=== PATIENT | male | born 1945 | race Caucasian/White ===

== ENCOUNTER 2016-10-05 05:46 | Inpatient (IN) ==
[2016-10-05] MEDS ORDERED: Ondansetron 4 MG/2 ML VIAL IVP ONE (06:14)
[2016-10-05] MEDS ORDERED: *HR* Morphine 2 MG/ML SYRINGE IVP ONE ×2 (06:14→09:39)
[2016-10-05] MEDS ORDERED: 0.9 % Sodium Chloride 1,000 ML IVC ONE (06:14)
--- NOTE | 2016-10-05 06:18 | Emergency Department Note ---
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 Patients currently receiving chemoradiation for his colon cancer. He said 2 treatments most recent last Tuesday. His oncologist is Dr. Flores. He takes Zoloda chemotherapy over the past few days he has missed his doses. This is due to his nausea dry heaving. This morning he woke up with unbearable pain and nausea. He has taken a [place] without any relief. Describes a sharp throbbing pain mostly around his colostomy site puts also diffusely over his entire abdomen. He has had some loose stool through his colostomy bag but now it has become more formed. Denies any fever, chills, chest pain, shortness of breath. Denies any urinary symptoms. His next appointment with Dr. Flores is this upcoming Tuesday. Pain Scale: 10 - Related Data Home Medications Medication Instructions Recorded Confirmed Atorvastatin Calcium [Lipitor] 80 mg PO HS 11/07/14 09/29/16 Cyanocobalamin (Vitamin B-12) 1,000 mcg PO DAILY 11/08/14 09/29/16 [Vitamin B-12] Aspirin Enteric Coated [Aspirin EC] 81 mg PO DAILY 12/31/14 09/29/16 hydroCHLOROthiazide 25 mg PO DAILY 05/23/15 09/29/16 [Hydrochlorothiazide] Cholecalciferol (D-3) [Vitamin D] 1,000 unit PO DAILY 07/27/16 09/29/16 Mv-Mn/FA/Vit K/Lycop/Lut/Coq10 1 each PO DAILY 07/27/16 09/29/16 [Daily Multivitamin Capsule] Dexamethasone 2 mg PO QDPC 09/29/16 09/29/16 HYDROcodone/Acet 10/325 mg 1 tab PO Q6H PRN 09/29/16 09/29/16 Levetiracetam 500 mg PO BID 09/29/16 09/29/16 Previous Rx's Medication Instructions Recorded Ascorbic Acid [Vitamin C] 500 mg PO DAILY #30 tablet 12/31/14 Capecitabine [Xeloda] 3 tab PO BID #84 tablet 08/10/16 Omeprazole [PriLOSEC] 20 mg PO DAILY #30 cap 08/10/16 Ondansetron HCl [Zofran] 4 mg PO Q4HR #30 tablet 08/10/16 Prochlorperazine Maleate 10 mg PO Q6H PRN #30 tablet 08/10/16 [Compazine] Gabapentin [Neurontin] 300 mg PO TID #90 capsule 09/14/16 Allergies Allergy/AdvReac Type Severity Reaction Status Date / Time azithromycin Allergy Unknown unknown Verified 07/27/16 15:11 All systems ED: reviewed and negative except as stated. Constitutional: Denies: fever, chills Cardiovascular: Denies: chest pain Respiratory: Denies: cough, dyspnea Gastrointestinal: Reports: abdominal pain, nausea, vomiting, diarrhea Genitourinary: Denies: urgency, dysuria, frequency Musculoskeletal: Denies: back pain, neck pain Integumentary: Denies: rash, abrasion Neurological: Denies: headache Abdominal Pain PMH - Past Medical History Medical history: Reports: cancer, coronary artery disease, GERD, hyperlipidemia , hypertension Male Surgical History: Reports: cancer surgery, cholecystectomy, colectomy, colostomy, herniorrhaphy Psychiatric history: Reports: anxiety - Social History Smoking status: Never smoker Alcohol use: Reports: none Drug use: Reports: none Physical Exam - General Limitations: no limitations General appearance: alert, in no apparent distress, other (ILL APPEARING) - Head Head exam: atraumatic, normocephalic, normal inspection - Eye Eye exam: Present: normal appearance, PERRL, EOMI - ENT ENT exam: normal exam, normal oropharynx, mucous membranes dry - Neck Neck exam: Present: normal inspection, full ROM, trachea midline - Chest Chest inspection: Present: normal inspection, symmetric chest wall rise - Respiratory Respiratory exam: Present: normal lung sounds bilaterally - Cardiovascular Cardiovascular exam: Present: regular rate, normal rhythm, normal heart sounds - Abdominal Exam Abdominal exam: Present: soft, tenderness, guarding, normal bowel sounds, other (COLOSTOMY MID ABDOMEN). Absent: Non-Tender, distention, rebound, rigidity Abdominal tenderness: Present: diffuse, moderate - Extremities Exam Extremities exam: Present: normal inspection, full ROM, normal capillary refill. Absent: tenderness, pedal edema, calf tenderness - Back Exam Back exam: Present: normal inspection, full ROM. 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 Complains of intractable nausea vomiting and abdominal pain. Patient has taken multiple doses of antibiotics as well as evaluation in the office for further medication. Currently on chemoradiation. Hemodynamically stable. Abdomen is distended with guarding and diffusely tender. Morphine for pain Zofran for nausea. Basic labs, urinalysis and CT abdomen and pelvis. - Reevaluation(s) Reevaluation #1: CT abdomen and pelvis reveals peritoneum in suspected perforated viscous unknown location. There is also small bowel obstruction with multiple dilated loops. Patient is in agreement with admission. Surgery has been paged. - Consultations Consultation #1: Spoke to radiologist Dr. Kay, reports free air through the upper abdomen without known source, no recent abdominal surgery. Findings are also suggestive of SBO. Time: 06:49 Consultation #2: Spoke to Dr. Valentine, surgeon on-call, due to the limited CT scan without contrast unable to identify perforation. She will review the images and call for further orders. Patient will have NG tube placed. He has been started on Zosyn for antibiotic coverage. Time: 07:12 Consultation #3: Dr. Valentine in the ED evaluating the patient. Patient signed out to daytime physician Dr. Gilmore for further management. NG tube ordered for placement. Patient has been admitted to the surgical service. Consult to oncology Dr. Flores. Vital Signs Temperature 97.5 F L 10/05/16 05:48 Pulse Rate 90 10/05/16 05:48 Respiratory Rate 18 10/05/16 05:48 Blood Pressure 117/64 10/05/16 05:48 O2 Sat by Pulse Oximetry 92 10/05/16 05:48 Temperature 97.5 F L 10/05/16 05:48 Pulse Rate 99 10/05/16 08:28 Respiratory Rate 16 10/05/16 08:28 Blood Pressure 108/63 10/05/16 08:28 O2 Sat by Pulse Oximetry 94 10/05/16 08:28 Oxygen Delivery Oxygen Delivery Room Air Abdominal Pain - Medical Records Medical records reviewed: Yes I reviewed the patient's medical records. - Lab Data Lab results reviewed: Yes I reviewed the patient's lab results. Result diagrams: 10/05/16 07:02 10/05/16 07:02 Lab Results 10/05/16 10/05/16 10/05/16 Range/Units 07:02 07:02 07:02 WBC 2.3 L D (4.3-11.1) K/mcL RBC 3.82 L (4.19-5.50) M/mcL Hgb 12.3 L (12.9-16.9) g/dL Hct 34.8 L (37.5-50.1) % MCV 91.1 (83.0-100.0) fL MCH 32.2 (28.0-33.3) pg MCHC 35.3 (31.6-35.5) g/dL RDW 15.7 H (11.5-14.5) % Plt Count 225 (140-400) K/mcL MPV 9.1 L (9.4-12.4) fL Seg Neutrophils % 72.0 % Band Neutrophils % 8.0 H (0-4) % Lymphocytes % 10.0 % Monocytes % 8.0 % Eosinophils % 2.0 % Neutrophils # 1.8 (1.6-8.9) K/mcL Lymphocytes # 0.2 L (0.6-4.6) K/mcL Monocytes # 0.2 (0.0-1.3) K/mcL Eosinophils # 0.1 (0.0-0.6) K/mcL Platelet Estimate Normal (Normal) Sodium 126 L (136-145) mEq/L Potassium 4.4 (3.5-4.5) mEq/L Chloride 91 L (98-109) mEq/L Carbon Dioxide 27 (19-29) mEq/L BUN 26 (8-26) mg/dL Creatinine 0.74 (0.72-1.25) mg/dL Est GFR ( Amer) > 60 (> 60) Est GFR (Non-Af Amer) > 60 (> 60) BUN/Creatinine Ratio 35 H (6-26) Glucose 104 H (70-99) mg/dL Calculated Osmolality 267 L (280-300) Lactic Acid 1.7 (0.5-2.2) mmol/L Calcium 9.3 (8.6-10.8) mg/dL Total Bilirubin 3.6 H (0.2-1.2) mg/dL Direct Bilirubin 1.1 H (0.0-0.5) mg/dL Indirect Bilirubin 2.5 H (0.0-1.2) mg/dL AST 25 (5-34) Units/L ALT 26 (0-55) Units/L Alkaline Phosphatase 89 (38-126) Units/L Serum Total Protein 5.8 L (6.0-8.3) g/dL Albumin 2.4 L (3.5-5.0) g/dL Globulin 3.4 (2.4-3.5) g/dL Albumin/Globulin Ratio 0.7 L (1.1-2.2) Lipase < 10 (8-78) Units/L - Radiology Data Radiology results reviewed: Yes I reviewed the patient's radiology results. Abdomen/Pelvis CT 10/05/16 06:14 IMPRESSION: 1. Pneumoperitoneum consistent with a perforated viscus. 2. Small bowel obstruction. 3. Indeterminate right adrenal gland nodule. This was not present on the study from 02/26/2014. Critical results were called by Dr. Lucho Kay MD to Rahul Pacheco on 10/05/2016 at 06:45. D/ / Lucho Kay MD / Lucho Kay MD Interpreting Provider: Lucho Kay MD Attestation Statement - Attestation Attestation: I examined this patient and my medical decision-making was reviewed with the MANUFACTURING ENGINEER [employer]SEMBLY/PA/Advanced Practice Nurse/Resident Physician. I agree with the documented findings, disposition and treatment plan as described except to the extent set forth below.71-year-old comes in with abdominal pain has metastatic colon cancer. abdomen he is diffusely tender. CT scan shows free air with perforation. Surgery was consult at who did come down Dr. Valentine saw the patient and will admit. Was remained stable.
[2016-10-05] MEDS ORDERED: Piperacillin/Tazobactam 3.375 GM in D5% in Water (Mini-Bag+) 100 ML IVPB ONE (06:48)
[2016-10-05 07:14] LABS: Hematocrit 34.8 % (37.5-50.1); Hemoglobin 12.3 g/dL (12.9-16.9); Lymphocytes # 0.2 K/mcL (0.6-4.6); Mean Corpuscular HGB Conc 35.3 g/dL (31.6-35.5); Mean Corpuscular Hemoglobin 32.2 pg (28.0-33.3); Mean Corpuscular Volume 91.1 fL (83.0-100.0); Mean Platelet Volume 9.1 fL (9.4-12.4); Platelet Count 225 K/mcL (140-400); Red Blood Count 3.82 M/mcL (4.19-5.50); Red Cell Distribution Width 15.7 % (11.5-14.5)
[2016-10-05 07:23] LABS: Alanine Aminotransferase 26 Units/L (0-55); Albumin 2.4 g/dL (3.5-5.0); Albumin/Globulin Ratio 0.7 (1.1-2.2); Alkaline Phosphatase 89 Units/L (38-126); Aspartate Amino Transferase 25 Units/L (5-34); BUN/Creatinine Ratio 35 (6-26); Bilirubin,Direct 1.1 mg/dL (0.0-0.5); Bilirubin,Indirect 2.5 mg/dL (0.0-1.2); Bilirubin,Total 3.6 mg/dL (0.2-1.2); Blood Urea Nitrogen 26 mg/dL (8-26); Calcium 9.3 mg/dL (8.6-10.8); Carbon Dioxide 27 mEq/L (19-29); Chloride 91 mEq/L (98-109); Globulin 3.4 g/dL (2.4-3.5); Glucose 104 mg/dL (70-99); Osmolality,Calculated 267 (280-300); Potassium 4.4 mEq/L (3.5-4.5); Sodium 126 mEq/L (136-145); Total Protein 5.8 g/dL (6.0-8.3); eGFR For African Americans > 60 (> 60); eGFR For Non-African Americans > 60 (> 60)
[2016-10-05 07:31] LABS: Lipase < 10 Units/L (8-78)
[2016-10-05 07:50] LABS: Eosinophils # 0.1 K/mcL (0.0-0.6); Monocytes # 0.2 K/mcL (0.0-1.3); Neutrophils # 1.8 K/mcL (1.6-8.9); Platelet Estimate Normal (Normal)
[2016-10-05] MEDS ORDERED: 0.9 % Sodium Chloride 1,000 ML IVC SCH (09:45)
[2016-10-05] MEDS ORDERED: Ondansetron 4 MG/2 ML VIAL IVP PRN (12:13)
[2016-10-05] MEDS ORDERED: *HR* Promethazine 25 MG/ML VIAL IVP PRN (12:13)
[2016-10-05] MEDS ORDERED: Naloxone 0.4 MG/ML INJ IVP PRN (12:13)
[2016-10-05] MEDS: 0.9 % Sodium Chloride 1,000 ML IVC SCH ×2 (12:50→20:04)
[2016-10-05] MEDS: Pantoprazole 40 MG VIAL IVP SCH (12:53)
[2016-10-05] MEDS: Fluconazole 200 MG/100 ML 200 MG/100 ML BAG IVPB SCH (13:09)
--- NOTE | 2016-10-05 13:16 | General Surg History&Physical ---
<Miriam Jeter - Last Filed: 10/05/16 13:33> Date of Encounter: 10/05/16 Time of Encounter: 13:00 Assessment and Plan (1) Pneumoperitoneum Current Visit: Yes Status: Acute The assessment and plan as outlined above was discussed with the patient and/or family members who expressed understanding and agreement. All questions were answered. CT reviewed per Dr. Valentine and suspect perforated diverticulum Will treat with conservative measures including: Bowel rest NG tube to low intermittent wall suction IV fluids- 120 mL's per hour IV antibiotics- Zosyn Supportive care and pain control Serial abdominal exams PPI therapy daily Incentive spirometer every 1 hour while awake No indication for urgent or emergent surgical intervention at this time Dr. Valentine did discuss with the patient and his that he is a poor surgical candidate (2) Small bowel obstruction Current Visit: Yes Status: Acute The assessment and plan as outlined above was discussed with the patient and/or family members who expressed understanding and agreement. All questions were answered. We will continue to treat with conservative measures including: Bowel rest NG tube to low intermittent wall suction IV fluids- 120 mL's per hour Serial abdominal exams (3) History of rectal cancer Current Visit: Yes Status: Chronic The assessment and plan as outlined above was discussed with the patient and/or family members who expressed understanding and agreement. All questions were answered. Patient has a history of colorectal cancer with metastasis to the lung and brain He is status post resection of his lung as well as a recent craniotomy and resection of his brain tumor Patient has been following with Dr. Flores with oncology- he received his most recent chemotherapy treatment 6 days ago (4) Hypertension Current Visit: Yes Status: Chronic The assessment and plan as outlined above was discussed with the patient and/or family members who expressed understanding and agreement. All questions were answered. Normotensive at this time We will continue to monitor and treat as necessary Qualifiers: Hypertension type: essential hypertension Qualified Code(s): I10 - Essential (primary) hypertension (5) DVT prophylaxis Current Visit: Yes Status: Acute The assessment and plan as outlined above was discussed with the patient and/or family members who expressed understanding and agreement. All questions were answered. Heparin 5000 units subcutaneous 3 times a day for DVT prophylaxis May ambulate hallways with assistance History of Present Illness Chief complaint: Abdominal pain with associated nausea HPI: Mr. Romano is a 71 year old male with a complex medical history including colorectal cancer with metastatic disease to the lung and brain. He reports onset of abdominal pain 48 hours ago. The pain is located around the left lower quadrant. It has been persistent since onset. He does admit to nausea with dry heaves and 1 episode of vomiting. Denies any hematemesis or coffee ground emesis. Denies having pain like this in the past. He states that he has no appetite and has not had much to eat or drink in the past 2 days. Denies any fevers/chills. He states that his bowel movements have slowed down through his colostomy. He has had very minimal output in the past 24 hours. Denies flatus from colostomy. Denies any difficult with urination. Denies any chest pains or shortness of breath. He has had a CT scan which shows concerns for SBO with mesenteric stranding, perforated viscous with intra-abdominal free air. He is currently undergoing chemotherapy for his metastatic colorectal cancer. He received his last dose of chemotherapy 6 days ago. Past Med Surg Social Fam HX - Past Medical History Medical history: cancer (metastatic colorectal cancer (lung and brain metastasis s/p resection)), coronary artery disease, GERD, hyperlipidemia, hypertension, other (left renal cyst) Psychiatric history: anxiety - Past Surgical History Surgical History: cholecystectomy, colectomy (colon resection with colostomy for colorectal cancer), colostomy, herniorrhaphy (bilateral inguinal), orthopedic, other (left rotator cuff repair; right knee arthroscopy; right total shoulder replacement), other (colonoscopy; facial repair with plate and left arm reconstruction after industrial accident; pelvic floor rebuild; left lobectomy for metastatic lesion; craniotomy with resection for metastatic lesion ) - Social History Smoking Status: Never smoker Smokeless Tobacco Status: No Alcohol use: none Drug use: none Current living situation: Home - Independent Activity Level: Independent ambulation - Family History Mother Living Status: Hx Family Cancer: Yes (uterine ca) Hx Family Endocrine Disorder: Yes (DM) Father Living Status: Hx Family Cardiac Disorders: Yes (CT) Medications and Allergies Cyanocobalamin (Vitamin B-12) [Vitamin B-12] 1,000 mcg PO DAILY 11/08/14 [ History] Ascorbic Acid [Vitamin C] 500 mg PO DAILY #30 tablet 12/31/14 [Rx] Aspirin Enteric Coated [Aspirin EC] 81 mg PO DAILY 12/31/14 [History] Cholecalciferol (D-3) [Vitamin D] 1,000 unit PO DAILY 07/27/16 [History] Mv-Mn/FA/Vit K/Lycop/Lut/Coq10 [Daily Multivitamin Capsule] 1 tab PO DAILY 07/27 [History] Omeprazole [PriLOSEC] 20 mg PO DAILY #30 cap 08/10/16 [Rx] Ondansetron HCl [Zofran] 4 mg PO Q4HR #30 tablet 08/10/16 [Rx] Prochlorperazine Maleate [Compazine] 10 mg PO Q6H PRN #30 tablet 08/10/16 [Rx] Gabapentin [Neurontin] 300 mg PO TID #90 capsule 09/14/16 [Rx] Dexamethasone [Decadron] 2 mg PO BID 09/29/16 [History] LevETIRAcetam [Keppra] 500 mg PO BID 09/29/16 [History] Diclofenac Sodium [Voltaren] 1 appl TP QID 10/05/16 [History] LORazepam [Ativan] 0.5 mg PO QID PRN 10/05/16 [History] Allergies azithromycin Allergy (Unknown, Verified 07/27/16 15:11) unknown Review of Systems All systems PM: reviewed and no additional remarkable complaints except as stated (in the HPI) All systems PM: A 10-system review of systems was performed and is negative for pertinent findings except as documented above in the HPI. General Surgery Exam Initial Vital Signs Temp Pulse Resp BP Pulse Ox 97.5 F L 90 18 117/64 92 10/05/16 05:48 10/05/16 05:48 10/05/16 05:48 10/05/16 05:48 10/05/16 05:48 - General physical appearance well developed, well nourished, no distress, moderate pain - Eyes PERRL, normal ocular movement - ENT normal mucosa, atraumatic, normocephalic - Neck trachea midline - Respiratory normal respiratory effort, clear to auscultation - Cardiovascular Cardiovascular exam: Present: RRR, tachycardia - Abdomen Abdomen general surgery: Present: soft, tender (moderately tender), wound ( colostomy with minimal amount of soft stool noted; NG tube to LIWS) Abdominal Tenderness: Present: LLQ - Integumentary Integumentary general surgery: Present: warm and dry - Neurologic Present: CN 2-12 grossly intact - Psychiatric Psychiatric general surgery: Present: appropriate, oriented to person, oriented to place, oriented to time, speech is normal, memory intact Results - Labs 10/05/16 07:02 10/05/16 07:02 Abnormal lab results WBC 2.3 K/mcL (4.3-11.1) L D 10/05/16 07:02 RBC 3.82 M/mcL (4.19-5.50) L 10/05/16 07:02 Hgb 12.3 g/dL (12.9-16.9) L 10/05/16 07:02 Hct 34.8 % (37.5-50.1) L 10/05/16 07:02 RDW 15.7 % (11.5-14.5) H 10/05/16 07:02 MPV 9.1 fL (9.4-12.4) L 10/05/16 07:02 Band Neutrophils % 8.0 % (0-4) H 10/05/16 07:02 Lymphocytes # 0.2 K/mcL (0.6-4.6) L 10/05/16 07:02 Sodium 126 mEq/L (136-145) L 10/05/16 07:02 Chloride 91 mEq/L (98-109) L 10/05/16 07:02 BUN/Creatinine Ratio 35 (6-26) H 10/05/16 07:02 Glucose 104 mg/dL (70-99) H 10/05/16 07:02 Calculated Osmolality 267 (280-300) L 10/05/16 07:02 Total Bilirubin 3.6 mg/dL (0.2-1.2) H 10/05/16 07:02 Direct Bilirubin 1.1 mg/dL (0.0-0.5) H 10/05/16 07:02 Indirect Bilirubin 2.5 mg/dL (0.0-1.2) H 10/05/16 07:02 Serum Total Protein 5.8 g/dL (6.0-8.3) L 10/05/16 07:02 Albumin 2.4 g/dL (3.5-5.0) L 10/05/16 07:02 Albumin/Globulin Ratio 0.7 (1.1-2.2) L 10/05/16 07:02 All other labs normal. - Imaging CT scan - abdomen: report reviewed CT scan - pelvis: report reviewed Additional studies: Abdomen/Pelvis CT 10/05/16 06:14 IMPRESSION: 1. Pneumoperitoneum consistent with a perforated viscus. 2. Small bowel obstruction. 3. Indeterminate right adrenal gland nodule. This was not present on the study from 02/26/2014. Critical results were called by Dr. Lucho Kay MD to Rahul Pacheco on 10/05/2016 at 06:45. D/ / Lucho Kay MD / Lucho Kay MD Interpreting Provider: Lucho Kay MD - Attending Attestation I examined this patient and my medical decision-making was reviewed with the MANAGER FARM/PA/Advanced Practice Nurse/Resident Physician. I agree with the documented findings, disposition and treatment plan as described except to the extent set forth below. <SergeEarlLoly L - Last Filed: 10/07/16 07:55> Date of Encounter: 10/05/16 Time of Encounter: 07:45 Assessment and Plan (1) Abdominal pain Current Visit: Yes Status: Acute The assessment and plan as outlined above was discussed with the patient and/or family members who expressed understanding and agreement. All questions were answered. prn pain medication Qualifiers: Abdominal location: left lower quadrant Qualified Code(s): R10.32 - Left lower quadrant pain (2) DVT prophylaxis Current Visit: Yes Status: Acute The assessment and plan as outlined above was discussed with the patient and/or family members who expressed understanding and agreement. All questions were answered. (3) Pneumoperitoneum Current Visit: Yes Status: Acute The assessment and plan as outlined above was discussed with the patient and/or family members who expressed understanding and agreement. All questions were answered. (4) History of rectal cancer Current Visit: Yes Status: Chronic The assessment and plan as outlined above was discussed with the patient and/or family members who expressed understanding and agreement. All questions were answered. (5) Hypertension Current Visit: Yes Status: Chronic The assessment and plan as outlined above was discussed with the patient and/or family members who expressed understanding and agreement. All questions were answered. Qualifiers: Hypertension type: essential hypertension Qualified Code(s): I10 - Essential (primary) hypertension (6) Drug therapy continued Current Visit: No Status: Acute The assessment and plan as outlined above was discussed with the patient and/or family members who expressed understanding and agreement. All questions were answered. History of Present Illness HPI: Mr. Romano is a 71 year old male Past Med Surg Social Fam HX - Past Medical History Source: patient Medical history: cancer Review of Systems All systems PM: A 10-system review of systems was performed and is negative for pertinent findings except as documented above in the HPI. General Surgery Exam Initial Vital Signs Temp Pulse Resp BP Pulse Ox 97.5 F L 90 18 117/64 92 10/05/16 05:48 10/05/16 05:48 10/05/16 05:48 10/05/16 05:48 10/05/16 05:48 - General physical appearance well developed, well nourished, moderate distress, moderate pain - Eyes PERRL, normal ocular movement - ENT normal mucosa, normocephalic - Neck trachea midline - Respiratory normal expansion, clear to auscultation - Cardiovascular Cardiovascular exam: Present: RRR, tachycardia. Absent: murmurs - Abdomen Abdomen general surgery: Present: bowel sounds present, soft, tender. Absent: distended, guarding, rebound Abdominal Tenderness: Present: LLQ - Integumentary Integumentary general surgery: Present: warm and dry, no abnormal pigmentation. Absent: diaphoresis - Neurologic Present: CN 2-12 grossly intact - Musculoskeletal Present: normal posture - Psychiatric Psychiatric general surgery: Present: A&Ox3, speech is normal Results - Labs 10/07/16 04:43 10/07/16 01:13 Abnormal lab results RBC 2.89 M/mcL (4.19-5.50) L 10/07/16 04:43 Hgb 9.6 g/dL (12.9-16.9) L 10/07/16 04:43 Hct 26.9 % (37.5-50.1) L 10/07/16 04:43 MCHC 35.7 g/dL (31.6-35.5) H 10/07/16 04:43 RDW 15.9 % (11.5-14.5) H 10/07/16 04:43 Sodium 129 mEq/L (136-145) L 10/07/16 01:13 Creatinine 0.52 mg/dL (0.72-1.25) L 10/07/16 01:13 BUN/Creatinine Ratio 38 (6-26) H 10/07/16 01:13 POC Glucose 115 (58-89) H 10/07/16 00:06 Calculated Osmolality 270 (280-300) L 10/07/16 01:13 Calcium 8.5 mg/dL (8.6-10.8) L 10/07/16 01:13 Phosphorus 1.9 mg/dL (2.3-4.7) L 10/07/16 01:13 Total Bilirubin 3.6 mg/dL (0.2-1.2) H 10/05/16 07:02 Direct Bilirubin 1.1 mg/dL (0.0-0.5) H 10/05/16 07:02 Indirect Bilirubin 2.5 mg/dL (0.0-1.2) H 10/05/16 07:02 Serum Total Protein 5.8 g/dL (6.0-8.3) L 10/05/16 07:02 Albumin 2.4 g/dL (3.5-5.0) L 10/05/16 07:02 Albumin/Globulin Ratio 0.7 (1.1-2.2) L 10/05/16 07:02 Prealbumin 7.0 mg/dL (18.0-45.0) L 10/06/16 04:30 Diabetes panel 10/07/16 Range/Units 01:13 Sodium 129 L (136-145) mEq/L Potassium 4.0 (3.5-4.5) mEq/L Chloride 103 (98-109) mEq/L Carbon Dioxide 19 (19-29) mEq/L BUN 20 (8-26) mg/dL Creatinine 0.52 L (0.72-1.25) mg/dL Glucose 80 (70-99) mg/dL Calcium 8.5 L (8.6-10.8) mg/dL Calcium panel 10/07/16 Range/Units 01:13 Calcium 8.5 L (8.6-10.8) mg/dL Phosphorus 1.9 L (2.3-4.7) mg/dL Pituitary panel 10/07/16 Range/Units 01:13 Sodium 129 L (136-145) mEq/L Potassium 4.0 (3.5-4.5) mEq/L Chloride 103 (98-109) mEq/L Carbon Dioxide 19 (19-29) mEq/L BUN 20 (8-26) mg/dL Creatinine 0.52 L (0.72-1.25) mg/dL Glucose 80 (70-99) mg/dL Calcium 8.5 L (8.6-10.8) mg/dL Adrenal panel 10/07/16 Range/Units 01:13 Sodium 129 L (136-145) mEq/L Potassium 4.0 (3.5-4.5) mEq/L Chloride 103 (98-109) mEq/L Carbon Dioxide 19 (19-29) mEq/L BUN 20 (8-26) mg/dL Creatinine 0.52 L (0.72-1.25) mg/dL Glucose 80 (70-99) mg/dL Calcium 8.5 L (8.6-10.8) mg/dL All other labs normal. - Imaging CT scan - abdomen: report reviewed, image reviewed CT scan - pelvis: report reviewed, image reviewed - Attending Attestation I examined this patient and my medical decision-making was reviewed with the MANAGER FARM/PA/Advanced Practice Nurse/Resident Physician. I agree with the documented findings, disposition and treatment plan as described except to the extent set forth below.
[2016-10-05] MEDS: Piperacillin/Tazobactam 3.375 GM in D5% in Water (Mini-Bag+) 100 ML IVPB SCH (15:22)
[2016-10-05] MEDS: *HR* Heparin 5,000 UNIT/ML VIAL SQ SCH (15:23)
[2016-10-05] MEDS: *HR* HYDROmorphone (PF) 1 MG/ML SYRINGE IVP PRN ×2 (18:04→21:46)
[2016-10-06] MEDS: *HR* HYDROmorphone (PF) 1 MG/ML SYRINGE IVP PRN ×5 (00:45→20:14)
[2016-10-06] MEDS: *HR* Heparin 5,000 UNIT/ML VIAL SQ SCH ×3 (00:45→15:24)
[2016-10-06] MEDS: Piperacillin/Tazobactam 3.375 GM in D5% in Water (Mini-Bag+) 100 ML IVPB SCH ×3 (00:45→15:24)
[2016-10-06] MEDS: 0.9 % Sodium Chloride 1,000 ML IVC SCH ×2 (04:40→15:27)
[2016-10-06 05:00] LABS: Basophils # 0.1 K/mcL (0.0-0.2); Basophils % 0.9 %; Eosinophils % 0.5 %; Immature Granulocytes % 1.2 % (0-4); Lymphocytes # 0.2 K/mcL (0.6-4.6); Lymphocytes % 3.3 %; Mean Corpuscular HGB Conc 34.5 g/dL (31.6-35.5); Mean Corpuscular Hemoglobin 32.7 pg (28.0-33.3); Mean Corpuscular Volume 94.8 fL (83.0-100.0); Mean Platelet Volume 9.8 fL (9.4-12.4); Monocytes # 0.2 K/mcL (0.0-1.3); Monocytes % 3.4 %; Neutrophils # 5.3 K/mcL (1.6-8.9); Platelet Count 145 K/mcL (140-400); Red Blood Count 3.06 M/mcL (4.19-5.50); Segmented Neutrophils % 90.7 %
[2016-10-06 05:01] LABS: BUN/Creatinine Ratio 33 (6-26); Blood Urea Nitrogen 19 mg/dL (8-26); Calcium 8.4 mg/dL (8.6-10.8); Carbon Dioxide 25 mEq/L (19-29); Chloride 100 mEq/L (98-109); Glucose 84 mg/dL (70-99); Magnesium 1.3 mg/dL (1.6-2.6); Osmolality,Calculated 267 (280-300); Phosphorous 2.2 mg/dL (2.3-4.7); Potassium 4.5 mEq/L (3.5-4.5); Sodium 128 mEq/L (136-145); eGFR For African Americans > 60 (> 60); eGFR For Non-African Americans > 60 (> 60)
[2016-10-06 05:43] LABS: Platelet Estimate Normal (Normal)
[2016-10-06] MEDS ORDERED: Magnesium Sulfate 2 GM in D5% in Water 100 ML IVPB ONE (08:14)
[2016-10-06] MEDS: Pantoprazole 40 MG VIAL IVP SCH (08:15)
[2016-10-06] MEDS: Fluconazole 200 MG/100 ML 200 MG/100 ML BAG IVPB SCH (08:15)
[2016-10-06] MEDS: *HR* LORazepam 2 MG/ML VIAL IVP PRN (09:28)
--- NOTE | 2016-10-06 09:48 | General Surgery Progress Note ---
<Brent Pino - Last Filed: 10/06/16 09:46> Date of Encounter: 10/06/16 Time of Encounter: 09:46 - Assessment and Plan (1) Pneumoperitoneum Current Visit: Yes Status: Acute Patient is not a surgical candidate at this time d/t chemotherapy regimen for metastatic rectal cancer. Bevacizumab is the likely culprit for perforation. 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 - Likely Bevacizumab being the culprit for his pneumoperitineum Followed by Oncology (Dr. Flores) (4) DVT prophylaxis Current Visit: Yes Status: Acute Heparin 5000 unites SQ TID. Ambulate with assistance Subjective Patient reports: no new complaints, feels better, pain is less, flatus ( colostomy), no bowel movement, afebrile Objective Vital Signs - Last 8 Hours Temp Pulse Resp BP Pulse Ox 10/06/16 07:50 91 10/06/16 07:30 99.4 F 98 20 116/72 96 10/06/16 06:52 98.6 F 80 18 121/73 98 10/06/16 05:40 98.6 F 79 15 128/75 98 10/06/16 04:00 86 Intake and Output 10/05/16 10/06/16 10/06/16 23:59 07:59 15:59 Intake Total 1055 / 1055 1100 / 1100 100 / 100 Output Total 300 / 300 0 / 0 Balance 755 / 755 1100 / 1100 100 / 100 Intake: IV Fluids 1055 / 1055 1100 / 1100 100 / 100 0.9 % Sodium Chloride 1, 955 / 955 1000 / 1000 000 ML @ 120 mls/hr IVC . Q8H20M [facility] Rx#:[id number] Diflucan Premix 200 MG/ 100 / 100 100 ML 200 mg In 100 ml @ 100 mls/hr IVPB DAILY [facility] Rx#:[id number] Zosyn 3.375 GM In 100 / 100 100 / 100 Dextrose 5% (Minibag+) 100 ML 100 ML @ 25 mls/hr IVPB Q8HR [facility] Rx#: [id number] Output: Urine 300 / 300 Gastric Tube Lavage 0 / 0 0 / 0 Amount Left Nare 0 / 0 0 / 0 Other: Meal npo Weight 91.2 kg Blood Glucose* 90 79 - General physical appearance well developed, well nourished, no distress - Eyes normal ocular movement - ENT normal mucosa (NGT present) - Neck Neck exam: trachea midline - Respiratory normal respiratory effort, clear to auscultation - Cardiovascular Cardiovascular exam: Present: irregular rhythm - Abdomen Abdomen: Present: bowel sounds present (faint), soft, non tender, wound ( colostomy present with minimal stool present) - Neurologic CN 2-12 grossly intact - Psychiatric oriented to time, oriented to person, oriented to place, speech is normal, memory intact - Labs 10/06/16 04:30 10/06/16 04:30 Diabetes panel 10/06/16 Range/Units 04:30 Sodium 128 L (136-145) mEq/L Potassium 4.5 (3.5-4.5) mEq/L Chloride 100 (98-109) mEq/L Carbon Dioxide 25 (19-29) mEq/L BUN 19 (8-26) mg/dL Creatinine 0.58 L (0.72-1.25) mg/dL Glucose 84 (70-99) mg/dL Calcium 8.4 L (8.6-10.8) mg/dL Calcium panel 10/06/16 Range/Units 04:30 Calcium 8.4 L (8.6-10.8) mg/dL Phosphorus 2.2 L (2.3-4.7) mg/dL Pituitary panel 10/06/16 Range/Units 04:30 Sodium 128 L (136-145) mEq/L Potassium 4.5 (3.5-4.5) mEq/L Chloride 100 (98-109) mEq/L Carbon Dioxide 25 (19-29) mEq/L BUN 19 (8-26) mg/dL Creatinine 0.58 L (0.72-1.25) mg/dL Glucose 84 (70-99) mg/dL Calcium 8.4 L (8.6-10.8) mg/dL Adrenal panel 10/06/16 Range/Units 04:30 Sodium 128 L (136-145) mEq/L Potassium 4.5 (3.5-4.5) mEq/L Chloride 100 (98-109) mEq/L Carbon Dioxide 25 (19-29) mEq/L BUN 19 (8-26) mg/dL Creatinine 0.58 L (0.72-1.25) mg/dL Glucose 84 (70-99) mg/dL Calcium 8.4 L (8.6-10.8) mg/dL Consult Discharge Plan - Plan Referrals: Marisol Carreon, [employer]ELOP[employer] MANAGER [Primary Care Provider] - 10/18/16 10:00 am <Loly Valentine - Last Filed: 10/07/16 08:00> Date of Encounter: 10/06/16 Time of Encounter: 12:00 - Assessment and Plan (1) Abdominal pain Current Visit: Yes Status: Acute pain is almost nonexistant at this point Qualifiers: Abdominal location: left lower quadrant Qualified Code(s): R10.32 - Left lower quadrant pain (2) DVT prophylaxis Current Visit: Yes Status: Acute (3) Pneumoperitoneum Current Visit: Yes Status: Acute would perform surgery for patient if that was necessary, his recent chemotherapy administration makes him high risk, doesnt make him ineligible for surgery should he need it. patient is improving greatly with conservative therapy continue npo, ivfh prn pain control will advance slowly (4) History of rectal cancer Current Visit: Yes Status: Chronic (5) Hypertension Current Visit: Yes Status: Chronic normotensive, monitor Qualifiers: Hypertension type: essential hypertension Qualified Code(s): I10 - Essential (primary) hypertension Subjective Patient reports: no new complaints, feels better, still having pain, pain is less, flatus, no bowel movement Objective Vital Signs - Last 8 Hours Temp Pulse Resp BP Pulse Ox 10/07/16 06:20 98.1 F 90 17 130/83 95 10/07/16 04:15 93 10/07/16 00:00 97.7 F 102 16 139/84 94 Intake and Output 10/06/16 10/06/16 10/07/16 15:59 23:59 07:59 Intake Total 304 / 304 100 / 100 1100 / 1100 Output Total 375 / 375 250 / 250 Balance -71 / -71 -150 / -150 1100 / 1100 Intake: IV Fluids 304 / 304 100 / 100 1100 / 1100 0.9 % Sodium Chloride 1, 1000 / 1000 000 ML @ 90 mls/hr IVC . Q11H7M [facility] Rx#:[id number] Diflucan Premix 200 MG/ 100 / 100 100 ML 200 mg In 100 ml @ 100 mls/hr IVPB DAILY [facility] Rx#:[id number] Magnesium Sulfate 2 GM In 104 / 104 Dextrose 5% 100 ML @ 100 mls/hr IVPB ONCE ONE Rx# :[id number] Zosyn 3.375 GM In 100 / 100 100 / 100 100 / 100 Dextrose 5% (Minibag+) 100 ML 100 ML @ 25 mls/hr IVPB Q8HR [facility] Rx#: [id number] Output: Urine 375 / 375 250 / 250 Gastric Tube Lavage 0 / 0 0 / 0 Amount Left Nare 0 / 0 0 / 0 Other: Meal npo Blood Glucose* 84 91 93 - General physical appearance well developed, well nourished, no distress - Eyes PERRL, normal ocular movement - ENT normal mucosa, atraumatic - Neck Neck exam: trachea midline - Respiratory normal expansion, clear to auscultation - Cardiovascular Cardiovascular exam: Present: irregular rhythm - Abdomen Abdomen: Present: bowel sounds present, soft, non tender - Integumentary no rash, no growths - Neurologic CN 2-12 grossly intact - Musculoskeletal normal posture - Psychiatric oriented to time, oriented to person, oriented to place, speech is normal, memory intact - Labs 10/07/16 04:43 10/07/16 01:13 Diabetes panel 10/07/16 Range/Units 01:13 Sodium 129 L (136-145) mEq/L Potassium 4.0 (3.5-4.5) mEq/L Chloride 103 (98-109) mEq/L Carbon Dioxide 19 (19-29) mEq/L BUN 20 (8-26) mg/dL Creatinine 0.52 L (0.72-1.25) mg/dL Glucose 80 (70-99) mg/dL Calcium 8.5 L (8.6-10.8) mg/dL Calcium panel 10/07/16 Range/Units 01:13 Calcium 8.5 L (8.6-10.8) mg/dL Phosphorus 1.9 L (2.3-4.7) mg/dL Pituitary panel 10/07/16 Range/Units 01:13 Sodium 129 L (136-145) mEq/L Potassium 4.0 (3.5-4.5) mEq/L Chloride 103 (98-109) mEq/L Carbon Dioxide 19 (19-29) mEq/L BUN 20 (8-26) mg/dL Creatinine 0.52 L (0.72-1.25) mg/dL Glucose 80 (70-99) mg/dL Calcium 8.5 L (8.6-10.8) mg/dL Adrenal panel 10/07/16 Range/Units 01:13 Sodium 129 L (136-145) mEq/L Potassium 4.0 (3.5-4.5) mEq/L Chloride 103 (98-109) mEq/L Carbon Dioxide 19 (19-29) mEq/L BUN 20 (8-26) mg/dL Creatinine 0.52 L (0.72-1.25) mg/dL Glucose 80 (70-99) mg/dL Calcium 8.5 L (8.6-10.8) mg/dL - Attending Attestation Loly Valentine MD I examined this patient and my medical decision-making was reviewed with the TOOLMAN/PA/Advanced Practice Nurse/Resident Physician. I agree with the documented findings, disposition and treatment plan as described except to the extent set forth below.
[2016-10-07] MEDS: *HR* Heparin 5,000 UNIT/ML VIAL SQ SCH ×4 (00:36→23:17)
[2016-10-07] MEDS: *HR* HYDROmorphone (PF) 1 MG/ML SYRINGE IVP PRN ×4 (00:36→21:32)
[2016-10-07] MEDS: Piperacillin/Tazobactam 3.375 GM in D5% in Water (Mini-Bag+) 100 ML IVPB SCH ×4 (00:37→23:17)
[2016-10-07 01:43] LABS: BUN/Creatinine Ratio 38 (6-26); Blood Urea Nitrogen 20 mg/dL (8-26); Calcium 8.5 mg/dL (8.6-10.8); Carbon Dioxide 19 mEq/L (19-29); Chloride 103 mEq/L (98-109); Glucose 80 mg/dL (70-99); Magnesium 1.7 mg/dL (1.6-2.6); Osmolality,Calculated 270 (280-300); Phosphorous 1.9 mg/dL (2.3-4.7); Sodium 129 mEq/L (136-145); eGFR For African Americans > 60 (> 60); eGFR For Non-African Americans > 60 (> 60)
[2016-10-07] MEDS: 0.9 % Sodium Chloride 1,000 ML IVC SCH ×2 (02:35→16:00)
[2016-10-07 06:31] LABS: Hematocrit 26.9 % (37.5-50.1); Hemoglobin 9.6 g/dL (12.9-16.9); Mean Corpuscular HGB Conc 35.7 g/dL (31.6-35.5); Mean Corpuscular Hemoglobin 33.2 pg (28.0-33.3); Mean Corpuscular Volume 93.1 fL (83.0-100.0); Mean Platelet Volume 10.4 fL (9.4-12.4); Platelet Count 172 K/mcL (140-400); Red Blood Count 2.89 M/mcL (4.19-5.50); Red Cell Distribution Width 15.9 % (11.5-14.5)
[2016-10-07 07:42] LABS: Eosinophils # 0.2 K/mcL (0.0-0.6); Lymphocytes # 1.3 K/mcL (0.6-4.6); Monocytes # 0.1 K/mcL (0.0-1.3); Neutrophils # 6.4 K/mcL (1.6-8.9); Platelet Estimate Normal (Normal)
[2016-10-07] MEDS: Pantoprazole 40 MG VIAL IVP SCH (07:51)
[2016-10-07] MEDS ORDERED: Sodium Phosphate 30 MMOL in D5% in Water 100 ML IVPB ONE (12:43)
--- NOTE | 2016-10-07 12:47 | General Surgery Progress Note ---
<Miriam Jeter - Last Filed: 10/07/16 12:58> Date of Encounter: 10/07/16 Time of Encounter: 12:30 - Assessment and Plan (1) Pneumoperitoneum Current Visit: Yes Status: Acute CT reviewed per Dr. Valentine and suspect perforated diverticulum Patient doing well and responding to conservative measures: Advance to clear liquids IV fluids- 90 mL's per hour IV antibiotics- Zosyn Supportive care and pain control Serial abdominal exams PPI therapy daily Repeat am labs Incentive spirometer every 1 hour while awake No indication for urgent or emergent surgical intervention at this time Dr. Valentine did discuss with the patient and his that he is a poor surgical candidate (2) Small bowel obstruction Current Visit: Yes Status: Acute Resolving Advance to clear liquids IV fluids- 90mls per hour (3) History of rectal cancer Current Visit: Yes Status: Chronic (4) Hypertension Current Visit: Yes Status: Chronic Normotensive Qualifiers: Hypertension type: essential hypertension Qualified Code(s): I10 - Essential (primary) hypertension (7) DVT prophylaxis Current Visit: Yes Status: Acute Heparin 5,000 units SQ twice daily for DVT prophylaxis Ambulate TID with assistance Subjective Patient reports: no new complaints, feels better, voiding w/o difficulty, no flatus, bowel movement (liquid via colostomy minimal), afebrile Objective Vital Signs - Last 8 Hours Temp Pulse Resp BP Pulse Ox 10/07/16 11:45 98.5 F 79 18 120/71 92 10/07/16 10:27 98.5 F 79 18 120/71 92 10/07/16 09:15 64 10/07/16 07:45 98.5 F 79 18 120/71 92 10/07/16 06:20 98.1 F 90 17 130/83 95 Intake and Output 10/06/16 10/07/16 10/07/16 23:59 07:59 15:59 Intake Total 100 / 100 1100 / 1100 0 / 0 Output Total 250 / 250 0 / 0 0 / 0 Balance -150 / -150 1100 / 1100 0 / 0 Intake: IV Fluids 100 / 100 1100 / 1100 0.9 % Sodium Chloride 1, 1000 / 1000 000 ML @ 90 mls/hr IVC . Q11H7M [facility] Rx#:[id number] Zosyn 3.375 GM In 100 / 100 100 / 100 Dextrose 5% (Minibag+) 100 ML 100 ML @ 25 mls/hr IVPB Q8HR [facility] Rx#: [id number] Oral 0 / 0 0 / 0 Output: Urine 250 / 250 0 / 0 0 / 0 Gastric Tube Lavage 0 / 0 Amount Left Nare 0 / 0 Other: Meal Breakfast Percent of Meal Consumed 0% Blood Glucose* 91 93 74 - General physical appearance well developed, no distress, no pain - Eyes normal ocular movement - ENT normal mucosa, atraumatic, normocephalic - Neck Neck exam: trachea midline - Respiratory normal respiratory effort, clear to auscultation - Cardiovascular Cardiovascular exam: Present: RRR - Abdomen Abdomen: Present: bowel sounds present, soft, non tender, wound (Colostomy with small amount of liquid stool noted) - Neurologic CN 2-12 grossly intact - Psychiatric oriented to time, oriented to person, oriented to place, speech is normal, memory intact - Labs 10/07/16 04:43 10/07/16 01:13 Diabetes panel 10/07/16 Range/Units 01:13 Sodium 129 L (136-145) mEq/L Potassium 4.0 (3.5-4.5) mEq/L Chloride 103 (98-109) mEq/L Carbon Dioxide 19 (19-29) mEq/L BUN 20 (8-26) mg/dL Creatinine 0.52 L (0.72-1.25) mg/dL Glucose 80 (70-99) mg/dL Calcium 8.5 L (8.6-10.8) mg/dL Calcium panel 10/07/16 Range/Units 01:13 Calcium 8.5 L (8.6-10.8) mg/dL Phosphorus 1.9 L (2.3-4.7) mg/dL Pituitary panel 10/07/16 Range/Units 01:13 Sodium 129 L (136-145) mEq/L Potassium 4.0 (3.5-4.5) mEq/L Chloride 103 (98-109) mEq/L Carbon Dioxide 19 (19-29) mEq/L BUN 20 (8-26) mg/dL Creatinine 0.52 L (0.72-1.25) mg/dL Glucose 80 (70-99) mg/dL Calcium 8.5 L (8.6-10.8) mg/dL Adrenal panel 10/07/16 Range/Units 01:13 Sodium 129 L (136-145) mEq/L Potassium 4.0 (3.5-4.5) mEq/L Chloride 103 (98-109) mEq/L Carbon Dioxide 19 (19-29) mEq/L BUN 20 (8-26) mg/dL Creatinine 0.52 L (0.72-1.25) mg/dL Glucose 80 (70-99) mg/dL Calcium 8.5 L (8.6-10.8) mg/dL Consult Discharge Plan - Plan Referrals: Marisol Carreon, [employer] GLAZE MAKER [Primary Care Provider] - 10/18/16 10:00 am (Please follow up as schedule...) - Attending Attestation I examined this patient and my medical decision-making was reviewed with the BOILER TECHNICIAN/PA/Advanced Practice Nurse/Resident Physician. I agree with the documented findings, disposition and treatment plan as described except to the extent set forth below. <Loly Valentine - Last Filed: 10/08/16 12:55> Date of Encounter: 10/07/16 - Assessment and Plan (1) Abdominal pain Current Visit: Yes Status: Acute prn pain control Qualifiers: Abdominal location: left lower quadrant Qualified Code(s): R10.32 - Left lower quadrant pain (2) DVT prophylaxis Current Visit: Yes Status: Acute (3) Pneumoperitoneum Current Visit: Yes Status: Acute patient starting clears and tolerating thus far had bm no nausea pain improved (4) History of rectal cancer Current Visit: Yes Status: Chronic (5) Hypertension Current Visit: Yes Status: Chronic Qualifiers: Hypertension type: essential hypertension Qualified Code(s): I10 - Essential (primary) hypertension Subjective Patient reports: feels better, still having pain, pain is less, flatus, bowel movement, afebrile Objective Vital Signs - Last 8 Hours Temp Pulse Resp BP Pulse Ox 10/08/16 12:14 98.6 F 92 16 128/82 96 10/08/16 06:49 98.1 F 91 16 118/80 93 Intake and Output 10/07/16 10/08/16 10/08/16 23:59 07:59 15:59 Intake Total 100 / 100 100 / 100 624 / 624 Output Total 450 / 450 200 / 200 Balance -350 / -350 100 / 100 424 / 424 Intake: IV Fluids 100 / 100 100 / 100 204 / 204 Magnesium Sulfate 2 GM In 104 / 104 Dextrose 5% 100 ML @ 100 mls/hr IVPB ONCE ONE Rx# :[id number] Zosyn 3.375 GM In 100 / 100 100 / 100 100 / 100 Dextrose 5% (Minibag+) 100 ML 100 ML @ 25 mls/hr IVPB Q8HR [facility] Rx#: [id number] Oral 0 / 0 420 / 420 Output: Urine 450 / 450 200 / 200 Other: Stool Size Small Stool Consistency soft formed Stool Characteristics Normal for Patient Stool Color Brown # Bowel Movements 1 Weight 91.2 kg Blood Glucose* 195 106 Patient Weight 10/08/16 23:59 Weight 91.2 kg - General physical appearance well developed, no distress, no pain - Eyes normal ocular movement - ENT normal mucosa, normocephalic - Neck Neck exam: trachea midline - Respiratory clear to auscultation, other (exertional dyspnea) - Cardiovascular Cardiovascular exam: Present: RRR - Abdomen Abdomen: Present: bowel sounds present, soft, tender. Absent: distended, guarding, rebound Abdominal Tenderness: RLQ - Integumentary no rash, no growths - Neurologic CN 2-12 grossly intact - Musculoskeletal normal gait, normal posture - Psychiatric oriented to time, oriented to person, memory intact - Labs 10/08/16 03:35 10/08/16 03:35 Diabetes panel 10/08/16 Range/Units 03:35 Sodium 132 L (136-145) mEq/L Potassium 3.4 L (3.5-4.5) mEq/L Chloride 101 (98-109) mEq/L Carbon Dioxide 26 (19-29) mEq/L BUN 21 (8-26) mg/dL Creatinine 0.53 L (0.72-1.25) mg/dL Glucose 114 H (70-99) mg/dL Calcium 8.5 L (8.6-10.8) mg/dL Calcium panel 10/08/16 Range/Units 03:35 Calcium 8.5 L (8.6-10.8) mg/dL Phosphorus 2.3 (2.3-4.7) mg/dL Pituitary panel 10/08/16 Range/Units 03:35 Sodium 132 L (136-145) mEq/L Potassium 3.4 L (3.5-4.5) mEq/L Chloride 101 (98-109) mEq/L Carbon Dioxide 26 (19-29) mEq/L BUN 21 (8-26) mg/dL Creatinine 0.53 L (0.72-1.25) mg/dL Glucose 114 H (70-99) mg/dL Calcium 8.5 L (8.6-10.8) mg/dL Adrenal panel 10/08/16 Range/Units 03:35 Sodium 132 L (136-145) mEq/L Potassium 3.4 L (3.5-4.5) mEq/L Chloride 101 (98-109) mEq/L Carbon Dioxide 26 (19-29) mEq/L BUN 21 (8-26) mg/dL Creatinine 0.53 L (0.72-1.25) mg/dL Glucose 114 H (70-99) mg/dL Calcium 8.5 L (8.6-10.8) mg/dL
[2016-10-07] MEDS: *HR* LORazepam 2 MG/ML VIAL IVP PRN (13:18)
[2016-10-07] MEDS ORDERED: 0.9 % Sodium Chloride 1,000 ML IVC SCH (17:49)
[2016-10-08 03:53] LABS: Basophils % 0.1 %; Eosinophils # 0.1 K/mcL (0.0-0.6); Eosinophils % 1.8 %; Hemoglobin 8.9 g/dL (12.9-16.9); Immature Granulocytes % 1.4 % (0-4); Immature Platelets 1.6 % (1.1-6.1); Lymphocytes # 0.3 K/mcL (0.6-4.6); Mean Corpuscular HGB Conc 35.6 g/dL (31.6-35.5); Mean Corpuscular Hemoglobin 33.1 pg (28.0-33.3); Mean Corpuscular Volume 92.9 fL (83.0-100.0); Mean Platelet Volume 9.2 fL (9.4-12.4); Monocytes # 0.3 K/mcL (0.0-1.3); Monocytes % 3.7 %; Neutrophils # 6.4 K/mcL (1.6-8.9); Platelet Count 210 K/mcL (140-400); Red Blood Count 2.69 M/mcL (4.19-5.50)
[2016-10-08 04:41] LABS: Platelet Estimate Normal (Normal)
[2016-10-08 04:42] LABS: Anisocytosis 1+ (Not Present); Burr Cells 1+ (Not Present)
[2016-10-08 04:43] LABS: Poikilocytosis 1+ (Not Present)
[2016-10-08 04:56] LABS: BUN/Creatinine Ratio 40 (6-26); Blood Urea Nitrogen 21 mg/dL (8-26); Calcium 8.5 mg/dL (8.6-10.8); Carbon Dioxide 26 mEq/L (19-29); Chloride 101 mEq/L (98-109); Glucose 114 mg/dL (70-99); Magnesium 1.4 mg/dL (1.6-2.6); Osmolality,Calculated 278 (280-300); Phosphorous 2.3 mg/dL (2.3-4.7); Potassium 3.4 mEq/L (3.5-4.5); Sodium 132 mEq/L (136-145); eGFR For African Americans > 60 (> 60); eGFR For Non-African Americans > 60 (> 60)
[2016-10-08] MEDS: *HR* HYDROmorphone (PF) 1 MG/ML SYRINGE IVP PRN ×5 (07:44→21:49)
[2016-10-08] MEDS: Pantoprazole 40 MG VIAL IVP SCH (07:46)
[2016-10-08] MEDS: *HR* Heparin 5,000 UNIT/ML VIAL SQ SCH ×3 (07:48→23:30)
[2016-10-08] MEDS: Piperacillin/Tazobactam 3.375 GM in D5% in Water (Mini-Bag+) 100 ML IVPB SCH ×3 (07:56→23:34)
[2016-10-08] MEDS ORDERED: Magnesium Sulfate 2 GM in D5% in Water 100 ML IVPB ONE (08:43)
[2016-10-08] MEDS ORDERED: Potassium Chloride 40 MEQ, Lidocaine 1% 2 ML in D5% in Water 500 ML IVPB ONE (08:44)
--- NOTE | 2016-10-08 08:54 | General Surgery Progress Note ---
<Miriam Jeter - Last Filed: 10/08/16 08:51> Date of Encounter: 10/08/16 Time of Encounter: 08:30 - Assessment and Plan (1) Pneumoperitoneum Current Visit: Yes Status: Acute CT reviewed per Dr. Valentine and suspect perforated diverticulum Patient doing well and responding to conservative measures: Continue clear liquids IV fluids- 40 mL's per hour IV antibiotics- Zosyn Supportive care and pain control Serial abdominal exams PPI therapy daily Repeat am labs Incentive spirometer every 1 hour while awake No indication for urgent or emergent surgical intervention at this time Dr. Valentine did discuss with the patient and his that he is a poor surgical candidate (2) Small bowel obstruction Current Visit: Yes Status: Acute Resolving- flatus and stool noted in colostomy bag Continue clear liquids IV fluids- 40mls per hour (3) History of rectal cancer Current Visit: Yes Status: Chronic (4) Hypertension Current Visit: Yes Status: Chronic Normotensive Qualifiers: Hypertension type: essential hypertension Qualified Code(s): I10 - Essential (primary) hypertension (5) Hypomagnesemia Current Visit: Yes Status: Acute Replace Mg per Dr. Valentine (6) Hypokalemia Current Visit: Yes Status: Acute Replace potassium per Dr. Valentine Repeat am labs (7) DVT prophylaxis Current Visit: Yes Status: Acute Heparin 5,000 units SQ TID daily for DVT prophylaxis Ambulate TID with assistance Subjective Patient reports: no new complaints, feels better, still having pain, pain is less, tolerating liquids well, voiding w/o difficulty, flatus, bowel movement, afebrile Objective Vital Signs - Last 8 Hours Temp Pulse Resp BP Pulse Ox 10/08/16 06:49 98.1 F 91 16 118/80 93 10/08/16 03:30 97.8 F 87 16 146/82 94 Intake and Output 10/07/16 10/08/16 10/08/16 23:59 07:59 15:59 Intake Total 100 / 100 100 / 100 Output Total 450 / 450 Balance -350 / -350 100 / 100 Intake: IV Fluids 100 / 100 100 / 100 Zosyn 3.375 GM In 100 / 100 100 / 100 Dextrose 5% (Minibag+) 100 ML 100 ML @ 25 mls/hr IVPB Q8HR [facility] Rx#: [id number] Oral 0 / 0 Output: Urine 450 / 450 Other: Weight 91.2 kg Blood Glucose* 195 106 Patient Weight 10/08/16 23:59 Weight 91.2 kg - General physical appearance well developed, well nourished, no distress - Eyes normal ocular movement - ENT normal mucosa, atraumatic, normocephalic - Neck Neck exam: trachea midline - Respiratory normal respiratory effort, clear to auscultation - Cardiovascular Cardiovascular exam: Present: RRR - Abdomen Abdomen: Present: bowel sounds present, soft, tender (mildly) Abdominal Tenderness: LLQ - Neurologic CN 2-12 grossly intact - Musculoskeletal normal gait, normal posture - Psychiatric oriented to time, oriented to person, oriented to place, speech is normal, memory intact - Labs 10/08/16 03:35 10/08/16 03:35 Diabetes panel 10/08/16 Range/Units 03:35 Sodium 132 L (136-145) mEq/L Potassium 3.4 L (3.5-4.5) mEq/L Chloride 101 (98-109) mEq/L Carbon Dioxide 26 (19-29) mEq/L BUN 21 (8-26) mg/dL Creatinine 0.53 L (0.72-1.25) mg/dL Glucose 114 H (70-99) mg/dL Calcium 8.5 L (8.6-10.8) mg/dL Calcium panel 10/08/16 Range/Units 03:35 Calcium 8.5 L (8.6-10.8) mg/dL Phosphorus 2.3 (2.3-4.7) mg/dL Pituitary panel 10/08/16 Range/Units 03:35 Sodium 132 L (136-145) mEq/L Potassium 3.4 L (3.5-4.5) mEq/L Chloride 101 (98-109) mEq/L Carbon Dioxide 26 (19-29) mEq/L BUN 21 (8-26) mg/dL Creatinine 0.53 L (0.72-1.25) mg/dL Glucose 114 H (70-99) mg/dL Calcium 8.5 L (8.6-10.8) mg/dL Adrenal panel 10/08/16 Range/Units 03:35 Sodium 132 L (136-145) mEq/L Potassium 3.4 L (3.5-4.5) mEq/L Chloride 101 (98-109) mEq/L Carbon Dioxide 26 (19-29) mEq/L BUN 21 (8-26) mg/dL Creatinine 0.53 L (0.72-1.25) mg/dL Glucose 114 H (70-99) mg/dL Calcium 8.5 L (8.6-10.8) mg/dL Consult Discharge Plan - Plan Referrals: Marisol Crareon, AVIATION MECHANIC [Primary Care Provider] - 10/18/16 10:00 am (Please follow up as schedule...) - Attending Attestation I examined this patient and my medical decision-making was reviewed with the MONOTYPE MECHANIC/PA/Advanced Practice Nurse/Resident Physician. I agree with the documented findings, disposition and treatment plan as described except to the extent set forth below. <Loly Valentine - Last Filed: 10/08/16 12:57> Date of Encounter: 10/08/16 - Assessment and Plan (1) Abdominal pain Current Visit: Yes Status: Acute prn pain control Qualifiers: Abdominal location: left lower quadrant Qualified Code(s): R10.32 - Left lower quadrant pain (2) DVT prophylaxis Current Visit: Yes Status: Acute (3) Pneumoperitoneum Current Visit: Yes Status: Acute advance to fulls, tolerated clears and no increased discomfort with food less tender today than yesterday (4) History of rectal cancer Current Visit: Yes Status: Chronic (5) Hypertension Current Visit: Yes Status: Chronic Qualifiers: Hypertension type: essential hypertension Qualified Code(s): I10 - Essential (primary) hypertension Subjective Patient reports: feels better, still having pain, pain is less, tolerating liquids well, voiding w/o difficulty, flatus, bowel movement Objective Vital Signs - Last 8 Hours Temp Pulse Resp BP Pulse Ox 10/08/16 12:14 98.6 F 92 16 128/82 96 10/08/16 06:49 98.1 F 91 16 118/80 93 Intake and Output 10/07/16 10/08/16 10/08/16 23:59 07:59 15:59 Intake Total 100 / 100 100 / 100 624 / 624 Output Total 450 / 450 200 / 200 Balance -350 / -350 100 / 100 424 / 424 Intake: IV Fluids 100 / 100 100 / 100 204 / 204 Magnesium Sulfate 2 GM In 104 / 104 Dextrose 5% 100 ML @ 100 mls/hr IVPB ONCE ONE Rx# :[id number] Zosyn 3.375 GM In 100 / 100 100 / 100 100 / 100 Dextrose 5% (Minibag+) 100 ML 100 ML @ 25 mls/hr IVPB Q8HR [facility] Rx#: [id number] Oral 0 / 0 420 / 420 Output: Urine 450 / 450 200 / 200 Other: Stool Size Small Stool Consistency soft formed Stool Characteristics Normal for Patient Stool Color Brown # Bowel Movements 1 Weight 91.2 kg Blood Glucose* 195 106 Patient Weight 10/08/16 23:59 Weight 91.2 kg - General physical appearance well nourished, no distress, no pain - Eyes PERRL, normal ocular movement - ENT normal mucosa, normocephalic - Neck Neck exam: trachea midline - Respiratory normal expansion, clear to auscultation - Cardiovascular Cardiovascular exam: Present: RRR - Abdomen Abdomen: Present: bowel sounds present, soft, tender. Absent: guarding, rebound Abdominal Tenderness: LLQ - Integumentary no rash, no growths - Neurologic CN 2-12 grossly intact - Musculoskeletal normal gait, normal posture - Psychiatric oriented to time, oriented to person, oriented to place, memory intact - Labs 10/08/16 03:35 10/08/16 03:35 Diabetes panel 10/08/16 Range/Units 03:35 Sodium 132 L (136-145) mEq/L Potassium 3.4 L (3.5-4.5) mEq/L Chloride 101 (98-109) mEq/L Carbon Dioxide 26 (19-29) mEq/L BUN 21 (8-26) mg/dL Creatinine 0.53 L (0.72-1.25) mg/dL Glucose 114 H (70-99) mg/dL Calcium 8.5 L (8.6-10.8) mg/dL Calcium panel 10/08/16 Range/Units 03:35 Calcium 8.5 L (8.6-10.8) mg/dL Phosphorus 2.3 (2.3-4.7) mg/dL Pituitary panel 10/08/16 Range/Units 03:35 Sodium 132 L (136-145) mEq/L Potassium 3.4 L (3.5-4.5) mEq/L Chloride 101 (98-109) mEq/L Carbon Dioxide 26 (19-29) mEq/L BUN 21 (8-26) mg/dL Creatinine 0.53 L (0.72-1.25) mg/dL Glucose 114 H (70-99) mg/dL Calcium 8.5 L (8.6-10.8) mg/dL Adrenal panel 10/08/16 Range/Units 03:35 Sodium 132 L (136-145) mEq/L Potassium 3.4 L (3.5-4.5) mEq/L Chloride 101 (98-109) mEq/L Carbon Dioxide 26 (19-29) mEq/L BUN 21 (8-26) mg/dL Creatinine 0.53 L (0.72-1.25) mg/dL Glucose 114 H (70-99) mg/dL Calcium 8.5 L (8.6-10.8) mg/dL - Attending Attestation I examined this patient and my medical decision-making was reviewed with the MONOTYPE MECHANIC/PA/Advanced Practice Nurse/Resident Physician. I agree with the documented findings, disposition and treatment plan as described except to the extent set forth below.
[2016-10-08] MEDS: 0.9 % Sodium Chloride 1,000 ML IVC SCH (13:38)
--- NOTE | 2016-10-08 17:16 | Electrocardiograph Report ---
[place] [id number] Test Date: 2016-10-07 Pat Name: Ernie Romano Department: 110 Room: 2A23 Gender: M [employer]ter: DIDIER : 1945 Requested By: Loly Valentine Order Number: [id number] Reading MD: Edgardo Cortez DO Measurements Intervals [place] Rate: 72 P: 40 CO: 153 QRS: 245 QRSD: 88 T: 58 QT: 383 QTc: 407 Interpretive Statements SINUS RHYTHM WITH FREQUENT VENTRICULAR PREMATURE COMPLEXES LOW QRS VOLTAGE IN EXTREMITY LEADS Electronically Signed On 10-08-2016 17:15:37 EDT by Edgardo Cortez DO
[2016-10-09] MEDS: *HR* HYDROmorphone (PF) 1 MG/ML SYRINGE IVP PRN ×5 (03:00→23:05)
--- NOTE | 2016-10-09 07:35 | General Surgery Progress Note ---
Date of Encounter: 10/09/16 Time of Encounter: 07:33 - Assessment and Plan (1) Pneumoperitoneum Current Visit: Yes Status: Acute Abdominal CT was reviewed suspect perforated diverticulum. - Patient is currently on chemotherapy and this is likely a side effect of his current regimen. - He is a poor surgical candidate and /pt are on board Patient is doing well responded to conservative measures: - Full liquid diet - Discontinued IV fluids - IV antibiotics- Zosyn - Serial abdominal exams - erythema and blanching noted just lateral to his colostomy. We will continue to monitor daily. 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 Flores) (4) DVT prophylaxis Current Visit: Yes Status: Acute Heparin 5000 unites SQ TID. Ambulate with assistance (5) Hypertension Current Visit: Yes Status: Chronic Qualifiers: Hypertension type: essential hypertension Qualified Code(s): I10 - Essential (primary) hypertension (6) Hypomagnesemia Current Visit: Yes Status: Acute (7) Hypokalemia Current Visit: Yes Status: Acute Subjective Patient reports: no new complaints, feels better, pain is less, tolerating liquids well, voiding w/o difficulty, bowel movement, shortness of breath, afebrile Narrative: Patient is lying comfortably in bed with at bedside. No concerns overnight. is concerned about his deconditioning and since he is still going to outpatient physical therapy she is requesting physical therapy during his stay. Objective Vital Signs - Last 8 Hours Temp Pulse Resp BP Pulse Ox 10/09/16 03:38 97.8 F 101 20 126/88 95 10/08/16 23:54 98.2 F 83 16 131/79 93 Intake and Output 10/08/16 10/08/16 10/09/16 15:59 23:59 07:59 Intake Total 1806 / 1806 100 / 100 500 / 500 Output Total 200 / 200 250 / 250 200 / 200 Balance 1606 / 1606 -150 / -150 300 / 300 Intake: IV Fluids 1326 / 1326 100 / 100 100 / 100 0.9 % Sodium Chloride 1, 600 / 600 000 ML @ 40 mls/hr IVC . Q24H [facility] Rx#:[id number] Magnesium Sulfate 2 GM In 104 / 104 Dextrose 5% 100 ML @ 100 mls/hr IVPB ONCE ONE Rx# :[id number] Zosyn 3.375 GM In 100 / 100 100 / 100 100 / 100 Dextrose 5% (Minibag+) 100 ML 100 ML @ 25 mls/hr IVPB Q8HR [facility] Rx#: [id number] KCl 40 MEQ Xylocaine 2 ML 522 / 522 In Dextrose 5% 500 ML @ 130.5 mls/hr IVPB ONCE ONE Rx#:[id number] Oral 480 / 480 Free Water 400 / 400 Output: Urine 200 / 200 250 / 250 200 / 200 Other: Meal Lunch Percent of Meal Consumed 50% Stool Size Small Stool Consistency soft formed Stool Characteristics Normal for Patient Stool Color Brown # Bowel Movements 1 Weight 92.7 kg Patient Weight 10/09/16 23:59 Weight 92.7 kg - General physical appearance well developed, well nourished, no distress - Eyes normal ocular movement - ENT normal mucosa - Neck Neck exam: trachea midline - Respiratory normal expansion, normal respiratory effort, clear to auscultation - Cardiovascular Cardiovascular exam: Present: RRR, murmurs (CIERRA) - Abdomen Abdomen: Present: bowel sounds present, soft, non tender, wound (Colostomy present in left lower quadrant. Intact.) - Neurologic CN 2-12 grossly intact - Psychiatric oriented to time - Labs 10/08/16 03:35 10/08/16 03:35 Vital Signs Temp Pulse Resp BP Pulse Ox 10/09/16 03:38 97.8 F 101 20 126/88 95 10/08/16 23:54 98.2 F 83 16 131/79 93 10/08/16 18:54 97.8 F 102 20 134/79 94 10/08/16 16:35 97.8 F 90 16 158/78 94 10/08/16 12:14 98.6 F 92 16 128/82 96 Intake and Output 0710/08/16 10/09/16 15:59 23:59 07:59 Intake Total 1806 / 1806 100 / 100 500 / 500 Output Total 200 / 200 250 / 250 200 / 200 Balance 1606 / 1606 -150 / -150 300 / 300 Intake: IV Fluids 1326 / 1326 100 / 100 100 / 100 0.9 % Sodium Chloride 1, 600 / 600 000 ML @ 40 mls/hr IVC . Q24H [facility] Rx#:[id number] Magnesium Sulfate 2 GM In 104 / 104 Dextrose 5% 100 ML @ 100 mls/hr IVPB ONCE ONE Rx# :[id number] Zosyn 3.375 GM In 100 / 100 100 / 100 100 / 100 Dextrose 5% (Minibag+) 100 ML 100 ML @ 25 mls/hr IVPB Q8HR [facility] Rx#: [id number] KCl 40 MEQ Xylocaine 2 ML 522 / 522 In Dextrose 5% 500 ML @ 130.5 mls/hr IVPB ONCE ONE Rx#:[id number] Oral 480 / 480 Free Water 400 / 400 Output: Urine 200 / 200 250 / 250 200 / 200 Other: Meal Lunch Percent of Meal Consumed 50% Stool Size Small Stool Consistency soft formed Stool Characteristics Normal for Patient Stool Color Brown # Bowel Movements 1 Weight 92.7 kg Patient Weight 10/09/16 23:59 Weight 92.7 kg Consult Discharge Plan - Plan Referrals: Marisol Carreon, [employer] [Primary Care Provider] - 10/18/16 10:00 am (Please follow up as schedule...)
[2016-10-09] MEDS: Pantoprazole 40 MG VIAL IVP SCH (08:53)
[2016-10-09] MEDS: Piperacillin/Tazobactam 3.375 GM in D5% in Water (Mini-Bag+) 100 ML IVPB SCH ×3 (08:53→23:03)
[2016-10-09] MEDS: *HR* Heparin 5,000 UNIT/ML VIAL SQ SCH ×3 (08:53→23:05)
[2016-10-09] MEDS: 0.9 % Sodium Chloride 1,000 ML IVC SCH (10:38)
[2016-10-09] MEDS: *HR* LORazepam 2 MG/ML VIAL IVP PRN (17:37)
[2016-10-10 04:44] LABS: Hematocrit 26.3 % (37.5-50.1); Hemoglobin 9.3 g/dL (12.9-16.9); Lymphocytes # 0.6 K/mcL (0.6-4.6); Mean Corpuscular HGB Conc 35.4 g/dL (31.6-35.5); Mean Corpuscular Hemoglobin 32.6 pg (28.0-33.3); Mean Corpuscular Volume 92.3 fL (83.0-100.0); Mean Platelet Volume 9.3 fL (9.4-12.4); Platelet Count 216 K/mcL (140-400); Red Blood Count 2.85 M/mcL (4.19-5.50); Red Cell Distribution Width 16.1 % (11.5-14.5)
[2016-10-10 04:58] LABS: BUN/Creatinine Ratio 32 (6-26); Blood Urea Nitrogen 17 mg/dL (8-26); Calcium 8.6 mg/dL (8.6-10.8); Carbon Dioxide 27 mEq/L (19-29); Chloride 98 mEq/L (98-109); Glucose 96 mg/dL (70-99); Osmolality,Calculated 273 (280-300); Potassium 3.3 mEq/L (3.5-4.5); Sodium 131 mEq/L (136-145); eGFR For African Americans > 60 (> 60); eGFR For Non-African Americans > 60 (> 60)
[2016-10-10 05:11] LABS: Eosinophils # 0.3 K/mcL (0.0-0.6); Monocytes # 0.5 K/mcL (0.0-1.3); Neutrophils # 6.6 K/mcL (1.6-8.9)
[2016-10-10 05:12] LABS: Platelet Estimate Normal (Normal); Toxic Granulation Present (Not Present)
--- NOTE | 2016-10-10 07:36 | General Surgery Progress Note ---
Date of Encounter: 10/10/16 Time of Encounter: 07:34 - Assessment and Plan (1) Pneumoperitoneum Current Visit: Yes Status: Acute Abdominal CT was reviewed suspect perforated diverticulum. - Patient is currently on chemotherapy and this is likely a side effect of his current regimen. - He is a poor surgical candidate and /pt are on board Patient is doing well and responding to conservative measures: - Full liquid diet, no n/v, tolerating well - IV antibiotics- Zosyn (Day 5) - Serial abdominal exams - erythema and blanching noted just lateral to his colostomy. Unchanged from yesterday's exam. - PPI - Pain is well controlled at this time - Patient walked 3 times each shift yesterday - Encouraged ICS and ambulation with assistance and walker - repeat am labs Discharge planning - Likely home once patient tolerates regular diet and has normal bowel function (2) Small bowel obstruction Current Visit: Yes Status: Acute Continue conservative management: - Clincally improved, stool and flatus in colostomy - Full liquid diet (3) History of rectal cancer Current Visit: Yes Status: Chronic H/o rectal cancer with mets to brain and lung, S/p lung resection and craniotomy Currently receiving chemotherapy - Likely Bevacizumab being the culprit for his pneumoperitineum Followed by Oncology (Dr. Flores) (4) DVT prophylaxis Current Visit: Yes Status: Acute Heparin 5000 unites SQ TID. Ambulate with assistance (5) Hypertension Current Visit: Yes Status: Chronic 126/84 today. Well controlled. Qualifiers: Hypertension type: essential hypertension Qualified Code(s): I10 - Essential (primary) hypertension (6) Hypokalemia Current Visit: Yes Status: Acute Replacing. K 3.3 today. Recheck tomorrow. Subjective Narrative: Patient seen and examined this morning. He was sitting on the bedside after emulating with his walker. Patient states there is stool present in his colostomy. Tolerating diet well. He reports no abdominal pain, nausea, vomiting, chest pain, shortness of breath or fevers. Objective Vital Signs - Last 8 Hours Temp Pulse Resp BP Pulse Ox 10/10/16 03:45 97.9 F 104 18 132/80 92 10/09/16 23:52 98.1 F 77 16 130/79 99 Intake and Output 10/09/16 10/09/16 10/10/16 15:59 23:59 07:59 Intake Total 700 / 700 100 / 100 Output Total 180 / 180 100 / 100 Balance 520 / 520 100 / 100 -100 / -100 Intake: IV Fluids 500 / 500 100 / 100 0.9 % Sodium Chloride 1, 400 / 400 000 ML @ 20 mls/hr IVC . Q24H [facility] Rx#:[id number] Zosyn 3.375 GM In 100 / 100 100 / 100 Dextrose 5% (Minibag+) 100 ML 100 ML @ 25 mls/hr IVPB Q8HR [facility] Rx#: [id number] Oral 200 / 200 Output: Urine 180 / 180 100 / 100 Other: Meal Breakfast Percent of Meal Consumed 50% Weight 97.7 kg Patient Weight 10/10/16 23:59 Weight 97.7 kg - General physical appearance well developed, well nourished, no distress - Eyes normal ocular movement - ENT normal mucosa - Neck Neck exam: trachea midline - Respiratory normal expansion, normal respiratory effort, clear to auscultation - Cardiovascular Cardiovascular exam: Present: RRR - Abdomen Abdomen: Present: bowel sounds present, soft, non tender, wound (Colostomy present in the left lower quadrant. Mild blanching and erythema noted just lateral to the colostomy site, which is unchanged from yesterday's exam.) - Neurologic CN 2-12 grossly intact - Psychiatric oriented to time, oriented to person, oriented to place, speech is normal, memory intact - Labs 10/10/16 03:55 10/10/16 03:55 Short CBC 10/10/16 Range/Units 03:55 WBC 8.0 (4.3-11.1) K/mcL Hgb 9.3 L (12.9-16.9) g/dL Hct 26.3 L (37.5-50.1) % Plt Count 216 (140-400) K/mcL Neutrophils # 6.6 (1.6-8.9) K/mcL BMP 10/10/16 Range/Units 03:55 Sodium 131 L (136-145) mEq/L Potassium 3.3 L (3.5-4.5) mEq/L Chloride 98 (98-109) mEq/L Carbon Dioxide 27 (19-29) mEq/L BUN 17 (8-26) mg/dL Creatinine 0.53 L (0.72-1.25) mg/dL Glucose 96 (70-99) mg/dL Calcium 8.6 (8.6-10.8) mg/dL Vital Signs Temp Pulse Resp BP Pulse Ox 10/10/16 03:45 97.9 F 104 18 132/80 92 10/09/16 23:52 98.1 F 77 16 130/79 99 10/09/16 19:52 98.1 F 100 15 134/72 94 10/09/16 15:10 99.1 F 77 18 127/79 94 10/09/16 11:00 97.5 F L 92 16 108/71 96 10/09/16 07:56 98 F 56 16 132/83 95 Intake and Output 10/09/16 10/09/16 10/10/16 15:59 23:59 07:59 Intake Total 700 / 700 100 / 100 Output Total 180 / 180 100 / 100 Balance 520 / 520 100 / 100 -100 / -100 Intake: IV Fluids 500 / 500 100 / 100 0.9 % Sodium Chloride 1, 400 / 400 000 ML @ 20 mls/hr IVC . Q24H [facility] Rx#:[id number] Zosyn 3.375 GM In 100 / 100 100 / 100 Dextrose 5% (Minibag+) 100 ML 100 ML @ 25 mls/hr IVPB Q8HR [facility] Rx#: [id number] Oral 200 / 200 Output: Urine 180 / 180 100 / 100 Other: Meal Breakfast Percent of Meal Consumed 50% Weight 97.7 kg Patient Weight 10/10/16 23:59 Weight 97.7 kg Consult Discharge Plan - Plan Referrals: Marsiol Carreon, [employer] [Primary Care Provider] - 10/18/16 10:00 am (Please follow up as schedule...)
[2016-10-10] MEDS: Pantoprazole 40 MG VIAL IVP SCH (07:49)
[2016-10-10] MEDS: Piperacillin/Tazobactam 3.375 GM in D5% in Water (Mini-Bag+) 100 ML IVPB SCH ×3 (07:50→23:32)
[2016-10-10] MEDS: *HR* Heparin 5,000 UNIT/ML VIAL SQ SCH ×3 (07:50→23:33)
[2016-10-10] MEDS: *HR* HYDROmorphone (PF) 1 MG/ML SYRINGE IVP PRN ×4 (08:11→22:06)
[2016-10-11] MEDS: *HR* HYDROmorphone (PF) 1 MG/ML SYRINGE IVP PRN ×5 (05:12→21:57)
[2016-10-11] MEDS: *HR* Heparin 5,000 UNIT/ML VIAL SQ SCH ×2 (08:38→16:13)
[2016-10-11] MEDS: Pantoprazole 40 MG VIAL IVP SCH (08:38)
[2016-10-11] MEDS: Piperacillin/Tazobactam 3.375 GM in D5% in Water (Mini-Bag+) 100 ML IVPB SCH ×2 (08:39→16:13)
[2016-10-11 09:20] LABS: Mean Corpuscular HGB Conc 35.5 g/dL (31.6-35.5); Mean Corpuscular Hemoglobin 32.9 pg (28.0-33.3); Mean Corpuscular Volume 92.8 fL (83.0-100.0); Mean Platelet Volume 9.1 fL (9.4-12.4); Platelet Count 248 K/mcL (140-400); Red Blood Count 3.34 M/mcL (4.19-5.50); Red Cell Distribution Width 16.8 % (11.5-14.5)
[2016-10-11 09:32] LABS: BUN/Creatinine Ratio 32 (6-26); Blood Urea Nitrogen 17 mg/dL (8-26); Calcium 8.6 mg/dL (8.6-10.8); Carbon Dioxide 30 mEq/L (19-29); Chloride 98 mEq/L (98-109); Glucose 116 mg/dL (70-99); Osmolality,Calculated 273 (280-300); Potassium 3.5 mEq/L (3.5-4.5); Sodium 130 mEq/L (136-145); eGFR For African Americans > 60 (> 60); eGFR For Non-African Americans > 60 (> 60)
[2016-10-11 10:11] LABS: Eosinophils # 0.2 K/mcL (0.0-0.6); Lymphocytes # 0.5 K/mcL (0.6-4.6); Monocytes # 0.2 K/mcL (0.0-1.3); Neutrophils # 7.3 K/mcL (1.6-8.9)
[2016-10-11 10:12] LABS: Anisocytosis 1+ (Not Present); Burr Cells 1+ (Not Present)
[2016-10-11 10:13] LABS: Platelet Estimate Normal (Normal); Polychromasia 1+ (Not Present); Toxic Granulation Present (Not Present)
--- NOTE | 2016-10-11 10:38 | General Surgery Progress Note ---
Date of Encounter: 10/11/16 Time of Encounter: 10:36 - Assessment and Plan (1) Pneumoperitoneum Current Visit: Yes Status: Acute Abdominal CT was reviewed and suspect perforated diverticulum. - Patient is currently on chemotherapy and this is likely a side effect of his current regimen. - He is a poor surgical candidate and /pt are on board Patient is doing well and responding to conservative measures: - Full liquid diet, no n/v, tolerating well, stool and flatus present in colostomy - IV antibiotics- Zosyn (Day 6) - Serial abdominal exams - erythema and blanching noted just lateral to his colostomy extending to his mid-axillary line - Pain is well controlled at this time - Patient walked each shift yesterday - Encouraged ICS and ambulation with assistance and walker Discharge planning - Likely home in the next 24-48 hrs once patient tolerates regular diet, transitioned to PO antibiotics and cellulitis improves. (2) Small bowel obstruction Current Visit: Yes Status: Acute Continue conservative management: - Clincally improved, stool and flatus in colostomy - Full liquid diet (3) Cellulitis Current Visit: Yes Status: Acute Clinically unchanged over the weekend. Continue Zosyn Afebrile, no leukocytosis noted. 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 Flores) (5) DVT prophylaxis Current Visit: Yes Status: Acute Heparin 5000 unites SQ TID. Ambulate with assistance (6) Hypertension Current Visit: Yes Status: Chronic 126/84 today. Well controlled. Qualifiers: Hypertension type: essential hypertension Qualified Code(s): I10 - Essential (primary) hypertension (7) Hypokalemia Current Visit: Yes Status: Acute Replaced. K 3.5 today. Subjective Patient reports: no new complaints, feels better, tolerating liquids well, flatus (colostomy), bowel movement (colostomy), afebrile, other (ambulating well with walker. no concerns overnight per nursing) Objective Vital Signs - Last 8 Hours Temp Pulse Resp BP Pulse Ox 10/11/16 06:36 97.6 F 88 18 126/84 93 10/11/16 04:01 97.9 F 80 18 120/76 92 Intake and Output 10/10/16 10/11/16 10/11/16 23:59 07:59 15:59 Intake Total 100 / 100 400 / 400 120 / 120 Output Total 175 / 175 0 / 0 125 / 125 Balance -75 / -75 400 / 400 -5 / -5 Intake: IV Fluids 100 / 100 100 / 100 Zosyn 3.375 GM In 100 / 100 100 / 100 Dextrose 5% (Minibag+) 100 ML 100 ML @ 25 mls/hr IVPB Q8HR [facility] Rx#: [id number] Oral 0 / 0 300 / 300 120 / 120 Output: Urine 175 / 175 0 / 0 125 / 125 Other: Meal Breakfast Percent of Meal Consumed 20% Weight 98.2 kg Patient Weight 10/11/16 23:59 Weight 98.2 kg - General physical appearance well developed, well nourished, no distress - Eyes normal ocular movement - ENT normal mucosa - Neck Neck exam: trachea midline - Respiratory normal expansion, normal respiratory effort, clear to auscultation - Cardiovascular Cardiovascular exam: Present: RRR - Abdomen Abdomen: Present: bowel sounds present, soft, non tender, wound (colosotomy in LLQ, area of erythema and induration just lateral to colostomy that extends to hi mid axillary line with erythema and blanching) - Neurologic CN 2-12 grossly intact - Psychiatric oriented to time, oriented to person, oriented to place, speech is normal, memory intact - Labs 10/11/16 09:14 10/11/16 09:14 Short CBC 10/11/16 Range/Units 09:14 WBC 8.1 (4.3-11.1) K/mcL Hgb 11.0 L D (12.9-16.9) g/dL Hct 31.0 L (37.5-50.1) % Plt Count 248 (140-400) K/mcL Neutrophils # 7.3 (1.6-8.9) K/mcL BMP 10/11/16 Range/Units 09:14 Sodium 130 L (136-145) mEq/L Potassium 3.5 (3.5-4.5) mEq/L Chloride 98 (98-109) mEq/L Carbon Dioxide 30 H (19-29) mEq/L BUN 17 (8-26) mg/dL Creatinine 0.53 L (0.72-1.25) mg/dL Glucose 116 H (70-99) mg/dL Calcium 8.6 (8.6-10.8) mg/dL Vital Signs Temp Pulse Resp BP Pulse Ox 10/11/16 06:36 97.6 F 88 18 126/84 93 10/11/16 04:01 97.9 F 80 18 120/76 92 10/10/16 23:41 97.6 F 88 17 126/80 92 10/10/16 20:50 97.6 F 102 18 109/77 94 10/10/16 16:52 98.2 F 95 16 132/85 93 10/10/16 11:21 98.4 F 94 16 135/71 93 Intake and Output 10/10/16 10/11/16 10/11/16 23:59 07:59 15:59 Intake Total 100 / 100 400 / 400 120 / 120 Output Total 175 / 175 0 / 0 125 / 125 Balance -75 / -75 400 / 400 -5 / -5 Intake: IV Fluids 100 / 100 100 / 100 Zosyn 3.375 GM In 100 / 100 100 / 100 Dextrose 5% (Minibag+) 100 ML 100 ML @ 25 mls/hr IVPB Q8HR [facility] Rx#: [id number] Oral 0 / 0 300 / 300 120 / 120 Output: Urine 175 / 175 0 / 0 125 / 125 Other: Meal Breakfast Percent of Meal Consumed 20% Weight 98.2 kg Patient Weight 10/11/16 23:59 Weight 98.2 kg Consult Discharge Plan - Plan Referrals: Marisol Carreon, MDM SR [Primary Care Provider] - 10/18/16 10:00 am (Please follow up as schedule...)
[2016-10-11] MEDS: *HR* LORazepam 2 MG/ML VIAL IVP PRN (16:13)
[2016-10-12] MEDS: Piperacillin/Tazobactam 3.375 GM in D5% in Water (Mini-Bag+) 100 ML IVPB SCH ×3 (01:11→16:02)
[2016-10-12] MEDS: *HR* Heparin 5,000 UNIT/ML VIAL SQ SCH ×3 (01:12→16:02)
[2016-10-12] MEDS: *HR* HYDROmorphone (PF) 1 MG/ML SYRINGE IVP PRN ×6 (03:10→21:07)
[2016-10-12] MEDS: Pantoprazole 40 MG VIAL IVP SCH (08:29)
--- NOTE | 2016-10-12 11:29 | General Surgery Progress Note ---
Date of Encounter: 10/12/16 Time of Encounter: 11:15 - Assessment and Plan (1) Small bowel obstruction Current Visit: Yes Status: Acute As previously noted, Abdominal CT was reviewed and suspect perforated diverticulum. - Patient is currently on chemotherapy and this is likely a side effect of his current regimen. - He was noted to be a poor surgical candidate and conservative therapy was agreed upon. Patient is doing well and responding to conservative measures: - Full liquid diet, no n/v, tolerating well, stool and flatus present in colostomy - IV antibiotics- Zosyn (Day 7) - Serial abdominal exams - erythema and blanching noted just lateral to his colostomy extending to his mid-axillary line (see cellulitis plan) - Pain is well controlled at this time - Patient walked each shift yesterday - Encouraged ICS and ambulation with assistance and walker -Repeat am labs Discharge planning pending clinical course and once patient tolerates regular diet, is transitioned to PO antibiotics and cellulitis improves. (2) Cellulitis Current Visit: Yes Status: Acute Will complete CT abdomen and pelvis to assess area of cellulitis. - IV antibiotics- Zosyn (Day 7) - Serial abdominal exams - erythema and blanching noted just lateral to his colostomy extending to his mid-axillary line - Pain is well controlled at this time -Repeat am labs Qualifiers: Site of cellulitis: trunk Site of cellulitis of trunk: abdominal wall Qualified Code(s): L03.311 - Cellulitis of abdominal wall (3) History of rectal cancer Current Visit: Yes Status: Chronic H/o rectal cancer with mets to brain and lung, S/p lung resection and craniotomy Currently receiving chemotherapy - Likely Bevacizumab being the culprit for his pneumoperitineum Followed by Oncology (Dr. Flores) (4) DVT prophylaxis Current Visit: Yes Status: Acute Heparin inj 5000 units subQ Q8H SCDs when in bed Ambulate as tolerated Subjective Patient reports: still having pain, pain is less, tolerating liquids well ( states decreased appetite), voiding w/o difficulty, no flatus, no bowel movement Narrative: and visitor at bedside. Pt states feeling somewhat better. He denies new complaints and reports that discomfort only occurs with activity. Objective Vital Signs - Last 8 Hours Temp Pulse Resp BP Pulse Ox 10/12/16 11:06 98.9 F 97 18 124/80 93 10/12/16 07:30 97.7 F 88 18 134/85 93 Intake and Output 10/11/16 10/12/16 10/12/16 23:59 07:59 15:59 Intake Total 100 / 100 300 / 300 0 / 0 Output Total 0 / 0 250 / 250 0 / 0 Balance 100 / 100 50 / 50 0 / 0 Intake: IV Fluids 100 / 100 100 / 100 Zosyn 3.375 GM In 100 / 100 100 / 100 Dextrose 5% (Minibag+) 100 ML 100 ML @ 25 mls/hr IVPB Q8HR [facility] Rx#: [id number] Oral 0 / 0 200 / 200 0 / 0 Output: Urine 0 / 0 250 / 250 0 / 0 Other: Weight 90.1 kg Patient Weight 10/12/16 23:59 Weight 90.1 kg - General physical appearance no distress, moderate pain, other (Tearful with conversation) - Eyes normal ocular movement - ENT normal mucosa - Neck Neck exam: trachea midline - Respiratory normal expansion, normal respiratory effort, clear to auscultation - Cardiovascular Cardiovascular exam: Present: RRR - Abdomen Abdomen: Present: bowel sounds present, soft, tender (left abdomen/flank consistent with cellulitic areas) - Integumentary other (left abd/flank errythematous and warm; no open or draining areas noted) - Neurologic CN 2-12 grossly intact - Psychiatric oriented to time, oriented to person, oriented to place - Labs 10/11/16 09:14 10/11/16 09:14 Consult Discharge Plan - Plan Referrals: Marisol Carreon, [employer] [Primary Care Provider] - 10/18/16 10:00 am (Please follow up as schedule...)
[2016-10-12] MEDS: Fluticasone Propionate Nasal 50 MCG/SPRAY BOTTLE NS SCH (12:28)
[2016-10-12] MEDS ORDERED: Lidocaine 1% 20 ML MDV INFILT STA (15:32)
[2016-10-12] MEDS: *HR* LORazepam 2 MG/ML VIAL IVP PRN (16:02)
--- NOTE | 2016-10-12 16:24 | General Surgery Procedure Note ---
Date of procedure: 10/12/16 Pre-op diagnosis: Abdominal cellulitis Post-op diagnosis: same Procedure: After informed consent was obtained and timeout completed, the patient's left abdomen was prepped and draped. The area was localized with 20 ML's of 1% lidocaine. After achieving appropriate localization, a straight incision was made over the most fluctuaant area using a size 11 blade. There was minimal return of bright red drainage. The cavity was further opened and decompressed using hemostats. Gram stain, aerobic, and anaerobic cultures were obtained. The cavity was packed with 1/4 inch iodoform gauze and covered with a dry dressing.
[2016-10-12] MEDS: hydroCHLOROthiazide 25 MG TABLET PO SCH (17:20)
[2016-10-13] MEDS: Piperacillin/Tazobactam 3.375 GM in D5% in Water (Mini-Bag+) 100 ML IVPB SCH ×4 (00:02→23:18)
[2016-10-13] MEDS: *HR* Heparin 5,000 UNIT/ML VIAL SQ SCH ×4 (00:03→23:18)
[2016-10-13] MEDS: *HR* HYDROmorphone (PF) 1 MG/ML SYRINGE IVP PRN ×5 (00:59→15:54)
[2016-10-13 05:48] LABS: Basophils # 0.1 K/mcL (0.0-0.2); Basophils % 0.6 %; Eosinophils # 0.2 K/mcL (0.0-0.6); Eosinophils % 1.7 %; Hematocrit 29.1 % (37.5-50.1); Hemoglobin 10.3 g/dL (12.9-16.9); Immature Granulocytes % 2.3 % (0-4); Lymphocytes # 0.7 K/mcL (0.6-4.6); Lymphocytes % 6.9 %; Mean Corpuscular HGB Conc 35.4 g/dL (31.6-35.5); Mean Corpuscular Hemoglobin 32.8 pg (28.0-33.3); Mean Corpuscular Volume 92.7 fL (83.0-100.0); Mean Platelet Volume 9.7 fL (9.4-12.4); Monocytes # 0.6 K/mcL (0.0-1.3); Neutrophils # 8.1 K/mcL (1.6-8.9); Platelet Count 358 K/mcL (140-400); Red Blood Count 3.14 M/mcL (4.19-5.50); Segmented Neutrophils % 82.5 %
[2016-10-13 06:04] LABS: BUN/Creatinine Ratio 15 (6-26); Blood Urea Nitrogen 8 mg/dL (8-26); Calcium 9.2 mg/dL (8.6-10.8); Carbon Dioxide 33 mEq/L (19-29); Chloride 92 mEq/L (98-109); Glucose 88 mg/dL (70-99); Osmolality,Calculated 266 (280-300); Potassium 3.4 mEq/L (3.5-4.5); Sodium 129 mEq/L (136-145); eGFR For African Americans > 60 (> 60); eGFR For Non-African Americans > 60 (> 60)
[2016-10-13 06:23] LABS: Platelet Estimate Normal (Normal); Toxic Granulation Present (Not Present)
[2016-10-13] MEDS: hydroCHLOROthiazide 25 MG TABLET PO SCH (07:14)
[2016-10-13] MEDS: Pantoprazole 40 MG VIAL IVP SCH (07:14)
[2016-10-13] MEDS: Fluticasone Propionate Nasal 50 MCG/SPRAY BOTTLE NS SCH (07:16)
--- NOTE | 2016-10-13 07:35 | General Surgery Progress Note ---
Date of Encounter: 10/13/16 Time of Encounter: 07:33 - Assessment and Plan (1) Pneumoperitoneum Current Visit: Yes Status: Acute Abdominal CT on 10/05/16 was reviewed and suspect perforated diverticulum. - Patient is currently on chemotherapy and this is likely a side effect of his current regimen. - He is a poor surgical candidate and /pt are on board Repeat of CT of the abdomen on 10/12/2016 demonstrates there is persistent pneumoperitoneum with extraluminal gas adjacent to the sigmoid colon segment just proximal to the left lower quadrant colostomy, along with associated wall thickening just proximal to the colostomy as well. Patient is clinically doing well and responding to conservative measures: - Full liquid diet, no n/v, tolerating well, stool and flatus present in colostomy - IV antibiotics- Zosyn (Day 8) - Serial abdominal exams - Daily wound care - see orders - Pain is well controlled at this time - Patient walked each shift yesterday - Encouraged ICS and ambulation with assistance and walker Discharge planning - Home tomorrow with referral for wound care management (2) Small bowel obstruction Current Visit: Yes Status: Acute Continue conservative management: - Clincally improved, stool and flatus in colostomy - Full liquid diet (3) Cellulitis Current Visit: Yes Status: Acute CT of abdomen on 10/12/2016 demonstrates a new abscess present in the left pericolic gutter. I&D of his left lower flank was performed yesterday with minimal output. Cultures were taken and are pending. Continue Zosyn Afebrile, no leukocytosis noted. 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 Flores) (5) DVT prophylaxis Current Visit: Yes Status: Acute Heparin 5000 unites SQ TID. Ambulate with assistance as tolerated Subjective Patient reports: no new complaints, feels better, pain is less, tolerating liquids well, voiding w/o difficulty, flatus, bowel movement, afebrile Narrative: No concerns overnight per nursing. Objective Vital Signs - Last 8 Hours Temp Pulse Resp BP Pulse Ox 10/13/16 06:41 99.4 F 102 18 116/83 95 10/13/16 05:02 98.4 F 105 16 131/87 95 10/13/16 00:15 98.5 F 100 14 132/82 90 Intake and Output 10/12/16 10/12/16 10/13/16 15:59 23:59 07:59 Intake Total 100 / 100 100 / 100 100 / 100 Output Total 0 / 0 900 / 900 Balance 100 / 100 100 / 100 -800 / -800 Intake: IV Fluids 100 / 100 100 / 100 100 / 100 Zosyn 3.375 GM In 100 / 100 100 / 100 100 / 100 Dextrose 5% (Minibag+) 100 ML 100 ML @ 25 mls/hr IVPB Q8HR [facility] Rx#: [id number] Oral 0 / 0 0 / 0 Output: Urine 0 / 0 900 / 900 Other: Weight 90.12 kg Patient Weight 10/13/16 23:59 Weight 90.12 kg - General physical appearance well developed, well nourished, no distress - Eyes normal ocular movement - ENT normal mucosa - Neck Neck exam: trachea midline - Respiratory normal respiratory effort (Weak) wheezing: bilateral - Cardiovascular Cardiovascular exam: Present: RRR - Abdomen Abdomen: Present: bowel sounds present, soft, tender (About his colostomy and I& D site.), wound (Colostomy intact in left lower quadrant. Dressing present in left lower quadrant with minimal shadowing. Erythema and blanching noted just lateral to the colostomy extending to his mid axillary line.) - Neurologic CN 2-12 grossly intact - Psychiatric oriented to time, oriented to person, oriented to place, speech is normal, memory intact - Labs 10/13/16 05:01 10/13/16 05:01 Short CBC 10/13/16 Range/Units 05:01 WBC 9.8 (4.3-11.1) K/mcL Hgb 10.3 L (12.9-16.9) g/dL Hct 29.1 L (37.5-50.1) % Plt Count 358 (140-400) K/mcL Neutrophils # 8.1 (1.6-8.9) K/mcL BMP 10/13/16 Range/Units 05:01 Sodium 129 L (136-145) mEq/L Potassium 3.4 L (3.5-4.5) mEq/L Chloride 92 L (98-109) mEq/L Carbon Dioxide 33 H (19-29) mEq/L BUN 8 (8-26) mg/dL Creatinine 0.55 L (0.72-1.25) mg/dL Glucose 88 (70-99) mg/dL Calcium 9.2 (8.6-10.8) mg/dL Vital Signs Temp Pulse Resp BP Pulse Ox 10/13/16 06:41 99.4 F 102 18 116/83 95 10/13/16 05:02 98.4 F 105 16 131/87 95 10/13/16 00:15 98.5 F 100 14 132/82 90 10/12/16 20:52 98 F 97 16 138/77 92 10/12/16 18:25 70 18 107/67 94 10/12/16 18:10 97.3 F L 69 16 105/68 99 10/12/16 15:32 98.9 F 99 18 132/86 93 10/12/16 11:06 98.9 F 97 18 124/80 93 Intake and Output 10/12/16 10/12/16 10/13/16 15:59 23:59 07:59 Intake Total 100 / 100 100 / 100 100 / 100 Output Total 0 / 0 900 / 900 Balance 100 / 100 100 / 100 -800 / -800 Intake: IV Fluids 100 / 100 100 / 100 100 / 100 Zosyn 3.375 GM In 100 / 100 100 / 100 100 / 100 Dextrose 5% (Minibag+) 100 ML 100 ML @ 25 mls/hr IVPB Q8HR [facility] Rx#: [id number] Oral 0 / 0 0 / 0 Output: Urine 0 / 0 900 / 900 Other: Weight 90.12 kg Patient Weight 10/13/16 23:59 Weight 90.12 kg Consult Discharge Plan - Plan Referrals: Jesus Flores MD [Partnered Physician] - 10/20/16 10:50 am (Doctor will see you during your Treatment) Marisol Carreon CNP [Primary Care Provider] - 10/18/16 10:00 am (Please follow up as schedule...)
[2016-10-13] MEDS: *HR* LORazepam 2 MG/ML VIAL IVP PRN (17:55)
[2016-10-14] MEDS: *HR* HYDROmorphone (PF) 1 MG/ML SYRINGE IVP PRN ×4 (01:29→12:43)
[2016-10-14 04:16] LABS: Hematocrit 26.5 % (37.5-50.1); Hemoglobin 9.4 g/dL (12.9-16.9); Mean Corpuscular HGB Conc 35.5 g/dL (31.6-35.5); Mean Corpuscular Hemoglobin 33.1 pg (28.0-33.3); Mean Corpuscular Volume 93.3 fL (83.0-100.0); Mean Platelet Volume 9.2 fL (9.4-12.4); Platelet Count 357 K/mcL (140-400); Red Blood Count 2.84 M/mcL (4.19-5.50); Red Cell Distribution Width 16.7 % (11.5-14.5)
[2016-10-14 04:23] LABS: BUN/Creatinine Ratio 13 (6-26); Blood Urea Nitrogen 7 mg/dL (8-26); Calcium 8.8 mg/dL (8.6-10.8); Carbon Dioxide 36 mEq/L (19-29); Chloride 92 mEq/L (98-109); Glucose 104 mg/dL (70-99); Osmolality,Calculated 266 (280-300); Potassium 3.7 mEq/L (3.5-4.5); Sodium 129 mEq/L (136-145); eGFR For African Americans > 60 (> 60); eGFR For Non-African Americans > 60 (> 60)
[2016-10-14 06:15] LABS: Eosinophils # 0.1 K/mcL (0.0-0.6); Lymphocytes # 0.7 K/mcL (0.6-4.6); Monocytes # 0.4 K/mcL (0.0-1.3); Neutrophils # 7.3 K/mcL (1.6-8.9)
[2016-10-14 06:16] LABS: Platelet Estimate Normal (Normal); Toxic Granulation Present (Not Present)
--- NOTE | 2016-10-14 07:54 | Discharge Summary ---
Date of Encounter: 10/14/16 Time of Encounter: 07:51 - Discharge Diagnosis (1) Pneumoperitoneum Priority: Primary Status: Acute (2) Small bowel obstruction Priority: Primary Status: Acute (3) Cellulitis Priority: Primary Status: Acute Qualifiers: Site of cellulitis: trunk Site of cellulitis of trunk: abdominal wall Qualified Code(s): L03.311 - Cellulitis of abdominal wall (4) History of rectal cancer Priority: Secondary Status: Chronic (5) DVT prophylaxis Priority: Primary Status: Acute - Discharge Medications Prescriptions: Amoxicillin/Clavulanate [Augmentin] 875 mg PO BIDWM #14 tablet Home Medications: Cyanocobalamin (Vitamin B-12) [Vitamin B-12] 1,000 mcg PO DAILY 11/08/14 [ History] Ascorbic Acid [Vitamin C] 500 mg PO DAILY #30 tablet 12/31/14 [Rx] Aspirin Enteric Coated [Aspirin EC] 81 mg PO DAILY 12/31/14 [History] Cholecalciferol (D-3) [Vitamin D] 1,000 unit PO DAILY 07/27/16 [History] Mv-Mn/FA/Vit K/Lycop/Lut/Coq10 [Daily Multivitamin Capsule] 1 tab PO DAILY 07/27 [History] Omeprazole [PriLOSEC] 20 mg PO DAILY #30 cap 08/10/16 [Rx] Ondansetron HCl [Zofran] 4 mg PO Q4HR #30 tablet 08/10/16 [Rx] Prochlorperazine Maleate [Compazine] 10 mg PO Q6H PRN #30 tablet 08/10/16 [Rx] Gabapentin [Neurontin] 300 mg PO TID #90 capsule 09/14/16 [Rx] Dexamethasone [Decadron] 2 mg PO BID 09/29/16 [History] LevETIRAcetam [Keppra] 500 mg PO BID 09/29/16 [History] Diclofenac Sodium [Voltaren] 1 appl TP QID 10/05/16 [History] LORazepam [Ativan] 0.5 mg PO QID PRN 10/05/16 [History] Capecitabine [Xeloda] 3 tab PO BID #84 tablet 10/12/16 [Rx] Hydrochlorothiazide 25 mg PO DAILY 10/12/16 [History] Amoxicillin/Clavulanate [Augmentin] 875 mg PO BIDWM #14 tablet 10/14/16 [Rx] Allergies/Adverse Reactions: Allergies azithromycin Allergy (Unknown, Verified 07/27/16 15:11) unknown General Surgery Exam Initial Vital Signs Temp Pulse Resp BP Pulse Ox 97.5 F L 90 18 117/64 92 10/05/16 05:48 10/05/16 05:48 10/05/16 05:48 10/05/16 05:48 10/05/16 05:48 - General physical appearance well developed, well nourished, no distress - Eyes normal ocular movement - ENT normal mucosa - Neck trachea midline - Respiratory normal expansion, normal respiratory effort (weak) wheezing: bilateral - Cardiovascular Cardiovascular exam: Present: RRR - Abdomen Abdomen general surgery: Present: bowel sounds present, soft, wound (Colostomy intact in left upper quadrant. Area of erythema blanching noted just lateral to the colostomy site. Improving. No drainage from I&D site with packing and dressing present) - Integumentary Integumentary general surgery: Present: other (See above) - Neurologic Present: CN 2-12 grossly intact - Psychiatric Psychiatric general surgery: Present: appropriate, oriented to person, oriented to place, oriented to time, speech is normal, memory intact Date of admission: 10/05/16 13:09 Primary care physician: Marisol Carreon, Consults: 10/13/16 10:17 Consult to Synthetic Filament [employer]ruder [CONS] Routine Reason for SW Consult: Pt will need daily wound care at home. Abdominal I&D site: Remove dressing and packing. Cleanse with soap and water. Repack with 1/4 inch plain gauze. Cover with a dry dressing. Reinforce/change outer dressing PRN. - Patient Status Disposition: Home Health Service Condition: Fair Overall status at discharge: patient is progressing back to baseline - Discharge Instructions Instructions: Perforated Bowel (DC) Follow Up With: Jesus Flores MD [Partnered Physician] - 10/20/16 10:50 am (Doctor will see you during your Treatment) Marisol Carreon CNP [Primary Care Provider] - 10/18/16 10:00 am (Please follow up as schedule...) Miriam Jeter CNP [Advanced Practice Nurse] - Additional Instructions: Home health to manage wound care Abdominal I&D site: Remove dressing and packing. Cleanse with soap and water. Repack with 1/4 inch plain gauze. Cover with a dry dressing. Reinforce/ change outer dressing PRN. Continue your routine colostomy care, ask home health if you have more educational questions Take your home [place] as directed. Do not operate any vehicles while taking opiod medications for at least 24 hours after Please review discharge handout Slowly advance your diet as tolerated Follow-up appointments: Dr. Murillo on 10/20/2016 at 10:50 AM Marisol Carreon on 10/18/2016 at 10 AM Miriam Jeter in one week. Medication List: Carry an up to date list of medications you are taking at all time. We have given you an updated medication list including any new medications that you have been prescribed. Please provide that list to your primary provider Symptoms: If your condition changes or you experience any of the following symptoms, notify your physician immediately: Unusual or worsening pain, fever, persistent nausea and vomiting, bleeding, increase in swelling (especially in your legs), sudden weight gain, extreme dizziness, chest pain, increased drainage or redness from a wound or incision. Go to the emergency department if you experience a problem with breathing. - Diet and Activity Activity: ambulate only with your walker Diet: advance to your usual diet (slowly) - Hospital Course Hospital course: Ms. Romano is a very pleasant 71-year-old male with past medical history of colorectal cancer that was metastatic to his lung and brain who presented to the [facility] emergency department with chief complaint of abdominal pain for [address] of the abdomen and pelvis on arrival demonstrates pneumoperitoneum consistent with perforated viscus along with a small bowel obstruction. Patient was subsequently admitted and treated with conservative measures to include bowel rest, NG tube, IV fluids, IV antibiotics and supportive care. Over the following weekend, a region of erythema and blanching was noted just lateral to his colostomy site consistent with cellulitis and CT performed on 10/12/2016 demonstrates a left paracolic gutter abscess along with persistent pneumoperitoneum. Incision and drainage was performed to his left lower flank in the area of fluctuance with minimal drainage. Wound cultures showed no growth. Wound was packed with iodoform and covered with a dressing. Mr. Romano's bowel function returned and was started on a full liquid diet with toleration. On reevaluation of his left flank, the area of erythema and blanching has significantly decreased since I&D. Patient received 10 days of IV Zosyn. A home health referral was placed for daily wound care and Augmentin for seven days upon discharge. Mr. Romano was discharged to home in stable condition on 10/14/2016 with home health and follow -up appointments with his oncologist, Dr. Flores, on October 14 6016 at 10:50 AM and his PCP, Marisol Carreon, on 10/18/2016 at 10 AM. - Time Spent with Patient Total time spent providing and/or coordinating discharge services: Labs on day of discharge: Short CBC 10/14/16 Range/Units 04:00 WBC 8.5 (4.3-11.1) K/mcL Hgb 9.4 L (12.9-16.9) g/dL Hct 26.5 L (37.5-50.1) % Plt Count 357 (140-400) K/mcL Neutrophils # 7.3 (1.6-8.9) K/mcL BMP 10/14/16 Range/Units 04:00 Sodium 129 L (136-145) mEq/L Potassium 3.7 (3.5-4.5) mEq/L Chloride 92 L (98-109) mEq/L Carbon Dioxide 36 H (19-29) mEq/L BUN 7 L (8-26) mg/dL Creatinine 0.54 L (0.72-1.25) mg/dL Glucose 104 H (70-99) mg/dL Calcium 8.8 (8.6-10.8) mg/dL Vital Signs Temp Pulse Resp BP Pulse Ox 10/14/16 07:35 97.9 F 87 16 124/84 91 10/14/16 04:08 97.6 F 90 18 116/79 93 10/14/16 00:29 97.7 F 96 18 126/85 92 10/13/16 20:22 98.1 F 99 18 130/86 93 10/13/16 16:01 98.3 F 98 12 124/86 92 10/13/16 10:42 98.2 F 95 18 116/80 92 Intake and Output 10/13/16 10/13/16 10/14/16 15:59 23:59 07:59 Intake Total 340 / 340 220 / 220 160 / 160 Output Total 700 / 700 200 / 200 Balance 340 / 340 -480 / -480 -40 / -40 Intake: IV Fluids 100 / 100 100 / 100 100 / 100 Zosyn 3.375 GM In 100 / 100 100 / 100 100 / 100 Dextrose 5% (Minibag+) 100 ML 100 ML @ 25 mls/hr IVPB Q8HR [facility] Rx#: [id number] Oral 240 / 240 120 / 120 60 / 60 Output: Urine 700 / 700 200 / 200 Other: Meal Lunch Percent of Meal Consumed 25% Weight 90.809 kg Patient Weight 10/14/16 23:59 Weight 90.809 kg - Impressions ITS Impressions Abdomen/Pelvis CT 10/12/16 14:30 IMPRESSION: There is a new abscess in the left pericolic gutter. There is persistent pneumoperitoneum and extraluminal gas adjacent to the sigmoid colon segment just proximal to the left lower quadrant colostomy. There is wall thickening of the sigmoid colon just proximal to the colostomy, with no pneumatosis. However, there is the appearance of possible disruption/perforation of the medial wall of the thickened segment, contiguous with a focal gas collection. This is better appreciated in the coronal reconstructions. Note that oral contrast was administered but had not reached the colon at the time of imaging. Delayed images obtained in 2 hours may be helpful to confirm perforation of the colon at the site. D/ / Harpal Lan MD / Harpal Lan MD Interpreting Provider: Harpal Lan MD
--- NOTE | 2016-10-14 08:18 | Physician Discharge Referral ---
Home Health/Hosp Referral Info Transfer to: Home Health - Diagnosis (1) Cellulitis Priority: Primary Status: Acute (2) Pneumoperitoneum Priority: Primary Status: Acute (3) History of rectal cancer Priority: Secondary Status: Chronic - Dressing/Wound Care Site: Left lower quadrant I&D site Type of Dressing/Treatments w/Frequency: Abdominal I&D site: DAILY - Remove dressing and packing. Cleanse with soap and water. Repack with 1/4 inch plain gauze. Cover with a dry dressing. Reinforce/ change outer dressing PRN. - Transfer Medications Home Medications: Cyanocobalamin (Vitamin B-12) [Vitamin B-12] 1,000 mcg PO DAILY 11/08/14 [ History] Ascorbic Acid [Vitamin C] 500 mg PO DAILY #30 tablet 12/31/14 [Rx] Aspirin Enteric Coated [Aspirin EC] 81 mg PO DAILY 12/31/14 [History] Cholecalciferol (D-3) [Vitamin D] 1,000 unit PO DAILY 07/27/16 [History] Mv-Mn/FA/Vit K/Lycop/Lut/Coq10 [Daily Multivitamin Capsule] 1 tab PO DAILY 07/27 [History] Omeprazole [PriLOSEC] 20 mg PO DAILY #30 cap 08/10/16 [Rx] Ondansetron HCl [Zofran] 4 mg PO Q4HR #30 tablet 08/10/16 [Rx] Prochlorperazine Maleate [Compazine] 10 mg PO Q6H PRN #30 tablet 08/10/16 [Rx] Gabapentin [Neurontin] 300 mg PO TID #90 capsule 09/14/16 [Rx] Dexamethasone [Decadron] 2 mg PO BID 09/29/16 [History] LevETIRAcetam [Keppra] 500 mg PO BID 09/29/16 [History] Diclofenac Sodium [Voltaren] 1 appl TP QID 10/05/16 [History] LORazepam [Ativan] 0.5 mg PO QID PRN 10/05/16 [History] Capecitabine [Xeloda] 3 tab PO BID #84 tablet 10/12/16 [Rx] Hydrochlorothiazide 25 mg PO DAILY 10/12/16 [History] Allergies/Adverse Reactions: Allergies azithromycin Allergy (Unknown, Verified 07/27/16 15:11) unknown Certification: Further, I certify that my clinical findings support that this patient is homebound (i.e. absences from home require considerable and taxing effort and are for medical reasons or shinto services or infrequently or short duration when for other reasons) because: Homebound Reason: Patient requires assistance of a person or device to safely leave home Attestation: My signature below is to certify that this patient is under my care and that I, or nurse practitioner, or a physician's hospital aides and assistants teacher working with me, has a face-to -face encounter with this patient.
[2016-10-14] MEDS: hydroCHLOROthiazide 25 MG TABLET PO SCH (09:29)
[2016-10-14] MEDS: *HR* Heparin 5,000 UNIT/ML VIAL SQ SCH (09:29)
[2016-10-14] MEDS: Pantoprazole 40 MG VIAL IVP SCH (09:29)
[2016-10-14] MEDS: *HR* LORazepam 2 MG/ML VIAL IVP PRN (09:30)
[2016-10-14] MEDS: Piperacillin/Tazobactam 3.375 GM in D5% in Water (Mini-Bag+) 100 ML IVPB SCH (09:30)
[2016-10-14] MEDS: Fluticasone Propionate Nasal 50 MCG/SPRAY BOTTLE NS SCH (09:31)
[2016-10-14 10:57] VITALS: BP 127/82
== END 2016-10-14 14:46 | disposition home health service (06) | DRG 375 ==
LOC: EMEROO 05:46 → 3BNU 05:46 → 2NNU 09:24 → 2ANU 10-08 05:45
PROVIDERS: ADMIT Surgery; ATTEND Surgery

== ENCOUNTER 2016-10-18 17:20 | Inpatient (IN) ==
--- NOTE | 2016-10-18 18:00 | General Surg History&Physical ---
Date of Encounter: 10/18/16 Time of Encounter: 17:48 Assessment and Plan (1) Perforated viscus Current Visit: Yes Status: Acute The assessment and plan as outlined above was discussed with the patient and/or family members who expressed understanding and agreement. All questions were answered. CT results of perforated colon with extravasation of contrast discussed with patient and , will plan exploratory laparotomy, left colectomy, colostomy, wound vac placement. Risks and benefits discussed and patient wishes to proceed npo, ivfh prn pain control antibiotics (2) Pneumoperitoneum Current Visit: No Status: Acute The assessment and plan as outlined above was discussed with the patient and/or family members who expressed understanding and agreement. All questions were answered. (3) Abdominal pain Current Visit: No Status: Acute The assessment and plan as outlined above was discussed with the patient and/or family members who expressed understanding and agreement. All questions were answered. prn pain control Qualifiers: Abdominal location: left lower quadrant Qualified Code(s): R10.32 - Left lower quadrant pain (4) Hypertension Current Visit: No Status: Chronic The assessment and plan as outlined above was discussed with the patient and/or family members who expressed understanding and agreement. All questions were answered. hold home medication currently as planning for OR Qualifiers: Hypertension type: essential hypertension Qualified Code(s): I10 - Essential (primary) hypertension (5) DVT prophylaxis Current Visit: No Status: Acute The assessment and plan as outlined above was discussed with the patient and/or family members who expressed understanding and agreement. All questions were answered. heparin sq (6) 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 Current Visit: No Status: Chronic The assessment and plan as outlined above was discussed with the patient and/or family members who expressed understanding and agreement. All questions were answered. patients last chemotherapy was approx September 29 (7) Leukocytosis Current Visit: Yes Status: Acute The assessment and plan as outlined above was discussed with the patient and/or family members who expressed understanding and agreement. All questions were answered. will start iv antibiotics Qualifiers: Leukocytosis type: unspecified Qualified Code(s): D72.829 - Elevated white blood cell count, unspecified History of Present Illness Chief complaint: abdominal pain HPI: Mr. Romano is a 71 year old male with a complex medical history including metastatic rectal cancer to lung and brain. He has previously undergone an APR, colostomy, left lower lobectomy, and craniotomy and tumor excision. Patient was recently in the hospital for perforated colon either due to diverticulitis or as a complication of his chemotherapy. He was treated conservatively with npo, ivfh, pain control, antibiotics and improved and was discharged home 10/14/2016. Since being home his was concerned about an area on his abdominal skin that she felt was a new open area and was draining pus. He started having some left lower quandrant abdominal pain again yesterday and returned to the ED. A ct scan of his abdomen/pelvis was done showing pneumoperitoneum and a left paracolic gutter air/fluid collection. The patient returned today for a stat CT with contrast (iv/ostomy) which showed a perforation of the colon in the subcutaneous tissue with extravasation of contrast. Patient has parastomal hernia present as well. There is still a considerable amount of free air located in the left paracolic gutter and left colon inflammation. He is having increased abdominal pain currently. No nausea or emesis. No fevers. Was doing well and tolerating food and having stools until yesterday with recurrence of pain. Past Med Surg Social Fam HX - Past Medical History Source: patient Medical history: cancer (rectal cancer metastatic to Left lower lung/s.p lobectomy, craniotomy with tumor resection, new tongue lesion), hypertension Psychiatric history: anxiety - Past Surgical History Surgical History: cholecystectomy, colectomy (colon resection with colostomy for colorectal cancer), colostomy, herniorrhaphy (bilateral inguinal), orthopedic, other (left rotator cuff repair; right knee arthroscopy; right total shoulder replacement), other (colonoscopy; facial repair with plate and left arm reconstruction after industrial accident; pelvic floor rebuild; left lower lobectomy for metastatic lesion; craniotomy with resection for metastatic lesion) - Social History Smoking Status: Never smoker Smokeless Tobacco Status: No Alcohol use: none Drug use: none - Family History Mother Living Status: Hx Family Cancer: Yes (uterine ca) Hx Family Endocrine Disorder: Yes (DM) Father Living Status: Hx Family Cardiac Disorders: Yes (VT) Medications and Allergies Cyanocobalamin (Vitamin B-12) [Vitamin B-12] 1,000 mcg PO DAILY 11/08/14 [ History] Ascorbic Acid [Vitamin C] 500 mg PO DAILY #30 tablet 12/31/14 [Rx] Aspirin Enteric Coated [Aspirin EC] 81 mg PO DAILY 12/31/14 [History] Cholecalciferol (D-3) [Vitamin D] 1,000 unit PO DAILY 07/27/16 [History] Mv-Mn/FA/Vit K/Lycop/Lut/Coq10 [Daily Multivitamin Capsule] 1 tab PO DAILY 07/27 [History] Omeprazole [PriLOSEC] 20 mg PO DAILY #30 cap 08/10/16 [Rx] Ondansetron HCl [Zofran] 4 mg PO Q4HR #30 tablet 08/10/16 [Rx] Prochlorperazine Maleate [Compazine] 10 mg PO Q6H PRN #30 tablet 08/10/16 [Rx] Gabapentin [Neurontin] 300 mg PO TID #90 capsule 09/14/16 [Rx] Dexamethasone [Decadron] 2 mg PO BID 09/29/16 [History] LevETIRAcetam [Keppra] 500 mg PO BID 09/29/16 [History] Diclofenac Sodium [Voltaren] 1 appl TP QID 10/05/16 [History] LORazepam [Ativan] 0.5 mg PO QID PRN 10/05/16 [History] Capecitabine [Xeloda] 3 tab PO BID #84 tablet 10/12/16 [Rx] Hydrochlorothiazide 25 mg PO DAILY 10/12/16 [History] Amoxicillin/Clavulanate [Augmentin] 875 mg PO BIDWM #14 tablet 10/14/16 [Rx] Allergies azithromycin Allergy (Unknown, Verified 07/27/16 15:11) unknown Review of Systems All systems PM: reviewed and no additional remarkable complaints except as stated All systems PM: A 10-system review of systems was performed and is negative for pertinent findings except as documented above in the HPI. General Surgery Exam - General physical appearance moderate distress, moderate pain, cachectic, chronically ill - Eyes PERRL, normal ocular movement - ENT normal mucosa, normocephalic - Neck trachea midline - Respiratory normal expansion, clear to auscultation - Cardiovascular Cardiovascular exam: Present: RRR - Abdomen Abdomen general surgery: Present: bowel sounds present, soft, tender Abdominal Tenderness: Present: LUQ, LLQ (near colostomy) - Integumentary Integumentary general surgery: Present: warm and dry, no abnormal pigmentation - Neurologic Present: CN 2-12 grossly intact - Musculoskeletal Present: normal posture - Psychiatric Psychiatric general surgery: Present: A&Ox3, tearful Results - Labs All other labs normal. - Imaging CT scan - abdomen: report reviewed, image reviewed CT scan - pelvis: report reviewed, image reviewed
--- NOTE | 2016-10-18 18:08 | Anesthesia Evaluation PreOp ---
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 HX Other Medical History: GERD, Other (Hx Colorectal Cancer, Anxiety) Anesthesia History: No Prior Anesthetic Complications Alcohol Use: none Drug use: none Medications and Allergies Cyanocobalamin (Vitamin B-12) [Vitamin B-12] 1,000 mcg PO DAILY 11/08/14 [ History] Ascorbic Acid [Vitamin C] 500 mg PO DAILY #30 tablet 12/31/14 [Rx] Aspirin Enteric Coated [Aspirin EC] 81 mg PO DAILY 12/31/14 [History] Cholecalciferol (D-3) [Vitamin D] 1,000 unit PO DAILY 07/27/16 [History] Mv-Mn/FA/Vit K/Lycop/Lut/Coq10 [Daily Multivitamin Capsule] 1 tab PO DAILY 07/27 [History] Omeprazole [PriLOSEC] 20 mg PO DAILY #30 cap 08/10/16 [Rx] Ondansetron HCl [Zofran] 4 mg PO Q4HR #30 tablet 08/10/16 [Rx] Prochlorperazine Maleate [Compazine] 10 mg PO Q6H PRN #30 tablet 08/10/16 [Rx] Gabapentin [Neurontin] 300 mg PO TID #90 capsule 09/14/16 [Rx] Dexamethasone [Decadron] 2 mg PO BID 09/29/16 [History] LevETIRAcetam [Keppra] 500 mg PO BID 09/29/16 [History] Diclofenac Sodium [Voltaren] 1 appl TP QID 10/05/16 [History] LORazepam [Ativan] 0.5 mg PO QID PRN 10/05/16 [History] Capecitabine [Xeloda] 3 tab PO BID #84 tablet 10/12/16 [Rx] Hydrochlorothiazide 25 mg PO DAILY 10/12/16 [History] Amoxicillin/Clavulanate [Augmentin] 875 mg PO BIDWM #14 tablet 10/14/16 [Rx] Allergies azithromycin Allergy (Unknown, Verified 07/27/16 15:11) unknown - Meds/Allergy Pre-op Review Medications Reviewed: Yes Allergies Reviewed: Yes Beta Blockers on Current Med List: No Anesthesia Results - Labs Laboratory Tests 03/31/15 10/17/16 10/17/16 10:46 20:56 20:56 Hgb 11.1 L D Hct 33.1 L Plt Count 624 H D Sodium 133 L Potassium 4.3 BUN 14 POC Creatinine 0.70 - Imaging EKG: report reviewed (SR with frequent PVC) Anesthesia Exam Height: 6'0 Weight: 198 lbs NPO (# of Hours): MN Pain Scale: 0 - HEENT Pupil (Motor): Pupils equal, EOMI Mallampati: II Teeth: Normal Oral Opening: Greater than 3 - FACEPIECE LINE SUPERVISOR LOC: Oriented FACEPIECE LINE SUPERVISOR Motor: Normal RUE, Normal LUE, Normal RLE, Normal LLE, Normal Face FACEPIECE LINE SUPERVISOR Sensory: Normal: RUE, LUE, RLE, LLE, Face - Cardiac Rhythm: Regular Murmur: None JVD: No Carotid Bruit: No - Pulmonary Breath Sounds: bilateral Clear Respiratory Effort: Symmetrical Anesthesia Assess/Plan ASA Score: 3 (HTN Gerd) Modified [place] Tannery Scale for Level of Consciousness: Cooperative, oriented, and tranquil Anesthetic Plan: General Monitoring Plan: Standard Monitors Recovery Plan: PACU (Discussed GA, agrees to proceed)
[2016-10-18] MEDS ORDERED: Ondansetron 4 MG/2 ML VIAL IVP PRN (18:17)
[2016-10-18] MEDS ORDERED: *HR* Morphine 2 MG/ML SYRINGE IVP PRN (18:17)
[2016-10-18] MEDS ORDERED: 0.9 % Sodium Chloride 1,000 ML IVC SCH (18:30)
[2016-10-18] MEDS ORDERED: CefOXitin 1,000 MG VIAL ONE (18:37)
[2016-10-18 18:52] LABS: Hematocrit 31.8 % (37.5-50.1); Hemoglobin 10.8 g/dL (12.9-16.9); Immature Platelets 1.2 % (1.1-6.1); Mean Corpuscular Hemoglobin 32.7 pg (28.0-33.3); Mean Corpuscular Volume 96.4 fL (83.0-100.0); Mean Platelet Volume 8.7 fL (9.4-12.4); Red Blood Count 3.3 M/mcL (4.19-5.50); Red Cell Distribution Width 17.2 % (11.5-14.5)
[2016-10-18 18:57] LABS: INR 1.1; Prothrombin Time 11.9 Seconds (9.4-12.1)
[2016-10-18] MEDS ORDERED: Levofloxacin 750 MG/150 ML 750 MG/150 ML BAG IVPB SCH (19:00)
[2016-10-18] MEDS ORDERED: Ertapenem 1,000 MG in 0.9 % Sodium Chloride Mini Bag 100 ML IVPB SCH (19:00)
[2016-10-18 19:04] LABS: BUN/Creatinine Ratio 26 (6-26); Blood Urea Nitrogen 16 mg/dL (8-26); Calcium 9.7 mg/dL (8.6-10.8); Carbon Dioxide 29 mEq/L (19-29); Chloride 100 mEq/L (98-109); Glucose 97 mg/dL (70-99); Osmolality,Calculated 281 (280-300); Potassium 4.2 mEq/L (3.5-4.5); Sodium 135 mEq/L (136-145); eGFR For African Americans > 60 (> 60); eGFR For Non-African Americans > 60 (> 60)
[2016-10-18] MEDS ORDERED: Lidocaine -MPF 2% 2 ML VIAL ONE (19:05)
[2016-10-18] MEDS ORDERED: Ondansetron 4 MG/2 ML VIAL ONE (19:05)
[2016-10-18] MEDS ORDERED: *HR* Propofol 200 MG/20 ML VIAL IVP ONE (19:05)
[2016-10-18] MEDS ORDERED: *HR* Rocuronium Bromide 50 MG/5 ML VIAL ONE ×2 (19:05→20:27)
[2016-10-18] MEDS ORDERED: Dexamethasone 4 MG/ML VIAL ONE (19:05)
[2016-10-18] MEDS ORDERED: Ketamine *HR* 500 MG/10 ML MDV ONE (19:07)
[2016-10-18] MEDS ORDERED: *HR* HYDROmorphone 2 MG/ML SYRINGE ONE (19:07)
[2016-10-18] MEDS ORDERED: *HR* Phenylephrine 10 MG/ML VIAL ONE (19:08)
[2016-10-18] MEDS ORDERED: Acetaminophen IV 1,000 MG/100 ML INFUS..BTL ONE (20:32)
[2016-10-18] MEDS ORDERED: Neostigmine Methylsulfate 3 MG/3 ML SYRINGE ONE (23:16)
--- NOTE | 2016-10-18 23:51 | Operative Note ---
Date of procedure: 10/18/16 Pre-op diagnosis: perforated left colon, pneumoperitoneum Post-op diagnosis: same Procedure: Exploratory laparotomy, takedown colostomy, takedown splenic flexure, left colectomy, right upper quadrant colostomy, appendectomy, lysis of adhesions Complications: none immediate Anesthesia: BENJY Surgeon: Loly Valentine Language Translator: June Padgett Estimated blood loss (cc): 80 IV fluids (cc): 2,500 Urine output (cc): 80 Specimen: see op note Condition: stable Disposition: PACU Procedure in Detail: specimens: appendix, left colon/distal transverse colon, subcutaneous fluid cultures (stool present) Patient was brought into the operating suite and placed supine on the operating table. Sign-in a was performed and everyone was in agreement. Anesthesia was induced and patient was endotracheally intubated by anesthesia without incident. A Porras catheter was placed by the circulating nurse. Of 3-0 silk pursestring stitch was placed at the colostomy opening effectively closing the colostomy. There was stool coming from the skin defect several centimeters away from the colostomy. This was manually evacuated with pressure. This area was cleaned and then the abdomen was prepped and draped in the usual sterile fashion. Timeout was performed again everyone is in agreement. Using the Bovie elliptical incision through the skin into the subcutaneous tissue was made around the colostomy site. Allis was placed on the colostomy for retraction and using the Bovie the colostomy was dissected from the subcutaneous tissue only down to the fascia. A perforation in the lateral aspect of the colostomy and the subcutaneous tissue was located. A TL 90 stapler with green load was placed across the colon proximal to the perforation and attempt to isolate and seal the perforation and any further stool coming from this area. The thickness of the bowel was to wide to accommodate the staplers which did not hold the bowel closed. The cut end of the bowel was then closed with 2-0 silk kclzoj-ia-oleox stitches. The subcutaneous tissue was copiously irrigated with sterile saline. A wet lap was placed into the colostomy site wound. An incision in the midline abdomen was made through the skin into subcutaneous tissue with a 15 blade. We dissected through the subcutaneous tissue to the anterior abdominal wall fascia with the Bovie. Latonia 's were placed on either side of the fascia for retraction in the midline was opened with the Bovie. A Bookwalter was placed for retraction. Adhesions from the small bowel to the anterior abdominal wall were taken down with Metzenbaum scissors and the Bovie. The colostomy was taken down from the anterior abdominal wall with the Bovie. The left colon was very friable and densely adherent to the left abdominal wall. Multiple areas of small bowel were also adhesed to the left colon and transverse colon. There was a perforation in the left colon several inches proximal to the colostomy site, stool was present. Cultures were taken of the peritoneal fluid for aerobic and anaerobic specimens. The adhesions between the small bowel and the left and transverse colon were taken down with gentle blunt dissection and Metzenbaum scissors. Once the small bowel was free it was run from the ligament of Treitz to the terminal ileum. There were no obvious areas of injury. Small bowel was packed away in the right abdomen with a wet lap and malleable retractor. The left colon was taken down off the left abdominal wall with gentle blunt dissection and the Bovie. Mesentery of the left colon was opened with the Bovie and taken down with the impact LigaSure proximally to the splenic flexure. The splenic flexure was taken down with gentle blunt dissection and the Bovie. The omentum was taken off the distal transverse colon with the Bovie. And the mesentery of the distal transverse colon was divided with the impact LigaSure proximally to the middle colic vessels which were left intact. An area of the distal transverse colon that did not appear to be inflamed was chosen for the area of resection. An opening in the mesentery beneath the transverse colon was made with the Bovie and the transverse colon transected with the linear MATT 75 stapler using a blue load. The specimen was marked short stitch proximal long stitch distal and placed off to the back table for pathology. The abdomen was copiously irrigated with sterile saline. Again the small bowel was run from the ligament of Treitz down to the terminal ileum. The patient still had his appendix which was grasped with Avilla. An opening in the mesoappendix at the base of the cecum was made with a hemostat. The appendix was transected at the base of the cecum with a linear MATT 75 stapler blue load. The mesoappendix was transected with the impact LigaSure. Jennifer's were placed on the left abdominal wall fascia for retraction. The posterior rectus fascia was isolated from the rectus muscle with the Bovie for several centimeters circumferentially allowing closure. The posterior rectus fascia was closed with a 0 PDS running stitch. Through the anterior abdominal wall then the wound was irrigated with sterile saline. The muscle was reapproximated with 3-0 Vicryl interrupted stitch. The anterior rectus fascia was taken off the anterior rectus muscle for several centimeters with the Bovie. The anterior rectus fascia was closed longitudinally in the direction of the fibers with an 0 PDS running stitch. An area in the right upper quadrant skin overlying the lateral rectus was chosen for the site of creation of the colostomy. A 2 cm circular area of skin was excised with the Bovie. We dissected through the subcutaneous fat to the anterior rectus muscle with the Bovie. The rectus muscle was split in the direction of the fibers with the Bovie. Then we divided the rectus muscles in the direction of the fibers and the posterior rectus fascia was opened with the Bovie. The opening in the abdominal wall was then enlarged to accommodate 2 fingerbreadths. The transverse colon was then brought through the abdominal wall with the Avilla. The colon reached well through the opening and appeared pink and viable. Jennifer's were placed on either side of the abdominal wall fascia for retraction. The midline fascia was closed with 2 separate #1 non- looped PDS running stitches meeting in the middle. The subcutaneous tissue was copiously irrigated with sterile saline. At the midline wound proximally and distally the subcutaneous tissue was reapproximated with 3-0 Vicryl stitches leaving an open area of approximately 6 cm in the middle. A wound VAC was placed at the midline incision and left abdominal wound at the old colostomy site using black foam in the wound VAC set to 125 mmHg continuous suction. The midline wound measured 3 cm wide by 4 cm deep by 67 m long. The left abdominal wound at the previous colostomy site measured 7 cm wide by 4-1/2 cm long by 5 cm deep. We then turned our attention to creation of the colostomy. Three Babcocks were placed across the staple line for retraction and using heavy curved Mabry scissors the staple line was transected. There was copious bleeding from the colon cut edge which was stopped with the Bovie. The colostomy was fashioned with 3-0 Vicryl interrupted stitches ensuring full thickness bites of the colon to the sewed cuticular tissue of the abdominal wall circumferentially. Colostomy appliance was placed to the abdominal wall after first using SKIN prep to the skin around the colostomy site. Up and instrument counts were correct at the end of the case. The patient tolerated the procedure well. The Porras catheter remained with the patient after surgery. The patient was awoken up by anesthesia in the operating suite and extubated without incident. He was taken to PACU in stable condition.
[2016-10-19] MEDS: *HR* HYDROmorphone (PF) 1 MG/ML SYRINGE IVP PRN ×7 (00:08→22:44)
--- NOTE | 2016-10-19 00:24 | Anesthesia Evaluation Post Op ---
Date of Encounter: 10/19/16 Time of Encounter: 00:23 - Vital Signs Vital Signs: Vital Signs/O2 Sat/Glucose, Most Current Temp Pulse Resp BP Pulse Ox 10/19/16 00:16 111 18 143/94 97 10/19/16 00:06 110 18 155/90 96 10/18/16 23:56 99 18 138/70 99 10/18/16 23:46 99.8 F H 99 18 122/87 99 - Lungs Lungs: Clear Ascult./Percussion - Airway Airway: Non-obstructed - Cardiovascular Regular Rate (mild tachy) - Mental Status Mental Status: Asleep with brisk response to light stimulation - Pain Pain Scale: 3 - Nausea Vomiting Nausea Vomiting: Not Present - Hydration Hydration: NPO - Discharge PostOp Status: Transfer Patient to floor
[2016-10-19] MEDS ORDERED: Naloxone 0.4 MG/ML INJ IVP PRN (00:44)
[2016-10-19] MEDS ORDERED: *HR* Metoprolol 5 MG/5 ML VIAL IVP PRN (00:44)
[2016-10-19] MEDS: 0.9 % Sodium Chloride 1,000 ML IVC SCH ×2 (01:40→10:33)
[2016-10-19] MEDS: Acetaminophen IV 1,000 MG/100 ML INFUS..BTL IVPB SCH ×3 (02:00→17:49)
[2016-10-19 06:22] LABS: Basophils # 0.1 K/mcL (0.0-0.2); Basophils % 0.3 %; Hematocrit 29.1 % (37.5-50.1); Hemoglobin 9.9 g/dL (12.9-16.9); Immature Granulocytes % 2.6 % (0-4); Lymphocytes # 1.1 K/mcL (0.6-4.6); Lymphocytes % 5.1 %; Mean Corpuscular Volume 94.2 fL (83.0-100.0); Mean Platelet Volume 8.9 fL (9.4-12.4); Monocytes # 1.1 K/mcL (0.0-1.3); Monocytes % 4.9 %; Neutrophils # 19.3 K/mcL (1.6-8.9); Platelet Count 450 K/mcL (140-400); Red Blood Count 3.09 M/mcL (4.19-5.50); Red Cell Distribution Width 17.1 % (11.5-14.5); Segmented Neutrophils % 87.1 %
[2016-10-19 06:31] LABS: BUN/Creatinine Ratio 28 (6-26); Blood Urea Nitrogen 15 mg/dL (8-26); Calcium 8.6 mg/dL (8.6-10.8); Carbon Dioxide 22 mEq/L (19-29); Chloride 106 mEq/L (98-109); Glucose 139 mg/dL (70-99); Osmolality,Calculated 279 (280-300); Phosphorous 3.4 mg/dL (2.3-4.7); Sodium 133 mEq/L (136-145); eGFR For African Americans > 60 (> 60); eGFR For Non-African Americans > 60 (> 60)
[2016-10-19 06:32] LABS: Magnesium 1.7 mg/dL (1.6-2.6); Potassium 5.1 mEq/L (3.5-4.5)
[2016-10-19] MEDS ORDERED: Pantoprazole 40 MG VIAL IVP SCH (09:00)
[2016-10-19] MEDS: Ertapenem 1,000 MG in 0.9 % Sodium Chloride Mini Bag 100 ML IVPB SCH (09:13)
[2016-10-19] MEDS: Pantoprazole 40 MG VIAL IVP SCH (09:13)
--- NOTE | 2016-10-19 10:12 | General Surgery Progress Note ---
<Stephy Mayo - Last Filed: 10/19/16 16:28> Date of Encounter: 10/19/16 Time of Encounter: 10:00 - Assessment and Plan (1) Pneumoperitoneum Current Visit: No Status: Acute POD #1 Exploratory laparotomy, takedown colostomy, takedown splenic flexure, left colectomy, right upper quadrant colostomy, appendectomy, lysis of adhesions -Await return of bowel function -Continue supportive care and discomfort management Will decrease hydromorphone to 0.5 mg Q2H PRN as 1 mg seems to be too sedating for pt Lorazepam for anxiety -NPO except ice chips -PT/OT eval and treat -Serial abdominal exams -Repeat daily labs -Denise catheter for accurate I/Os -Continue IV antibiotics for fecal contamination: Ertapenem (2) 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 Mild mass effect on the left lateral ventricle without significant midline shift. Keppra IV BID, can switch to po when pt is tolerating Management per Oncology. Consult Dr. Flores as pt had appointment for follow- up yesterday as OP. (3) DVT prophylaxis Current Visit: No Status: Acute SCDs while in bed Mobilize as tolerated per PT/OT Heparin 5000 units Q8H SQ to begin 10/20/2016 (4) Cellulitis Current Visit: Yes Status: Acute Wound care for previous I&D site to the mid/left abdomen: Remove packing, wash with soap and water, repack with 1/4 inch plain gauze, cover with a dry dressing. Wound VAC to mid abdomen dressing changes M/W/F per surgical team Qualifiers: Site of cellulitis: trunk Site of cellulitis of trunk: abdominal wall Qualified Code(s): L03.311 - Cellulitis of abdominal wall (5) Leukocytosis Current Visit: Yes Status: Acute Continue IV abx: Entrapenem Repeat labs in the am Qualifiers: Leukocytosis type: unspecified Qualified Code(s): D72.829 - Elevated white blood cell count, unspecified (6) Hypertension Current Visit: No Status: Chronic Pt is normotensive and Currently controlled on current IV regimen of metoprolol Will continue to monitor Qualifiers: Hypertension type: essential hypertension Qualified Code(s): I10 - Essential (primary) hypertension Subjective Patient reports: still having pain, pain is less, voiding w/o difficulty (per denise), no flatus, no bowel movement (small amount of residual brown debris noted in ostomy) Narrative: Ernie's is at bedside and reports that he rested through the night. Ernie reports that he continues to speak in a whispered voice. He is unsure of the cause and denies throat pain. He requests flonase be added to his regimen as this was a home medication. He denies fevers or chills. Reports that discomfort is controlled at this time. Objective Vital Signs - Last 8 Hours Temp Pulse Resp BP Pulse Ox 10/19/16 07:24 98.9 F 91 17 138/83 98 10/19/16 03:37 98.6 F 98 16 125/94 96 10/19/16 02:45 98.5 F 101 16 119/79 99 Intake and Output 10/18/16 10/19/16 10/19/16 23:59 07:59 15:59 Intake Total 100 / 100 Output Total 160 / 160 510 / 510 35 / 35 Balance -160 / -160 -410 / -410 -35 / -35 Intake: IV Fluids 100 / 100 Ofirmev 1,000 mg/100 ml 1 100 / 100 ,000 mg In 100 ml @ 400 mls/hr IVPB Q8HR [facility] Rx#: [id number] Oral 0 / 0 Output: Estimated Blood Loss 80 / 80 Urine Amount (Catheter) 80 / 80 Catheter 400 / 400 Wound Drainage 110 / 110 35 / 35 Left Lower Abdomen 50 / 50 35 / 35 Lower Medial Abdomen 0 / 0 0 / 0 Other: Meal NPO for breakfast Weight 86.183 kg 83.007 kg Blood Glucose* 151 Patient Weight 10/19/16 23:59 Weight 83.007 kg - General physical appearance no distress - Eyes normal ocular movement - ENT normal nares, dry mucosa, atraumatic, normocephalic, Other (hoarseness, whispering voice) - Neck Neck exam: trachea midline - Respiratory other (Decreased anterior bibasilar) - Cardiovascular Cardiovascular exam: Present: RRR - Abdomen Abdomen: Present: soft, tender (Expected post-operative tenderness), wound (1. Wound vac noted Midline and some errythema surrounding foam noted. 2. Small incision from previous I&D clean and dry. 3. Midline surgical incision clean, dry and intact. 4. RUQ colostomy stoma pink and moist, slightly edematous . 5. Minimal serous drainage in wound vac noted). Absent: bowel sounds present ( Bowel sounds absent) - Incision Incision: Present: clean and dry (see above), intact - Integumentary no rash - Neurologic other (Drowsy. Recently received pain medication) - Musculoskeletal normal posture - Psychiatric oriented to time, oriented to person, oriented to place - Labs 10/19/16 06:10 10/19/16 06:10 Diabetes panel 10/18/16 10/19/16 Range/Units 18:45 06:10 Sodium 135 L 133 L (136-145) mEq/L Potassium 4.2 5.1 H (3.5-4.5) mEq/L Chloride 100 106 (98-109) mEq/L Carbon Dioxide 29 22 (19-29) mEq/L BUN 16 15 (8-26) mg/dL Creatinine 0.61 L 0.54 L (0.72-1.25) mg/dL Glucose 97 139 H (70-99) mg/dL Calcium 9.7 8.6 (8.6-10.8) mg/dL Calcium panel 10/18/16 10/19/16 Range/Units 18:45 06:10 Calcium 9.7 8.6 (8.6-10.8) mg/dL Phosphorus 3.4 (2.3-4.7) mg/dL Pituitary panel 10/18/16 10/19/16 Range/Units 18:45 06:10 Sodium 135 L 133 L (136-145) mEq/L Potassium 4.2 5.1 H (3.5-4.5) mEq/L Chloride 100 106 (98-109) mEq/L Carbon Dioxide 29 22 (19-29) mEq/L BUN 16 15 (8-26) mg/dL Creatinine 0.61 L 0.54 L (0.72-1.25) mg/dL Glucose 97 139 H (70-99) mg/dL Calcium 9.7 8.6 (8.6-10.8) mg/dL Adrenal panel 10/18/16 10/19/16 Range/Units 18:45 06:10 Sodium 135 L 133 L (136-145) mEq/L Potassium 4.2 5.1 H (3.5-4.5) mEq/L Chloride 100 106 (98-109) mEq/L Carbon Dioxide 29 22 (19-29) mEq/L BUN 16 15 (8-26) mg/dL Creatinine 0.61 L 0.54 L (0.72-1.25) mg/dL Glucose 97 139 H (70-99) mg/dL Calcium 9.7 8.6 (8.6-10.8) mg/dL - VTE Documentation of Mechanical Device: Intermittent pneumatic compression device Consult Discharge Plan - Plan Referrals: NO,PCP [Primary Care Provider] - <Loly Valentine - Last Filed: 10/19/16 16:54> Date of Encounter: 10/19/16 - Assessment and Plan (1) Perforated viscus Current Visit: Yes Status: Acute (2) Pneumoperitoneum Current Visit: No Status: Acute pod #1 prn pain control await return of bowel function ok ice chips, sips clears/popcicles continue Ertapenum, cultures pending (3) Abdominal pain Current Visit: No Status: Acute prn pain control Qualifiers: Abdominal location: left lower quadrant Qualified Code(s): R10.32 - Left lower quadrant pain (4) Hypertension Current Visit: No Status: Chronic Qualifiers: Hypertension type: essential hypertension Qualified Code(s): I10 - Essential (primary) hypertension (5) DVT prophylaxis Current Visit: No Status: Acute (6) 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 Current Visit: No Status: Chronic (7) Leukocytosis Current Visit: Yes Status: Acute Qualifiers: Leukocytosis type: unspecified Qualified Code(s): D72.829 - Elevated white blood cell count, unspecified Subjective Narrative: has pain but isnt signficant, only taken a few doses of pain medication overnight no nausea no flatus or stool in colostomy Objective Vital Signs - Last 8 Hours Temp Pulse Resp BP Pulse Ox 10/19/16 11:00 98.0 F 96 16 132/83 97 Intake and Output 10/19/16 10/19/16 10/19/16 07:59 15:59 23:59 Intake Total 100 / 100 1100 / 1100 Output Total 510 / 510 35 / 35 Balance -410 / -410 1065 / 1065 Intake: IV Fluids 100 / 100 1100 / 1100 0.9 % Sodium Chloride 1, 1000 / 1000 000 ML @ 110 mls/hr IVC . Q9H6M [facility] Rx#:[id number] Ofirmev 1,000 mg/100 ml 1 100 / 100 100 / 100 ,000 mg In 100 ml @ 400 mls/hr IVPB Q8HR [facility] Rx#: [id number] Oral 0 / 0 Output: Catheter 400 / 400 Wound Drainage 110 / 110 35 / 35 Left Lower Abdomen 50 / 50 35 / 35 Lower Medial Abdomen 0 / 0 0 / 0 Other: Meal NPO for lunch Weight 83.007 kg Blood Glucose* 151 116 Patient Weight 10/19/16 23:59 Weight 83.007 kg - General physical appearance well developed, well nourished, no distress, moderate pain - Eyes PERRL, normal ocular movement - ENT normal nares, normocephalic - Neck Neck exam: trachea midline - Respiratory normal expansion, clear to auscultation, other (decrease LLL (s/p lobectomy)) - Abdomen Abdomen: Present: soft, tender, wound. Absent: bowel sounds present - Genitourinary other (denise in place) - Integumentary no rash, no growths - Neurologic CN 2-12 grossly intact - Musculoskeletal normal posture - Psychiatric oriented to time, oriented to person - Labs 10/19/16 06:10 10/19/16 06:10 Short CBC 10/19/16 10/18/16 Range/Units 06:10 18:45 WBC 22.1 H D 12.7 H (4.3-11.1) K/mcL Hgb 9.9 L 10.8 L (12.9-16.9) g/dL Hct 29.1 L 31.8 L (37.5-50.1) % Plt Count 450 H 591 H (140-400) K/mcL Neutrophils # 19.3 H (1.6-8.9) K/mcL BMP 10/19/16 10/18/16 Range/Units 06:10 18:45 Sodium 133 L 135 L (136-145) mEq/L Potassium 5.1 H 4.2 (3.5-4.5) mEq/L Chloride 106 100 (98-109) mEq/L Carbon Dioxide 22 29 (19-29) mEq/L BUN 15 16 (8-26) mg/dL Creatinine 0.54 L 0.61 L (0.72-1.25) mg/dL Glucose 139 H 97 (70-99) mg/dL Calcium 8.6 9.7 (8.6-10.8) mg/dL Vital Signs Temp Pulse Resp BP Pulse Ox 10/19/16 11:00 98.0 F 96 16 132/83 97 10/19/16 07:24 98.9 F 91 17 138/83 98 10/19/16 03:37 98.6 F 98 16 125/94 96 10/19/16 02:45 98.5 F 101 16 119/79 99 10/19/16 01:47 98.5 F 109 115/77 99 10/19/16 01:16 98.6 F 110 16 127/84 98 10/19/16 00:48 98.1 F 107 16 146/76 97 10/19/16 00:36 111 18 126/76 97 10/19/16 00:26 98.9 F 108 18 140/98 98 10/19/16 00:16 111 18 143/94 97 10/19/16 00:06 110 18 155/90 96 10/18/16 23:56 99 18 138/70 99 10/18/16 23:46 99.8 F H 99 18 122/87 99 10/18/16 18:27 89 16 144/96 97 Intake and Output 10/19/16 10/19/16 10/19/16 07:59 15:59 23:59 Intake Total 100 / 100 1100 / 1100 Output Total 510 / 510 35 / 35 Balance -410 / -410 1065 / 1065 Intake: IV Fluids 100 / 100 1100 / 1100 0.9 % Sodium Chloride 1, 1000 / 1000 000 ML @ 110 mls/hr IVC . Q9H6M [facility] Rx#:[id number] Ofirmev 1,000 mg/100 ml 1 100 / 100 100 / 100 ,000 mg In 100 ml @ 400 mls/hr IVPB Q8HR [facility] Rx#: [id number] Oral 0 / 0 Output: Catheter 400 / 400 Wound Drainage 110 / 110 35 / 35 Left Lower Abdomen 50 / 50 35 / 35 Lower Medial Abdomen 0 / 0 0 / 0 Other: Meal NPO for lunch Weight 83.007 kg Blood Glucose* 151 116 Patient Weight 10/19/16 23:59 Weight 83.007 kg - Attending Attestation I have personally performed a face to face evaluation on this patient. I have reviewed and agree with the care plan. History and Exam by me shows: pod #1, see A/P
[2016-10-19] MEDS: Fluticasone Propionate Nasal 50 MCG/SPRAY BOTTLE NS SCH (13:17)
--- NOTE | 2016-10-19 14:41 | Oncology Inp Consult Note ---
<Virginie Douglas E - Last Filed: 10/19/16 16:54> Date of Encounter: 10/19/16 Time of Encounter: 16:54 Assessment and Plan (1) Tongue lesion Status: Acute Assessment and plan: Consult ENT regarding tongue lesion (2) 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 Status: Chronic Assessment and plan: CHemotherapy on hold until patient recovers from recent surgery. (3) Rectal cancer Status: Chronic - Data of Consult Patient: known to practice within the last 3 years Consult date: 10/19/16 Requesting Physician: Loly Valentine MD Primary Care Provider: PCP NO - Consult Narrative Reason for consult: tongue lesion History of present illness: Mr. Romano is a 71 year old male who was recently admitted to [facility] with perforated colon. He had L colectomy, colostomy and lysis of adhesions per Dr. Valentine. He is well know to the cancer center he is currently receiving chemotherapy for treatment of metastatic rectal cancer. He was diagnosed with rectal cancer in 2014. He completed concurrent chemoradiation and other treatment regimens. Most recently he started a new chemotherapy regimen that includes irinotecan, Xeloda and Avastin. He has completed 2 cycles of this regimen with the last being given on 09/29/2016. please see previous oncology notes for further information. 12/22/15 he has a robotic LLL lobectomy Pahtology consistent with metastatic colorectal carcinoma. 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 He reported having jaw pain and a sore tongue after he bit his tongue approximately 2 months ago. 09/22/2016 MRI of Face-IMPRESSION:1. Abnormal enhancing 1.5 x 1.1 cm lesion within the tongue to the left of midline involving the genioglossus muscle. Differential considerations include a metastatic lesion from the patient's known rectal malignancy or a new primary squamous cell carcinoma. A repeat PET-CT is recommended for further evaluation. We have been asked to see him regarding tongue lesion. Patient was seen and examined chart reviewed. Past Med Surg Social Fam HX - Past Medical History Medical history: cancer (metastatic rectal), hypertension Psychiatric history: anxiety - Past Surgical History Surgical History: cholecystectomy, colectomy, colostomy, herniorrhaphy, orthopedic, other (L rotater cuff, R shoulder replacement), other (resection of parietal mass) - Social History Smoking Status: Never smoker Smokeless Tobacco Status: No Alcohol use: none Drug use: none - Family History Mother Living Status: Hx Family Cancer: Yes (uterine ca) Hx Family Endocrine Disorder: Yes (DM) Father Living Status: Hx Family Cardiac Disorders: Yes (AL) Medications and Allergies Cyanocobalamin (Vitamin B-12) [Vitamin B-12] 1,000 mcg PO DAILY 11/08/14 [ History] Ascorbic Acid [Vitamin C] 500 mg PO DAILY #30 tablet 12/31/14 [Rx] Aspirin Enteric Coated [Aspirin EC] 81 mg PO DAILY 12/31/14 [History] Cholecalciferol (D-3) [Vitamin D] 1,000 unit PO DAILY 07/27/16 [History] Mv-Mn/FA/Vit K/Lycop/Lut/Coq10 [Daily Multivitamin Capsule] 1 tab PO DAILY 07/27 [History] Gabapentin [Neurontin] 300 mg PO TID #90 capsule 09/14/16 [Rx] LevETIRAcetam [Keppra] 500 mg PO BID 09/29/16 [History] LORazepam [Ativan] 0.5 mg PO TID PRN 10/05/16 [History] hydroCHLOROthiazide [Hydrochlorothiazide] 25 mg PO DAILY 10/12/16 [History] Amoxicillin/Clavulanate [Augmentin] 875 mg PO BID 10/18/16 [History] Capecitabine [Xeloda] 1,500 mg PO BID MDD SEE NOTE 10/18/16 [History] Dexamethasone [Decadron] 4 mg PO DAILY 10/18/16 [History] HYDROcodone/Acet 10/325 mg [[place] 10-325 mg] 1 tab PO Q4-6H PRN 10/18/16 [ History] Isosorbide MONOnitrate (24 HR) [Imdur] 30 mg PO DAILY 10/18/16 [History] Lisinopril [Zestril] 20 mg PO DAILY 10/18/16 [History] Allergies azithromycin Allergy (Unknown, Verified 07/27/16 15:11) unknown All systems: reviewed and no additional remarkable complaints except as stated Constitutional: Present: weakness Nose, mouth and throat: Present: dry mouth Additional comments: denies soreness/pain in tongue. Respiratory: Present: cough (intermittent , non productive, O2 per nasal cannula ) Gastrointestinal: Present: abdominal pain (operative site) Additional comments: denise in place Musculoskeletal: Present: muscle weakness Oncology - Exam - Constitutional Vitals: Temp Pulse Resp BP Pulse Ox 98.0 F 96 16 132/83 97 10/19/16 11:00 10/19/16 11:00 10/19/16 11:00 10/19/16 11:00 10/19/16 11:00 General appearance: cooperative, no acute distress - Head Head exam: Present: normal inspection, normocephalic Additional comments: scar from previous surgery - ENT ENT exam: Present: mucous membranes dry (patient is NPO following surgery) Additional comments: Patient did not want tongue examined -"I am not worried about that at all" - Neck Neck exam: Present: normal inspection - Respiratory Respiratory exam: Present: CTAB (respirations shallow) - Cardiovascular Cardiovascular exam: Present: RRR - GI/Abdominal Additional comments: dressing, ostomy and drain intact - Additional comments: denise in place - Extremities Exam Additional comments: no edema, scar R shoulder from previous surgery - Neurological Exam Neurological exam: Present: alert, oriented X3 - Psychiatric Psychiatric exam: Present: normal mood Oncology - Results - Labs Labs: Short CBC 10/18/16 10/19/16 Range/Units 18:45 06:10 WBC 12.7 H 22.1 H D (4.3-11.1) K/mcL Hgb 10.8 L 9.9 L (12.9-16.9) g/dL Hct 31.8 L 29.1 L (37.5-50.1) % Plt Count 591 H 450 H (140-400) K/mcL Neutrophils # 19.3 H (1.6-8.9) K/mcL BMP 10/18/16 10/19/16 18:45 06:10 Sodium 135 L 133 L Potassium 4.2 5.1 H Chloride 100 106 Carbon Dioxide 29 22 BUN 16 15 Creatinine 0.61 L 0.54 L Glucose 97 139 H Calcium 9.7 8.6 Consult Discharge Plan - Plan Referrals: NO,PCP [Primary Care Provider] - <Jesus Flores - Last Filed: 10/20/16 19:32> Date of Encounter: 10/20/16 - Data of Consult Requesting Physician: Loly Valentine MD Primary Care Provider: PCP NO - Consult Narrative History of present illness: Mr. Romano is a 71 year old male Oncology - Exam - Constitutional Vitals: Temp Pulse Resp BP Pulse Ox 97.8 F 93 18 134/79 96 10/20/16 14:54 10/20/16 14:54 10/20/16 14:54 10/20/16 14:54 10/20/16 14:54 Oncology - Results - Labs Labs: Short CBC 10/20/16 Range/Units 04:39 WBC 14.5 H (4.3-11.1) K/mcL Hgb 9.0 L (12.9-16.9) g/dL Hct 27.2 L (37.5-50.1) % Plt Count 389 (140-400) K/mcL Neutrophils # 11.9 H (1.6-8.9) K/mcL BMP 10/20/16 04:39 Sodium 135 L Potassium 4.2 Chloride 104 Carbon Dioxide 28 BUN 12 Creatinine 0.44 L Glucose 87 Calcium 8.5 L - Attending Attestation 1. Pneumoperitoneum left paracolic gutter with perforated colon Could be secondary to diverticulitis versus Avastin complication He failed conservative management Dr. Valentine did exploratory laparotomy, takedown colostomy, takedown splenic flexure, left colectomy, right upper quadrant colostomy, appendectomy, lysis of adhesions and 10/18/2016. Since then his abdominal pain is much better. He is able to ambulate. Activity level has improved Await pathology 2. Metastatic colon cancer as mentioned Head isolated brain metastasis followed by surgery July 2016 Palliative chemotherapy Irinotecan with Avastin and Xeloda cycle 2 on 09/29/2016. CEA has decreased from 127 on July to 78 on 09/29/2016 We will hold further Avastin. Had a long discussion with the and the patient. The perforation is due to Avastin will avoid all antiangiogenic agents in the future 3. Infiltrative tongue lesion. ENT consult was placed as an outpatient. But will hold off on it now as is pain in the jaw and the tongue are better and he is able to eat better. 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 May repeat MRI of the face in a month or so. The lesion still persists with proceed with ENT evaluation and biopsy 4. Anemia hemoglobin 9. We will continue to watch it
[2016-10-20] MEDS: *HR* HYDROmorphone (PF) 1 MG/ML SYRINGE IVP PRN ×7 (03:02→22:37)
[2016-10-20] MEDS: 0.9 % Sodium Chloride 1,000 ML IVC SCH ×3 (05:08→14:00)
[2016-10-20] MEDS: Acetaminophen IV 1,000 MG/100 ML INFUS..BTL IVPB SCH ×4 (05:10→17:01)
[2016-10-20 05:16] LABS: Basophils # 0.1 K/mcL (0.0-0.2); Basophils % 0.6 %; Eosinophils % 0.2 %; Hematocrit 27.2 % (37.5-50.1); Immature Granulocytes % 4.6 % (0-4); Lymphocytes # 0.9 K/mcL (0.6-4.6); Mean Corpuscular HGB Conc 33.1 g/dL (31.6-35.5); Mean Corpuscular Hemoglobin 32.7 pg (28.0-33.3); Mean Corpuscular Volume 98.9 fL (83.0-100.0); Mean Platelet Volume 8.8 fL (9.4-12.4); Monocytes % 6.8 %; Neutrophils # 11.9 K/mcL (1.6-8.9); Platelet Count 389 K/mcL (140-400); Red Blood Count 2.75 M/mcL (4.19-5.50); Red Cell Distribution Width 17.2 % (11.5-14.5); Segmented Neutrophils % 81.8 %
[2016-10-20] MEDS: *HR* Heparin 5,000 UNIT/ML VIAL SQ SCH ×3 (05:25→21:22)
[2016-10-20 05:31] LABS: BUN/Creatinine Ratio 27 (6-26); Blood Urea Nitrogen 12 mg/dL (8-26); Calcium 8.5 mg/dL (8.6-10.8); Carbon Dioxide 28 mEq/L (19-29); Chloride 104 mEq/L (98-109); Glucose 87 mg/dL (70-99); Magnesium 1.4 mg/dL (1.6-2.6); Osmolality,Calculated 279 (280-300); Potassium 4.2 mEq/L (3.5-4.5); Sodium 135 mEq/L (136-145); eGFR For African Americans > 60 (> 60); eGFR For Non-African Americans > 60 (> 60)
[2016-10-20 05:33] LABS: Phosphorous 1.6 mg/dL (2.3-4.7)
[2016-10-20] MEDS: Pantoprazole 40 MG VIAL IVP SCH (07:32)
[2016-10-20] MEDS: Fluticasone Propionate Nasal 50 MCG/SPRAY BOTTLE NS SCH (07:35)
[2016-10-20] MEDS: Ertapenem 1,000 MG in 0.9 % Sodium Chloride Mini Bag 100 ML IVPB SCH (07:37)
--- NOTE | 2016-10-20 08:16 | General Surgery Progress Note ---
<Brent Pino - Last Filed: 10/20/16 17:11> Date of Encounter: 10/20/16 Time of Encounter: 08:14 - Assessment and Plan (1) Pneumoperitoneum Current Visit: No Status: Acute Postop day #2 status post exploratory laparotomy, takedown colostomy, takedown splenic flexure, left colectomy, right upper quadrant colostomy, appendectomy, lysis of adhesions Wound VAC abdomen: Dressing changes Tuesday, Tuesday, Tuesday per surgical team - Changed Vac today along with Colostomy Pain control - the Dilaudid was decreased at 0.5 daily yesterday as he was too sedated but last night the 0.5 was not sufficient for adequate analgesia. - Changed his nighttime dosing of Dilaudid to 1 mg every 2 hours and added EMILY Toradol. Nothing by mouth except ice chips Serial abdominal exams Bowel sounds present without flatus or stool present in his colostomy. Placed tape over vent on bag to monitor for flatus. Denise catheter for strict I&O's Wound cultures from his abdomen preliminary grew gram-negative rods IV antibiotics: Invanz PT/OT Encouraged ICS and ambulation with physical therapy/nursing as tolerated Disposition: Discharged to home with home health for wound care management pending pain control, return of bowel function, and toleration of diet. (2) Cellulitis Current Visit: Yes Status: Acute Continue with wound care management. See orders. Previous I&D site: Remove packing, wash with soap and water, packed with quarter inch plain gauze followed by a dry dressing and tape. Wound VAC abdomen: Dressing changes Tuesday, Tuesday, Tuesday per surgical team Qualifiers: Site of cellulitis: trunk Site of cellulitis of trunk: abdominal wall Qualified Code(s): L03.311 - Cellulitis of abdominal wall (4) Leukocytosis Current Visit: Yes Status: Acute Trending down from 22.1-14.5 today. We will continue to follow. Patient is currently on Invanz Qualifiers: Leukocytosis type: unspecified Qualified Code(s): D72.829 - Elevated white blood cell count, unspecified (5) At risk for nutrition deficiency Current Visit: Yes Status: Acute Started on TPN Therapy. Orders placed. Dietary consulted. Total fluid rate (maintenance IVF + TPN) = 110cc/hr (6) 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 Current Visit: No Status: Chronic Oncology consult was completed yesterday with Dr. Flores for further evaluation of a new tongue mass. Of note, they will resume a new chemotherapy regimen in 3 weeks along will hold off on ENT consult at this time. (8) Colostomy care Current Visit: No Status: Acute (9) DVT prophylaxis Current Visit: No Status: Acute Heparin 5000 units every 8 SQ, SCDs, ambulate as tolerated Subjective Patient reports: no new complaints, pain is less, voiding w/o difficulty, no flatus, no bowel movement, afebrile, other (Patient whispers that he feels better now than he did before the surgery. Per , he walked the halls yesterday. Wound VAC in place with 25 output present and 180 from VIN with serosanguineous fluid.) Objective Vital Signs - Last 8 Hours Temp Pulse Resp BP Pulse Ox 10/20/16 07:03 98.2 F 96 17 135/84 98 10/20/16 02:34 97.7 F 98 14 145/89 97 Intake and Output 10/19/16 10/20/16 10/20/16 23:59 07:59 15:59 Intake Total 1205 / 1205 160 / 160 Output Total 950 / 950 640 / 640 Balance 255 / 255 -480 / -480 Intake: IV Fluids 1205 / 1205 100 / 100 0.9 % Sodium Chloride 1, 1000 / 1000 000 ML @ 110 mls/hr IVC . Q9H6M EMILY Rx#:[id number] Ofirmev 1,000 mg/100 ml 1 100 / 100 ,000 mg In 100 ml @ 400 mls/hr IVPB Q8HR [facility]ILY Rx#: [id number] INVanz 1,000 MG In 0.9 % 100 / 100 Sodium Chloride (Mini-Bag +) 100 ML @ 100 mls/hr IVPB DAILY [facility]ILY Rx#: [id number] Keppra 500 MG In 0.9 % 105 / 105 Sodium Chloride 100 ML @ 400 mls/hr IVPB BID EMILY Rx#:[id number] Oral 0 / 0 60 / 60 Output: Urine 150 / 150 Stool 0 / 0 Catheter 800 / 800 600 / 600 Wound Drainage 0 / 0 40 / 40 Left Lower Abdomen 0 / 0 0 / 0 Lower Medial Abdomen 0 / 0 40 / 40 Other: Meal NPO Weight 85.275 kg Blood Glucose* 112 73 Patient Weight 10/20/16 23:59 Weight 85.275 kg - General physical appearance well developed, well nourished, no distress - Eyes normal ocular movement - ENT atraumatic, normocephalic - Neck Neck exam: trachea midline - Respiratory normal expansion, normal respiratory effort (Weak), clear to auscultation - Cardiovascular Cardiovascular exam: Present: RRR - Abdomen Abdomen: Present: bowel sounds present, soft, tender (Incisional), wound ( Midline wound and LLQ ostomy wound with granulation tissue present while changing vac. VIN drain intact and left lower quadrant with 180 output of serosanguineous fluid. Right upper quadrant colostomy intact without flatus or stool present in bag.) - Neurologic CN 2-12 grossly intact - Psychiatric oriented to time, oriented to person, oriented to place, speech is normal, memory intact - Labs 10/20/16 04:39 10/20/16 04:39 Short CBC 10/20/16 Range/Units 04:39 WBC 14.5 H (4.3-11.1) K/mcL Hgb 9.0 L (12.9-16.9) g/dL Hct 27.2 L (37.5-50.1) % Plt Count 389 (140-400) K/mcL Neutrophils # 11.9 H (1.6-8.9) K/mcL BMP 10/20/16 Range/Units 04:39 Sodium 135 L (136-145) mEq/L Potassium 4.2 (3.5-4.5) mEq/L Chloride 104 (98-109) mEq/L Carbon Dioxide 28 (19-29) mEq/L BUN 12 (8-26) mg/dL Creatinine 0.44 L (0.72-1.25) mg/dL Glucose 87 (70-99) mg/dL Calcium 8.5 L (8.6-10.8) mg/dL Vital Signs Temp Pulse Resp BP Pulse Ox 10/20/16 07:03 98.2 F 96 17 135/84 98 10/20/16 02:34 97.7 F 98 14 145/89 97 10/19/16 22:55 97.8 F 93 15 140/88 96 10/19/16 19:02 97.8 F 90 16 134/80 96 10/19/16 15:00 97.6 F 98 16 127/85 95 07/25/17 11:00 98.0 F 96 16 132/83 97 Intake and Output 10/19/16 10/20/16 10/20/16 23:59 07:59 15:59 Intake Total 1205 / 1205 160 / 160 Output Total 950 / 950 640 / 640 Balance 255 / 255 -480 / -480 Intake: IV Fluids 1205 / 1205 100 / 100 0.9 % Sodium Chloride 1, 1000 / 1000 000 ML @ 110 mls/hr IVC . Q9H6M [facility] Rx#:[id number] Ofirmev 1,000 mg/100 ml 1 100 / 100 ,000 mg In 100 ml @ 400 mls/hr IVPB Q8HR [facility] Rx#: [id number] INVanz 1,000 MG In 0.9 % 100 / 100 Sodium Chloride (Mini-Bag +) 100 ML @ 100 mls/hr IVPB DAILY [facility]ILY Rx#: [id number] Keppra 500 MG In 0.9 % 105 / 105 Sodium Chloride 100 ML @ 400 mls/hr IVPB BID EMILY Rx#:[id number] Oral 0 / 0 60 / 60 Output: Urine 150 / 150 Stool 0 / 0 Catheter 800 / 800 600 / 600 Wound Drainage 0 / 0 40 / 40 Left Lower Abdomen 0 / 0 0 / 0 Lower Medial Abdomen 0 / 0 40 / 40 Other: Meal NPO Weight 85.275 kg Blood Glucose* 112 73 Patient Weight 10/20/16 23:59 Weight 85.275 kg - VTE Documentation of Mechanical Device: Intermittent pneumatic compression device Consult Discharge Plan - Plan Referrals: NO,PCP [Primary Care Provider] - <Loly Valentine - Last Filed: 10/21/16 16:33> Date of Encounter: 10/20/16 Time of Encounter: 12:45 - Assessment and Plan (1) Pneumoperitoneum Current Visit: No Status: Acute await return of bowel function, no flatus yet ok ice chips/popcicles/lemon ice continue Abx - await culture results PT/OT aggressive IS wound vac changes M, W, F prn pain control prn antiemetics continue denise for strict I/Os (2) Abdominal pain Current Visit: No Status: Acute prn pain control Qualifiers: Abdominal location: left lower quadrant Qualified Code(s): R10.32 - Left lower quadrant pain (3) Hypertension Current Visit: No Status: Chronic normotensive, monitor Qualifiers: Hypertension type: essential hypertension Qualified Code(s): I10 - Essential (primary) hypertension (4) DVT prophylaxis Current Visit: No Status: Acute (5) 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 Current Visit: No Status: Chronic (6) Leukocytosis Current Visit: Yes Status: Acute improving, continue Abx await culture results Qualifiers: Leukocytosis type: unspecified Qualified Code(s): D72.829 - Elevated white blood cell count, unspecified Subjective Patient reports: no new complaints, feels better, still having pain, pain is less, no flatus, no bowel movement, afebrile Objective Vital Signs - Last 8 Hours Temp Pulse Resp BP Pulse Ox 10/21/16 15:58 16 97 10/21/16 11:42 97.5 F L 78 16 145/80 97 Intake and Output 10/21/16 10/21/16 10/21/16 07:59 15:59 23:59 Intake Total 869 / 869 400 / 400 Output Total 950 / 950 310 / 310 Balance -81 / -81 90 / 90 Intake: IV Fluids 869 / 869 400 / 400 0.9 % Sodium Chloride 1, 519 / 519 000 ML @ 110 mls/hr IVC . Q9H6M [facility] Rx#:[id number] Ofirmev 1,000 mg/100 ml 1 100 / 100 100 / 100 ,000 mg In 100 ml @ 400 mls/hr IVPB Q8HR EMILY Rx#: [id number] INVanz 1,000 MG In 0.9 % 100 / 100 Sodium Chloride (Mini-Bag +) 100 ML @ 100 mls/hr IVPB DAILY [facility] Rx#: [id number] Intralipid 20% 250 ML @ 250 / 250 21 mls/hr IVPB DAILY@1700 [facility] Rx#:[id number] Keppra 500 MG In 0.9 % 200 / 200 Sodium Chloride 100 ML @ 400 mls/hr IVPB BID EMILY Rx#:[id number] Output: Catheter 900 / 900 300 / 300 Wound Drainage 50 / 50 10 / 10 Left Lower Abdomen 20 / 20 10 / 10 Lower Medial Abdomen 30 / 30 Other: Meal NPO Weight 85.62 kg Blood Glucose* 131 154 Patient Weight 10/21/16 23:59 Weight 85.62 kg - General physical appearance well nourished, no distress - Eyes PERRL, normal ocular movement - ENT dry mucosa, atraumatic, normocephalic - Neck Neck exam: trachea midline - Respiratory normal expansion, clear to auscultation - Cardiovascular Cardiovascular exam: Present: RRR - Abdomen Abdomen: Present: bowel sounds present (faint), soft, tender (appropriate post op tenderness) - Genitourinary other (denise present draining clear urine) - Integumentary no rash, no growths - Neurologic CN 2-12 grossly intact - Musculoskeletal normal posture - Psychiatric oriented to time, oriented to person, speech is normal, memory intact - Labs 10/21/16 03:40 10/21/16 03:40 Diabetes panel 10/21/16 10/21/16 Range/Units 03:40 03:40 Sodium 135 L (136-145) mEq/L Potassium 3.5 (3.5-4.5) mEq/L Chloride 104 (98-109) mEq/L Carbon Dioxide 30 H (19-29) mEq/L BUN 9 (8-26) mg/dL Creatinine 0.43 L (0.72-1.25) mg/dL Glucose 127 H (70-99) mg/dL Calcium 8.2 L (8.6-10.8) mg/dL Triglycerides 91 (< 150) mg/dL Calcium panel 10/21/16 10/21/16 Range/Units 03:40 03:40 Calcium 8.2 L (8.6-10.8) mg/dL Phosphorus 1.6 L (2.3-4.7) mg/dL Pituitary panel 10/21/16 Range/Units 03:40 Sodium 135 L (136-145) mEq/L Potassium 3.5 (3.5-4.5) mEq/L Chloride 104 (98-109) mEq/L Carbon Dioxide 30 H (19-29) mEq/L BUN 9 (8-26) mg/dL Creatinine 0.43 L (0.72-1.25) mg/dL Glucose 127 H (70-99) mg/dL Calcium 8.2 L (8.6-10.8) mg/dL Adrenal panel 10/21/16 Range/Units 03:40 Sodium 135 L (136-145) mEq/L Potassium 3.5 (3.5-4.5) mEq/L Chloride 104 (98-109) mEq/L Carbon Dioxide 30 H (19-29) mEq/L BUN 9 (8-26) mg/dL Creatinine 0.43 L (0.72-1.25) mg/dL Glucose 127 H (70-99) mg/dL Calcium 8.2 L (8.6-10.8) mg/dL - Attending Attestation I examined this patient and my medical decision-making was reviewed with the Resident Physician. I agree with the documented findings, disposition and treatment plan as described except to the extent set forth below.
[2016-10-20] MEDS ORDERED: Magnesium Sulfate 2 GM in D5% in Water 100 ML IVPB ONE (09:01)
[2016-10-20] MEDS ORDERED: Sodium Phosphate 30 MMOL in D5% in Water 100 ML IVPB ONE (09:03)
[2016-10-20] MEDS ORDERED: D10% in Water 500 ML IVC PRN (11:47)
[2016-10-20] MEDS: Ketorolac 15 MG/ML VIAL IVP SCH ×2 (12:14→18:29)
[2016-10-20] MEDS ORDERED: Lidocaine -MPF 1% 5 ML AMPUL INFILT ONE (13:08)
[2016-10-20] MEDS ORDERED: Clinimix E 5%-15% SOLUTION 2,000 ML with MVI, adult with vitamin K 10 ML IVC SCH (17:00)
[2016-10-21] MEDS: Acetaminophen IV 1,000 MG/100 ML INFUS..BTL IVPB SCH ×3 (00:52→15:53)
[2016-10-21] MEDS: Ketorolac 15 MG/ML VIAL IVP SCH ×4 (00:52→17:57)
[2016-10-21] MEDS: 0.9 % Sodium Chloride 1,000 ML IVC SCH ×2 (02:20→17:54)
[2016-10-21] MEDS: *HR* HYDROmorphone (PF) 1 MG/ML SYRINGE IVP PRN ×6 (03:37→23:02)
[2016-10-21 03:50] LABS: Basophils # 0.1 K/mcL (0.0-0.2); Basophils % 0.6 %; Eosinophils # 0.3 K/mcL (0.0-0.6); Eosinophils % 2.9 %; Hematocrit 24.2 % (37.5-50.1); Immature Granulocytes % 7.7 % (0-4); Lymphocytes # 0.7 K/mcL (0.6-4.6); Lymphocytes % 6.4 %; Mean Corpuscular HGB Conc 33.1 g/dL (31.6-35.5); Mean Corpuscular Hemoglobin 32.1 pg (28.0-33.3); Mean Corpuscular Volume 97.2 fL (83.0-100.0); Mean Platelet Volume 8.6 fL (9.4-12.4); Monocytes # 0.7 K/mcL (0.0-1.3); Monocytes % 6.9 %; Platelet Count 341 K/mcL (140-400); Red Blood Count 2.49 M/mcL (4.19-5.50); Red Cell Distribution Width 16.6 % (11.5-14.5); Segmented Neutrophils % 75.5 %
[2016-10-21 03:51] LABS: Neutrophils # 8.1 K/mcL (1.6-8.9)
[2016-10-21 04:02] LABS: BUN/Creatinine Ratio 21 (6-26); Blood Urea Nitrogen 9 mg/dL (8-26); Calcium 8.2 mg/dL (8.6-10.8); Carbon Dioxide 30 mEq/L (19-29); Chloride 104 mEq/L (98-109); Glucose 127 mg/dL (70-99); Magnesium 1.5 mg/dL (1.6-2.6); Osmolality,Calculated 280 (280-300); Phosphorous 1.6 mg/dL (2.3-4.7); Potassium 3.5 mEq/L (3.5-4.5); Sodium 135 mEq/L (136-145); eGFR For African Americans > 60 (> 60); eGFR For Non-African Americans > 60 (> 60)
[2016-10-21 04:13] LABS: Platelet Estimate Normal (Normal); Toxic Granulation Present (Not Present)
[2016-10-21] MEDS: *HR* Heparin 5,000 UNIT/ML VIAL SQ SCH ×3 (06:13→21:27)
[2016-10-21] MEDS: Pantoprazole 40 MG VIAL IVP SCH (07:45)
[2016-10-21] MEDS: Ertapenem 1,000 MG in 0.9 % Sodium Chloride Mini Bag 100 ML IVPB SCH (07:46)
--- NOTE | 2016-10-21 09:05 | General Surgery Progress Note ---
<Brent Pino - Last Filed: 10/21/16 16:19> Date of Encounter: 10/21/16 Time of Encounter: 09:03 - Assessment and Plan (1) Pneumoperitoneum Current Visit: No Status: Acute Postop day #3 status post exploratory laparotomy, takedown colostomy, takedown splenic flexure, left colectomy, right upper quadrant colostomy, appendectomy, lysis of adhesions Wound VAC abdomen: Dressing changes Tuesday, Tuesday, Tuesday per surgical team Pain well controlled today Clear liquid diet Serial abdominal exams Faint bowel sounds present without flatus or stool present in his colostomy. Place tape over vent on bag to monitor for flatus. D/c Denise Wound cultures from his abdomen grew out Proteus Mirabilis. Switched IV antibiotics to Zosyn based on susceptibility IV fluids at 25 mL per hour PT/OT Encouraged ICS and ambulation with physical therapy/nursing as tolerated Disposition: Discharged to home with home health for wound care management pending pain control, return of bowel function, and toleration of diet. (2) Cellulitis Current Visit: Yes Status: Acute Continue with wound care management. Previous I&D site: Remove packing, wash with soap and water, packed with quarter inch plain gauze followed by a dry dressing and tape. Wound VAC abdomen: Dressing changes Tuesday, Tuesday, Tuesday per surgical team Qualifiers: Site of cellulitis: trunk Site of cellulitis of trunk: abdominal wall Qualified Code(s): L03.311 - Cellulitis of abdominal wall (3) Postoperative anemia Current Visit: Yes Status: Acute Hemoglobin trending down 10.8 > 9.9 > 9.0 > 8.0 Asymptomatic at this time. Denies any lightheadedness on ambulation. Vital signs are stable. Patient was +1400 on his I's and O's over the last 24 hours. We will continue to follow closely. Recheck tomorrow. (4) Leukocytosis Current Visit: Yes Status: Acute Trending down from 22.1 > 14.5 > 10.7. We will continue to follow. Patient is currently on Zosyn Qualifiers: Leukocytosis type: unspecified Qualified Code(s): D72.829 - Elevated white blood cell count, unspecified (5) At risk for nutrition deficiency Current Visit: Yes Status: Acute Started on TPN Therapy yesterday. Dietary consulted. Total fluid rate decreased (maintenance IVF + TPN) = 75 cc/hr Currently on TPN 50 (6) 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 Current Visit: No Status: Chronic Oncology following with Dr. Flores for further evaluation of a new tongue mass. Of note, they will resume a new chemotherapy regimen in 3 weeks and will hold off on ENT consult at this time. (7) Chest congestion Current Visit: Yes Status: Acute Adding a 72 hour treatment period of Duonebs and Mucomyst every 8 hours (8) Colostomy care Current Visit: No Status: Acute (9) DVT prophylaxis Current Visit: No Status: Acute Heparin 5000 units every 8 SQ, SCDs, ambulate as tolerated Subjective Patient reports: no new complaints, pain is less, voiding w/o difficulty, no flatus, no bowel movement, afebrile Narrative: Patient states that he walked twice yesterday. Objective Vital Signs - Last 8 Hours Temp Pulse Resp BP Pulse Ox 10/21/16 07:36 97.5 F L 72 16 137/91 97 10/21/16 04:59 97.7 F 76 18 137/86 96 Intake and Output 10/20/16 10/21/16 10/21/16 23:59 07:59 15:59 Intake Total 986 / 986 869 / 869 Output Total 430 / 430 950 / 950 Balance 556 / 556 -81 / -81 Intake: IV Fluids 986 / 986 869 / 869 0.9 % Sodium Chloride 1, 481 / 481 519 / 519 000 ML @ 110 mls/hr IVC . Q9H6M [facility] Rx#:[id number] Ofirmev 1,000 mg/100 ml 1 400 / 400 100 / 100 ,000 mg In 100 ml @ 400 mls/hr IVPB Q8HR [facility] Rx#: [id number] Intralipid 20% 250 ML @ 250 / 250 21 mls/hr IVPB DAILY@1700 [facility] Rx#:[id number] Keppra 500 MG In 0.9 % 105 / 105 Sodium Chloride 100 ML @ 400 mls/hr IVPB BID [facility] Rx#:[id number] Output: Catheter 400 / 400 900 / 900 Wound Drainage 30 / 30 50 / 50 Left Lower Abdomen 20 / 20 20 / 20 Lower Medial Abdomen 30 / 30 Other: Weight 85.62 kg Blood Glucose* 128 131 Patient Weight 10/21/16 23:59 Weight 85.62 kg - General physical appearance well developed, well nourished, no distress - Eyes normal ocular movement - ENT poor group home, normocephalic - Neck Neck exam: trachea midline - Respiratory normal expansion, normal respiratory effort wheezing: bilateral - Cardiovascular Cardiovascular exam: Present: RRR - Abdomen Abdomen: Present: bowel sounds present, wound (Midline incision: Wound vac in place. 100cc since yesterday. No drainage from preious I&D site just lateral wound vac) - Neurologic CN 2-12 grossly intact - Psychiatric oriented to time, oriented to person, oriented to place, speech is normal, memory intact - Labs 10/21/16 03:40 10/21/16 03:40 Short CBC 10/21/16 Range/Units 03:40 WBC 10.7 (4.3-11.1) K/mcL Hgb 8.0 L (12.9-16.9) g/dL Hct 24.2 L (37.5-50.1) % Plt Count 341 (140-400) K/mcL Neutrophils # 8.1 (1.6-8.9) K/mcL BMP 10/21/16 Range/Units 03:40 Sodium 135 L (136-145) mEq/L Potassium 3.5 (3.5-4.5) mEq/L Chloride 104 (98-109) mEq/L Carbon Dioxide 30 H (19-29) mEq/L BUN 9 (8-26) mg/dL Creatinine 0.43 L (0.72-1.25) mg/dL Glucose 127 H (70-99) mg/dL Calcium 8.2 L (8.6-10.8) mg/dL Vital Signs Temp Pulse Resp BP Pulse Ox 10/21/16 07:36 97.5 F L 72 16 137/91 97 10/21/16 04:59 97.7 F 76 18 137/86 96 10/21/16 00:45 97.6 F 83 17 156/83 95 10/20/16 19:49 97.9 F 91 18 142/90 94 10/20/16 14:54 97.8 F 93 18 134/79 96 10/20/16 11:25 98.3 F 92 17 130/85 97 Intake and Output 10/20/16 10/21/16 10/21/16 23:59 07:59 15:59 Intake Total 986 / 986 869 / 869 Output Total 430 / 430 950 / 950 Balance 556 / 556 -81 / -81 Intake: IV Fluids 986 / 986 869 / 869 0.9 % Sodium Chloride 1, 481 / 481 519 / 519 000 ML @ 110 mls/hr IVC . Q9H6M [facility] Rx#:[id number] Ofirmev 1,000 mg/100 ml 1 400 / 400 100 / 100 ,000 mg In 100 ml @ 400 mls/hr IVPB Q8HR [facility] Rx#: [id number] Intralipid 20% 250 ML @ 250 / 250 21 mls/hr IVPB DAILY@1700 [facility] Rx#:[id number] Keppra 500 MG In 0.9 % 105 / 105 Sodium Chloride 100 ML @ 400 mls/hr IVPB BID [facility] Rx#:[id number] Output: Catheter 400 / 400 900 / 900 Wound Drainage 30 50 / 50 Left Lower Abdomen 20 / 20 20 / 20 Lower Medial Abdomen 30 Other: Weight 85.62 kg Blood Glucose* 128 131 Patient Weight 10/21/16 23:59 Weight 85.62 kg - VTE Documentation of Mechanical Device: Intermittent pneumatic compression device Consult Discharge Plan - Plan Referrals: NO,PCP [Primary Care Provider] - <Loly Valentine - Last Filed: 10/21/16 16:29> Date of Encounter: 10/21/16 - Assessment and Plan (1) Pneumoperitoneum Current Visit: No Status: Acute dc denise start sips clears as long as he tolerates colostomy is edematous, bowel sweat only output cultures with proteus and 2nd gnr - change ertapenum to zosyn decrease IVF and make total fluid intake rate 75cc/hr start scheduled aerosols and mucomyst for congested cough continue PT/OT wound vac changes M, W, F (2) Abdominal pain Current Visit: No Status: Acute prn pain control Qualifiers: Abdominal location: left lower quadrant Qualified Code(s): R10.32 - Left lower quadrant pain (3) Hypertension Current Visit: No Status: Chronic normotensive, continue to monitor Qualifiers: Hypertension type: essential hypertension Qualified Code(s): I10 - Essential (primary) hypertension (4) DVT prophylaxis Current Visit: No Status: Acute (5) 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 Current Visit: No Status: Chronic (6) Leukocytosis Current Visit: Yes Status: Acute wbc normal continue abx currently Qualifiers: Leukocytosis type: unspecified Qualified Code(s): D72.829 - Elevated white blood cell count, unspecified Subjective Patient reports: no new complaints, still having pain, no flatus, no bowel movement, afebrile Objective Vital Signs - Last 8 Hours Temp Pulse Resp BP Pulse Ox 10/21/16 15:58 16 97 10/21/16 11:42 97.5 F L 78 16 145/80 97 Intake and Output 10/21/16 10/21/16 10/21/16 07:59 15:59 23:59 Intake Total 869 / 869 400 / 400 Output Total 950 / 950 310 / 310 Balance -81 / -81 90 / 90 Intake: IV Fluids 869 / 869 400 / 400 0.9 % Sodium Chloride 1, 519 / 519 000 ML @ 110 mls/hr IVC . Q9H6M [facility] Rx#:[id number] Ofirmev 1,000 mg/100 ml 1 100 / 100 100 / 100 ,000 mg In 100 ml @ 400 mls/hr IVPB Q8HR [facility] Rx#: [id number] INVanz 1,000 MG In 0.9 % 100 / 100 Sodium Chloride (Mini-Bag +) 100 ML @ 100 mls/hr IVPB DAILY [facility] Rx#: [id number] Intralipid 20% 250 ML @ 250 / 250 21 mls/hr IVPB DAILY@1700 [facility] Rx#:[id number] Keppra 500 MG In 0.9 % 200 / 200 Sodium Chloride 100 ML @ 400 mls/hr IVPB BID [facility] Rx#:[id number] Output: Catheter 900 / 900 300 / 300 Wound Drainage 50 / 50 10 / 10 Left Lower Abdomen 20 / 20 10 / 10 Lower Medial Abdomen 30 / 30 Other: Meal NPO Weight 85.62 kg Blood Glucose* 131 154 Patient Weight 10/21/16 23:59 Weight 85.62 kg - General physical appearance no distress, moderate pain - Eyes normal ocular movement - ENT dry mucosa, normocephalic - Neck Neck exam: trachea midline - Respiratory normal expansion, clear to auscultation, other (congested cough) - Abdomen Abdomen: Present: bowel sounds present (faint), soft, tender (appropriate post op tendernes), wound - Incision Incision: Present: clean and dry - Integumentary no growths - Neurologic CN 2-12 grossly intact - Musculoskeletal normal posture - Psychiatric oriented to time, oriented to person, oriented to place, speech is normal, memory intact - Labs 10/21/16 03:40 10/21/16 03:40 Short CBC 10/21/16 Range/Units 03:40 WBC 10.7 (4.3-11.1) K/mcL Hgb 8.0 L (12.9-16.9) g/dL Hct 24.2 L (37.5-50.1) % Plt Count 341 (140-400) K/mcL Neutrophils # 8.1 (1.6-8.9) K/mcL BMP 10/21/16 Range/Units 03:40 Sodium 135 L (136-145) mEq/L Potassium 3.5 (3.5-4.5) mEq/L Chloride 104 (98-109) mEq/L Carbon Dioxide 30 H (19-29) mEq/L BUN 9 (8-26) mg/dL Creatinine 0.43 L (0.72-1.25) mg/dL Glucose 127 H (70-99) mg/dL Calcium 8.2 L (8.6-10.8) mg/dL Vital Signs Temp Pulse Resp BP Pulse Ox 10/21/16 15:58 16 97 10/21/16 11:42 97.5 F L 78 16 145/80 97 10/21/16 07:36 97.5 F L 72 16 137/91 97 10/21/16 04:59 97.7 F 76 18 137/86 96 10/21/16 00:45 97.6 F 83 17 156/83 95 10/20/16 19:49 97.9 F 91 18 142/90 94 Intake and Output 10/21/16 10/21/16 10/21/16 07:59 15:59 23:59 Intake Total 869 / 869 400 / 400 Output Total 950 / 950 310 / 310 Balance -81 / -81 90 / 90 Intake: IV Fluids 869 / 869 400 / 400 0.9 % Sodium Chloride 1, 519 / 519 000 ML @ 110 mls/hr IVC . Q9H6M [facility] Rx#:[id number] Ofirmev 1,000 mg/100 ml 1 100 / 100 100 / 100 ,000 mg In 100 ml @ 400 mls/hr IVPB Q8HR [facility] Rx#: [id number] INVanz 1,000 MG In 0.9 % 100 / 100 Sodium Chloride (Mini-Bag +) 100 ML @ 100 mls/hr IVPB DAILY [facility] Rx#: [id number] Intralipid 20% 250 ML @ 250 / 250 21 mls/hr IVPB DAILY@1700 [facility] Rx#:[id number] Keppra 500 MG In 0.9 % 200 / 200 Sodium Chloride 100 ML @ 400 mls/hr IVPB BID [facility] Rx#:[id number] Output: Catheter 900 / 900 300 / 300 Wound Drainage 50 / 50 10 / 10 Left Lower Abdomen 20 / 20 10 / 10 Lower Medial Abdomen 30 / 30 Other: Meal NPO Weight 85.62 kg Blood Glucose* 131 154 Patient Weight 10/21/16 23:59 Weight 85.62 kg - Attending Attestation I examined this patient and my medical decision-making was reviewed with the Resident Physician. I agree with the documented findings, disposition and treatment plan as described except to the extent set forth below.
[2016-10-21] MEDS: Fluticasone Propionate Nasal 50 MCG/SPRAY BOTTLE NS SCH (09:20)
[2016-10-21] MEDS ORDERED: Sodium Phosphate 30 MMOL in D5% in Water 100 ML IVPB ONE (12:29)
[2016-10-21] MEDS ORDERED: Magnesium Sulfate 2 GM in D5% in Water 100 ML IVPB ONE (12:29)
[2016-10-21] MEDS: Piperacillin/Tazobactam 3.375 GM in D5% in Water (Mini-Bag+) 100 ML IVPB SCH (15:52)
[2016-10-21] MEDS: Ondansetron 4 MG/2 ML VIAL IVP PRN (15:53)
[2016-10-21] MEDS: Ipratropium/Albuterol Neb 3 ML IH SCH ×2 (15:56→22:53)
[2016-10-21] MEDS: Acetylcysteine 10% 2 ML INHSOL IH SCH ×2 (15:56→22:53)
[2016-10-21] MEDS ORDERED: Clinimix E 5%-15% SOLUTION 2,000 ML with MVI, adult with vitamin K 10 ML IVC SCH (17:00)
[2016-10-22] MEDS: Acetaminophen IV 1,000 MG/100 ML INFUS..BTL IVPB SCH ×2 (00:19→22:12)
[2016-10-22] MEDS: Ketorolac 15 MG/ML VIAL IVP SCH ×4 (00:19→18:54)
[2016-10-22] MEDS: Piperacillin/Tazobactam 3.375 GM in D5% in Water (Mini-Bag+) 100 ML IVPB SCH ×3 (00:20→15:33)
[2016-10-22] MEDS: *HR* HYDROmorphone (PF) 1 MG/ML SYRINGE IVP PRN ×4 (02:51→15:33)
[2016-10-22 04:41] LABS: Hematocrit 23.9 % (37.5-50.1); Mean Corpuscular HGB Conc 33.5 g/dL (31.6-35.5); Mean Corpuscular Hemoglobin 32.5 pg (28.0-33.3); Mean Corpuscular Volume 97.2 fL (83.0-100.0); Mean Platelet Volume 9.7 fL (9.4-12.4); Platelet Count 401 K/mcL (140-400); Red Blood Count 2.46 M/mcL (4.19-5.50); Red Cell Distribution Width 16.3 % (11.5-14.5)
[2016-10-22 04:51] LABS: Magnesium 1.6 mg/dL (1.6-2.6); Phosphorous 2.3 mg/dL (2.3-4.7)
[2016-10-22 04:52] LABS: BUN/Creatinine Ratio 26 (6-26); Blood Urea Nitrogen 12 mg/dL (8-26); Calcium 8.4 mg/dL (8.6-10.8); Carbon Dioxide 29 mEq/L (19-29); Chloride 103 mEq/L (98-109); Glucose 115 mg/dL (70-99); Osmolality,Calculated 283 (280-300); Potassium 3.5 mEq/L (3.5-4.5); Sodium 136 mEq/L (136-145); eGFR For African Americans > 60 (> 60); eGFR For Non-African Americans > 60 (> 60)
[2016-10-22 05:41] LABS: Anisocytosis 1+ (Not Present); Macrocytosis Present (Not Present); Monocytes # 0.5 K/mcL (0.0-1.3); Neutrophils # 10.6 K/mcL (1.6-8.9); Platelet Estimate Increased (Normal); Polychromasia 1+ (Not Present)
[2016-10-22] MEDS: *HR* Heparin 5,000 UNIT/ML VIAL SQ SCH ×3 (05:43→22:02)
--- NOTE | 2016-10-22 07:36 | General Surgery Progress Note ---
<Brent Pino - Last Filed: 10/22/16 18:09> Date of Encounter: 10/22/16 Time of Encounter: 07:33 - Assessment and Plan (1) Pneumoperitoneum Current Visit: No Status: Acute Postop day #4 status post exploratory laparotomy, takedown colostomy, takedown splenic flexure, left colectomy, right upper quadrant colostomy, appendectomy, lysis of adhesions Patient is tolerating his clear liquid diet, sips only Continue PT/OT TPN at goal today Encouraged ICS ambulation Exam today demonstrated faint bowel sounds without flatus or stool. We will continue to monitor. Wound VAC changed today - 175 output since Tuesday (2) Cellulitis Current Visit: Yes Status: Acute Continue with wound care management. Previous I&D site: Remove packing, wash with soap and water, packed with quarter inch plain gauze followed by a dry dressing and tape. Wound VAC abdomen: Dressing changes Tuesday, Tuesday, Tuesday per surgical team Qualifiers: Site of cellulitis: trunk Site of cellulitis of trunk: abdominal wall Qualified Code(s): L03.311 - Cellulitis of abdominal wall (3) Postoperative anemia Current Visit: Yes Status: Acute Hemoglobin trending down 10.8 > 9.9 > 9.0 > 8.0 > 8.0 Asymptomatic at this time. Denies any lightheadedness on ambulation. Vital signs are stable. Patient was -400 on his I's and O's over the last 24 hours. Kidney function within normal limits. We will continue to follow closely. Recheck tomorrow. (4) Leukocytosis Current Visit: Yes Status: Acute Trending 22.1 > 14.5 > 10.7 > 12.0. Afebrile. We will continue to follow. Patient is currently on Zosyn Qualifiers: Leukocytosis type: unspecified Qualified Code(s): D72.829 - Elevated white blood cell count, unspecified (5) At risk for nutrition deficiency Current Visit: Yes Status: Acute Total fluid rate decreased (maintenance IVF + TPN) = 75 cc/hr Transitioning to goal TPN today. (6) 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 Current Visit: No Status: Chronic Oncology following with Dr. Flores for further evaluation of a new tongue mass. Of note, they will resume a new chemotherapy regimen in 3 weeks and will hold off on ENT consult at this time. (7) Chest congestion Current Visit: Yes Status: Acute Significantly improved. Continue Duonebs and Mucomyst every 8 hours (8) Colostomy care Current Visit: No Status: Acute (9) DVT prophylaxis Current Visit: No Status: Acute Heparin 5000 units every 8 SQ, SCDs, ambulate as tolerated Subjective Patient reports: no new complaints, still having pain, pain is less, voiding w/ o difficulty, no flatus, no bowel movement, afebrile Narrative: Patient states that his cough has diminished significantly since started on Mucomyst and DuoNeb's. Tolerating his clear liquid diet Objective Vital Signs - Last 8 Hours Temp Pulse Resp BP Pulse Ox 10/22/16 04:15 97.8 F 76 16 144/86 94 10/22/16 00:27 97.9 F 91 16 135/86 96 Intake and Output 10/21/16 10/21/16 10/22/16 15:59 23:59 07:59 Intake Total 400 / 400 205 / 205 350 / 350 Output Total 310 / 310 487 / 487 495 / 495 Balance 90 / 90 -282 / -282 -145 / -145 Intake: IV Fluids 400 / 400 205 / 205 350 / 350 Ofirmev 1,000 mg/100 ml 1 100 / 100 ,000 mg In 100 ml @ 400 mls/hr IVPB Q8HR [facility] Rx#: [id number] INVanz 1,000 MG In 0.9 % 100 / 100 Sodium Chloride (Mini-Bag +) 100 ML @ 100 mls/hr IVPB DAILY [facility] Rx#: [id number] Intralipid 20% 250 ML @ 250 / 250 21 mls/hr IVPB DAILY@1700 [facility] Rx#:[id number] Zosyn 3.375 GM In 100 / 100 100 / 100 Dextrose 5% (Minibag+) 100 ML 100 ML @ 25 mls/hr IVPB Q8HR [facility] Rx#: [id number] Keppra 500 MG In 0.9 % 200 / 200 105 / 105 Sodium Chloride 100 ML @ 400 mls/hr IVPB BID [facility] Rx#:[id number] Oral 0 / 0 0 / 0 Output: Urine 475 / 475 475 / 475 Catheter 300 / 300 Wound Drainage 20 / 20 Left Lower Abdomen Lower Medial Abdomen Other: Meal NPO Weight 86.2 kg Blood Glucose* 154 128 144 Patient Weight 10/22/16 23:59 Weight 86.2 kg - General physical appearance well developed, well nourished, no distress - Eyes normal ocular movement - ENT atraumatic, normocephalic - Neck Neck exam: trachea midline - Respiratory normal expansion, normal respiratory effort, clear to auscultation - Cardiovascular Cardiovascular exam: Present: RRR - Abdomen Abdomen: Present: bowel sounds present, soft, tender (Incisional), wound ( Midline incision with ihsan present. Wound VAC in place about inferior one fourth of incision as well as left lower quadrant and previous colostomy site. Right upper quadrant colostomy intact but edematous.) - Neurologic CN 2-12 grossly intact - Psychiatric oriented to time, oriented to person, oriented to place, speech is normal, memory intact - Labs 10/22/16 03:20 10/22/16 03:20 Short CBC 10/22/16 Range/Units 03:20 WBC 12.0 H (4.3-11.1) K/mcL Hgb 8.0 L (12.9-16.9) g/dL Hct 23.9 L (37.5-50.1) % Plt Count 401 H (140-400) K/mcL Neutrophils # 10.6 H (1.6-8.9) K/mcL BMP 10/22/16 Range/Units 03:20 Sodium 136 (136-145) mEq/L Potassium 3.5 (3.5-4.5) mEq/L Chloride 103 (98-109) mEq/L Carbon Dioxide 29 (19-29) mEq/L BUN 12 (8-26) mg/dL Creatinine 0.46 L (0.72-1.25) mg/dL Glucose 115 H (70-99) mg/dL Calcium 8.4 L (8.6-10.8) mg/dL Vital Signs Temp Pulse Resp BP Pulse Ox 10/22/16 04:15 97.8 F 76 16 144/86 94 10/22/16 00:27 97.9 F 91 16 135/86 96 10/21/16 22:53 17 96 10/21/16 20:17 97.5 F L 80 15 145/92 94 10/21/16 16:51 97.9 F 80 16 132/89 96 10/21/16 15:58 16 97 10/21/16 11:42 97.5 F L 78 16 145/80 97 Intake and Output 10/21/16 10/21/16 10/22/16 15:59 23:59 07:59 Intake Total 400 / 400 205 / 205 350 / 350 Output Total 310 / 310 487 / 487 495 / 495 Balance 90 / 90 -282 / -282 -145 / -145 Intake: IV Fluids 400 / 400 205 / 205 350 / 350 Ofirmev 1,000 mg/100 ml 1 100 / 100 ,000 mg In 100 ml @ 400 mls/hr IVPB Q8HR [facility] Rx#: [id number] INVanz 1,000 MG In 0.9 % 100 / 100 Sodium Chloride (Mini-Bag +) 100 ML @ 100 mls/hr IVPB DAILY [facility] Rx#: [id number] Intralipid 20% 250 ML @ 250 / 250 21 mls/hr IVPB DAILY@1700 [facility] Rx#:[id number] Zosyn 3.375 GM In 100 / 100 100 / 100 Dextrose 5% (Minibag+) 100 ML 100 ML @ 25 mls/hr IVPB Q8HR [facility] Rx#: [id number] Keppra 500 MG In 0.9 % 200 / 200 105 / 105 Sodium Chloride 100 ML @ 400 mls/hr IVPB BID [facility] Rx#:[id number] Oral 0 / 0 0 / 0 Output: Urine 475 / 475 475 / 475 Catheter 300 / 300 Wound Drainage 20 / 20 Left Lower Abdomen Lower Medial Abdomen 20 Other: Meal NPO Weight 86.2 kg Blood Glucose* 154 128 144 Patient Weight 10/22/16 23:59 Weight 86.2 kg - VTE Documentation of Mechanical Device: Intermittent pneumatic compression device Consult Discharge Plan - Plan Referrals: NONE,PCP [Primary Care Provider] - <Loly Valentine - Last Filed: 10/23/16 19:15> Date of Encounter: 10/22/16 Time of Encounter: 17:00 - Assessment and Plan (1) Pneumoperitoneum Current Visit: No Status: Acute ofirmev was stopped today and may be part of patients increased pain complaints , restart ofirmev continue prn pain control continue TPN await return of bowel function, continue sips clears wbc increased - proteus and e coli zosyn sensitive, continue (2) Abdominal pain Current Visit: No Status: Acute Qualifiers: Abdominal location: left lower quadrant Qualified Code(s): R10.32 - Left lower quadrant pain (3) Hypertension Current Visit: No Status: Chronic nonrmotensive, monitor Qualifiers: Hypertension type: essential hypertension Qualified Code(s): I10 - Essential (primary) hypertension (4) DVT prophylaxis Current Visit: No Status: Acute (5) 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 Current Visit: No Status: Chronic (6) Leukocytosis Current Visit: Yes Status: Acute Qualifiers: Leukocytosis type: unspecified Qualified Code(s): D72.829 - Elevated white blood cell count, unspecified Subjective Narrative: pain is worse today, very tearful wont get OOB today tolerating sips clears Objective Vital Signs - Last 8 Hours Temp Pulse Resp BP Pulse Ox 10/23/16 15:30 97.4 F L 70 16 145/88 96 10/23/16 11:40 97.1 F L 74 18 134/83 97 Intake and Output 10/23/16 10/23/16 10/23/16 07:59 15:59 23:59 Intake Total 450 / 450 748 / 748 1592 / 1592 Output Total 650 / 650 395 / 395 Balance -200 / -200 353 / 353 1592 / 1592 Intake: IV Fluids 450 / 450 508 / 508 1552 / 1552 0.9 % Sodium Chloride 1, 203 / 203 142 / 142 000 ML @ 25 mls/hr IVC . Q24H [facility] Rx#:[id number] Clinimix E 5%-15% 1410 / 1410 SOLUTION 2,000 ML @ 83.3 mls/hr IVC .Q24H [facility] with M.v.i. Adult 10 ml Rx#: [id number] Ofirmev 1,000 mg/100 ml 1 100 / 100 100 / 100 ,000 mg In 100 ml @ 400 mls/hr IVPB Q8H [facility] Rx#: [id number] Intralipid 20% 250 ML @ 250 / 250 21 mls/hr IVPB DAILY@1700 [facility] Rx#:[id number] Zosyn 3.375 GM In 100 / 100 100 / 100 Dextrose 5% (Minibag+) 100 ML 100 ML @ 25 mls/hr IVPB Q8HR [facility] Rx#: [id number] Keppra 500 MG In 0.9 % 105 / 105 Sodium Chloride 100 ML @ 400 mls/hr IVPB BID [facility] Rx#:[id number] Oral 0 / 0 240 / 240 40 / 40 Output: Urine 500 / 500 250 / 250 Stool 150 / 150 125 / 125 Wound Drainage 0 / 0 20 / 20 Left Lower Abdomen 0 / 0 20 / 20 Other: Meal Clear Clear Percent of Meal Consumed 0% Stool Consistency liquid Stool Color Brown # Bowel Movements 0 Weight 85.8 kg Blood Glucose* 123 125 116 Patient Weight 10/23/16 23:59 Weight 85.8 kg - General physical appearance moderate distress, moderate pain - Eyes normal ocular movement - ENT atraumatic, normocephalic - Neck Neck exam: trachea midline - Respiratory normal expansion, clear to auscultation - Cardiovascular Cardiovascular exam: Present: RRR - Abdomen Abdomen: Present: bowel sounds present, soft, tender. Absent: distended, guarding, rebound Abdominal Tenderness: diffusely - Genitourinary normal penis with no external lesions - Integumentary no growths - Neurologic CN 2-12 grossly intact - Musculoskeletal normal posture - Psychiatric oriented to time, oriented to person, memory intact - Labs 10/23/16 10:13 10/23/16 04:50 Diabetes panel 10/23/16 Range/Units 04:50 Sodium 136 (136-145) mEq/L Potassium 3.7 (3.5-4.5) mEq/L Chloride 103 (98-109) mEq/L Carbon Dioxide 30 H (19-29) mEq/L BUN 11 (8-26) mg/dL Creatinine 0.44 L (0.72-1.25) mg/dL Glucose 101 H (70-99) mg/dL Calcium 8.5 L (8.6-10.8) mg/dL Calcium panel 10/23/16 Range/Units 04:50 Calcium 8.5 L (8.6-10.8) mg/dL Phosphorus 2.6 (2.3-4.7) mg/dL Pituitary panel 10/23/16 Range/Units 04:50 Sodium 136 (136-145) mEq/L Potassium 3.7 (3.5-4.5) mEq/L Chloride 103 (98-109) mEq/L Carbon Dioxide 30 H (19-29) mEq/L BUN 11 (8-26) mg/dL Creatinine 0.44 L (0.72-1.25) mg/dL Glucose 101 H (70-99) mg/dL Calcium 8.5 L (8.6-10.8) mg/dL Adrenal panel 10/23/16 Range/Units 04:50 Sodium 136 (136-145) mEq/L Potassium 3.7 (3.5-4.5) mEq/L Chloride 103 (98-109) mEq/L Carbon Dioxide 30 H (19-29) mEq/L BUN 11 (8-26) mg/dL Creatinine 0.44 L (0.72-1.25) mg/dL Glucose 101 H (70-99) mg/dL Calcium 8.5 L (8.6-10.8) mg/dL - Attending Attestation I examined this patient and my medical decision-making was reviewed with the Resident Physician. I agree with the documented findings, disposition and treatment plan as described except to the extent set forth below.
[2016-10-22] MEDS: Pantoprazole 40 MG VIAL IVP SCH (08:05)
[2016-10-22] MEDS: Ondansetron 4 MG/2 ML VIAL IVP PRN ×2 (08:05→15:34)
[2016-10-22] MEDS: Ipratropium/Albuterol Neb 3 ML IH SCH ×3 (08:16→23:03)
[2016-10-22] MEDS: Acetylcysteine 10% 2 ML INHSOL IH SCH ×3 (08:17→23:04)
[2016-10-22] MEDS: Fluticasone Propionate Nasal 50 MCG/SPRAY BOTTLE NS SCH (09:50)
[2016-10-22] MEDS: 0.9 % Sodium Chloride 1,000 ML IVC SCH (10:03)
[2016-10-22] MEDS: *HR* LORazepam 2 MG/ML VIAL IVP PRN ×2 (12:03→22:02)
[2016-10-22] MEDS ORDERED: Clinimix E 5%-15% SOLUTION 2,000 ML with MVI, adult with vitamin K 10 ML IVC SCH (17:00)
[2016-10-22] MEDS ORDERED: Acetaminophen IV 1,000 MG/100 ML INFUS..BTL IVPB SCH (17:15)
[2016-10-23] MEDS: Ketorolac 15 MG/ML VIAL IVP SCH ×5 (00:30→23:15)
[2016-10-23] MEDS: Piperacillin/Tazobactam 3.375 GM in D5% in Water (Mini-Bag+) 100 ML IVPB SCH ×4 (00:30→23:15)
[2016-10-23] MEDS: *HR* Heparin 5,000 UNIT/ML VIAL SQ SCH ×3 (05:12→23:16)
[2016-10-23 05:22] LABS: BUN/Creatinine Ratio 25 (6-26); Blood Urea Nitrogen 11 mg/dL (8-26); Calcium 8.5 mg/dL (8.6-10.8); Carbon Dioxide 30 mEq/L (19-29); Chloride 103 mEq/L (98-109); Glucose 101 mg/dL (70-99); Magnesium 1.6 mg/dL (1.6-2.6); Osmolality,Calculated 282 (280-300); Phosphorous 2.6 mg/dL (2.3-4.7); Potassium 3.7 mEq/L (3.5-4.5); Sodium 136 mEq/L (136-145); eGFR For African Americans > 60 (> 60); eGFR For Non-African Americans > 60 (> 60)
[2016-10-23] MEDS: Acetaminophen IV 1,000 MG/100 ML INFUS..BTL IVPB SCH ×3 (06:15→23:17)
[2016-10-23] MEDS: Pantoprazole 40 MG VIAL IVP SCH (08:21)
[2016-10-23] MEDS: *HR* HYDROmorphone (PF) 1 MG/ML SYRINGE IVP PRN ×2 (08:50→20:23)
[2016-10-23] MEDS: Ipratropium/Albuterol Neb 3 ML IH SCH ×3 (09:49→21:56)
[2016-10-23] MEDS: Acetylcysteine 10% 2 ML INHSOL IH SCH ×3 (09:49→21:58)
[2016-10-23] MEDS: Fluticasone Propionate Nasal 50 MCG/SPRAY BOTTLE NS SCH (09:56)
[2016-10-23] MEDS: 0.9 % Sodium Chloride 1,000 ML IVC SCH (10:04)
[2016-10-23 12:03] LABS: Basophils # 0.1 K/mcL (0.0-0.2); Basophils % 0.5 %; Eosinophils # 0.5 K/mcL (0.0-0.6); Eosinophils % 4.3 %; Hematocrit 25.5 % (37.5-50.1); Hemoglobin 8.4 g/dL (12.9-16.9); Immature Granulocytes % 5.2 % (0-4); Lymphocytes # 0.7 K/mcL (0.6-4.6); Lymphocytes % 5.9 %; Mean Corpuscular HGB Conc 32.9 g/dL (31.6-35.5); Mean Corpuscular Hemoglobin 31.9 pg (28.0-33.3); Mean Platelet Volume 9.1 fL (9.4-12.4); Monocytes % 8.4 %; Neutrophils # 8.9 K/mcL (1.6-8.9); Platelet Count 425 K/mcL (140-400); Red Blood Count 2.63 M/mcL (4.19-5.50); Red Cell Distribution Width 16.5 % (11.5-14.5); Segmented Neutrophils % 75.7 %
[2016-10-23 12:27] LABS: Platelet Estimate Normal (Normal); Toxic Granulation Present (Not Present)
[2016-10-23] MEDS ORDERED: Clinimix E 5%-15% SOLUTION 2,000 ML with MVI, adult with vitamin K 10 ML IVC SCH (17:00)
--- NOTE | 2016-10-23 18:43 | General Surgery Progress Note ---
Date of Encounter: 10/23/16 Time of Encounter: 13:50 - Assessment and Plan (1) Pneumoperitoneum Current Visit: No Status: Acute continue abx clears as has return of bowel function PT/OT aggressive IS wound vac changes M, W, F prn pain control, pain control much better with IV tylenol prn antiemetics continue Abx (2) Abdominal pain Current Visit: No Status: Acute prn pain control Qualifiers: Abdominal location: left lower quadrant Qualified Code(s): R10.32 - Left lower quadrant pain (3) Hypertension Current Visit: No Status: Chronic normotensive, monitor ok restart some of home antihypertensives Qualifiers: Hypertension type: essential hypertension Qualified Code(s): I10 - Essential (primary) hypertension (4) DVT prophylaxis Current Visit: No Status: Acute (5) 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 Current Visit: No Status: Chronic (6) Leukocytosis Current Visit: Yes Status: Acute continue zosyn - Ecoli and proteus sensitive Qualifiers: Leukocytosis type: unspecified Qualified Code(s): D72.829 - Elevated white blood cell count, unspecified Subjective Patient reports: no new complaints, feels better, still having pain, pain is less, flatus, bowel movement, shortness of breath Objective Vital Signs - Last 8 Hours Temp Pulse Resp BP Pulse Ox 10/23/16 15:30 97.4 F L 70 16 145/88 96 10/23/16 11:40 97.1 F L 74 18 134/83 97 Intake and Output 10/23/16 10/23/16 10/23/16 07:59 15:59 23:59 Intake Total 450 / 450 748 / 748 1592 / 1592 Output Total 650 / 650 395 / 395 Balance -200 / -200 353 / 353 1592 / 1592 Intake: IV Fluids 450 / 450 508 / 508 1552 / 1552 0.9 % Sodium Chloride 1, 203 / 203 142 / 142 000 ML @ 25 mls/hr IVC . Q24H EMILY Rx#:[id number] Clinimix E 5%-15% 1410 / 1410 SOLUTION 2,000 ML @ 83.3 mls/hr IVC .Q24H EMILY with M.v.i. Adult 10 ml Rx#: [id number] Ofirmev 1,000 mg/100 ml 1 100 / 100 100 / 100 ,000 mg In 100 ml @ 400 mls/hr IVPB Q8H EMILY Rx#: [id number] Intralipid 20% 250 ML @ 250 / 250 21 mls/hr IVPB DAILY@1700 EMILY Rx#:[id number] Zosyn 3.375 GM In 100 / 100 100 / 100 Dextrose 5% (Minibag+) 100 ML 100 ML @ 25 mls/hr IVPB Q8HR EMILY Rx#: [id number] Keppra 500 MG In 0.9 % 105 / 105 Sodium Chloride 100 ML @ 400 mls/hr IVPB BID EMILY Rx#:[id number] Oral 0 / 0 240 / 240 40 / 40 Output: Urine 500 / 500 250 / 250 Stool 150 / 150 125 / 125 Wound Drainage 0 / 0 20 / 20 Left Lower Abdomen 0 / 0 20 / 20 Other: Meal Clear Clear Percent of Meal Consumed 0% Stool Consistency liquid Stool Color Brown # Bowel Movements 0 Weight 85.8 kg Blood Glucose* 123 125 116 Patient Weight 10/23/16 23:59 Weight 85.8 kg - General physical appearance well developed, well nourished, no distress - Eyes PERRL, normal ocular movement - ENT dry mucosa, atraumatic - Neck Neck exam: trachea midline - Respiratory normal expansion, clear to auscultation, other (decreased breath sounds LLL ( lobectomy)) - Abdomen Abdomen: Present: bowel sounds present, soft, tender (appropriate post op tenderness) - Incision Incision: Present: clean and dry (wound vac in place) - Integumentary no rash, no growths - Neurologic CN 2-12 grossly intact - Musculoskeletal normal posture - Psychiatric oriented to time, oriented to person, memory intact - Additional Exam Short CBC 10/23/16 Range/Units 10:13 WBC 11.7 H (4.3-11.1) K/mcL Hgb 8.4 L (12.9-16.9) g/dL Hct 25.5 L (37.5-50.1) % Plt Count 425 H (140-400) K/mcL Neutrophils # 8.9 (1.6-8.9) K/mcL BMP 10/23/16 Range/Units 04:50 Sodium 136 (136-145) mEq/L Potassium 3.7 (3.5-4.5) mEq/L Chloride 103 (98-109) mEq/L Carbon Dioxide 30 H (19-29) mEq/L BUN 11 (8-26) mg/dL Creatinine 0.44 L (0.72-1.25) mg/dL Glucose 101 H (70-99) mg/dL Calcium 8.5 L (8.6-10.8) mg/dL Vital Signs Temp Pulse Resp BP Pulse Ox 10/23/16 15:30 97.4 F L 70 16 145/88 96 10/23/16 11:40 97.1 F L 74 18 134/83 97 10/23/16 07:19 98.3 F 75 18 133/84 96 10/23/16 03:49 98.7 F 77 16 148/84 94 10/23/16 00:18 99.5 F 99 16 141/80 94 10/22/16 23:03 15 95 10/22/16 20:30 94 10/22/16 19:06 98.1 F 100 16 146/88 95 Intake and Output 10/23/16 10/23/16 10/23/16 07:59 15:59 23:59 Intake Total 450 / 450 748 / 748 1592 / 1592 Output Total 650 / 650 395 / 395 Balance -200 / -200 353 / 353 1592 / 1592 Intake: IV Fluids 450 / 450 508 / 508 1552 / 1552 0.9 % Sodium Chloride 1, 203 / 203 142 / 142 000 ML @ 25 mls/hr IVC . Q24H EMILY Rx#:[id number] Clinimix E 5%-15% 1410 / 1410 SOLUTION 2,000 ML @ 83.3 mls/hr IVC .Q24H EMILY with M.v.i. Adult 10 ml Rx#: [id number] Ofirmev 1,000 mg/100 ml 1 100 / 100 100 / 100 ,000 mg In 100 ml @ 400 mls/hr IVPB Q8H [facility]ILY Rx#: [id number] Intralipid 20% 250 ML @ 250 / 250 21 mls/hr IVPB DAILY@1700 EMILY Rx#:[id number] Zosyn 3.375 GM In 100 / 100 100 / 100 Dextrose 5% (Minibag+) 100 ML 100 ML @ 25 mls/hr IVPB Q8HR EMILY Rx#: [id number] Keppra 500 MG In 0.9 % 105 / 105 Sodium Chloride 100 ML @ 400 mls/hr IVPB BID EMILY Rx#:[id number] Oral 0 / 0 240 / 240 40 / 40 Output: Urine 500 / 500 250 / 250 Stool 150 / 150 125 / 125 Wound Drainage 0 / 0 20 / 20 Left Lower Abdomen 0 / 0 20 / 20 Other: Meal Clear Clear Percent of Meal Consumed 0% Stool Consistency liquid Stool Color Brown # Bowel Movements 0 Weight 85.8 kg Blood Glucose* 123 125 116 Patient Weight 10/23/16 23:59 Weight 85.8 kg - Labs 10/23/16 10:13 10/23/16 04:50 Diabetes panel 10/23/16 Range/Units 04:50 Sodium 136 (136-145) mEq/L Potassium 3.7 (3.5-4.5) mEq/L Chloride 103 (98-109) mEq/L Carbon Dioxide 30 H (19-29) mEq/L BUN 11 (8-26) mg/dL Creatinine 0.44 L (0.72-1.25) mg/dL Glucose 101 H (70-99) mg/dL Calcium 8.5 L (8.6-10.8) mg/dL Calcium panel 10/23/16 Range/Units 04:50 Calcium 8.5 L (8.6-10.8) mg/dL Phosphorus 2.6 (2.3-4.7) mg/dL Pituitary panel 10/23/16 Range/Units 04:50 Sodium 136 (136-145) mEq/L Potassium 3.7 (3.5-4.5) mEq/L Chloride 103 (98-109) mEq/L Carbon Dioxide 30 H (19-29) mEq/L BUN 11 (8-26) mg/dL Creatinine 0.44 L (0.72-1.25) mg/dL Glucose 101 H (70-99) mg/dL Calcium 8.5 L (8.6-10.8) mg/dL Adrenal panel 10/23/16 Range/Units 04:50 Sodium 136 (136-145) mEq/L Potassium 3.7 (3.5-4.5) mEq/L Chloride 103 (98-109) mEq/L Carbon Dioxide 30 H (19-29) mEq/L BUN 11 (8-26) mg/dL Creatinine 0.44 L (0.72-1.25) mg/dL Glucose 101 H (70-99) mg/dL Calcium 8.5 L (8.6-10.8) mg/dL - VTE Documentation of Mechanical Device: Intermittent pneumatic compression device Consult Discharge Plan - Plan Referrals: NONE,PCP [Primary Care Provider] -
[2016-10-23] MEDS: *HR* LORazepam 2 MG/ML VIAL IVP PRN (23:18)
[2016-10-24 04:50] LABS: Hematocrit 24.9 % (37.5-50.1); Hemoglobin 8.5 g/dL (12.9-16.9); Mean Corpuscular HGB Conc 34.1 g/dL (31.6-35.5); Mean Corpuscular Hemoglobin 32.6 pg (28.0-33.3); Mean Corpuscular Volume 95.4 fL (83.0-100.0); Mean Platelet Volume 8.9 fL (9.4-12.4); Platelet Count 370 K/mcL (140-400); Red Blood Count 2.61 M/mcL (4.19-5.50); Red Cell Distribution Width 16.3 % (11.5-14.5)
[2016-10-24 05:02] LABS: BUN/Creatinine Ratio 28 (6-26); Blood Urea Nitrogen 12 mg/dL (8-26); Calcium 8.7 mg/dL (8.6-10.8); Carbon Dioxide 31 mEq/L (19-29); Chloride 104 mEq/L (98-109); Glucose 89 mg/dL (70-99); Osmolality,Calculated 285 (280-300); Potassium 3.6 mEq/L (3.5-4.5); Sodium 138 mEq/L (136-145); eGFR For African Americans > 60 (> 60); eGFR For Non-African Americans > 60 (> 60)
[2016-10-24 05:05] LABS: Eosinophils # 1.1 K/mcL (0.0-0.6); Lymphocytes # 0.3 K/mcL (0.6-4.6); Monocytes # 0.6 K/mcL (0.0-1.3); Neutrophils # 11.9 K/mcL (1.6-8.9); Platelet Estimate Normal (Normal)
[2016-10-24] MEDS: *HR* Heparin 5,000 UNIT/ML VIAL SQ SCH ×3 (05:08→21:03)
[2016-10-24] MEDS: Acetaminophen IV 1,000 MG/100 ML INFUS..BTL IVPB SCH ×2 (05:08→15:23)
[2016-10-24] MEDS: Ketorolac 15 MG/ML VIAL IVP SCH ×3 (05:09→18:02)
[2016-10-24] MEDS: *HR* LORazepam 2 MG/ML VIAL IVP PRN ×2 (05:09→15:41)
[2016-10-24] MEDS: Ipratropium/Albuterol Neb 3 ML IH SCH ×2 (07:40→15:57)
[2016-10-24] MEDS: Acetylcysteine 10% 2 ML INHSOL IH SCH ×2 (07:41→15:57)
[2016-10-24] MEDS: Piperacillin/Tazobactam 3.375 GM in D5% in Water (Mini-Bag+) 100 ML IVPB SCH ×3 (07:46→23:57)
[2016-10-24] MEDS: Fluticasone Propionate Nasal 50 MCG/SPRAY BOTTLE NS SCH (09:44)
[2016-10-24] MEDS: *HR* HYDROmorphone (PF) 1 MG/ML SYRINGE IVP PRN ×2 (09:44→21:04)
[2016-10-24] MEDS: Isosorbide MONOnitrate (24 HR) 30 MG TAB.ER.24H PO SCH (09:44)
[2016-10-24] MEDS: Lisinopril 20 MG TABLET PO SCH (09:44)
[2016-10-24] MEDS: Pantoprazole 40 MG VIAL IVP SCH (09:44)
[2016-10-24] MEDS ORDERED: Fluconazole 200 MG/100 ML 200 MG/100 ML BAG IVPB ONE ×2 (11:05→15:45)
--- NOTE | 2016-10-24 11:07 | General Surgery Progress Note ---
Date of Encounter: 10/24/16 Time of Encounter: 11:05 - Assessment and Plan (1) Abdominal pain Current Visit: No Status: Acute prn pain control is improved Qualifiers: Abdominal location: left lower quadrant Qualified Code(s): R10.32 - Left lower quadrant pain (2) Hypertension Current Visit: No Status: Chronic nonrmotensive, monitor restarted some home meds yesterday Qualifiers: Hypertension type: essential hypertension Qualified Code(s): I10 - Essential (primary) hypertension (3) DVT prophylaxis Current Visit: No Status: Acute heparin sq (4) 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 Current Visit: No Status: Chronic (5) Leukocytosis Current Visit: Yes Status: Acute continue zosyn - Ecoli and proteus sensitive wbc increased today, no bands added diflucan Qualifiers: Leukocytosis type: unspecified Qualified Code(s): D72.829 - Elevated white blood cell count, unspecified (6) S/P colectomy Current Visit: Yes Status: Acute tolerating clears and colostomy functioning well advance to fulls Subjective Patient reports: no new complaints, feels better, still having pain, pain is less, tolerating liquids well, flatus, bowel movement, afebrile Objective Vital Signs - Last 8 Hours Temp Pulse Resp BP Pulse Ox 10/24/16 07:16 97.5 F L 78 18 133/88 94 10/24/16 05:00 97.8 F 83 18 139/84 94 10/24/16 04:46 97.8 F 83 18 139/84 94 Intake and Output 10/23/16 10/24/16 10/24/16 23:59 07:59 15:59 Intake Total 1892 / 1892 100 / 100 105 / 105 Output Total 555 / 555 520 / 520 455 / 455 Balance 1337 / 1337 -420 / -420 -350 / -350 Intake: IV Fluids 1852 / 1852 100 / 100 105 / 105 0.9 % Sodium Chloride 1, 142 / 142 000 ML @ 25 mls/hr IVC . Q24H [facility] Rx#:[id number] Clinimix E 5%-15% 1410 / 1410 SOLUTION 2,000 ML @ 83.3 mls/hr IVC .Q24H EMILY with M.v.i. Adult 10 ml Rx#: [id number] Ofirmev 1,000 mg/100 ml 1 100 / 100 ,000 mg In 100 ml @ 400 mls/hr IVPB Q8H EMILY Rx#: [id number] Zosyn 3.375 GM In 100 / 100 100 / 100 Dextrose 5% (Minibag+) 100 ML 100 ML @ 25 mls/hr IVPB Q8HR [facility] Rx#: [id number] Keppra 500 MG In 0.9 % 100 / 100 105 / 105 Sodium Chloride 100 ML @ 400 mls/hr IVPB BID EMILY Rx#:[id number] Oral 40 / 40 Output: Urine 525 / 525 300 / 300 350 / 350 Stool 0 / 0 200 / 200 100 / 100 Wound Drainage / 20 5 / 5 Left Lower Abdomen 10 / 10 20 / 20 5 / 5 Lower Medial Abdomen 0 / 0 0 / 0 Other: Meal Clear Stool Size Small Stool Consistency liquid liquid Stool Characteristics Normal for Patient Stool Color Brown Brown Weight 85.38 kg Blood Glucose* 120 148 Patient Weight 10/24/16 23:59 Weight 85.38 kg - General physical appearance no distress - Eyes PERRL, normal ocular movement - ENT atraumatic, normocephalic - Neck Neck exam: trachea midline - Respiratory normal expansion, clear to auscultation - Cardiovascular Cardiovascular exam: Present: RRR - Abdomen Abdomen: Present: bowel sounds present, soft, tender (appropriate post op tenderness) - Incision Incision: Present: clean and dry, intact (wound vac in place) - Integumentary no rash, no growths - Neurologic CN 2-12 grossly intact - Musculoskeletal normal posture - Psychiatric oriented to time, oriented to person, oriented to place, memory intact - Labs 10/24/16 04:15 10/24/16 04:15 Short CBC 10/24/16 10/23/16 Range/Units 04:15 10:13 WBC 14.2 H 11.7 H (4.3-11.1) K/mcL Hgb 8.5 L 8.4 L (12.9-16.9) g/dL Hct 24.9 L 25.5 L (37.5-50.1) % Plt Count 370 425 H (140-400) K/mcL Neutrophils # 11.9 H 8.9 (1.6-8.9) K/mcL BMP 07/30/17 Range/Units 04:15 Sodium 138 (136-145) mEq/L Potassium 3.6 (3.5-4.5) mEq/L Chloride 104 (98-109) mEq/L Carbon Dioxide 31 H (19-29) mEq/L BUN 12 (8-26) mg/dL Creatinine 0.43 L (0.72-1.25) mg/dL Glucose 89 (70-99) mg/dL Calcium 8.7 (8.6-10.8) mg/dL Vital Signs Temp Pulse Resp BP Pulse Ox 10/24/16 07:16 97.5 F L 78 18 133/88 94 10/24/16 05:00 97.8 F 83 18 139/84 94 10/24/16 04:46 97.8 F 83 18 139/84 94 10/24/16 00:22 98.8 F 79 17 136/80 93 10/23/16 20:30 93 10/23/16 19:18 98.2 F 73 18 153/86 96 10/23/16 15:30 97.4 F L 70 16 145/88 96 10/23/16 11:40 97.1 F L 74 18 134/83 97 Intake and Output 10/23/16 10/24/16 10/24/16 23:59 07:59 15:59 Intake Total 1892 / 1892 100 / 100 105 / 105 Output Total 555 / 555 520 / 520 455 / 455 Balance 1337 / 1337 -420 / -420 -350 / -350 Intake: IV Fluids 1852 / 1852 100 / 100 105 / 105 0.9 % Sodium Chloride 1, 142 / 142 000 ML @ 25 mls/hr IVC . Q24H [facility]ILY Rx#:[id number] Clinimix E 5%-15% 1410 / 1410 SOLUTION 2,000 ML @ 83.3 mls/hr IVC .Q24H EMILY with M.v.i. Adult 10 ml Rx#: [id number] Ofirmev 1,000 mg/100 ml 1 100 / 100 ,000 mg In 100 ml @ 400 mls/hr IVPB Q8H EMILY Rx#: [id number] Zosyn 3.375 GM In 100 / 100 100 / 100 Dextrose 5% (Minibag+) 100 ML 100 ML @ 25 mls/hr IVPB Q8HR EMILY Rx#: [id number] Keppra 500 MG In 0.9 % 100 / 100 105 / 105 Sodium Chloride 100 ML @ 400 mls/hr IVPB BID EMILY Rx#:[id number] Oral 40 / 40 Output: Urine 525 / 525 300 / 300 350 / 350 Stool 0 / 0 200 / 200 100 / 100 Wound Drainage 20 / 20 5 / 5 Left Lower Abdomen 10 / 10 20 / 20 5 / 5 Lower Medial Abdomen 20 / 20 0 / 0 0 / 0 Other: Meal Clear Stool Size Small Stool Consistency liquid liquid Stool Characteristics Normal for Patient Stool Color Brown Brown Weight 85.38 kg Blood Glucose* 120 148 Patient Weight 10/24/16 23:59 Weight 85.38 kg - VTE Documentation of Mechanical Device: Intermittent pneumatic compression device Consult Discharge Plan - Plan Referrals: NONE,PCP [Primary Care Provider] -
[2016-10-24] MEDS ORDERED: Fluconazole 200 MG/100 ML 200 MG/100 ML BAG IVPB SCH (11:15)
[2016-10-24] MEDS ORDERED: Water for inj. (sterile) 10 ML IV ONE (15:36)
[2016-10-24] MEDS ORDERED: Clinimix E 5%-15% SOLUTION 2,000 ML with MVI, adult with vitamin K 10 ML IVC SCH (17:00)
[2016-10-24] MEDS: levETIRAcetam 250 MG TABLET PO SCH (18:03)
[2016-10-25] MEDS: Acetylcysteine 10% 2 ML INHSOL IH SCH ×4 (00:18→22:11)
[2016-10-25] MEDS: Ipratropium/Albuterol Neb 3 ML IH SCH ×4 (00:18→22:11)
[2016-10-25] MEDS: *HR* HYDROmorphone (PF) 1 MG/ML SYRINGE IVP PRN ×5 (00:45→14:48)
[2016-10-25] MEDS: *HR* Heparin 5,000 UNIT/ML VIAL SQ SCH ×3 (05:30→21:50)
[2016-10-25] MEDS: levETIRAcetam 250 MG TABLET PO SCH ×2 (05:31→16:36)
[2016-10-25] MEDS: Piperacillin/Tazobactam 3.375 GM in D5% in Water (Mini-Bag+) 100 ML IVPB SCH ×2 (07:54→16:35)
[2016-10-25] MEDS: Pantoprazole 40 MG VIAL IVP SCH (07:54)
[2016-10-25] MEDS: Isosorbide MONOnitrate (24 HR) 30 MG TAB.ER.24H PO SCH (07:55)
[2016-10-25] MEDS: Lisinopril 20 MG TABLET PO SCH (07:55)
[2016-10-25] MEDS ORDERED: MetroNIDAZOLE 500 MG/100 ML 500 MG/100 ML BAG IVPB SCH (08:49)
[2016-10-25 10:24] LABS: Basophils # 0.1 K/mcL (0.0-0.2); Basophils % 0.8 %; Eosinophils # 0.6 K/mcL (0.0-0.6); Eosinophils % 3.8 %; Hematocrit 25.4 % (37.5-50.1); Hemoglobin 8.5 g/dL (12.9-16.9); Immature Granulocytes % 4.7 % (0-4); Lymphocytes # 1.2 K/mcL (0.6-4.6); Lymphocytes % 7.1 %; Mean Corpuscular HGB Conc 33.5 g/dL (31.6-35.5); Mean Corpuscular Hemoglobin 31.7 pg (28.0-33.3); Mean Corpuscular Volume 94.8 fL (83.0-100.0); Mean Platelet Volume 9.4 fL (9.4-12.4); Monocytes # 1.4 K/mcL (0.0-1.3); Monocytes % 8.4 %; Neutrophils # 12.6 K/mcL (1.6-8.9); Nucleated Red Blood Cells 0.1 /100 WBC (0); Platelet Count 406 K/mcL (140-400); Red Blood Count 2.68 M/mcL (4.19-5.50); Red Cell Distribution Width 16.3 % (11.5-14.5); Segmented Neutrophils % 75.2 %
[2016-10-25] MEDS: Fluticasone Propionate Nasal 50 MCG/SPRAY BOTTLE NS SCH (10:42)
--- NOTE | 2016-10-25 14:25 | Infectious Disease Consult ---
Date of Encounter: 10/25/16 Time of Encounter: 14:24 Assessment and Plan (1) Sepsis Status: Acute Assessment and plan: The patient had two SIRS criteria on admission. Likely secondary to perforated viscous. Lactic acid was note checked. Blood cultures were not drawn. The patient had resolution of leukocytosis and tachycardia 48 hours post-op, but had recurrence of leukocytosis. He continues to afebrile and has not had recurrence of tachycardia. Etiology on recurrent/persistent leukocytosis unclear. Intra-operative cultures grew oro-sensitive P. mirabilis and E. coli, as well as anaerobic GPC and anaerobic GNR. Given the persistent leukocytosis, concern for additional causative organisms and/or source control issue. Get peripheral blood cultures x 2 sets now. Get blood cultures x 2 sets from the PICC line now as well. Check LFTs, amylase, and lipase. Get culture of the drainage from the patient's midline abdominal wound. Get CT of the abdomen and pelvis with IV and oral contrast. Discontinue meropenem. Re-start Zosyn 3.375 grams IV Q8H. Start Vancomycin IV. Pharmacy to dose. Goal trough approximately 15. Continue fluconazole, but increase dose to 200mg IV daily. Additionally, will make sure patient gets a 400mg bolus today. Discontinue flagyl as Zosyn offers anaerobic coverage. Duration of treatment depends on the clinical picture. Monitor renal and liver function and for drug toxicity and dose-adjust antibiotics. Qualifiers: Sepsis type: sepsis due to unspecified organism Qualified Code(s): A41.9 - Sepsis, unspecified organism (2) Perforated viscus Status: Acute Assessment and plan: CT of the abdomen and pelvis completed 10/18/16 with oral contrast given via the patient's stoma showed segment of colon within the ostomy site extending to the stoma diffusely thickened in appearance with mild inflammatory stranging of the adjacent fat. There was demonstration of extravasation through the left lateral wall compatible with a defect within the wall. Contrast was seen extending into the air collections within the subcutaneous fat noted on the prior CT scan. Stable pneumoperitoneum was also noted and the focal collection on the left side of the abdomen was grossly unchanged in appearance. The patient was taken to the OR 10/18/16 and underwent exploratory lap with takedown of previous colostomy and splenic flexure, left colectomy, RUQ colostomy placement, ABIODUN, and appendectomy by Dr. Valentine. Operative report reviewed. Case discussed with Dr. Valentine. Large amount of bowel contents noted in the abdomen during surgery. Intra-operative cultures grew oro-sensitive E. coli and P. mirabilis. Further management per the surgery team. Antibiotic recommendations as above. (3) Pneumoperitoneum Status: Acute Assessment and plan: Secondary to perforated viscous. Management per the surgery team. (4) Abdominal pain Status: Acute Assessment and plan: Etiology unclear: post-op pain vs. new/uncontrolled source of infection. Get CT of the abdomen and pelvis with IV and oral contrast to evaluate further. Qualifiers: Abdominal location: left lower quadrant Qualified Code(s): R10.32 - Left lower quadrant pain (5) Tongue lesion Status: Acute Assessment and plan: MRI of the face concerning for possible metastatic disease. Consider ENT consult for further evaluation. (6) Postoperative anemia Status: Acute Assessment and plan: Hemoglobin stable around 8. No active bleeding noted on exam. Management per the surgery team. (7) History of rectal cancer Status: Chronic Assessment and plan: Diagnosed in 2014. Status post APR with colostomy in 2014. Follows with Dr. Flores at the [facility]. Currently undergoing IV chemotherapy (Irinotecan, Xeloda, Avastin) with last dose given 09/29/16. Hem/Onc consulted and following. (8) Brain metastases Status: Acute Assessment and plan: Status post craniotomy with parietal tumor excision 07/2016 at [place]. (9) Lung metastases Status: Acute Assessment and plan: Status post robotic left lower lobectomy 11/2015. Qualifiers: Laterality: left Qualified Code(s): C78.02 - Secondary malignant neoplasm of left lung (10) Hypertension Status: Chronic Qualifiers: Hypertension type: essential hypertension Qualified Code(s): I10 - Essential (primary) hypertension Infectious Disease HPI - Data of Consult Patient: new to practice Consult date: 10/25/16 Requesting Physician: Loly Valentine MD Primary Care Provider: PCP NONE - Consult Narrative Reason for consult: Leukocytosis History of present illness: Mr. Romano is a 71 year old male with a past medical history of metastatic rectal cancer with metastases to the lung, brain, and tongue. The patient was admitted to the hospital October 18 for perforated bowel. We are consulted October 25 for further evaluation and treatment recommendations regarding persistent leukocytosis. Patient is 71-year-old male with past medical history as stated above. The patient was diagnosed with metastatic rectal cancer back in 2014 and underwent neoadjuvant therapy and had to have an abdominal perineal resection performed in August 2014. In September 2015, the patient was diagnosed with mets to the left lung and underwent a robotic left lower lobectomy. Additionally, he was diagnosed with brain mets in July of 2016 and underwent a parietal brain tumor removal at [place]. He was recently hospitalized earlier this [facility] for perforated viscous and SBO. The patient was evaluated by the surgical team who opted to treat conservatively. Repeat CT of the A/P prior to discharge revealed a superficial pericolic gutter abscess that was I & D'd at the bedside per the surgical team. He received 10 days of Zosyn and was transitioned to oral Augmentin on discharge. The day prior to admission, the patient was noted to have what appeared to be a fistula next to his colostomy. He was evaluated in the ED and was discharged home to follow up with surgery as an outpatient. A CT scan was repeated with oral contrast via the mouth and stoma that showed contrast extravasation, colonic wall thickening, stable pneumoperitoneum, and left abdominal fluid collection that was essentially unchanged. The patient was directly admitted to the hospital and underwent an exploratory lap with takedown colostomy, takedown splenic flexure, left colectomy, RUQ colostomy, appendectomy, and lysis of adhesions. Operative report reviewed and intra-op findings discussed with Dr. Valentine who states large amount of stool noted in the abdomen. Cultures were obtained and have grown P. mirabilis, E. coli, Anaerobic GNR, and anaerobic GPC. The patient was started on IV Ertapenem post-op and was transitioned to Zosyn once culture sensitivities were resolved. The patient had leukocytosis and tachycardia on admission, which resolved 48 hours post-op, but the patient has recurrence of leukocytosis. Antibiotics have been switched from Zosyn to Meropenem. Additionally, fluconazole and flagyl have been added as well. We have been asked to evaluate and make further recommendations. During my exam today, the patient states that he feels okay. He complains of diffuse abdominal pain. He denies any fevers or chills or rigors. He denies any headache or neck pain. He denies any dizziness or weakness. He denies any congestion, earache, or sore throat. He complains of hoarseness and is unable to speak above a whisper. He denies any chest pain, shortness of breath, or cough. He denies any nausea or vomiting. He states that his abdominal pain is sharp and intermittent. He reports he is passing gas and passing stool via his colostomy. He denies any urinary complaints. He denies any pain in his back or extremities. He denies any oral thrush or new skin lesions. The patient lives at home with his . He denies any ETOH, drug, or tobacco use. CC: Loly Valentine MD Past Med Surg Social Fam HX - Past Medical History Attestation: Yes The following information was validated with the patient. Source: patient, old records reviewed, obtained from family, nursing notes reviewed Medical history: cancer (metastatic rectal), hypertension Psychiatric history: anxiety - Past Surgical History Surgical History: cholecystectomy, colectomy, colostomy, herniorrhaphy, orthopedic, other (L rotater cuff, R shoulder replacement), other (resection of parietal mass) - Social History Smoking Status: Never smoker Smokeless Tobacco Status: No Alcohol use: none Drug use: none Occupational status: retired Current living situation: Home, With Family Activity Level: Independent ambulation Recent Out of Country Travel Within the Last 8 Weeks: No Exposure or Possible Exposure to Illness During Travel: No - Family History Mother Living Status: Hx Family Cancer: Yes (uterine ca) Hx Family Endocrine Disorder: Yes (DM) Father Living Status: Hx Family Cardiac Disorders: Yes (SC) Infectious Disease-CN:Meds Cyanocobalamin (Vitamin B-12) [Vitamin B-12] 1,000 mcg PO DAILY 11/08/14 [ History] Ascorbic Acid [Vitamin C] 500 mg PO DAILY #30 tablet 12/31/14 [Rx] Aspirin Enteric Coated [Aspirin EC] 81 mg PO DAILY 12/31/14 [History] Cholecalciferol (D-3) [Vitamin D] 1,000 unit PO DAILY 07/27/16 [History] Mv-Mn/FA/Vit K/Lycop/Lut/Coq10 [Daily Multivitamin Capsule] 1 tab PO DAILY 07/27 [History] Gabapentin [Neurontin] 300 mg PO TID #90 capsule 09/14/16 [Rx] LevETIRAcetam [Keppra] 500 mg PO BID 09/29/16 [History] LORazepam [Ativan] 0.5 mg PO TID PRN 10/05/16 [History] hydroCHLOROthiazide [Hydrochlorothiazide] 25 mg PO DAILY 10/12/16 [History] Amoxicillin/Clavulanate [Augmentin] 875 mg PO BID 10/18/16 [History] Capecitabine [Xeloda] 1,500 mg PO BID MDD SEE NOTE 10/18/16 [History] Dexamethasone [Decadron] 4 mg PO DAILY 10/18/16 [History] HYDROcodone/Acet 10/325 mg [[place] 10-325 mg] 1 tab PO Q4-6H PRN 10/18/16 [ History] Isosorbide MONOnitrate (24 HR) [Imdur] 30 mg PO DAILY 10/18/16 [History] Lisinopril [Zestril] 20 mg PO DAILY 10/18/16 [History] Allergies azithromycin Allergy (Unknown, Verified 07/27/16 15:11) unknown All systems: reviewed and no additional remarkable complaints except as stated Exam - Constitutional Vitals: Temp Pulse Resp BP Pulse Ox 98.7 F 85 14 141/83 97 10/25/16 11:40 10/25/16 11:40 10/25/16 11:40 10/25/16 11:40 10/25/16 11:40 General appearance: average body habitus, cooperative, no acute distress - Head Head exam: Present: atraumatic, normal inspection, normocephalic - Eye Eye exam: Present: EOMI, normal appearance, PERRL Pupils: Present: normal accommodation - ENT ENT exam: Present: mucous membranes dry - Neck Neck exam: Present: normal inspection - Respiratory Respiratory exam: Present: CTAB. Absent: rales, respiratory distress, rhonchi, wheezes - Cardiovascular Cardiovascular exam: Present: RRR, +S1, +S2 - GI/Abdominal GI/Abdominal exam: Present: normal bowel sounds, soft, tenderness (generalized) Additional comments: Midline abdominal incision noted with ihsan intact. 4cm area in the middle of the incision open with wound VAC dressing noted. Bowel exposed at the base of the wound. Surround skin pink, moist, supple. Small amount of seropurulent drainage noted in the wound bed. Left abdomen surgical site with wound VAC dressing noted. Wound bed 100% granulation tissue without drainage, warmth, or erythema. VIN drain noted with serosanguinous drainage noted. Previous I & D puncture site with small amount of packing with seropurulent drainage noted. No surrounding erythema or warmth noted. Colostomy noted to the RLQ with stoma moist and beefy red. Small amount of liquid brown stool noted in the collection device. - Extremities Exam Extremities exam: Present: normal inspection. Absent: joint swelling, pedal edema, tenderness - Neurological Exam Neurological exam: Present: alert, oriented X3, no focal deficits - Psychiatric Psychiatric exam: Present: normal affect, normal mood - Skin Skin exam: Present: dry, intact, normal color, warm - Additional findings Additional findings: PICC line noted to the LUE with transparent dressing C/D/I. Infectious Disease CN: Results - Labs CBC & Chem 7: 10/26/16 04:20 10/26/16 04:20 Cultures: Cultures 10/18/16 01:09 Wound Culture - Final Abdomen Proteus mirabilis Escherichia coli 10/18/16 01:09 Anaerobic Culture - Final Abdomen Anaerobic Gram Negative Heriberto Anaerobic Gram Positive Heriberto - VTE Documentation of Mechanical Device: Intermittent pneumatic compression device Consult Discharge Plan - Plan Referrals: NONE,PCP [Primary Care Provider] - - Attending Attestation I examined this patient and my medical decision-making was reviewed with the Resident Physician. I agree with the documented findings, disposition and treatment plan as described except to the extent set forth below. This is an Addendum to original report dictated by Felecia Arreguin CNP. Please refer to [facility] for full detail. Patient is a 71-year-old gentleman has an extensive past medical history mentioned below who has metastatic rectal cancer was admitted for perforated bowel on October 18, 2016 we are consulted on October 25 for persistent leukocytosis and antibiotic recommendations. patient was diagnosed with metastatic rectal cancer back in 2014 and underwent neoadjuvant therapy and had to have an abdominal perineal resection performed in August 2014. In September 2015, the patient was diagnosed with mets to the left lung and underwent a robotic left lower lobectomy. Additionally, he was diagnosed with brain mets in July of 2016 and underwent a parietal brain tumor removal at [place]. He was recently hospitalized earlier this [facility] for perforated viscous and SBO. The patient was evaluated by the surgical team who opted to treat conservatively. Repeat CT of the A/P prior to discharge revealed a superficial pericolic gutter abscess that was I & D'd at the bedside per the surgical team. He received 10 days of Zosyn and was transitioned to oral Augmentin on discharge. The day prior to admission, the patient was noted to have what appeared to be a fistula next to his colostomy. He was evaluated in the ED and was discharged home to follow up with surgery as an outpatient. A CT scan was repeated with oral contrast via the mouth and stoma that showed contrast extravasation, colonic wall thickening, stable pneumoperitoneum, and left abdominal fluid collection that was essentially unchanged. The patient was directly admitted to the hospital and underwent an exploratory lap with takedown colostomy, takedown splenic flexure, left colectomy, RUQ colostomy, appendectomy, and lysis of adhesions. Operative report reviewed and intra-op findings discussed with Dr. Valentine who states large amount of stool noted in the abdomen. Cultures were obtained and have grown P. mirabilis, E. coli, Anaerobic GNR, and anaerobic GPC. The patient was started on IV Ertapenem post-op and was transitioned to Zosyn once culture sensitivities were resolved. The patient had leukocytosis and tachycardia on admission, which resolved 48 hours post-op, but the patient has recurrence of leukocytosis. Antibiotics have been switched from Zosyn to Meropenem. Additionally, fluconazole and flagyl have been added as well. We have been asked to evaluate and make further recommendations. At this point, I was concerned that there was pus coming out of the surgical wound when the wound VAC was changed. Not sure if the patient also has a wound infection with possible skin yaneth including MRSA. Recommend checking culture. Also get a CT scan of the abdomen pelvis to rule out any abscess formation. Patient will need to continue on fluconazole but I think we need to dose adjust to 400 mg 1 now then 200 mg daily after that. I dont think the patient needs to be on a carb ertapenem plus Flagyl, will switch him to Zosyn which covers most gram negatives, Pseudomonas and anaerobes. Well continue to monitor closely thank you for allowing us to per to spit in the management of this patient.
--- NOTE | 2016-10-25 14:46 | General Surgery Progress Note ---
<Miriam Jeter Hailey - Last Filed: 10/25/16 15:26> Date of Encounter: 10/25/16 Time of Encounter: 14:15 - Assessment and Plan (1) S/P colectomy Current Visit: Yes Status: Acute Postoperative day #7 from exploratory laparotomy with sigmoid colectomy, lysis of adhesions, takedown of splenic flexure, relocation of colostomy, appendectomy with Dr. 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 Supportive care and pain control- scheduled tylenol and ibuprofen; prn dilaudid and oxycodone Wound vac therapy- change every MWF Wound care- LLQ daily packing Colostomy care daily- change every MWF with wound vac change IS every 1 hour while awake Increase activity as tolerated PPI therapy daily Repeat am labs (2) Leukocytosis Current Visit: Yes Status: Acute 14.2>16.7 ID consult for recommendations IV antibiotics- Meropenem added today, Flagyl, Diflucan Repeat am labs Qualifiers: Leukocytosis type: unspecified Qualified Code(s): D72.829 - Elevated white blood cell count, unspecified (3) Hypertension Current Visit: No Status: Chronic Continue Lisinopril daily Metoprolol prn Qualifiers: Hypertension type: essential hypertension Qualified Code(s): I10 - Essential (primary) hypertension (4) 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 Current Visit: No Status: Chronic Oncology following (5) Abdominal pain Current Visit: No Status: Acute Scheduled PO tylenol and ibuprofen PRN oxycodone and toradol Qualifiers: Abdominal location: left lower quadrant Qualified Code(s): R10.32 - Left lower quadrant pain (6) DVT prophylaxis Current Visit: No Status: Acute Heparin 5000 units subcutaneous TID for DVT prophylaxis Subjective Patient reports: no new complaints, still having pain, tolerating liquids well ( full liquids), voiding w/o difficulty, flatus, bowel movement (via colostomy), afebrile Objective Vital Signs - Last 8 Hours Temp Pulse Resp BP Pulse Ox 10/25/16 11:40 98.7 F 85 14 141/83 97 10/25/16 08:50 16 97 10/25/16 08:12 95 10/25/16 08:06 97.5 F L 82 16 164/95 95 Intake and Output 10/24/16 10/25/16 10/25/16 23:59 07:59 15:59 Intake Total 2213 / 2213 100 / 100 220 / 220 Output Total 255 / 255 525 / 525 560 / 560 Balance 1957 -425 / -425 -340 / -340 Intake: IV Fluids 1972 100 / 100 100 / 100 Clinimix E 5%-15% 1872 / 1872 SOLUTION 2,000 ML @ 83.3 mls/hr IVC .Q24H [facility] with M.v.i. Adult 10 ml Rx#: [id number] Flagyl Premix 500 MG/100 100 / 100 ML 500 mg In 100 ml @ 100 mls/hr IVPB Q8HR [facility] Rx# :[id number] Zosyn 3.375 GM In 100 / 100 100 / 100 Dextrose 5% (Minibag+) 100 ML 100 ML @ 25 mls/hr IVPB Q8HR [facility] Rx#: [id number] Oral 240 / 240 120 / 120 Output: Urine 100 / 100 425 / 425 550 / 550 Stool 100 / 100 50 / 50 Wound Drainage 55 / 55 50 / 50 10 / 10 Left Lower Abdomen 55 / 55 50 / 50 Lower Medial Abdomen 10 / 10 Other: Meal Lunch Percent of Meal Consumed 0% 0% Stool Color Brown Green Weight 85.2 kg Blood Glucose* 124 137 141 Patient Weight 10/25/16 23:59 Weight 85.2 kg - General physical appearance well developed, well nourished, no distress, moderate pain - Eyes normal ocular movement - ENT normal mucosa, atraumatic, normocephalic - Neck Neck exam: trachea midline - Respiratory normal respiratory effort, clear to auscultation - Cardiovascular Cardiovascular exam: Present: RRR - Abdomen Abdomen: Present: bowel sounds present, soft, tender (Expected postoperative tenderness), wound (Colostomy is pink and moist with flatus and soft brown stool noted; midline and old ostomy site with wound VAC (moderate amount of cloudy drainage noted), wound dehiscence noted (stable); LLQ with packing noted) - Incision Incision: Present: serous (Small amount to bottom of midline incision noted), open (Midline and old ostomy site, moderate amount of cloudy drainage noted ( change every MWF)) - Genitourinary normal penis with no external lesions - Neurologic CN 2-12 grossly intact - Musculoskeletal other (moderate deconditioning noted) - Psychiatric oriented to time, oriented to person, oriented to place, speech is normal, memory intact - Labs 10/25/16 10:01 10/24/16 04:15 - VTE Documentation of Mechanical Device: Intermittent pneumatic compression device Consult Discharge Plan - Plan Referrals: NONE,PCP [Primary Care Provider] - <Loly Valentine - Last Filed: 10/25/16 17:48> Date of Encounter: 10/25/16 - Assessment and Plan (1) Abdominal pain Current Visit: No Status: Acute Qualifiers: Abdominal location: left lower quadrant Qualified Code(s): R10.32 - Left lower quadrant pain (2) Hypertension Current Visit: No Status: Chronic Qualifiers: Hypertension type: essential hypertension Qualified Code(s): I10 - Essential (primary) hypertension (3) DVT prophylaxis Current Visit: No Status: Acute (4) 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 Current Visit: No Status: Chronic (5) Leukocytosis Current Visit: Yes Status: Acute Qualifiers: Leukocytosis type: unspecified Qualified Code(s): D72.829 - Elevated white blood cell count, unspecified (6) S/P colectomy Current Visit: Yes Status: Acute agree with Radhika Jeter Subjective Patient reports: no new complaints, still having pain, pain is less, flatus, bowel movement, other (tolerating fulls) Objective Vital Signs - Last 8 Hours Temp Pulse Resp BP Pulse Ox 10/25/16 16:14 97.7 F 87 14 144/86 96 10/25/16 11:40 98.7 F 85 14 141/83 97 Intake and Output 10/25/16 10/25/16 10/25/16 07:59 15:59 23:59 Intake Total 350 / 350 700 / 700 2092 Output Total 525 / 525 560 / 560 Balance -175 / -175 140 / 140 2092 Intake: IV Fluids 350 / 350 100 / 100 2092 Clinimix E 5%-15% 1992 SOLUTION 2,000 ML @ 83.3 mls/hr IVC .Q24H [facility] with M.v.i. Adult 10 ml Rx#: [id number] Intralipid 20% 250 ML @ 250 / 250 21 mls/hr IVPB DAILY@1700 [facility] Rx#:[id number] Flagyl Premix 500 MG/100 100 / 100 ML 500 mg In 100 ml @ 100 mls/hr IVPB Q8HR [facility] Rx# :[id number] Zosyn 3.375 GM In 100 / 100 100 / 100 Dextrose 5% (Minibag+) 100 ML 100 ML @ 25 mls/hr IVPB Q8HR [facility] Rx#: [id number] Oral 600 / 600 Output: Urine 425 / 425 550 / 550 Stool 50 / 50 Wound Drainage 50 / 50 10 / 10 Left Lower Abdomen 50 / 50 Lower Medial Abdomen 10 / 10 Other: Percent of Meal Consumed 0% Weight 85.2 kg Blood Glucose* 137 141 125 Patient Weight 10/25/16 23:59 Weight 85.2 kg - General physical appearance well developed, well nourished, no distress - Eyes normal ocular movement - ENT normal mucosa, normocephalic - Neck Neck exam: trachea midline - Respiratory normal expansion, clear to auscultation - Cardiovascular Cardiovascular exam: Present: RRR - Abdomen Abdomen: Present: bowel sounds present, soft, tender, wound - Integumentary no rash, no growths - Neurologic CN 2-12 grossly intact - Musculoskeletal normal posture - Psychiatric oriented to time, oriented to person, oriented to place, memory intact - Labs 10/25/16 10:01 10/24/16 04:15 Short CBC 10/25/16 Range/Units 10:01 WBC 16.7 H (4.3-11.1) K/mcL Hgb 8.5 L (12.9-16.9) g/dL Hct 25.4 L (37.5-50.1) % Plt Count 406 H (140-400) K/mcL Neutrophils # 12.6 H (1.6-8.9) K/mcL Vital Signs Temp Pulse Resp BP Pulse Ox 10/25/16 16:14 97.7 F 87 14 144/86 96 10/25/16 11:40 98.7 F 85 14 141/83 97 10/25/16 08:50 16 97 10/25/16 08:12 95 10/25/16 08:06 97.5 F L 82 16 164/95 95 10/25/16 04:24 97.8 F 81 19 155/91 95 10/25/16 00:18 14 93 07/31/17 00:11 98.9 F 79 20 156/96 92 10/24/16 19:46 97.4 F L 74 20 120/74 94 Intake and Output 10/25/16 10/25/16 10/25/16 07:59 15:59 23:59 Intake Total 350 / 350 700 / 700 2092 Output Total 525 / 525 560 / 560 Balance -175 / -175 140 / 140 2092 Intake: IV Fluids 350 / 350 100 / 100 2092 Clinimix E 5%-15% 1992 SOLUTION 2,000 ML @ 83.3 mls/hr IVC .Q24H [facility] with M.v.i. Adult 10 ml Rx#: [id number] Intralipid 20% 250 ML @ 250 / 250 21 mls/hr IVPB DAILY@1700 [facility] Rx#:[id number] Flagyl Premix 500 MG/100 100 / 100 ML 500 mg In 100 ml @ 100 mls/hr IVPB Q8HR [facility] Rx# :[id number] Zosyn 3.375 GM In 100 / 100 100 / 100 Dextrose 5% (Minibag+) 100 ML 100 ML @ 25 mls/hr IVPB Q8HR [facility] Rx#: [id number] Oral 600 / 600 Output: Urine 425 / 425 550 / 550 Stool 50 / 50 Wound Drainage 50 / 50 10 / 10 Left Lower Abdomen 50 / 50 Lower Medial Abdomen 10 / 10 Other: Percent of Meal Consumed 0% Weight 85.2 kg Blood Glucose* 137 141 125 Patient Weight 10/25/16 23:59 Weight 85.2 kg - Attending Attestation I examined this patient and my medical decision-making was reviewed with the Resident Physician. I agree with the documented findings, disposition and treatment plan as described except to the extent set forth below.
[2016-10-25] MEDS ORDERED: Fluconazole 100 MG/50 ML 100 MG/50 ML BAG IVPB SCH (15:30)
[2016-10-25] MEDS ORDERED: Fluconazole 400 MG/200 ML 400 MG/200 ML BAG IVPB ONE (15:50)
[2016-10-25] MEDS ORDERED: Vancomycin 1,250 MG in D5% in Water 250 ML IVPB SCH (16:00)
[2016-10-25] MEDS ORDERED: Meropenem 1,000 MG in 0.9 % Sodium Chloride Mini Bag 100 ML IVPB SCH (16:00)
[2016-10-25] MEDS: Vancomycin 1,250 MG in D5% in Water 250 ML IVPB SCH (16:35)
[2016-10-25] MEDS: Ibuprofen 600 MG TABLET PO SCH (16:36)
[2016-10-25] MEDS: *HR* LORazepam 2 MG/ML VIAL IVP PRN (16:38)
[2016-10-25] MEDS ORDERED: Clinimix E 5%-15% SOLUTION 2,000 ML with MVI, adult with vitamin K 10 ML IVC SCH (17:00)
[2016-10-25] MEDS: Acetaminophen 325 MG TABLET PO SCH (17:43)
[2016-10-25] MEDS ORDERED: Acetaminophen 325 MG TABLET PO SCH (18:00)
[2016-10-25] MEDS: *HR* OxyCODONE Immed Rel 5 MG TABLET PO PRN (19:48)
[2016-10-26] MEDS: Ibuprofen 600 MG TABLET PO SCH ×3 (01:05→18:06)
[2016-10-26] MEDS: Acetaminophen 325 MG TABLET PO SCH ×4 (01:05→18:06)
[2016-10-26] MEDS: Piperacillin/Tazobactam 3.375 GM in D5% in Water (Mini-Bag+) 100 ML IVPB SCH ×3 (01:06→18:04)
[2016-10-26] MEDS: Vancomycin 1,250 MG in D5% in Water 250 ML IVPB SCH ×2 (04:30→18:03)
[2016-10-26 05:15] LABS: Basophils # 0.1 K/mcL (0.0-0.2); Basophils % 0.7 %; Eosinophils # 0.6 K/mcL (0.0-0.6); Eosinophils % 4.6 %; Hematocrit 22.9 % (37.5-50.1); Hemoglobin 7.6 g/dL (12.9-16.9); Immature Granulocytes % 4.3 % (0-4); Lymphocytes % 8.2 %; Mean Corpuscular HGB Conc 33.2 g/dL (31.6-35.5); Mean Corpuscular Hemoglobin 32.1 pg (28.0-33.3); Mean Corpuscular Volume 96.6 fL (83.0-100.0); Mean Platelet Volume 9.7 fL (9.4-12.4); Monocytes # 1.2 K/mcL (0.0-1.3); Monocytes % 9.8 %; Platelet Count 356 K/mcL (140-400); Red Blood Count 2.37 M/mcL (4.19-5.50); Red Cell Distribution Width 16.7 % (11.5-14.5); Segmented Neutrophils % 72.4 %
[2016-10-26 05:33] LABS: BUN/Creatinine Ratio 30 (6-26); Blood Urea Nitrogen 13 mg/dL (8-26); Calcium 8.8 mg/dL (8.6-10.8); Carbon Dioxide 30 mEq/L (19-29); Chloride 105 mEq/L (98-109); Glucose 83 mg/dL (70-99); Magnesium 1.5 mg/dL (1.6-2.6); Osmolality,Calculated 287 (280-300); Phosphorous 3.3 mg/dL (2.3-4.7); Potassium 3.7 mEq/L (3.5-4.5); Sodium 139 mEq/L (136-145); eGFR For African Americans > 60 (> 60); eGFR For Non-African Americans > 60 (> 60)
[2016-10-26 05:34] LABS: Albumin/Globulin Ratio 0.4 (1.1-2.2); Bilirubin,Direct 0.2 mg/dL (0.0-0.5); Bilirubin,Indirect 0.2 mg/dL (0.0-1.2); Bilirubin,Total 0.4 mg/dL (0.2-1.2); Globulin 3.6 g/dL (2.4-3.5); Total Protein 4.9 g/dL (6.0-8.3)
[2016-10-26 05:36] LABS: Albumin 1.3 g/dL (3.5-5.0)
[2016-10-26] MEDS: *HR* Heparin 5,000 UNIT/ML VIAL SQ SCH ×3 (06:14→21:37)
[2016-10-26] MEDS: levETIRAcetam 250 MG TABLET PO SCH ×2 (06:15→18:06)
[2016-10-26] MEDS: Lisinopril 20 MG TABLET PO SCH (07:51)
[2016-10-26] MEDS: Isosorbide MONOnitrate (24 HR) 30 MG TAB.ER.24H PO SCH (07:51)
[2016-10-26] MEDS: Fluconazole 200 MG/100 ML 200 MG/100 ML BAG IVPB SCH (07:51)
[2016-10-26] MEDS: Ipratropium/Albuterol Neb 3 ML IH SCH ×3 (07:59→22:40)
[2016-10-26] MEDS: Acetylcysteine 10% 2 ML INHSOL IH SCH ×3 (07:59→22:40)
[2016-10-26] MEDS ORDERED: Magnesium Sulfate 2 GM in D5% in Water 100 ML IVPB ONE (08:30)
--- NOTE | 2016-10-26 08:52 | Oncology Inp Progress Note ---
Date of Encounter: 10/26/16 Time of Encounter: 08:50 (1) 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 Current Visit: No Status: Chronic Assessment and plan: -Patient is still recovering from recent surgery. There are not indications for inpatient chemotherapy. - Upon discharge, please arrange follow up with medical oncologist to discuss timing to start chemotherapy during office visit. (2) Tongue lesion Current Visit: No Status: Acute Assessment and plan: Please request ENT consult due to tongue lesion. still not clear if it could be a new malignancy. Oncology: Subj Interval history: Still recovering from recent surgery. reports that yesterday diet was advanced to solid ( previously in full liquids) with some tolerance. Still being overlapped with TPN until caloric intakes are back to baseline. Reports improved tongue pain. - Constitutional Vitals: Vital Signs Temp Pulse Resp BP Pulse Ox 10/26/16 07:59 18 96 10/26/16 07:12 98.2 F 74 15 145/80 96 10/26/16 04:42 97.8 F 71 15 142/92 95 10/25/16 23:57 97.8 F 81 15 134/82 96 10/25/16 22:11 16 94 10/25/16 19:23 97.0 F L 86 15 116/85 95 10/25/16 16:14 97.7 F 87 14 144/86 96 10/25/16 11:40 98.7 F 85 14 141/83 97 10/25/16 08:50 16 97 Intake and Output 10/25/16 10/26/16 10/26/16 23:59 07:59 15:59 Intake Total 2866 / 2866 702.2 / 702.2 Output Total 925 / 925 1290 / 1290 Balance 1941 / 1941 -587.8 / -587.8 Intake: IV Fluids 2866 / 2866 702.2 / 702.2 Clinimix E 5%-15% 2336 / 2336 481 / 481 SOLUTION 2,000 ML @ 83.3 mls/hr IVC .Q24H [facility] with M.v.i. Adult 10 ml Rx#: [id number] Intralipid 20% 250 ML @ 80 / 80 121.2 / 121.2 21 mls/hr IVPB DAILY@1700 [facility] Rx#:[id number] Zosyn 3.375 GM In 200 / 200 100 / 100 Dextrose 5% (Minibag+) 100 ML 100 ML @ 25 mls/hr IVPB Q8HR [facility] Rx#: [id number] Vancocin 1,250 MG In 250 / 250 Dextrose 5% 250 ML @ 166. 67 mls/hr IVPB Q12H [facility] Rx#:[id number] Oral 0 / 0 0 / 0 Output: Urine 925 / 925 1250 / 1250 Stool 0 / 0 Catheter 0 / 0 Wound Drainage 0 / 0 40 / 40 Left Lower Abdomen 0 / 0 40 / 40 Other: Weight 86.3 kg Blood Glucose* 141 129 Patient Weight 10/26/16 23:59 Weight 86.3 kg General appearance: no acute distress - Head Head exam: Present: normal inspection - ENT Additional comments: I could not visualize tongue lesion. - Respiratory Respiratory exam: Present: CTAB - Cardiovascular Cardiovascular exam: Present: RRR - Extremities Exam Extremities exam: Present: normal inspection - Neurological Exam Neurological exam: Present: oriented X3 - Skin Skin exam: Present: normal color Oncology: Obj Data - Labs CBC & Chem 7: 10/26/16 04:20 10/26/16 04:20 Labs: Laboratory Results - last 24 hr 10/25/16 10/25/16 10/25/16 10:01 11:50 16:10 WBC 16.7 H RBC 2.68 L Hgb 8.5 L Hct 25.4 L MCV 94.8 MCH 31.7 MCHC 33.5 RDW 16.3 H Plt Count 406 H MPV 9.4 Immature Gran % 4.7 H Seg Neutrophils % 75.2 Lymphocytes % 7.1 Monocytes % 8.4 Eosinophils % 3.8 Basophils % 0.8 Neutrophils # 12.6 H Lymphocytes # 1.2 Monocytes # 1.4 H Eosinophils # 0.6 Basophils # 0.1 Nucleated RBCs/100 WBC 0.1 H Sodium Potassium Chloride Carbon Dioxide BUN Creatinine Est GFR ( Amer) Est GFR (Non-Af Amer) BUN/Creatinine Ratio Glucose POC Glucose 141 H 125 H Calculated Osmolality Calcium Phosphorus Magnesium Total Bilirubin Direct Bilirubin Indirect Bilirubin AST ALT Alkaline Phosphatase Serum Total Protein Albumin Globulin Albumin/Globulin Ratio Amylase Lipase 10/25/16 10/25/16 10/26/16 19:41 23:54 04:20 WBC RBC Hgb Hct MCV MCH MCHC RDW Plt Count MPV Immature Gran % Seg Neutrophils % Lymphocytes % Monocytes % Eosinophils % Basophils % Neutrophils # Lymphocytes # Monocytes # Eosinophils # Basophils # Nucleated RBCs/100 WBC Sodium 139 Potassium 3.7 Chloride 105 Carbon Dioxide 30 H BUN 13 Creatinine 0.44 L Est GFR ( Amer) > 60 Est GFR (Non-Af Amer) > 60 BUN/Creatinine Ratio 30 H Glucose 83 POC Glucose 109 H 141 H Calculated Osmolality 287 Calcium 8.8 Phosphorus 3.3 Magnesium 1.5 L Total Bilirubin Direct Bilirubin Indirect Bilirubin AST ALT Alkaline Phosphatase Serum Total Protein Albumin Globulin Albumin/Globulin Ratio Amylase Lipase 10/26/16 10/26/16 10/26/16 04:20 04:20 04:45 WBC 12.5 H RBC 2.37 L Hgb 7.6 L Hct 22.9 L MCV 96.6 MCH 32.1 MCHC 33.2 RDW 16.7 H Plt Count 356 MPV 9.7 Immature Gran % 4.3 H Seg Neutrophils % 72.4 Lymphocytes % 8.2 Monocytes % 9.8 Eosinophils % 4.6 Basophils % 0.7 Neutrophils # 9.0 H Lymphocytes # 1.0 Monocytes # 1.2 Eosinophils # 0.6 Basophils # 0.1 Nucleated RBCs/100 WBC Sodium Potassium Chloride Carbon Dioxide BUN Creatinine Est GFR ( Amer) Est GFR (Non-Af Amer) BUN/Creatinine Ratio Glucose POC Glucose 133 H Calculated Osmolality Calcium Phosphorus Magnesium Total Bilirubin 0.4 Direct Bilirubin 0.2 Indirect Bilirubin 0.2 AST 18 ALT 9 Alkaline Phosphatase 83 Serum Total Protein 4.9 L Albumin 1.3 L Globulin 3.6 H Albumin/Globulin Ratio 0.4 L Amylase 23 L Lipase 23 10/26/16 07:18 WBC RBC Hgb Hct MCV MCH MCHC RDW Plt Count MPV Immature Gran % Seg Neutrophils % Lymphocytes % Monocytes % Eosinophils % Basophils % Neutrophils # Lymphocytes # Monocytes # Eosinophils # Basophils # Nucleated RBCs/100 WBC Sodium Potassium Chloride Carbon Dioxide BUN Creatinine Est GFR ( Amer) Est GFR (Non-Af Amer) BUN/Creatinine Ratio Glucose POC Glucose 129 H Calculated Osmolality Calcium Phosphorus Magnesium Total Bilirubin Direct Bilirubin Indirect Bilirubin AST ALT Alkaline Phosphatase Serum Total Protein Albumin Globulin Albumin/Globulin Ratio Amylase Lipase - Impressions Impressions Abdomen/Pelvis CT 10/25/16 18:30 IMPRESSION: Postoperative changes of recent distal colectomy with creation of a new right lower quadrant colostomy. No intra-abdominal abscess. Trace amounts of ascites and free intraperitoneal air are likely postoperative. No leak of enteric contrast. Right adrenal 14 mm nodule is new from 06/15/2016, compatible with a metastasis. D/ / 10/25/2016 19:47:17 Alessandro Yanez MD / barbara Interpreting Provider: Alessandro Yanez MD - ABG Interpretation ABG results: PT/INR, D-dimer PT 11.9 Seconds (9.4-12.1) 10/18/16 18:45 Consult Discharge Plan - Plan Referrals: NONE,PCP [Primary Care Provider] -
[2016-10-26] MEDS: Ondansetron 4 MG/2 ML VIAL IVP PRN ×2 (09:33→21:38)
[2016-10-26] MEDS: Fluticasone Propionate Nasal 50 MCG/SPRAY BOTTLE NS SCH (09:33)
--- NOTE | 2016-10-26 10:38 | Infectious Disease Progress No ---
Date of Encounter: 10/26/16 Time of Encounter: 10:36 - Assessment and Plan (1) Sepsis Current Visit: Yes Status: Acute The patient had two SIRS criteria on admission. Likely secondary to perforated viscous. Lactic acid was not checked. Blood cultures were not drawn. The patient had resolution of leukocytosis and tachycardia 48 hours post-op, but had recurrence of leukocytosis. He continues to afebrile and has not had recurrence of tachycardia. Etiology of recurrent/persistent leukocytosis unclear. This morning, WBC improved. Intra-operative cultures grew oro-sensitive P. mirabilis and E. coli, as well as anaerobic GPC and anaerobic GNR. Peripheral blood cultures drawn x 2 sets 10/25/16 are pending. Blood cultures drawn from the PICC line 10/25/16 are pending as well. LFTs, amylase, and lipase are pending. Wound culture ordered yesterday not collected and order cancelled by the surgery team. CT of the abdomen negative for abscess or leak. Continue Zosyn 3.375 grams IV Q8H. d/c vancomycin tomorrow if pt continues to improve clinically Continue fluconazole 200mg IV daily. Duration of treatment depends on the clinical picture. Monitor renal and liver function and for drug toxicity and dose-adjust antibiotics. Qualifiers: Sepsis type: sepsis due to unspecified organism Qualified Code(s): A41.9 - Sepsis, unspecified organism (2) Perforated viscus Current Visit: Yes Status: Acute CT of the abdomen and pelvis completed 10/18/16 with oral contrast given via the patient's stoma showed segment of colon within the ostomy site extending to the stoma diffusely thickened in appearance with mild inflammatory stranging of the adjacent fat. There was demonstration of extravasation through the left lateral wall compatible with a defect within the wall. Contrast was seen extending into the air collections within the subcutaneous fat noted on the prior CT scan. Stable pneumoperitoneum was also noted and the focal collection on the left side of the abdomen was grossly unchanged in appearance. The patient was taken to the OR 10/18/16 and underwent exploratory lap with takedown of previous colostomy and splenic flexure, left colectomy, RUQ colostomy placement, ABIODUN, and appendectomy by Dr. Valentine. Operative report reviewed. Case discussed with Dr. Valentine. Large amount of bowel contents noted in the abdomen during surgery. Intra-operative cultures grew oro-sensitive E. coli and P. mirabilis. Further management per the surgery team. Antibiotic recommendations as above. (3) Pneumoperitoneum Current Visit: No Status: Acute Secondary to perforated viscous. Management per the surgery team. (4) Abdominal pain Current Visit: No Status: Acute Etiology unclear: post-op pain vs. new/uncontrolled source of infection. CT abdomen and pelvis negative for infectious etiology. Pain control as outlined by the primary team. Qualifiers: Abdominal location: left lower quadrant Qualified Code(s): R10.32 - Left lower quadrant pain (5) Tongue lesion Current Visit: No Status: Acute MRI of the face concerning for possible metastatic disease. Consider ENT consult for further evaluation. (6) Postoperative anemia Current Visit: Yes Status: Acute Hemoglobin stable around 8. No active bleeding noted on exam. Management per the surgery team. (7) History of rectal cancer Current Visit: No Status: Chronic Diagnosed in 2014. Status post APR with colostomy in 2014. Follows with Dr. Flores at the [facility]. Currently undergoing IV chemotherapy (Irinotecan, Xeloda, Avastin) with last dose given 09/29/16. Hem/Onc consulted and following. (8) Brain metastases Current Visit: No Status: Acute Status post craniotomy with parietal tumor excision 07/2016 at [place]. (9) Lung metastases Current Visit: No Status: Acute Status post robotic left lower lobectomy 11/2015. 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 No acute events noted overnight. Patient resting in bed with eyes closed, but arouses easily. at bedside. Patient states abdominal pain improved this morning. Per , patient did not request pain medication overnight. Denies fevers, chills, or rigors. Denies chest pain, shortness of breath, or cough. Denies nausea, vomiting, or constipation. Liquid stool per colostomy. States appetite is a little better. Denies urinary complaints. Denies oral thrush or skin lesions. Infect Dis PN-Objective Data - Labs CBC & Chem 7: 10/26/16 04:20 10/26/16 04:20 Labs: Laboratory Results - last 24 hr 10/25/16 10/25/16 10/25/16 11:50 16:10 19:41 WBC RBC Hgb Hct MCV MCH MCHC RDW Plt Count MPV Immature Gran % Seg Neutrophils % Lymphocytes % Monocytes % Eosinophils % Basophils % Neutrophils # Lymphocytes # Monocytes # Eosinophils # Basophils # Sodium Potassium Chloride Carbon Dioxide BUN Creatinine Est GFR ( Amer) Est GFR (Non-Af Amer) BUN/Creatinine Ratio Glucose POC Glucose 141 H 125 H 109 H Calculated Osmolality Calcium Phosphorus Magnesium Total Bilirubin Direct Bilirubin Indirect Bilirubin AST ALT Alkaline Phosphatase Serum Total Protein Albumin Globulin Albumin/Globulin Ratio Amylase Lipase 10/25/16 10/26/16 10/26/16 23:54 04:20 04:20 WBC 12.5 H RBC 2.37 L Hgb 7.6 L Hct 22.9 L MCV 96.6 MCH 32.1 MCHC 33.2 RDW 16.7 H Plt Count 356 MPV 9.7 Immature Gran % 4.3 H Seg Neutrophils % 72.4 Lymphocytes % 8.2 Monocytes % 9.8 Eosinophils % 4.6 Basophils % 0.7 Neutrophils # 9.0 H Lymphocytes # 1.0 Monocytes # 1.2 Eosinophils # 0.6 Basophils # 0.1 Sodium 139 Potassium 3.7 Chloride 105 Carbon Dioxide 30 H BUN 13 Creatinine 0.44 L Est GFR ( Amer) > 60 Est GFR (Non-Af Amer) > 60 BUN/Creatinine Ratio 30 H Glucose 83 POC Glucose 141 H Calculated Osmolality 287 Calcium 8.8 Phosphorus 3.3 Magnesium 1.5 L Total Bilirubin Direct Bilirubin Indirect Bilirubin AST ALT Alkaline Phosphatase Serum Total Protein Albumin Globulin Albumin/Globulin Ratio Amylase Lipase 10/26/16 10/26/16 10/26/16 04:20 04:45 07:18 WBC RBC Hgb Hct MCV MCH MCHC RDW Plt Count MPV Immature Gran % Seg Neutrophils % Lymphocytes % Monocytes % Eosinophils % Basophils % Neutrophils # Lymphocytes # Monocytes # Eosinophils # Basophils # Sodium Potassium Chloride Carbon Dioxide BUN Creatinine Est GFR ( Amer) Est GFR (Non-Af Amer) BUN/Creatinine Ratio Glucose POC Glucose 133 H 129 H Calculated Osmolality Calcium Phosphorus Magnesium Total Bilirubin 0.4 Direct Bilirubin 0.2 Indirect Bilirubin 0.2 AST 18 ALT 9 Alkaline Phosphatase 83 Serum Total Protein 4.9 L Albumin 1.3 L Globulin 3.6 H Albumin/Globulin Ratio 0.4 L Amylase 23 L Lipase 23 Cultures: Cultures 10/18/16 01:09 Wound Culture - Final Abdomen Proteus mirabilis Escherichia coli 10/18/16 01:09 Anaerobic Culture - Final Abdomen Anaerobic Gram Negative Heriberto Anaerobic Gram Positive Heriberto - Impressions Impressions Abdomen/Pelvis CT 10/25/16 18:30 IMPRESSION: Postoperative changes of recent distal colectomy with creation of a new right lower quadrant colostomy. No intra-abdominal abscess. Trace amounts of ascites and free intraperitoneal air are likely postoperative. No leak of enteric contrast. Right adrenal 14 mm nodule is new from 06/15/2016, compatible with a metastasis. D/ / 10/25/2016 19:47:17 Alessandro Yanez MD / earnold Interpreting Provider: Alessandro Yanez MD Exam - Constitutional Vitals: Temp Pulse Resp BP Pulse Ox 98.2 F 74 18 145/80 96 10/26/16 07:12 10/26/16 07:12 10/26/16 07:59 10/26/16 07:12 10/26/16 07:59 - Head Head exam: Present: atraumatic, normal inspection, normocephalic - Eye Eye exam: Present: EOMI, normal appearance, PERRL Pupils: Present: normal accommodation - ENT ENT exam: Present: mucous membranes moist - Neck Neck exam: Present: normal inspection - Respiratory Respiratory exam: Present: CTAB. Absent: rales, respiratory distress, rhonchi, wheezes - Cardiovascular Cardiovascular exam: Present: RRR, +S1, +S2 - GI/Abdominal GI/Abdominal exam: Present: normal bowel sounds, soft, tenderness (generalized, worse in the upper quadrants). Absent: distended Additional comments: Midline abdominal incision with ihsan intact and wound VAC dressing noted. Small amount of purulent drainage noted in the canister. Left LQ dressing C/D/I. RLQ colostomy noted with beefy red stoma and small amount of light brown liquid stool noted in the collection bag. - Extremities Exam Extremities exam: Present: normal inspection. Absent: joint swelling, pedal edema, tenderness - Neurological Exam Neurological exam: Present: alert, oriented X3, no focal deficits - Psychiatric Psychiatric exam: Present: normal affect, normal mood - Skin Skin exam: Present: dry, intact, normal color, warm - Additional findings Additional findings: PICC line noted to the LUE with transparent dressing C/D/I. - VTE Documentation of Mechanical Device: Intermittent pneumatic compression device Consult Discharge Plan - Plan Referrals: NONE,PCP [Primary Care Provider] - - Attending Attestation I examined this patient and my medical decision-making was reviewed with the Resident Physician. I agree with the documented findings, disposition and treatment plan as described except to the extent set forth below.
[2016-10-26] MEDS: *HR* LORazepam 2 MG/ML VIAL IVP PRN (11:19)
[2016-10-26] MEDS ORDERED: Clinimix E 5%-15% SOLUTION 2,000 ML with MVI, adult with vitamin K 10 ML IVC SCH ×3 (12:00→17:00)
--- NOTE | 2016-10-26 16:45 | General Surgery Progress Note ---
<Carroll Veloz - Last Filed: 10/27/16 16:34> Date of Encounter: 10/26/16 Time of Encounter: 16:43 - Assessment and Plan (1) S/P colectomy Current Visit: Yes Status: Acute POD #8 sigmoid colectomy, lysis of adhesions, takedown of splenic flexure, colostomy relocation, and appendectomy Upgraded to regular diet which he tolerates somewhat, and TPN supplementation Calorie counts requested Pain control as ordered Antibiotics per ID Wound vac changes MWF Continue incentive spirometry and increase activity (2) Abdominal pain Current Visit: No Status: Acute pain control prn tylenol, ibuprofen scheduled dilaudid, roxicodone prn Qualifiers: Abdominal location: periumbilical Qualified Code(s): R10.33 - Periumbilical pain (3) Leukocytosis Current Visit: Yes Status: Resolved Finish course of antibiotics Qualifiers: Leukocytosis type: unspecified Qualified Code(s): D72.829 - Elevated white blood cell count, unspecified (4) Hypertension Current Visit: No Status: Chronic Continue daily medications Qualifiers: Hypertension type: essential hypertension Qualified Code(s): I10 - Essential (primary) hypertension (5) 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 He is also having significant mucous production with his cough, now tinged with blood from the nosebleed. Objective Vital Signs - Last 8 Hours Temp Pulse Resp BP Pulse Ox 10/26/16 14:42 97.3 F L 78 16 145/74 97 10/26/16 11:10 97.7 F 73 15 131/83 95 Intake and Output 10/26/16 10/26/16 10/26/16 07:59 15:59 23:59 Intake Total 702.2 / 702.2 120 / 120 0 / 0 Output Total 1290 / 1290 625 / 625 325 / 325 Balance -587.8 / -587.8 -505 / -505 -325 / -325 Intake: IV Fluids 702.2 / 702.2 Clinimix E 5%-15% 481 / 481 SOLUTION 2,000 ML @ 83.3 mls/hr IVC .Q24H [facility] with M.v.i. Adult 10 ml Rx#: [id number] Intralipid 20% 250 ML @ 121.2 / 121.2 21 mls/hr IVPB DAILY@1700 [facility] Rx#:[id number] Zosyn 3.375 GM In 100 / 100 Dextrose 5% (Minibag+) 100 ML 100 ML @ 25 mls/hr IVPB Q8HR [facility] Rx#: [id number] Oral 0 / 0 120 / 120 0 / 0 Output: Urine 1250 / 1250 625 / 625 325 / 325 Stool 0 / 0 0 / 0 Wound Drainage 40 / 40 0 / 0 Left Lower Abdomen 40 / 40 0 / 0 Other: Meal Breakfast Lunch Percent of Meal Consumed 80% 5% Weight 86.3 kg Blood Glucose* 129 119 119 Patient Weight 10/26/16 23:59 Weight 86.3 kg - General physical appearance well developed, well nourished, no distress, moderate pain - Eyes normal ocular movement - ENT atraumatic, normocephalic, Other (significant hoarseness) - Neck Neck exam: trachea midline - Respiratory normal expansion, normal respiratory effort - Cardiovascular Cardiovascular exam: Present: RRR - Abdomen Abdomen: Present: bowel sounds present, soft, tender (expected post operative tenderness) - Incision Incision: Present: draining (with wound vac), serosanguinous - Musculoskeletal normal posture - Psychiatric speech is normal - Labs 10/27/16 04:02 10/27/16 04:02 Diabetes panel 10/26/16 10/26/16 Range/Units 04:20 04:20 Sodium 139 (136-145) mEq/L Potassium 3.7 (3.5-4.5) mEq/L Chloride 105 (98-109) mEq/L Carbon Dioxide 30 H (19-29) mEq/L BUN 13 (8-26) mg/dL Creatinine 0.44 L (0.72-1.25) mg/dL Glucose 83 (70-99) mg/dL Calcium 8.8 (8.6-10.8) mg/dL AST 18 (5-34) Units/L ALT 9 (0-55) Units/L Alkaline Phosphatase 83 (38-126) Units/L Albumin 1.3 L (3.5-5.0) g/dL Calcium panel 10/26/16 10/26/16 Range/Units 04:20 04:20 Calcium 8.8 (8.6-10.8) mg/dL Phosphorus 3.3 (2.3-4.7) mg/dL Albumin 1.3 L (3.5-5.0) g/dL Pituitary panel 10/26/16 Range/Units 04:20 Sodium 139 (136-145) mEq/L Potassium 3.7 (3.5-4.5) mEq/L Chloride 105 (98-109) mEq/L Carbon Dioxide 30 H (19-29) mEq/L BUN 13 (8-26) mg/dL Creatinine 0.44 L (0.72-1.25) mg/dL Glucose 83 (70-99) mg/dL Calcium 8.8 (8.6-10.8) mg/dL Adrenal panel 10/26/16 10/26/16 Range/Units 04:20 04:20 Sodium 139 (136-145) mEq/L Potassium 3.7 (3.5-4.5) mEq/L Chloride 105 (98-109) mEq/L Carbon Dioxide 30 H (19-29) mEq/L BUN 13 (8-26) mg/dL Creatinine 0.44 L (0.72-1.25) mg/dL Glucose 83 (70-99) mg/dL Calcium 8.8 (8.6-10.8) mg/dL Total Bilirubin 0.4 (0.2-1.2) mg/dL AST 18 (5-34) Units/L ALT 9 (0-55) Units/L Alkaline Phosphatase 83 (38-126) Units/L Albumin 1.3 L (3.5-5.0) g/dL - VTE Documentation of Mechanical Device: Intermittent pneumatic compression device Consult Discharge Plan - Plan Referrals: NONE,PCP [Primary Care Provider] - <Loly Valentine - Last Filed: 10/29/16 09:03> Date of Encounter: 10/26/16 - Assessment and Plan (1) Abdominal pain Current Visit: No Status: Acute Qualifiers: Abdominal location: periumbilical Qualified Code(s): R10.33 - Periumbilical pain (2) Hypertension Current Visit: No Status: Chronic Qualifiers: Hypertension type: essential hypertension Qualified Code(s): I10 - Essential (primary) hypertension (3) DVT prophylaxis Current Visit: No Status: Acute (4) 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 Current Visit: No Status: Chronic (5) Leukocytosis Current Visit: Yes Status: Resolved Qualifiers: Leukocytosis type: unspecified Qualified Code(s): D72.829 - Elevated white blood cell count, unspecified (6) S/P colectomy Current Visit: Yes Status: Acute continue wound vac changes encourage po intake, inadequate currently to stop TPN PT/OT prn pain control Abx per ID Subjective Patient reports: no new complaints, feels better, still having pain, pain is less, tolerating a regular diet, voiding w/o difficulty, flatus, bowel movement Objective Vital Signs - Last 8 Hours Temp Pulse Resp BP Pulse Ox 10/29/16 07:53 16 96 10/29/16 07:17 97.6 F 77 16 161/93 96 10/29/16 03:34 98.6 F 79 20 147/88 94 Intake and Output 10/28/16 10/29/16 10/29/16 23:59 07:59 15:59 Intake Total 2109 / 2109 350 / 350 Output Total 605 / 605 1090 / 1090 Balance 1505 / 1505 -740 / -740 Intake: IV Fluids 2109 350 / 350 Clinimix E 5%-15% 2009 SOLUTION 2,000 ML @ 83.3 mls/hr IVC .Q24H [facility] with M.v.i. Adult 10 ml Rx#: [id number] Intralipid 20% 250 ML @ 250 / 250 21 mls/hr IVPB DAILY@1700 [facility] Rx#:[id number] Zosyn 3.375 GM In 100 / 100 100 / 100 Dextrose 5% (Minibag+) 100 ML 100 ML @ 25 mls/hr IVPB Q8HR [facility] Rx#: [id number] Oral 0 / 0 Output: Urine 530 / 530 975 / 975 Stool 50 / 50 65 / 65 Wound Drainage 25 / 25 50 / 50 Left Lower Abdomen 25 / 25 50 / 50 Other: Weight 84.7 kg Blood Glucose* 131 115 Patient Weight 10/29/16 23:59 Weight 84.7 kg - General physical appearance well nourished, no distress, no pain - Eyes PERRL, normal ocular movement - ENT normal mucosa, normocephalic - Neck Neck exam: trachea midline - Respiratory normal expansion, clear to auscultation - Cardiovascular Cardiovascular exam: Present: RRR - Abdomen Abdomen: Present: bowel sounds present, soft, tender - Incision Incision: Present: clean and dry (wound vac in place) - Integumentary no rash, no growths - Neurologic CN 2-12 grossly intact - Musculoskeletal normal posture - Psychiatric oriented to time, oriented to person, oriented to place, speech is normal, memory intact - Labs 10/29/16 03:30 10/29/16 03:30 Diabetes panel 10/29/16 Range/Units 03:30 Sodium 138 (136-145) mEq/L Potassium 3.9 (3.5-4.5) mEq/L Chloride 105 (98-109) mEq/L Carbon Dioxide 28 (19-29) mEq/L BUN 16 (8-26) mg/dL Creatinine 0.51 L (0.72-1.25) mg/dL Glucose 92 (70-99) mg/dL Calcium 9.3 (8.6-10.8) mg/dL Calcium panel 10/29/16 Range/Units 03:30 Calcium 9.3 (8.6-10.8) mg/dL Pituitary panel 10/29/16 Range/Units 03:30 Sodium 138 (136-145) mEq/L Potassium 3.9 (3.5-4.5) mEq/L Chloride 105 (98-109) mEq/L Carbon Dioxide 28 (19-29) mEq/L BUN 16 (8-26) mg/dL Creatinine 0.51 L (0.72-1.25) mg/dL Glucose 92 (70-99) mg/dL Calcium 9.3 (8.6-10.8) mg/dL Adrenal panel 10/29/16 Range/Units 03:30 Sodium 138 (136-145) mEq/L Potassium 3.9 (3.5-4.5) mEq/L Chloride 105 (98-109) mEq/L Carbon Dioxide 28 (19-29) mEq/L BUN 16 (8-26) mg/dL Creatinine 0.51 L (0.72-1.25) mg/dL Glucose 92 (70-99) mg/dL Calcium 9.3 (8.6-10.8) mg/dL - Attending Attestation I examined this patient and my medical decision-making was reviewed with the Resident Physician. I agree with the documented findings, disposition and treatment plan as described except to the extent set forth below.
[2016-10-26] MEDS ORDERED: *HR* LORazepam 2 MG/ML VIAL IVP SCH (18:00)
[2016-10-26] MEDS: *HR* LORazepam 0.5 MG TABLET PO PRN (20:27)
[2016-10-26] MEDS: Saline Nasal Spray 44 ML BOTTLE NS PRN (20:33)
[2016-10-26] MEDS: *HR* OxyCODONE Immed Rel 5 MG TABLET PO PRN (21:38)
[2016-10-26] MEDS: *HR* HYDROmorphone (PF) 1 MG/ML SYRINGE IVP PRN (22:45)
[2016-10-27] MEDS: Acetaminophen 325 MG TABLET PO SCH ×4 (00:40→17:15)
[2016-10-27] MEDS: Ibuprofen 600 MG TABLET PO SCH ×3 (00:40→17:16)
[2016-10-27] MEDS: Piperacillin/Tazobactam 3.375 GM in D5% in Water (Mini-Bag+) 100 ML IVPB SCH ×3 (00:41→17:22)
[2016-10-27 04:23] LABS: Basophils # 0.1 K/mcL (0.0-0.2); Basophils % 0.9 %; Eosinophils # 0.6 K/mcL (0.0-0.6); Eosinophils % 4.1 %; Hematocrit 23.4 % (37.5-50.1); Hemoglobin 7.5 g/dL (12.9-16.9); Immature Granulocytes % 3.7 % (0-4); Lymphocytes % 7.3 %; Mean Corpuscular HGB Conc 32.1 g/dL (31.6-35.5); Mean Corpuscular Hemoglobin 31.1 pg (28.0-33.3); Mean Corpuscular Volume 97.1 fL (83.0-100.0); Mean Platelet Volume 9.2 fL (9.4-12.4); Monocytes # 1.3 K/mcL (0.0-1.3); Monocytes % 9.1 %; Neutrophils # 10.6 K/mcL (1.6-8.9); Nucleated Red Blood Cells 0.1 /100 WBC (0); Platelet Count 407 K/mcL (140-400); Red Blood Count 2.41 M/mcL (4.19-5.50); Red Cell Distribution Width 16.8 % (11.5-14.5); Segmented Neutrophils % 74.9 %
[2016-10-27 04:40] LABS: BUN/Creatinine Ratio 30 (6-26); Blood Urea Nitrogen 16 mg/dL (8-26); Carbon Dioxide 30 mEq/L (19-29); Chloride 102 mEq/L (98-109); Glucose 99 mg/dL (70-99); Osmolality,Calculated 283 (280-300); Potassium 3.9 mEq/L (3.5-4.5); Sodium 136 mEq/L (136-145); eGFR For African Americans > 60 (> 60); eGFR For Non-African Americans > 60 (> 60)
[2016-10-27] MEDS: Vancomycin 1,250 MG in D5% in Water 250 ML IVPB SCH (04:52)
[2016-10-27] MEDS: levETIRAcetam 250 MG TABLET PO SCH ×2 (05:02→17:16)
[2016-10-27] MEDS: *HR* Heparin 5,000 UNIT/ML VIAL SQ SCH ×3 (05:02→22:11)
[2016-10-27] MEDS: Acetylcysteine 10% 2 ML INHSOL IH SCH ×3 (07:54→22:03)
[2016-10-27] MEDS: Ipratropium/Albuterol Neb 3 ML IH SCH ×3 (07:54→22:03)
--- NOTE | 2016-10-27 08:45 | General Surgery Progress Note ---
<Carroll Veloz - Last Filed: 10/27/16 08:43> Date of Encounter: 10/27/16 Time of Encounter: 08:43 - Assessment and Plan (1) S/P colectomy Current Visit: Yes Status: Acute POD #9 sigmoid colectomy, lysis of adhesions, takedown of splenic flexure, colostomy relocation, and appendectomy Tolerating regular diet in small amounts, will hopefully increase intake. Also drinking supplements and having TPN Calories being counted Pain control as ordered Antibiotics per ID Wound vac changes MWF Continue incentive spirometry and increase activity (2) Abdominal pain Current Visit: No Status: Acute pain control prn tylenol, ibuprofen scheduled dilaudid, roxicodone prn Qualifiers: Abdominal location: left lower quadrant Qualified Code(s): R10.32 - Left lower quadrant pain (3) Leukocytosis Current Visit: Yes Status: Resolved Uptick from 12.5 to 14.2 since yesterday Will monitor Finish course of antibiotics Qualifiers: Leukocytosis type: unspecified Qualified Code(s): D72.829 - Elevated white blood cell count, unspecified (4) Hypertension Current Visit: No Status: Chronic Continue daily medications Qualifiers: Hypertension type: essential hypertension Qualified Code(s): I10 - Essential (primary) hypertension (5) 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 Continue nasal spray as needed for nasal dryness (7) Chest congestion Current Visit: Yes Status: Acute Improved Continue breathing treatments continue saline nasal spray as needed for nasal dryness (8) DVT prophylaxis Current Visit: No Status: Acute Continue heparin Subjective Patient reports: no new complaints, feels better (states "I feel a little bit better"), still having pain, pain is less (4/10), tolerating a regular diet ( eating small amounts, and having some nausea but not vomiting), voiding w/o difficulty, bowel movement (into bag), nausea, afebrile Narrative: Patient says that his cough has improved and his chest feels less congested than previously Objective Vital Signs - Last 8 Hours Temp Pulse Resp BP Pulse Ox 10/27/16 07:09 98.1 F 77 15 136/82 94 10/27/16 04:27 98.6 F 79 15 132/86 95 Intake and Output 10/26/16 10/27/16 10/27/16 23:59 07:59 15:59 Intake Total 100 / 100 450 / 450 Output Total 686 / 686 625 / 625 Balance -586 / -586 -175 / -175 Intake: IV Fluids 100 / 100 450 / 450 Diflucan Premix 200 MG/ 100 / 100 100 ML 200 mg In 100 ml @ 100 mls/hr IVPB DAILY [facility] Rx#:[id number] Zosyn 3.375 GM In 100 / 100 100 / 100 Dextrose 5% (Minibag+) 100 ML 100 ML @ 25 mls/hr IVPB Q8HR [facility] Rx#: [id number] Vancocin 1,250 MG In 250 / 250 Dextrose 5% 250 ML @ 166. 67 mls/hr IVPB Q12H [facility] Rx#:[id number] Oral 0 / 0 0 / 0 Output: Urine 625 / 625 475 / 475 Stool 150 / 150 Wound Drainage 61 / 61 0 / 0 Left Lower Abdomen 49 / 49 0 / 0 Lower Medial Abdomen 12 / Other: Meal Lunch Percent of Meal Consumed 5% Weight 87.4 kg Blood Glucose* 136 120 Patient Weight 10/27/16 23:59 Weight 87.4 kg - General physical appearance well developed, well nourished, no distress - Eyes normal ocular movement - ENT atraumatic, normocephalic - Neck Neck exam: trachea midline - Respiratory normal expansion, normal respiratory effort, clear to auscultation - Cardiovascular Cardiovascular exam: Present: RRR - Abdomen Abdomen: Present: bowel sounds present, soft, tender (expected post operative tenderness). Absent: distended, guarding, rebound - Incision Incision: Present: draining (drained 101 ml in last 24 hrs) - Neurologic other (hoarse) - Psychiatric speech is normal - Labs 10/27/16 04:02 10/27/16 04:02 Diabetes panel 10/27/16 Range/Units 04:02 Sodium 136 (136-145) mEq/L Potassium 3.9 (3.5-4.5) mEq/L Chloride 102 (98-109) mEq/L Carbon Dioxide 30 H (19-29) mEq/L BUN 16 (8-26) mg/dL Creatinine 0.54 L (0.72-1.25) mg/dL Glucose 99 (70-99) mg/dL Calcium 9.0 (8.6-10.8) mg/dL Calcium panel 10/27/16 Range/Units 04:02 Calcium 9.0 (8.6-10.8) mg/dL Pituitary panel 10/27/16 Range/Units 04:02 Sodium 136 (136-145) mEq/L Potassium 3.9 (3.5-4.5) mEq/L Chloride 102 (98-109) mEq/L Carbon Dioxide 30 H (19-29) mEq/L BUN 16 (8-26) mg/dL Creatinine 0.54 L (0.72-1.25) mg/dL Glucose 99 (70-99) mg/dL Calcium 9.0 (8.6-10.8) mg/dL Adrenal panel 10/27/16 Range/Units 04:02 Sodium 136 (136-145) mEq/L Potassium 3.9 (3.5-4.5) mEq/L Chloride 102 (98-109) mEq/L Carbon Dioxide 30 H (19-29) mEq/L BUN 16 (8-26) mg/dL Creatinine 0.54 L (0.72-1.25) mg/dL Glucose 99 (70-99) mg/dL Calcium 9.0 (8.6-10.8) mg/dL - VTE Documentation of Mechanical Device: Intermittent pneumatic compression device Consult Discharge Plan - Plan Referrals: NONE,PCP [Primary Care Provider] - <Loly Valentine - Last Filed: 10/29/16 09:00> Date of Encounter: 10/27/16 - Assessment and Plan (1) Abdominal pain Current Visit: No Status: Acute Qualifiers: Abdominal location: periumbilical Qualified Code(s): R10.33 - Periumbilical pain (2) Hypertension Current Visit: No Status: Chronic Qualifiers: Hypertension type: essential hypertension Qualified Code(s): I10 - Essential (primary) hypertension (3) DVT prophylaxis Current Visit: No Status: Acute (4) 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 Current Visit: No Status: Chronic oncology following (5) Leukocytosis Current Visit: Yes Status: Resolved Qualifiers: Leukocytosis type: unspecified Qualified Code(s): D72.829 - Elevated white blood cell count, unspecified (6) S/P colectomy Current Visit: Yes Status: Acute wound vac changes M, W, F encourage po intake, start megace continue TPN until adequate po intake PT/OT prn pain control Abx per ID gi/dvt Subjective Patient reports: no new complaints, feels better, still having pain, pain is less, tolerating a regular diet, voiding w/o difficulty, bowel movement Objective Vital Signs - Last 8 Hours Temp Pulse Resp BP Pulse Ox 10/29/16 07:53 16 96 10/29/16 07:17 97.6 F 77 16 161/93 96 10/29/16 03:34 98.6 F 79 20 147/88 94 Intake and Output 10/28/16 10/29/16 10/29/16 23:59 07:59 15:59 Intake Total 2109 350 / 350 Output Total 605 / 605 1090 / 1090 Balance 1505 / 1505 -740 / -740 Intake: IV Fluids 2109 350 / 350 Clinimix E 5%-15% 2009 SOLUTION 2,000 ML @ 83.3 mls/hr IVC .Q24H [facility] with M.v.i. Adult 10 ml Rx#: [id number] Intralipid 20% 250 ML @ 250 / 250 21 mls/hr IVPB DAILY@1700 [facility] Rx#:[id number] Zosyn 3.375 GM In 100 / 100 100 / 100 Dextrose 5% (Minibag+) 100 ML 100 ML @ 25 mls/hr IVPB Q8HR [facility] Rx#: [id number] Oral 0 / 0 Output: Urine 530 / 530 975 / 975 Stool 50 / 50 65 / 65 Wound Drainage 25 / 25 50 / 50 Left Lower Abdomen 25 / 25 50 / 50 Other: Weight 84.7 kg Blood Glucose* 131 115 Patient Weight 10/29/16 23:59 Weight 84.7 kg - General physical appearance well nourished, no distress - Eyes PERRL, normal ocular movement - ENT normal mucosa, normocephalic - Respiratory normal expansion, clear to auscultation - Cardiovascular Cardiovascular exam: Present: RRR - Abdomen Abdomen: Present: bowel sounds present, soft, tender - Incision Incision: Present: clean and dry (wound vac in place) - Integumentary no growths - Neurologic CN 2-12 grossly intact - Musculoskeletal normal posture - Psychiatric oriented to time, oriented to person, oriented to place, speech is normal, memory intact - Labs 10/29/16 03:30 10/29/16 03:30 Diabetes panel 10/29/16 Range/Units 03:30 Sodium 138 (136-145) mEq/L Potassium 3.9 (3.5-4.5) mEq/L Chloride 105 (98-109) mEq/L Carbon Dioxide 28 (19-29) mEq/L BUN 16 (8-26) mg/dL Creatinine 0.51 L (0.72-1.25) mg/dL Glucose 92 (70-99) mg/dL Calcium 9.3 (8.6-10.8) mg/dL Calcium panel 10/29/16 Range/Units 03:30 Calcium 9.3 (8.6-10.8) mg/dL Pituitary panel 10/29/16 Range/Units 03:30 Sodium 138 (136-145) mEq/L Potassium 3.9 (3.5-4.5) mEq/L Chloride 105 (98-109) mEq/L Carbon Dioxide 28 (19-29) mEq/L BUN 16 (8-26) mg/dL Creatinine 0.51 L (0.72-1.25) mg/dL Glucose 92 (70-99) mg/dL Calcium 9.3 (8.6-10.8) mg/dL Adrenal panel 10/29/16 Range/Units 03:30 Sodium 138 (136-145) mEq/L Potassium 3.9 (3.5-4.5) mEq/L Chloride 105 (98-109) mEq/L Carbon Dioxide 28 (19-29) mEq/L BUN 16 (8-26) mg/dL Creatinine 0.51 L (0.72-1.25) mg/dL Glucose 92 (70-99) mg/dL Calcium 9.3 (8.6-10.8) mg/dL - Attending Attestation I examined this patient and my medical decision-making was reviewed with the Resident Physician. I agree with the documented findings, disposition and treatment plan as described except to the extent set forth below.
[2016-10-27] MEDS: Isosorbide MONOnitrate (24 HR) 30 MG TAB.ER.24H PO SCH (09:26)
[2016-10-27] MEDS: Lisinopril 20 MG TABLET PO SCH (09:26)
[2016-10-27] MEDS: Fluconazole 200 MG/100 ML 200 MG/100 ML BAG IVPB SCH (09:43)
[2016-10-27] MEDS: Fluticasone Propionate Nasal 50 MCG/SPRAY BOTTLE NS SCH (10:28)
--- NOTE | 2016-10-27 11:13 | Infectious Disease Progress No ---
Date of Encounter: 10/27/16 Time of Encounter: 11:09 - Assessment and Plan (1) Sepsis Current Visit: Yes Status: Acute The patient had two SIRS criteria on admission. Likely secondary to perforated viscous. Lactic acid was not checked. Blood cultures were not drawn. The patient had resolution of leukocytosis and tachycardia 48 hours post-op, but had recurrence of leukocytosis. He continues to afebrile and has not had recurrence of tachycardia. Etiology of recurrent/persistent leukocytosis unclear. This morning, WBC back up a little to 14. Intra-operative cultures grew oro-sensitive P. mirabilis and E. coli, as well as anaerobic GPC and anaerobic GNR. Peripheral blood cultures drawn x 2 sets 10/25/16 are NGTD. Blood cultures drawn from the PICC line 10/25/16 are NGTD as well. LFTs, amylase, and lipase are normal. Wound culture ordered yesterday not collected and order cancelled by the surgery team. CT of the abdomen negative for abscess or leak. Continue Zosyn 3.375 grams IV Q8H. Continue fluconazole 200mg IV daily. Discontinue Vancomycin. Duration of treatment depends on the clinical picture. Monitor renal and liver function and for drug toxicity and dose-adjust antibiotics. Qualifiers: Sepsis type: sepsis due to unspecified organism Qualified Code(s): A41.9 - Sepsis, unspecified organism (2) Perforated viscus Current Visit: Yes Status: Acute CT of the abdomen and pelvis completed 10/18/16 with oral contrast given via the patient's stoma showed segment of colon within the ostomy site extending to the stoma diffusely thickened in appearance with mild inflammatory stranging of the adjacent fat. There was demonstration of extravasation through the left lateral wall compatible with a defect within the wall. Contrast was seen extending into the air collections within the subcutaneous fat noted on the prior CT scan. Stable pneumoperitoneum was also noted and the focal collection on the left side of the abdomen was grossly unchanged in appearance. The patient was taken to the OR 10/18/16 and underwent exploratory lap with takedown of previous colostomy and splenic flexure, left colectomy, RUQ colostomy placement, ABIODUN, and appendectomy by Dr. Valentine. Operative report reviewed. Case discussed with Dr. Valentine. Large amount of bowel contents noted in the abdomen during surgery. Intra-operative cultures grew oro-sensitive E. coli and P. mirabilis and anaerobes. Further management per the surgery team. Antibiotic recommendations as above. (3) Pneumoperitoneum Current Visit: No Status: Acute Secondary to perforated viscous. Management per the surgery team. (4) Abdominal pain Current Visit: No Status: Acute Likely post-op pain. CT abdomen and pelvis negative for infectious etiology. Pain control as outlined by the primary team. Qualifiers: Abdominal location: periumbilical Qualified Code(s): R10.33 - Periumbilical pain (5) Tongue lesion Current Visit: No Status: Acute MRI of the face concerning for possible metastatic disease. Consider ENT consult for further evaluation. (6) Postoperative anemia Current Visit: Yes Status: Acute Hemoglobin down to 7.5 this morning. No active bleeding noted on exam. Management per the surgery team. (7) History of rectal cancer Current Visit: No Status: Chronic Diagnosed in 2014. Status post APR with colostomy in 2014. Follows with Dr. Flores at the [facility]. Currently undergoing IV chemotherapy (Irinotecan, Xeloda, Avastin) with last dose given 09/29/16. Hem/Onc consulted and following. (8) Brain metastases Current Visit: No Status: Acute Status post craniotomy with parietal tumor excision 07/2016 at [place]. (9) Lung metastases Current Visit: No Status: Acute Status post robotic left lower lobectomy 11/2015. 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 No acute events noted overnight. Patient resting in bed with eyes closed, but arouses easily. at bedside. Patient states abdominal pain improved this morning 07/05 currently. Per , patient did not request pain medication overnight and he got up and walked in the [place] this morning. Denies fevers, chills, or rigors. Denies chest pain, shortness of breath, or cough. Denies nausea, vomiting, or constipation. Liquid stool per colostomy. States appetite is a little better, but states he did not eat much breakfast this morning. Denies urinary complaints. Denies oral thrush or skin lesions. Infect Dis PN-Objective Data - Labs CBC & Chem 7: 10/28/16 03:45 10/27/16 04:02 Labs: Laboratory Results - last 24 hr 10/26/16 10/26/16 10/26/16 11:14 16:03 19:03 WBC RBC Hgb Hct MCV MCH MCHC RDW Plt Count MPV Immature Gran % Seg Neutrophils % Lymphocytes % Monocytes % Eosinophils % Basophils % Neutrophils # Lymphocytes # Monocytes # Eosinophils # Basophils # Nucleated RBCs/100 WBC Sodium Potassium Chloride Carbon Dioxide BUN Creatinine Est GFR ( Amer) Est GFR (Non-Af Amer) BUN/Creatinine Ratio Glucose POC Glucose 119 H 119 H 136 H Calculated Osmolality Calcium Magnesium Vancomycin Trough 10/27/16 10/27/16 10/27/16 00:35 04:02 04:02 WBC RBC Hgb Hct MCV MCH MCHC RDW Plt Count MPV Immature Gran % Seg Neutrophils % Lymphocytes % Monocytes % Eosinophils % Basophils % Neutrophils # Lymphocytes # Monocytes # Eosinophils # Basophils # Nucleated RBCs/100 WBC Sodium Potassium Chloride Carbon Dioxide BUN Creatinine Est GFR ( Amer) Est GFR (Non-Af Amer) BUN/Creatinine Ratio Glucose POC Glucose 150 H Calculated Osmolality Calcium Magnesium 1.7 Vancomycin Trough 11.6 10/27/16 10/27/16 10/27/16 04:02 04:02 04:26 WBC 14.2 H RBC 2.41 L Hgb 7.5 L Hct 23.4 L MCV 97.1 MCH 31.1 MCHC 32.1 RDW 16.8 H Plt Count 407 H MPV 9.2 L Immature Gran % 3.7 Seg Neutrophils % 74.9 Lymphocytes % 7.3 Monocytes % 9.1 Eosinophils % 4.1 Basophils % 0.9 Neutrophils # 10.6 H Lymphocytes # 1.0 Monocytes # 1.3 Eosinophils # 0.6 Basophils # 0.1 Nucleated RBCs/100 WBC 0.1 H Sodium 136 Potassium 3.9 Chloride 102 Carbon Dioxide 30 H BUN 16 Creatinine 0.54 L Est GFR ( Amer) > 60 Est GFR (Non-Af Amer) > 60 BUN/Creatinine Ratio 30 H Glucose 99 POC Glucose 137 H Calculated Osmolality 283 Calcium 9.0 Magnesium Vancomycin Trough Cultures: Cultures 10/25/16 16:10 Blood Culture - Preliminary Peripheral Central Cath, Picc No growth. 10/25/16 16:08 Blood Culture - Preliminary Peripheral Venipuncture No growth. 10/18/16 01:09 Wound Culture - Final Abdomen Proteus mirabilis Escherichia coli 10/18/16 01:09 Anaerobic Culture - Final Abdomen Anaerobic Gram Negative Heriberto Anaerobic Gram Positive Heriberto Exam - Constitutional Vitals: Temp Pulse Resp BP Pulse Ox 98.1 F 77 15 136/82 94 10/27/16 07:09 10/27/16 07:09 10/27/16 07:09 10/27/16 07:09 10/27/16 07:09 General appearance: average body habitus, cooperative, no acute distress - Head Head exam: Present: atraumatic, normal inspection, normocephalic - Eye Eye exam: Present: EOMI, normal appearance, PERRL Pupils: Present: normal accommodation - ENT ENT exam: Present: mucous membranes moist - Neck Neck exam: Present: normal inspection - Respiratory Respiratory exam: Present: CTAB. Absent: rales, respiratory distress, rhonchi, wheezes - Cardiovascular Cardiovascular exam: Present: RRR, +S1, +S2 - GI/Abdominal GI/Abdominal exam: Present: normal bowel sounds, soft, tenderness (Generalized) . Absent: distended Additional comments: Midline abdominal incision with ihsan intact. Wound VAC dressing noted to the middle of the incision. Cloudy, purulent drainage noted in the canister. LLQ dressing C/D/I. VIN drain draining serous drainage. LLQ incision with wound VAC dressing intact. - Extremities Exam Extremities exam: Present: normal inspection. Absent: joint swelling, pedal edema, tenderness - Neurological Exam Neurological exam: Present: alert, oriented X3, no focal deficits - Psychiatric Psychiatric exam: Present: normal affect, normal mood - Skin Skin exam: Present: dry, intact, normal color, warm - Additional findings Additional findings: PICC line noted to the LUE with transparent dressing C/D/I. - VTE Documentation of Mechanical Device: Intermittent pneumatic compression device Consult Discharge Plan - Plan Referrals: NONE,PCP [Primary Care Provider] - - Attending Attestation I examined this patient and my medical decision-making was reviewed with the Resident Physician. I agree with the documented findings, disposition and treatment plan as described except to the extent set forth below.
[2016-10-27] MEDS ORDERED: Water for inj. (sterile) 10 ML IV ONE (13:12)
[2016-10-27] MEDS: *HR* HYDROmorphone (PF) 1 MG/ML SYRINGE IVP PRN ×2 (13:14→19:32)
[2016-10-27] MEDS: *HR* LORazepam 2 MG/ML VIAL IVP PRN (13:17)
[2016-10-27] MEDS: Megestrol Acetate 400 MG/10 ML UDC PO SCH (14:47)
[2016-10-27] MEDS ORDERED: Vancomycin 1,500 MG in D5% in Water 250 ML IVPB SCH (17:00)
[2016-10-27] MEDS ORDERED: Clinimix E 5%-15% SOLUTION 2,000 ML with MVI, adult with vitamin K 10 ML IVC SCH (17:00)
[2016-10-27] MEDS: *HR* LORazepam 0.5 MG TABLET PO PRN (22:11)
[2016-10-28] MEDS: Ibuprofen 600 MG TABLET PO SCH ×3 (01:18→15:45)
[2016-10-28] MEDS: Piperacillin/Tazobactam 3.375 GM in D5% in Water (Mini-Bag+) 100 ML IVPB SCH ×3 (01:19→15:45)
[2016-10-28] MEDS: Acetaminophen 325 MG TABLET PO SCH ×4 (01:19→17:34)
[2016-10-28] MEDS: *HR* HYDROmorphone (PF) 1 MG/ML SYRINGE IVP PRN ×4 (03:31→17:18)
[2016-10-28 03:56] LABS: Basophils # 0.2 K/mcL (0.0-0.2); Basophils % 1.2 %; Eosinophils # 0.7 K/mcL (0.0-0.6); Eosinophils % 5.5 %; Hematocrit 23.7 % (37.5-50.1); Hemoglobin 7.7 g/dL (12.9-16.9); Lymphocytes # 1.1 K/mcL (0.6-4.6); Lymphocytes % 8.5 %; Mean Corpuscular HGB Conc 32.5 g/dL (31.6-35.5); Mean Corpuscular Hemoglobin 31.8 pg (28.0-33.3); Mean Corpuscular Volume 97.9 fL (83.0-100.0); Mean Platelet Volume 9.1 fL (9.4-12.4); Monocytes # 1.2 K/mcL (0.0-1.3); Monocytes % 8.9 %; Neutrophils # 9.5 K/mcL (1.6-8.9); Platelet Count 373 K/mcL (140-400); Red Blood Count 2.42 M/mcL (4.19-5.50); Segmented Neutrophils % 72.9 %
[2016-10-28 04:36] LABS: Magnesium 1.6 mg/dL (1.6-2.6); Phosphorous 3.2 mg/dL (2.3-4.7)
[2016-10-28] MEDS: levETIRAcetam 250 MG TABLET PO SCH ×2 (06:31→17:33)
[2016-10-28] MEDS: *HR* Heparin 5,000 UNIT/ML VIAL SQ SCH ×3 (06:31→21:50)
[2016-10-28] MEDS: Acetylcysteine 10% 2 ML INHSOL IH SCH ×3 (07:44→22:43)
[2016-10-28] MEDS: Ipratropium/Albuterol Neb 3 ML IH SCH ×3 (07:44→22:43)
[2016-10-28] MEDS: Megestrol Acetate 400 MG/10 ML UDC PO SCH (08:45)
[2016-10-28] MEDS: Lisinopril 20 MG TABLET PO SCH (08:46)
[2016-10-28] MEDS: Isosorbide MONOnitrate (24 HR) 30 MG TAB.ER.24H PO SCH (08:46)
[2016-10-28] MEDS: Fluconazole 200 MG/100 ML 200 MG/100 ML BAG IVPB SCH (08:46)
--- NOTE | 2016-10-28 08:47 | General Surgery Progress Note ---
<Carroll Veloz - Last Filed: 10/28/16 15:05> Date of Encounter: 10/28/16 Time of Encounter: 08:45 - Assessment and Plan (1) S/P colectomy Current Visit: Yes Status: Acute POD #10 sigmoid colectomy, lysis of adhesions, takedown of splenic flexure, colostomy relocation, and appendectomy Tolerating regular diet in larger amounts, ate 40% of dinner last night and most of breakfast this morning Will start weaning TPN Tolerating OOB well Pain control as ordered Antibiotics per ID Wound vac changes MWF - went better yesterday with ativan prior to change Continue incentive spirometry and OOB (2) Abdominal pain Current Visit: No Status: Acute pain control prn ibuprofen scheduled tylenol, dilaudid, roxicodone prn Qualifiers: Abdominal location: periumbilical Qualified Code(s): R10.33 - Periumbilical pain (3) Leukocytosis Current Visit: Yes Status: Resolved abx per ID Qualifiers: Leukocytosis type: unspecified Qualified Code(s): D72.829 - Elevated white blood cell count, unspecified (4) Hypertension Current Visit: No Status: Chronic Continue daily medications Qualifiers: Hypertension type: essential hypertension Qualified Code(s): I10 - Essential (primary) hypertension (5) 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 Current Visit: No Status: Chronic (6) Epistaxis Current Visit: Yes Status: Resolved Resolved Continue nasal spray as necessary (7) Chest congestion Current Visit: Yes Status: Resolved Improved Continue breathing treatments as necessary (8) DVT prophylaxis Current Visit: No Status: Acute Continue heparin Subjective Patient reports: no new complaints, feels better, still having pain (about 5-6/ 10, slightly worse than yesterday), tolerating a regular diet, voiding w/o difficulty, bowel movement (into colostomy bag), nausea (improving), afebrile Narrative: Patient feels that chest has cleared Objective Vital Signs - Last 8 Hours Temp Pulse Resp BP Pulse Ox 10/28/16 07:46 16 95 10/28/16 06:49 98.1 F 72 16 136/73 95 10/28/16 03:09 98.3 F 80 17 154/79 94 Intake and Output 10/27/16 10/28/16 10/28/16 23:59 07:59 15:59 Intake Total 1960 / 1959 350 / 350 Output Total 200 / 200 2440 / 2440 Balance 1760 / 1760 -2089 / -2089 Intake: IV Fluids 1959 350 / 350 Clinimix E 5%-15% 1859 SOLUTION 2,000 ML @ 83.3 mls/hr IVC .Q24H EMILY with M.v.i. Adult 10 ml Rx#: [id number] Intralipid 20% 250 ML @ 250 / 250 21 mls/hr IVPB DAILY@1700 [facility] Rx#:[id number] Zosyn 3.375 GM In 100 / 100 100 / 100 Dextrose 5% (Minibag+) 100 ML 100 ML @ 25 mls/hr IVPB Q8HR [facility] Rx#: [id number] Oral 0 / 0 0 / 0 Output: Urine 0 / 0 2250 / 2250 Stool 100 / 100 150 / 150 Wound Drainage 100 / 100 40 / 40 Left Lower Abdomen 100 / 100 40 / 40 Other: Meal Dinner Percent of Meal Consumed 40% Weight 84.5 kg Blood Glucose* 128 131 143 Patient Weight 10/28/16 23:59 Weight 84.5 kg - General physical appearance well developed, well nourished, no distress, obese - Eyes normal ocular movement - ENT atraumatic, normocephalic - Neck Neck exam: trachea midline - Respiratory normal expansion, normal respiratory effort, clear to auscultation - Cardiovascular Cardiovascular exam: Present: RRR - Abdomen Abdomen: Present: bowel sounds present, soft, tender (expected postoperative tenderness) - Incision Incision: Present: draining (120 ml last 24 hrs), clean and dry - Psychiatric speech is normal - Labs 10/28/16 03:45 10/27/16 04:02 Calcium panel 10/28/16 Range/Units 03:45 Phosphorus 3.2 (2.3-4.7) mg/dL - VTE Documentation of Mechanical Device: Intermittent pneumatic compression device Consult Discharge Plan - Plan Referrals: NONE,PCP [Primary Care Provider] - <Loly Valentine - Last Filed: 10/29/16 08:55> Date of Encounter: 10/28/16 - Assessment and Plan (1) Abdominal pain Current Visit: No Status: Acute Qualifiers: Abdominal location: periumbilical Qualified Code(s): R10.33 - Periumbilical pain (2) Hypertension Current Visit: No Status: Chronic Qualifiers: Hypertension type: essential hypertension Qualified Code(s): I10 - Essential (primary) hypertension (3) DVT prophylaxis Current Visit: No Status: Acute (4) 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 Current Visit: No Status: Chronic oncology following (5) Leukocytosis Current Visit: Yes Status: Resolved Qualifiers: Leukocytosis type: unspecified Qualified Code(s): D72.829 - Elevated white blood cell count, unspecified (6) S/P colectomy Current Visit: Yes Status: Acute patient not tolerating adequate po intake to stop tpn yet continue megace, started yesterday continue wound vac changes encourage po intake, discussed with patient that only option to increase intake to get off TPN if he is unable to take in adequate po intake is a feeding tube, he stated he didn't think he would do that continue PT/OT, rehab upon DC ID managing abx, continued leukocystosis, slowly decreasing, no fevers, no tacchycardia, patient without any real pain unless having wound vac changed Subjective Patient reports: feels better, still having pain, pain is less, tolerating a regular diet, voiding w/o difficulty, bowel movement Objective Vital Signs - Last 8 Hours Temp Pulse Resp BP Pulse Ox 10/29/16 07:53 16 96 10/29/16 07:17 97.6 F 77 16 161/93 96 10/29/16 03:34 98.6 F 79 20 147/88 94 Intake and Output 10/28/16 10/29/16 10/29/16 23:59 07:59 15:59 Intake Total 2109 / 2109 350 / 350 Output Total 605 / 605 1090 / 1090 Balance 1505 / 1505 -740 / -740 Intake: IV Fluids 2109 350 / 350 Clinimix E 5%-15% 2009 SOLUTION 2,000 ML @ 83.3 mls/hr IVC .Q24H EMILY with M.v.i. Adult 10 ml Rx#: [id number] Intralipid 20% 250 ML @ 250 / 250 21 mls/hr IVPB DAILY@1700 [facility] Rx#:[id number] Zosyn 3.375 GM In 100 / 100 100 / 100 Dextrose 5% (Minibag+) 100 ML 100 ML @ 25 mls/hr IVPB Q8HR [facility] Rx#: [id number] Oral 0 / 0 Output: Urine 530 / 530 975 / 975 Stool 50 / 50 65 / 65 Wound Drainage 50 / 50 Left Lower Abdomen 50 50 Other: Weight 84.7 kg Blood Glucose* 131 115 Patient Weight 10/29/16 23:59 Weight 84.7 kg - General physical appearance well developed, no distress, no pain - Eyes PERRL, normal ocular movement - ENT atraumatic, normocephalic - Neck Neck exam: trachea midline - Respiratory normal expansion, clear to auscultation, other (cough) - Cardiovascular Cardiovascular exam: Present: RRR - Abdomen Abdomen: Present: bowel sounds present, soft, tender - Incision Incision: Present: clean and dry (wound vac in place w serosang drainage) - Genitourinary normal penis with no external lesions - Integumentary no rash, no growths - Neurologic CN 2-12 grossly intact - Musculoskeletal normal posture - Psychiatric oriented to time, oriented to person, oriented to place, speech is normal, memory intact - Labs 10/29/16 03:30 10/29/16 03:30 Diabetes panel 10/29/16 Range/Units 03:30 Sodium 138 (136-145) mEq/L Potassium 3.9 (3.5-4.5) mEq/L Chloride 105 (98-109) mEq/L Carbon Dioxide 28 (19-29) mEq/L BUN 16 (8-26) mg/dL Creatinine 0.51 L (0.72-1.25) mg/dL Glucose 92 (70-99) mg/dL Calcium 9.3 (8.6-10.8) mg/dL Calcium panel 10/29/16 Range/Units 03:30 Calcium 9.3 (8.6-10.8) mg/dL Pituitary panel 10/29/16 Range/Units 03:30 Sodium 138 (136-145) mEq/L Potassium 3.9 (3.5-4.5) mEq/L Chloride 105 (98-109) mEq/L Carbon Dioxide 28 (19-29) mEq/L BUN 16 (8-26) mg/dL Creatinine 0.51 L (0.72-1.25) mg/dL Glucose 92 (70-99) mg/dL Calcium 9.3 (8.6-10.8) mg/dL Adrenal panel 10/29/16 Range/Units 03:30 Sodium 138 (136-145) mEq/L Potassium 3.9 (3.5-4.5) mEq/L Chloride 105 (98-109) mEq/L Carbon Dioxide 28 (19-29) mEq/L BUN 16 (8-26) mg/dL Creatinine 0.51 L (0.72-1.25) mg/dL Glucose 92 (70-99) mg/dL Calcium 9.3 (8.6-10.8) mg/dL - Attending Attestation I examined this patient and my medical decision-making was reviewed with the Resident Physician. I agree with the documented findings, disposition and treatment plan as described except to the extent set forth below.
[2016-10-28] MEDS: Fluticasone Propionate Nasal 50 MCG/SPRAY BOTTLE NS SCH (09:09)
--- NOTE | 2016-10-28 13:53 | Infectious Disease Progress No ---
Date of Encounter: 10/28/16 Time of Encounter: 13:50 - Assessment and Plan (1) Sepsis Current Visit: Yes Status: Acute The patient had two SIRS criteria on admission. Likely secondary to perforated viscous. Lactic acid was not checked. Blood cultures were not drawn. The patient had resolution of leukocytosis and tachycardia 48 hours post-op, but had recurrence of leukocytosis. He continues to afebrile and has not had recurrence of tachycardia. Etiology of recurrent/persistent leukocytosis unclear, but less likely infectious etiology. More likely reactive from recent surgical procedure/ infection. This morning, WBC back down a little to 13. Intra-operative cultures grew oro-sensitive P. mirabilis and E. coli, as well as anaerobic GPC and anaerobic GNR. Peripheral blood cultures drawn x 2 sets 10/25/16 are NGTD. Blood cultures drawn from the PICC line 10/25/16 are NGTD as well. LFTs, amylase, and lipase are normal. Wound culture ordered not collected and order cancelled by the surgery team. CT of the abdomen negative for abscess or leak. Continue Zosyn 3.375 grams IV Q8H. Continue fluconazole 200mg IV daily. Duration of treatment depends on the clinical picture. Monitor renal and liver function and for drug toxicity and dose-adjust antibiotics. Qualifiers: Sepsis type: sepsis due to unspecified organism Qualified Code(s): A41.9 - Sepsis, unspecified organism (2) Perforated viscus Current Visit: Yes Status: Acute CT of the abdomen and pelvis completed 10/18/16 with oral contrast given via the patient's stoma showed segment of colon within the ostomy site extending to the stoma diffusely thickened in appearance with mild inflammatory stranging of the adjacent fat. There was demonstration of extravasation through the left lateral wall compatible with a defect within the wall. Contrast was seen extending into the air collections within the subcutaneous fat noted on the prior CT scan. Stable pneumoperitoneum was also noted and the focal collection on the left side of the abdomen was grossly unchanged in appearance. The patient was taken to the OR 10/18/16 and underwent exploratory lap with takedown of previous colostomy and splenic flexure, left colectomy, RUQ colostomy placement, ABIODUN, and appendectomy by Dr. Valentine. Operative report reviewed. Case discussed with Dr. Valentine. Large amount of bowel contents noted in the abdomen during surgery. Intra-operative cultures grew oro-sensitive E. coli and P. mirabilis and anaerobes. Further management per the surgery team. Antibiotic recommendations as above. (3) Pneumoperitoneum Current Visit: No Status: Acute Secondary to perforated viscous. Management per the surgery team. (4) Abdominal pain Current Visit: No Status: Acute Likely post-op pain. CT abdomen and pelvis negative for infectious etiology. Pain control as outlined by the primary team. Qualifiers: Abdominal location: periumbilical Qualified Code(s): R10.33 - Periumbilical pain (5) Tongue lesion Current Visit: No Status: Acute MRI of the face concerning for possible metastatic disease. Consider ENT consult for further evaluation. (6) Postoperative anemia Current Visit: Yes Status: Acute Hemoglobin 7.7 this morning. No active bleeding noted on exam. Management per the surgery team. (7) History of rectal cancer Current Visit: No Status: Chronic Diagnosed in 2014. Status post APR with colostomy in 2014. Follows with Dr. Flores at [facility]. Currently undergoing IV chemotherapy (Irinotecan, Xeloda, Avastin) with last dose given 09/29/16. Hem/Onc consulted and following. (8) Brain metastases Current Visit: No Status: Acute Status post craniotomy with parietal tumor excision 07/2016 at [place]. (9) Lung metastases Current Visit: No Status: Acute Status post robotic left lower lobectomy 11/2015. 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 No acute events noted overnight. Patient sitting up in bed eating lunch. Currently denies abdominal pain and states he last had pain medicine early this morning. Denies fevers, chills, or rigors. Denies chest pain, shortness of breath, or cough. Denies nausea, vomiting, or constipation. Liquid stool per colostomy. States appetite is a little archie. Denies urinary complaints. Denies oral thrush or skin lesions. Infect Dis PN-Objective Data - Labs CBC & Chem 7: 10/28/16 03:45 10/27/16 04:02 Labs: Laboratory Results - last 24 hr 10/27/16 10/27/16 10/27/16 07:07 11:46 16:06 WBC RBC Hgb Hct MCV MCH MCHC RDW Plt Count MPV Immature Gran % Seg Neutrophils % Lymphocytes % Monocytes % Eosinophils % Basophils % Neutrophils # Lymphocytes # Monocytes # Eosinophils # Basophils # POC Glucose 120 H 123 H 145 H Phosphorus Magnesium 10/27/16 10/27/16 10/28/16 18:58 23:52 03:16 WBC RBC Hgb Hct MCV MCH MCHC RDW Plt Count MPV Immature Gran % Seg Neutrophils % Lymphocytes % Monocytes % Eosinophils % Basophils % Neutrophils # Lymphocytes # Monocytes # Eosinophils # Basophils # POC Glucose 121 H 128 H 131 H Phosphorus Magnesium 10/28/16 10/28/16 10/28/16 03:45 03:45 08:08 WBC 13.0 H RBC 2.42 L Hgb 7.7 L Hct 23.7 L MCV 97.9 MCH 31.8 MCHC 32.5 RDW 17.0 H Plt Count 373 MPV 9.1 L Immature Gran % 3.0 Seg Neutrophils % 72.9 Lymphocytes % 8.5 Monocytes % 8.9 Eosinophils % 5.5 Basophils % 1.2 Neutrophils # 9.5 H Lymphocytes # 1.1 Monocytes # 1.2 Eosinophils # 0.7 H Basophils # 0.2 POC Glucose 143 H Phosphorus 3.2 Magnesium 1.6 10/28/16 12:24 WBC RBC Hgb Hct MCV MCH MCHC RDW Plt Count MPV Immature Gran % Seg Neutrophils % Lymphocytes % Monocytes % Eosinophils % Basophils % Neutrophils # Lymphocytes # Monocytes # Eosinophils # Basophils # POC Glucose 119 H Phosphorus Magnesium Cultures: Cultures 10/25/16 16:10 Blood Culture - Preliminary Peripheral Central Cath, Picc No growth. 10/25/16 16:08 Blood Culture - Preliminary Peripheral Venipuncture No growth. 10/18/16 01:09 Wound Culture - Final Abdomen Proteus mirabilis Escherichia coli 10/18/16 01:09 Anaerobic Culture - Final Abdomen Anaerobic Gram Negative Heriberto Anaerobic Gram Positive Heriberto - Impressions Impressions Abdomen/Pelvis CT 10/25/16 18:30 IMPRESSION: Postoperative changes of recent distal colectomy with creation of a new right lower quadrant colostomy. No intra-abdominal abscess. Trace amounts of ascites and free intraperitoneal air are likely postoperative. No leak of enteric contrast. Right adrenal 14 mm nodule is new from 06/15/2016, compatible with a metastasis. D/ / 10/25/2016 19:47:17 Alessandro Yanez MD / earnold Interpreting Provider: Alessandro Yanez MD Exam - Constitutional Vitals: Temp Pulse Resp BP Pulse Ox 97.7 F 79 18 144/79 95 10/28/16 10:58 10/28/16 10:58 10/28/16 10:58 10/28/16 10:58 10/28/16 10:58 General appearance: average body habitus, cooperative, no acute distress - Head Head exam: Present: atraumatic, normal inspection, normocephalic - Eye Eye exam: Present: EOMI, normal appearance, PERRL Pupils: Present: normal accommodation - ENT ENT exam: Present: mucous membranes moist - Neck Neck exam: Present: normal inspection - Respiratory Respiratory exam: Present: CTAB. Absent: rales, respiratory distress, rhonchi, wheezes - Cardiovascular Cardiovascular exam: Present: RRR, +S1, +S2 - GI/Abdominal GI/Abdominal exam: Present: normal bowel sounds, soft, tenderness (generalized, mild). Absent: distended Additional comments: Midline abdominal incision with SECURITY ANALYST with ihsan intact and wound VAC sponge noted in the middle of the incision, well-compressed. Additional wound VAC sponge noted to the left lower abdomen, well-compressed. VIN drain noted to the LLG with serous drainage. RLQ colostomy with small amount of light brown stool noted, collection appliance intact. - Extremities Exam Extremities exam: Present: normal inspection. Absent: joint swelling, pedal edema, tenderness - Neurological Exam Neurological exam: Present: alert, oriented X3, no focal deficits - Psychiatric Psychiatric exam: Present: normal affect, normal mood - Skin Skin exam: Present: dry, intact, normal color, warm - Additional findings Additional findings: PICC line noted to the LUE with transparent dressing C/D/I. - VTE Documentation of Mechanical Device: Intermittent pneumatic compression device Consult Discharge Plan - Plan Referrals: NONE,PCP [Primary Care Provider] - - Attending Attestation I examined this patient and my medical decision-making was reviewed with the Resident Physician. I agree with the documented findings, disposition and treatment plan as described except to the extent set forth below.
[2016-10-28] MEDS ORDERED: Clinimix E 5%-15% SOLUTION 2,000 ML with MVI, adult with vitamin K 10 ML IVC SCH (17:00)
[2016-10-28] MEDS: *HR* OxyCODONE Immed Rel 5 MG TABLET PO PRN (20:17)
[2016-10-29] MEDS: Ibuprofen 600 MG TABLET PO SCH ×4 (00:19→23:42)
[2016-10-29] MEDS: Acetaminophen 325 MG TABLET PO SCH ×5 (00:19→23:42)
[2016-10-29] MEDS: Piperacillin/Tazobactam 3.375 GM in D5% in Water (Mini-Bag+) 100 ML IVPB SCH ×4 (00:19→23:42)
[2016-10-29] MEDS: *HR* HYDROmorphone (PF) 1 MG/ML SYRINGE IVP PRN ×3 (00:20→21:47)
[2016-10-29 03:53] LABS: Basophils # 0.1 K/mcL (0.0-0.2); Basophils % 0.8 %; Eosinophils # 0.6 K/mcL (0.0-0.6); Eosinophils % 4.8 %; Hematocrit 23.2 % (37.5-50.1); Hemoglobin 7.6 g/dL (12.9-16.9); Immature Granulocytes % 2.3 % (0-4); Lymphocytes # 1.1 K/mcL (0.6-4.6); Lymphocytes % 8.7 %; Mean Corpuscular HGB Conc 32.8 g/dL (31.6-35.5); Mean Corpuscular Hemoglobin 32.5 pg (28.0-33.3); Mean Corpuscular Volume 99.1 fL (83.0-100.0); Mean Platelet Volume 9.7 fL (9.4-12.4); Monocytes # 1.2 K/mcL (0.0-1.3); Monocytes % 8.9 %; Neutrophils # 9.7 K/mcL (1.6-8.9); Platelet Count 369 K/mcL (140-400); Red Blood Count 2.34 M/mcL (4.19-5.50); Red Cell Distribution Width 17.5 % (11.5-14.5); Segmented Neutrophils % 74.5 %
[2016-10-29 04:08] LABS: BUN/Creatinine Ratio 31 (6-26); Blood Urea Nitrogen 16 mg/dL (8-26); Calcium 9.3 mg/dL (8.6-10.8); Carbon Dioxide 28 mEq/L (19-29); Chloride 105 mEq/L (98-109); Glucose 92 mg/dL (70-99); Osmolality,Calculated 287 (280-300); Potassium 3.9 mEq/L (3.5-4.5); Sodium 138 mEq/L (136-145); eGFR For African Americans > 60 (> 60); eGFR For Non-African Americans > 60 (> 60)
[2016-10-29] MEDS: levETIRAcetam 250 MG TABLET PO SCH ×2 (05:55→15:58)
[2016-10-29] MEDS: *HR* Heparin 5,000 UNIT/ML VIAL SQ SCH ×3 (05:55→21:47)
[2016-10-29] MEDS: *HR* LORazepam 2 MG/ML VIAL IVP PRN ×2 (06:04→15:59)
[2016-10-29] MEDS: Ipratropium/Albuterol Neb 3 ML IH SCH ×3 (07:48→22:56)
[2016-10-29] MEDS: Acetylcysteine 10% 2 ML INHSOL IH SCH ×3 (07:49→22:57)
[2016-10-29] MEDS: Isosorbide MONOnitrate (24 HR) 30 MG TAB.ER.24H PO SCH (08:31)
[2016-10-29] MEDS: Lisinopril 20 MG TABLET PO SCH (08:31)
[2016-10-29] MEDS: Megestrol Acetate 400 MG/10 ML UDC PO SCH (08:31)
[2016-10-29] MEDS: Fluconazole 200 MG/100 ML 200 MG/100 ML BAG IVPB SCH (08:32)
[2016-10-29] MEDS: Fluticasone Propionate Nasal 50 MCG/SPRAY BOTTLE NS SCH (08:33)
[2016-10-29] MEDS ORDERED: Aminoglycoside Consult 1 EACH MC ONE (09:12)
--- NOTE | 2016-10-29 11:05 | Infectious Disease Progress No ---
Date of Encounter: 10/29/16 Time of Encounter: 11:02 - Assessment and Plan (1) Sepsis Current Visit: Yes Status: Acute The patient had two SIRS criteria on admission. Likely secondary to perforated viscous. Lactic acid was not checked. Blood cultures were not drawn. The patient had resolution of leukocytosis and tachycardia 48 hours post-op, but had recurrence of leukocytosis. He continues to afebrile and has not had recurrence of tachycardia. Etiology of recurrent/persistent leukocytosis unclear, but less likely infectious etiology. More likely reactive from recent surgical procedure/ infection. This morning, WBC stable at 13. Intra-operative cultures grew oro-sensitive P. mirabilis and E. coli, as well as anaerobic GPC and anaerobic GNR. Peripheral blood cultures drawn x 2 sets 10/25/16 are NGTD. Blood cultures drawn from the PICC line 10/25/16 are NGTD as well. LFTs, amylase, and lipase are normal. Wound culture ordered not collected and order cancelled by the surgery team. CT of the abdomen negative for abscess or leak. Continue Zosyn 3.375 grams IV Q8H. Continue fluconazole 200mg IV daily. Duration of treatment depends on the clinical picture. Monitor renal and liver function and for drug toxicity and dose-adjust antibiotics. Qualifiers: Sepsis type: sepsis due to unspecified organism Qualified Code(s): A41.9 - Sepsis, unspecified organism (2) Perforated viscus Current Visit: Yes Status: Acute CT of the abdomen and pelvis completed 10/18/16 with oral contrast given via the patient's stoma showed segment of colon within the ostomy site extending to the stoma diffusely thickened in appearance with mild inflammatory stranging of the adjacent fat. There was demonstration of extravasation through the left lateral wall compatible with a defect within the wall. Contrast was seen extending into the air collections within the subcutaneous fat noted on the prior CT scan. Stable pneumoperitoneum was also noted and the focal collection on the left side of the abdomen was grossly unchanged in appearance. The patient was taken to the OR 10/18/16 and underwent exploratory lap with takedown of previous colostomy and splenic flexure, left colectomy, RUQ colostomy placement, ABIODUN, and appendectomy by Dr. Valentine. Operative report reviewed. Case discussed with Dr. Valentine. Large amount of bowel contents noted in the abdomen during surgery. Intra-operative cultures grew oro-sensitive E. coli and P. mirabilis and anaerobes. Further management per the surgery team. Antibiotic recommendations as above. (3) Pneumoperitoneum Current Visit: No Status: Acute Secondary to perforated viscous. Management per the surgery team. (4) Abdominal pain Current Visit: No Status: Acute Likely post-op pain. CT abdomen and pelvis negative for infectious etiology. Pain control as outlined by the primary team. Qualifiers: Abdominal location: periumbilical Qualified Code(s): R10.33 - Periumbilical pain (5) Tongue lesion Current Visit: No Status: Acute MRI of the face concerning for possible metastatic disease. Consider ENT consult for further evaluation. (6) Postoperative anemia Current Visit: Yes Status: Acute Hemoglobin 7.6 this morning. No active bleeding noted on exam. Management per the surgery team. (7) History of rectal cancer Current Visit: No Status: Chronic Diagnosed in 2014. Status post APR with colostomy in 2014. Follows with Dr. Flores at the [facility]. Currently undergoing IV chemotherapy (Irinotecan, Xeloda, Avastin) with last dose given 09/29/16. Hem/Onc consulted and following. (8) Brain metastases Current Visit: No Status: Acute Status post craniotomy with parietal tumor excision 07/2016 at [facility]. (9) Lung metastases Current Visit: No Status: Acute Status post robotic left lower lobectomy 11/2015. 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 No acute events noted overnight. Patient resting quietly in bed with his at the bedside.. Currently denies abdominal pain and states he last had pain medicine early this morning. Denies fevers, chills, or rigors. Denies chest pain or shortness of breath. Reports a sparse, moist cough, but no sputum productive. Denies nausea, vomiting, or constipation. Liquid stool per colostomy. States appetite is a little better. Denies urinary complaints. Denies oral thrush or skin lesions. Infect Dis PN-Objective Data - Labs CBC & Chem 7: 10/29/16 03:30 10/29/16 03:30 Labs: Laboratory Results - last 24 hr 10/28/16 10/28/16 10/28/16 12:24 16:33 19:44 WBC RBC Hgb Hct MCV MCH MCHC RDW Plt Count MPV Immature Gran % Seg Neutrophils % Lymphocytes % Monocytes % Eosinophils % Basophils % Neutrophils # Lymphocytes # Monocytes # Eosinophils # Basophils # Sodium Potassium Chloride Carbon Dioxide BUN Creatinine Est GFR ( Amer) Est GFR (Non-Af Amer) BUN/Creatinine Ratio Glucose POC Glucose 119 H 136 H 131 H Calculated Osmolality Calcium Vancomycin Trough 10/29/16 10/29/16 10/29/16 00:05 03:30 03:30 WBC 13.0 H RBC 2.34 L Hgb 7.6 L Hct 23.2 L MCV 99.1 MCH 32.5 MCHC 32.8 RDW 17.5 H Plt Count 369 MPV 9.7 Immature Gran % 2.3 Seg Neutrophils % 74.5 Lymphocytes % 8.7 Monocytes % 8.9 Eosinophils % 4.8 Basophils % 0.8 Neutrophils # 9.7 H Lymphocytes # 1.1 Monocytes # 1.2 Eosinophils # 0.6 Basophils # 0.1 Sodium Potassium Chloride Carbon Dioxide BUN Creatinine Est GFR ( Amer) Est GFR (Non-Af Amer) BUN/Creatinine Ratio Glucose POC Glucose 127 H Calculated Osmolality Calcium Vancomycin Trough 0.8 L 10/29/16 10/29/16 10/29/16 03:30 03:40 07:23 WBC RBC Hgb Hct MCV MCH MCHC RDW Plt Count MPV Immature Gran % Seg Neutrophils % Lymphocytes % Monocytes % Eosinophils % Basophils % Neutrophils # Lymphocytes # Monocytes # Eosinophils # Basophils # Sodium 138 Potassium 3.9 Chloride 105 Carbon Dioxide 28 BUN 16 Creatinine 0.51 L Est GFR ( Amer) > 60 Est GFR (Non-Af Amer) > 60 BUN/Creatinine Ratio 31 H Glucose 92 POC Glucose 118 H 115 H Calculated Osmolality 287 Calcium 9.3 Vancomycin Trough Cultures: Cultures 10/25/16 16:10 Blood Culture - Preliminary Peripheral Central Cath, Picc No growth. 10/25/16 16:08 Blood Culture - Preliminary Peripheral Venipuncture No growth. 10/18/16 01:09 Wound Culture - Final Abdomen Proteus mirabilis Escherichia coli 10/18/16 01:09 Anaerobic Culture - Final Abdomen Anaerobic Gram Negative Heriberto Anaerobic Gram Positive Heriberto Exam - Constitutional Vitals: Temp Pulse Resp BP Pulse Ox 97.6 F 77 16 161/93 96 10/29/16 07:10/29/16 07:10/29/16 07:53 10/29/16 07:10/29/16 07:53 General appearance: average body habitus, cooperative, no acute distress - Head Head exam: Present: atraumatic, normal inspection, normocephalic - Eye Eye exam: Present: EOMI, normal appearance, PERRL Pupils: Present: normal accommodation - ENT ENT exam: Present: mucous membranes moist - Neck Neck exam: Present: normal inspection - Respiratory Respiratory exam: Present: CTAB. Absent: rales, respiratory distress, rhonchi, wheezes - Cardiovascular Cardiovascular exam: Present: RRR, +S1, +S2 - GI/Abdominal GI/Abdominal exam: Present: normal bowel sounds, soft, tenderness (generalized, mild). Absent: distended Additional comments: Midline abdominal incision with sutures intact. Wound vac sponge noted to the middle of the incision with sponge well-compressed. Small amount of cloudy drainage noted in canister. Additional wound vac sponge noted to the LLQ, well- compressed. VIN drain noted to the left abdomen with serous drainage. Colostomy noted with small amount of dark brown liquid stool noted in the collection bag. - Extremities Exam Extremities exam: Present: normal inspection. Absent: joint swelling, pedal edema, tenderness - Neurological Exam Neurological exam: Present: alert, oriented X3, no focal deficits - Psychiatric Psychiatric exam: Present: normal affect, normal mood - Skin Skin exam: Present: dry, intact, normal color, warm - Additional findings Additional findings: PICC line noted to the LUE with transparent dressing C/D/I. - VTE Documentation of Mechanical Device: Intermittent pneumatic compression device Consult Discharge Plan - Plan Referrals: NONE,PCP [Primary Care Provider] - - Attending Attestation I examined this patient and my medical decision-making was reviewed with the Resident Physician. I agree with the documented findings, disposition and treatment plan as described except to the extent set forth below.
[2016-10-29] MEDS: *HR* OxyCODONE Immed Rel 5 MG TABLET PO PRN (13:45)
--- NOTE | 2016-10-29 16:23 | General Surgery Progress Note ---
<Stephy Mayo - Last Filed: 10/29/16 16:20> Date of Encounter: 10/29/16 Time of Encounter: 16:00 - Assessment and Plan (1) S/P colectomy Current Visit: Yes Status: Acute S/P sigmoid colectomy, lysis of adhesions, colostomy relocation, and appendectomy on 10/18/2016 -continue supportive care and discomfort management -scheduled and PRN pain medications -Megace -wound VAC changes and wound care per surgery team. Okay for that site RN to replace packing and perform colostomy care. Premedication with 1 mg IV lorazepam and 1 mg hydromorphone IV prior to win track changes -Encourage PO intake. Calorie camel in progress per dietary approximately 300 radha per meal is being ingested. Continue TPN. -DC planning for rehab. Continue PT OT. Will need to transition to PO pain control and anxiety control prior to dressing changes before DC. Will plan to trial PO premedication on Tuesday. (2) 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 Current Visit: No Status: Chronic (3) DVT prophylaxis Current Visit: No Status: Acute SCDs while in bed Mobilize as tolerated per PT/OT Heparin 5000 units Q8H SQ (4) Cellulitis Current Visit: Yes Status: Acute Wound care for previous I&D site to the mid/left abdomen: Remove packing, wash with soap and water, repack with 1/4 inch plain gauze, cover with a dry dressing. Wound VAC to mid abdomen dressing changes M/W/F per surgical team Qualifiers: Site of cellulitis: trunk Site of cellulitis of trunk: abdominal wall Qualified Code(s): L03.311 - Cellulitis of abdominal wall (5) Leukocytosis Current Visit: Yes Status: Resolved Continue IV antibiotics per infectious disease. We'll continue to follow. Qualifiers: Leukocytosis type: unspecified Qualified Code(s): D72.829 - Elevated white blood cell count, unspecified (6) Hypertension Current Visit: No Status: Chronic Pt is normotensive and Currently controlled Will continue to monitor Qualifiers: Hypertension type: essential hypertension Qualified Code(s): I10 - Essential (primary) hypertension Subjective Patient reports: no new complaints, still having pain, pain is less, flatus, bowel movement, other (Per dietitian consuming approximately 300 radha per meal) Objective Vital Signs - Last 8 Hours Pulse Resp BP Pulse Ox 08/04/17 12:00 99 62 147/85 99 Intake and Output 10/29/16 10/29/16 10/29/16 07:59 15:59 23:59 Intake Total 350 / 350 100 / 100 Output Total 1090 / 1090 Balance -740 / -740 100 / 100 Intake: IV Fluids 350 / 350 100 / 100 Intralipid 20% 250 ML @ 250 / 250 21 mls/hr IVPB DAILY@[facility]00 [facility] Rx#:[id number] Zosyn 3.375 GM In 100 / 100 100 / 100 Dextrose 5% (Minibag+) 100 ML 100 ML @ 25 mls/hr IVPB Q8HR [facility] Rx#: [id number] Oral 0 / 0 Output: Urine 975 / 975 Stool 65 / 65 Wound Drainage 50 / 50 Left Lower Abdomen 50 / 50 Other: Weight 84.7 kg Blood Glucose* 115 123 Patient Weight 10/29/16 23:59 Weight 84.7 kg - General physical appearance no distress, moderate pain - Eyes normal ocular movement - ENT normal mucosa, atraumatic, normocephalic - Neck Neck exam: trachea midline - Respiratory other (Decreased by Basilar. Rhonchi without crackles.) - Cardiovascular Cardiovascular exam: Present: RRR - Abdomen Abdomen: Present: soft, tender, wound (Wound VAC changed. Granulation tissue present. No odors observed. Drainage per intake and output.) - Incision Incision: Present: open (See assessment above) - Integumentary no rash - Neurologic normal coordination - Musculoskeletal normal posture - Psychiatric oriented to time, oriented to person, oriented to place - Labs 10/29/16 03:30 10/29/16 03:30 Diabetes panel 10/29/16 Range/Units 03:30 Sodium 138 (136-145) mEq/L Potassium 3.9 (3.5-4.5) mEq/L Chloride 105 (98-109) mEq/L Carbon Dioxide 28 (19-29) mEq/L BUN 16 (8-26) mg/dL Creatinine 0.51 L (0.72-1.25) mg/dL Glucose 92 (70-99) mg/dL Calcium 9.3 (8.6-10.8) mg/dL Calcium panel 10/29/16 Range/Units 03:30 Calcium 9.3 (8.6-10.8) mg/dL Pituitary panel 10/29/16 Range/Units 03:30 Sodium 138 (136-145) mEq/L Potassium 3.9 (3.5-4.5) mEq/L Chloride 105 (98-109) mEq/L Carbon Dioxide 28 (19-29) mEq/L BUN 16 (8-26) mg/dL Creatinine 0.51 L (0.72-1.25) mg/dL Glucose 92 (70-99) mg/dL Calcium 9.3 (8.6-10.8) mg/dL Adrenal panel 10/29/16 Range/Units 03:30 Sodium 138 (136-145) mEq/L Potassium 3.9 (3.5-4.5) mEq/L Chloride 105 (98-109) mEq/L Carbon Dioxide 28 (19-29) mEq/L BUN 16 (8-26) mg/dL Creatinine 0.51 L (0.72-1.25) mg/dL Glucose 92 (70-99) mg/dL Calcium 9.3 (8.6-10.8) mg/dL - VTE Documentation of Mechanical Device: Intermittent pneumatic compression device Consult Discharge Plan - Plan Referrals: NONE,PCP [Primary Care Provider] - <Jeovanny Pena - Last Filed: 10/30/16 08:13> Date of Encounter: 10/29/16 Objective Vital Signs - Last 8 Hours Temp Pulse Resp BP Pulse Ox 10/30/16 05:05 98.1 F 84 16 157/94 94 10/30/16 00:41 98.0 F 100 16 136/76 95 Intake and Output 10/29/16 10/30/16 10/30/16 23:59 07:59 15:59 Intake Total 100 / 100 350 / 350 Output Total / 675 / 675 Balance 75 / 75 -325 / -325 Intake: IV Fluids 100 / 100 350 / 350 Intralipid 20% 250 ML @ 250 / 250 21 mls/hr IVPB DAILY@1700 [facility] Rx#:[id number] Zosyn 3.375 GM In 100 / 100 100 / 100 Dextrose 5% (Minibag+) 100 ML 100 ML @ 25 mls/hr IVPB Q8HR [facility] Rx#: [id number] Output: Urine 0 / 0 675 / 675 Stool 0 / 0 Wound Drainage 25 / 25 0 / 0 Left Lower Abdomen 0 / 0 Lower Medial Abdomen 5 / 5 0 / 0 Other: # Voids 1 Blood Glucose* 111 123 - Labs 10/29/16 03:30 10/30/16 05:41 Diabetes panel 10/30/16 Range/Units 05:41 Sodium 137 (136-145) mEq/L Potassium 3.8 (3.5-4.5) mEq/L Chloride 104 (98-109) mEq/L Carbon Dioxide 26 (19-29) mEq/L BUN 13 (8-26) mg/dL Creatinine 0.52 L (0.72-1.25) mg/dL Glucose 109 H (70-99) mg/dL Calcium 9.3 (8.6-10.8) mg/dL Calcium panel 10/30/16 Range/Units 05:41 Calcium 9.3 (8.6-10.8) mg/dL Phosphorus 3.4 (2.3-4.7) mg/dL Pituitary panel 10/30/16 Range/Units 05:41 Sodium 137 (136-145) mEq/L Potassium 3.8 (3.5-4.5) mEq/L Chloride 104 (98-109) mEq/L Carbon Dioxide 26 (19-29) mEq/L BUN 13 (8-26) mg/dL Creatinine 0.52 L (0.72-1.25) mg/dL Glucose 109 H (70-99) mg/dL Calcium 9.3 (8.6-10.8) mg/dL Adrenal panel 10/30/16 Range/Units 05:41 Sodium 137 (136-145) mEq/L Potassium 3.8 (3.5-4.5) mEq/L Chloride 104 (98-109) mEq/L Carbon Dioxide 26 (19-29) mEq/L BUN 13 (8-26) mg/dL Creatinine 0.52 L (0.72-1.25) mg/dL Glucose 109 H (70-99) mg/dL Calcium 9.3 (8.6-10.8) mg/dL - Attending Attestation For this encounter, I have reviewed the GRAPE CRUSHER or PA documentation, treatment plan, and medical decision making; and I have had face to face time with this patient. I agree with the above assessment and evaluation. Patient will be changed later today. Awaiting return of bowel function. Patient currently undergoing a calorie count. Currently on TPN will continue for now.
[2016-10-29] MEDS ORDERED: Clinimix E 5%-15% SOLUTION 2,000 ML with MVI, adult with vitamin K 10 ML IVC SCH (17:00)
[2016-10-30] MEDS: Acetaminophen 325 MG TABLET PO SCH ×3 (05:10→17:58)
[2016-10-30] MEDS: *HR* LORazepam 0.5 MG TABLET PO PRN (05:10)
[2016-10-30] MEDS: levETIRAcetam 250 MG TABLET PO SCH ×2 (05:10→17:58)
[2016-10-30] MEDS: *HR* Heparin 5,000 UNIT/ML VIAL SQ SCH ×3 (05:11→22:19)
[2016-10-30 06:36] LABS: BUN/Creatinine Ratio 25 (6-26); Blood Urea Nitrogen 13 mg/dL (8-26); Calcium 9.3 mg/dL (8.6-10.8); Carbon Dioxide 26 mEq/L (19-29); Chloride 104 mEq/L (98-109); Glucose 109 mg/dL (70-99); Magnesium 1.3 mg/dL (1.6-2.6); Osmolality,Calculated 285 (280-300); Phosphorous 3.4 mg/dL (2.3-4.7); Potassium 3.8 mEq/L (3.5-4.5); Sodium 137 mEq/L (136-145); eGFR For African Americans > 60 (> 60); eGFR For Non-African Americans > 60 (> 60)
[2016-10-30] MEDS: Isosorbide MONOnitrate (24 HR) 30 MG TAB.ER.24H PO SCH (08:04)
[2016-10-30] MEDS: Fluticasone Propionate Nasal 50 MCG/SPRAY BOTTLE NS SCH (08:04)
[2016-10-30] MEDS: *HR* HYDROmorphone (PF) 1 MG/ML SYRINGE IVP PRN ×5 (08:04→20:00)
[2016-10-30] MEDS: Megestrol Acetate 400 MG/10 ML UDC PO SCH (08:04)
[2016-10-30] MEDS: Lisinopril 20 MG TABLET PO SCH (08:04)
[2016-10-30] MEDS: Ibuprofen 600 MG TABLET PO SCH ×2 (08:04→16:29)
[2016-10-30] MEDS: Piperacillin/Tazobactam 3.375 GM in D5% in Water (Mini-Bag+) 100 ML IVPB SCH ×2 (08:05→16:30)
[2016-10-30] MEDS: Fluconazole 200 MG/100 ML 200 MG/100 ML BAG IVPB SCH (08:05)
[2016-10-30] MEDS: Ipratropium/Albuterol Neb 3 ML IH SCH ×3 (08:25→22:33)
[2016-10-30] MEDS: Acetylcysteine 10% 2 ML INHSOL IH SCH ×3 (08:26→22:34)
[2016-10-30] MEDS: Ondansetron 4 MG/2 ML VIAL IVP PRN (13:49)
--- NOTE | 2016-10-30 16:07 | General Surgery Progress Note ---
<Carroll Veloz - Last Filed: 10/30/16 16:04> Date of Encounter: 10/30/16 Time of Encounter: 08:45 - Assessment and Plan (1) S/P colectomy Current Visit: Yes Status: Acute sigmoid colectomy, lysis of adhesions, takedown of splenic flexure, colostomy relocation, and appendectomy 10/18/16 VIN drain removed Continue calorie counts TPN @ 50, weaning Megace Tolerating OOB well Pain control as ordered Antibiotics per ID Wound vac changes MWF Continue incentive spirometry and OOB (2) Abdominal pain Current Visit: No Status: Acute improved continue pain control Qualifiers: Abdominal location: periumbilical Qualified Code(s): R10.33 - Periumbilical pain (3) Leukocytosis Current Visit: Yes Status: Resolved abx per ID Qualifiers: Leukocytosis type: unspecified Qualified Code(s): D72.829 - Elevated white blood cell count, unspecified (4) Hypertension Current Visit: No Status: Chronic Continue daily medications Qualifiers: Hypertension type: essential hypertension Qualified Code(s): I10 - Essential (primary) hypertension (5) 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 Current Visit: No Status: Chronic (6) Chest congestion Current Visit: Yes Status: Resolved Resolved Continue breathing treatments as necessary (7) DVT prophylaxis Current Visit: No Status: Acute Continue heparin, SCDs, OOB Subjective Patient reports: no new complaints, tolerating a regular diet (in small amounts) , voiding w/o difficulty, flatus, bowel movement, afebrile Narrative: Patient states that he is continuing to do better, though he ate little of his breakfast this morning. He denies any pain, and states that his chest feels clear. Objective Vital Signs - Last 8 Hours Temp Pulse Resp BP Pulse Ox 10/30/16 14:32 98.2 F 86 18 138/81 93 10/30/16 10:25 97.4 F L 79 17 146/89 95 10/30/16 08:28 16 99 Intake and Output 10/30/16 10/30/16 10/30/16 07:59 15:59 23:59 Intake Total 350 / 350 200 / 200 Output Total 675 / 675 1045 / 1045 375 / 375 Balance -325 / -325 -845 / -845 -375 / -375 Intake: IV Fluids 350 / 350 200 / 200 Intralipid 20% 250 ML @ 250 / 250 21 mls/hr IVPB DAILY@1700 [facility] Rx#:[id number] Diflucan Premix 200 MG/ 100 / 100 100 ML 200 mg In 100 ml @ 100 mls/hr IVPB DAILY [facility] Rx#:[id number] Zosyn 3.375 GM In 100 / 100 100 / 100 Dextrose 5% (Minibag+) 100 ML 100 ML @ 25 mls/hr IVPB Q8HR [facility] Rx#: [id number] Oral 0 / 0 Output: Urine 675 / 675 925 / 925 375 / 375 Stool 0 / 0 0 / 0 Urostomy 100 / 100 Wound Drainage 0 / 0 20 / 20 Left Lower Abdomen 0 / 0 20 / 20 Lower Medial Abdomen 0 / 0 0 / 0 Other: Meal Lunch Percent of Meal Consumed 20% # Voids 2 Blood Glucose* 123 139 - General physical appearance well developed, well nourished, no distress - Eyes normal ocular movement - ENT atraumatic, normocephalic - Neck Neck exam: trachea midline - Respiratory normal expansion, normal respiratory effort, clear to auscultation - Cardiovascular Cardiovascular exam: Present: RRR - Abdomen Abdomen: Present: bowel sounds present, soft, non tender - Incision Incision: Present: clean and dry - Psychiatric speech is normal - Labs 10/29/16 03:30 10/30/16 05:41 Diabetes panel 10/30/16 Range/Units 05:41 Sodium 137 (136-145) mEq/L Potassium 3.8 (3.5-4.5) mEq/L Chloride 104 (98-109) mEq/L Carbon Dioxide 26 (19-29) mEq/L BUN 13 (8-26) mg/dL Creatinine 0.52 L (0.72-1.25) mg/dL Glucose 109 H (70-99) mg/dL Calcium 9.3 (8.6-10.8) mg/dL Calcium panel 10/30/16 Range/Units 05:41 Calcium 9.3 (8.6-10.8) mg/dL Phosphorus 3.4 (2.3-4.7) mg/dL Pituitary panel 10/30/16 Range/Units 05:41 Sodium 137 (136-145) mEq/L Potassium 3.8 (3.5-4.5) mEq/L Chloride 104 (98-109) mEq/L Carbon Dioxide 26 (19-29) mEq/L BUN 13 (8-26) mg/dL Creatinine 0.52 L (0.72-1.25) mg/dL Glucose 109 H (70-99) mg/dL Calcium 9.3 (8.6-10.8) mg/dL Adrenal panel 10/30/16 Range/Units 05:41 Sodium 137 (136-145) mEq/L Potassium 3.8 (3.5-4.5) mEq/L Chloride 104 (98-109) mEq/L Carbon Dioxide 26 (19-29) mEq/L BUN 13 (8-26) mg/dL Creatinine 0.52 L (0.72-1.25) mg/dL Glucose 109 H (70-99) mg/dL Calcium 9.3 (8.6-10.8) mg/dL - VTE Documentation of Mechanical Device: Intermittent pneumatic compression device Consult Discharge Plan - Plan Referrals: NONE,PCP [Primary Care Provider] - <Jeovanny Pena - Last Filed: 10/30/16 22:31> Date of Encounter: 10/30/16 Objective Vital Signs - Last 8 Hours Temp Pulse Resp BP Pulse Ox 10/30/16 17:30 97.6 F 102 14 145/83 95 10/30/16 16:06 16 99 10/30/16 14:32 98.2 F 86 18 138/81 93 Intake and Output 10/30/16 10/30/16 10/30/16 07:59 15:59 23:59 Intake Total 350 / 350 200 / 200 240 / 240 Output Total 675 / 675 1045 / 1045 1025 / 1025 Balance -325 / -325 -845 / -845 -785 / -785 Intake: IV Fluids 350 / 350 200 / 200 Intralipid 20% 250 ML @ 250 / 250 21 mls/hr IVPB DAILY@1700 [facility] Rx#:[id number] Diflucan Premix 200 MG/ 100 / 100 100 ML 200 mg In 100 ml @ 100 mls/hr IVPB DAILY [facility] Rx#:[id number] Zosyn 3.375 GM In 100 / 100 100 / 100 Dextrose 5% (Minibag+) 100 ML 100 ML @ 25 mls/hr IVPB Q8HR [facility] Rx#: [id number] Oral 0 / 0 240 / 240 Output: Urine 675 / 675 925 / 925 975 / 975 Stool 0 / 0 0 / 0 50 / 50 Urostomy 100 / 100 Wound Drainage 0 / 0 20 / 20 0 / 0 Left Lower Abdomen 0 / 0 20 / 20 Lower Medial Abdomen 0 / 0 0 / 0 0 / 0 Other: Meal Lunch Dinner Percent of Meal Consumed 20% 5% Stool Color Brown # Voids 2 Blood Glucose* 123 139 119 - Labs 10/29/16 03:30 10/30/16 05:41 Diabetes panel 10/30/16 Range/Units 05:41 Sodium 137 (136-145) mEq/L Potassium 3.8 (3.5-4.5) mEq/L Chloride 104 (98-109) mEq/L Carbon Dioxide 26 (19-29) mEq/L BUN 13 (8-26) mg/dL Creatinine 0.52 L (0.72-1.25) mg/dL Glucose 109 H (70-99) mg/dL Calcium 9.3 (8.6-10.8) mg/dL Calcium panel 10/30/16 Range/Units 05:41 Calcium 9.3 (8.6-10.8) mg/dL Phosphorus 3.4 (2.3-4.7) mg/dL Pituitary panel 10/30/16 Range/Units 05:41 Sodium 137 (136-145) mEq/L Potassium 3.8 (3.5-4.5) mEq/L Chloride 104 (98-109) mEq/L Carbon Dioxide 26 (19-29) mEq/L BUN 13 (8-26) mg/dL Creatinine 0.52 L (0.72-1.25) mg/dL Glucose 109 H (70-99) mg/dL Calcium 9.3 (8.6-10.8) mg/dL Adrenal panel 10/30/16 Range/Units 05:41 Sodium 137 (136-145) mEq/L Potassium 3.8 (3.5-4.5) mEq/L Chloride 104 (98-109) mEq/L Carbon Dioxide 26 (19-29) mEq/L BUN 13 (8-26) mg/dL Creatinine 0.52 L (0.72-1.25) mg/dL Glucose 109 H (70-99) mg/dL Calcium 9.3 (8.6-10.8) mg/dL - Attending Attestation I examined this patient and my medical decision-making was reviewed with the Resident Physician. I agree with the documented findings, disposition and treatment plan as described except to the extent set forth below. I reviewed the above assessment and evaluation with the resident and agree with the above plan. Patient continue with calorie count. TPN at 50 mL an hour. Continue to wait for return of bowel function and appetite. Wound VAC will be changed this upcoming Tuesday.
[2016-10-30] MEDS ORDERED: Clinimix E 5%-15% SOLUTION 2,000 ML with MVI, adult with vitamin K 10 ML IVC SCH (17:00)
[2016-10-31] MEDS: Ibuprofen 600 MG TABLET PO SCH ×4 (00:08→23:58)
[2016-10-31] MEDS: Acetaminophen 325 MG TABLET PO SCH ×5 (00:08→23:59)
[2016-10-31] MEDS: Piperacillin/Tazobactam 3.375 GM in D5% in Water (Mini-Bag+) 100 ML IVPB SCH ×4 (00:09→23:59)
[2016-10-31] MEDS: *HR* HYDROmorphone (PF) 1 MG/ML SYRINGE IVP PRN ×8 (01:12→23:59)
[2016-10-31] MEDS: *HR* LORazepam 0.5 MG TABLET PO PRN ×3 (02:57→15:07)
[2016-10-31 04:32] LABS: BUN/Creatinine Ratio 20 (6-26); Blood Urea Nitrogen 11 mg/dL (8-26); Calcium 9.5 mg/dL (8.6-10.8); Carbon Dioxide 26 mEq/L (19-29); Chloride 106 mEq/L (98-109); Glucose 111 mg/dL (70-99); Magnesium 1.3 mg/dL (1.6-2.6); Osmolality,Calculated 282 (280-300); Phosphorous 3.6 mg/dL (2.3-4.7); Potassium 3.8 mEq/L (3.5-4.5); Sodium 136 mEq/L (136-145); eGFR For African Americans > 60 (> 60); eGFR For Non-African Americans > 60 (> 60)
[2016-10-31] MEDS: levETIRAcetam 250 MG TABLET PO SCH ×2 (05:55→17:49)
[2016-10-31] MEDS: *HR* Heparin 5,000 UNIT/ML VIAL SQ SCH ×3 (05:56→22:02)
[2016-10-31] MEDS: Acetylcysteine 10% 2 ML INHSOL IH SCH ×3 (07:54→22:11)
[2016-10-31] MEDS: Ipratropium/Albuterol Neb 3 ML IH SCH ×3 (07:54→22:11)
[2016-10-31] MEDS: Lisinopril 20 MG TABLET PO SCH (08:17)
[2016-10-31] MEDS: Isosorbide MONOnitrate (24 HR) 30 MG TAB.ER.24H PO SCH (08:17)
[2016-10-31] MEDS: Megestrol Acetate 400 MG/10 ML UDC PO SCH (08:17)
[2016-10-31] MEDS: Fluconazole 200 MG/100 ML 200 MG/100 ML BAG IVPB SCH (08:18)
[2016-10-31] MEDS: Fluticasone Propionate Nasal 50 MCG/SPRAY BOTTLE NS SCH (08:19)
--- NOTE | 2016-10-31 12:02 | General Surgery Progress Note ---
<CyndiKamar - Last Filed: 10/31/16 12:55> Date of Encounter: 10/31/16 Time of Encounter: 08:00 - Assessment and Plan (1) S/P colectomy Current Visit: Yes Status: Acute status post exploratory laparotomy day #13 Calorie counts TPN = 50, weaning Continue Megace to increase appetite Ambulate as tolerated with assistance Pain control - Continue Tylenol and Motrin. Dilaudid for breakthrough pain Wound vac changes Encourage incentive spirometry Ambulate as tolerated Consider removing VIN drain (2) Abdominal pain Current Visit: No Status: Acute Acetaminophen 650 mg PO q6 hours and Ibuprofen 600 mg PO q8 hours Dilaudid 0.5 mg IVP q2hrs PRN for breakthrough pain Qualifiers: Abdominal location: periumbilical Qualified Code(s): R10.33 - Periumbilical pain (3) Hypertension Current Visit: No Status: Chronic Continue current blood pressure medications Qualifiers: Hypertension type: essential hypertension Qualified Code(s): I10 - Essential (primary) hypertension (4) DVT prophylaxis Current Visit: No Status: Acute Heparin 5000 units SQ Q8h for DVT prophylaxis (5) 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 Current Visit: No Status: Chronic (6) Leukocytosis Current Visit: Yes Status: Resolved Continue Zosyn as prescribed Repeat CBC Qualifiers: Leukocytosis type: unspecified Qualified Code(s): D72.829 - Elevated white blood cell count, unspecified Subjective Patient reports: still having pain, tolerating a regular diet, voiding w/o difficulty, flatus, bowel movement, afebrile Objective Vital Signs - Last 8 Hours Temp Pulse Resp BP Pulse Ox 10/31/16 10:16 97.6 F 110 17 145/88 96 10/31/16 07:54 16 93 10/31/16 06:24 97.5 F L 86 14 156/94 95 Intake and Output 10/30/16 10/31/16 10/31/16 23:59 07:59 15:59 Intake Total 460 / 460 100 / 100 200 / 200 Output Total 1235 / 1235 873 / 873 375 / 375 Balance -775 / -775 -773 / -773 -175 / -175 Intake: IV Fluids 100 / 100 100 / 100 Zosyn 3.375 GM In 100 / 100 100 / 100 Dextrose 5% (Minibag+) 100 ML 100 ML @ 25 mls/hr IVPB Q8HR [facility] [place] Rx#: [id number] Oral 360 / 360 0 / 0 200 / 200 Output: Urine 1175 / 1175 850 / 850 375 / 375 Stool 50 / 50 0 / 0 0 / 0 Wound Drainage 0 / 0 Left Lower Abdomen 0 / 0 Lower Medial Abdomen 0 / 0 0 / 0 0 / 0 Other: Meal Dinner Breakfast Percent of Meal Consumed 5% 25% Stool Color Brown Weight 84.368 kg Blood Glucose* 119 129 134 Patient Weight 10/31/16 23:59 Weight 84.368 kg - General physical appearance well developed, no distress - Eyes normal ocular movement - ENT atraumatic, normocephalic, CN 2-12 grossly intact - Neck Neck exam: trachea midline - Respiratory normal expansion, normal respiratory effort, clear to auscultation - Cardiovascular Cardiovascular exam: Present: RRR, no murmurs/rubs/gallops - Abdomen Abdomen: Present: bowel sounds present, soft, non tender, wound (VIN drain ( serosanguinous)) Hernia: none - Incision Incision: Present: clean and dry, intact - Labs 10/29/16 03:30 10/31/16 03:55 Diabetes panel 10/31/16 Range/Units 03:55 Sodium 136 (136-145) mEq/L Potassium 3.8 (3.5-4.5) mEq/L Chloride 106 (98-109) mEq/L Carbon Dioxide 26 (19-29) mEq/L BUN 11 (8-26) mg/dL Creatinine 0.54 L (0.72-1.25) mg/dL Glucose 111 H (70-99) mg/dL Calcium 9.5 (8.6-10.8) mg/dL Calcium panel 10/31/16 Range/Units 03:55 Calcium 9.5 (8.6-10.8) mg/dL Phosphorus 3.6 (2.3-4.7) mg/dL Pituitary panel 10/31/16 Range/Units 03:55 Sodium 136 (136-145) mEq/L Potassium 3.8 (3.5-4.5) mEq/L Chloride 106 (98-109) mEq/L Carbon Dioxide 26 (19-29) mEq/L BUN 11 (8-26) mg/dL Creatinine 0.54 L (0.72-1.25) mg/dL Glucose 111 H (70-99) mg/dL Calcium 9.5 (8.6-10.8) mg/dL Adrenal panel 10/31/16 Range/Units 03:55 Sodium 136 (136-145) mEq/L Potassium 3.8 (3.5-4.5) mEq/L Chloride 106 (98-109) mEq/L Carbon Dioxide 26 (19-29) mEq/L BUN 11 (8-26) mg/dL Creatinine 0.54 L (0.72-1.25) mg/dL Glucose 111 H (70-99) mg/dL Calcium 9.5 (8.6-10.8) mg/dL - VTE Documentation of Mechanical Device: Intermittent pneumatic compression device Consult Discharge Plan - Plan Referrals: NONE,PCP [Primary Care Provider] - <Jeovanny Pena - Last Filed: 11/01/16 06:32> Date of Encounter: 10/31/16 Objective Vital Signs - Last 8 Hours Temp Pulse Resp BP Pulse Ox 11/01/16 04:37 98.6 F 107 18 150/87 95 11/01/16 00:16 98.5 F 107 18 159/108 94 Intake and Output 10/31/16 10/31/16 11/01/16 15:59 23:59 07:59 Intake Total 300 / 300 100 / 100 0 / 0 Output Total 880 / 880 875 / 875 150 / 150 Balance -580 / -580 -775 / -775 -150 / -150 Intake: IV Fluids 100 / 100 100 / 100 Zosyn 3.375 GM In 100 / 100 100 / 100 Dextrose 5% (Minibag+) 100 ML 100 ML @ 25 mls/hr IVPB Q8HR [facility] [place] Rx#: [id number] Oral 200 / 200 0 / 0 0 / 0 Output: Urine 750 / 750 875 / 875 150 / 150 Stool 125 / 125 Wound Drainage 5 / 5 0 / 0 0 / 0 Left Lower Abdomen 5 / 5 0 / 0 0 / 0 Lower Medial Abdomen 0 / 0 0 / 0 0 / 0 Other: Meal Breakfast Percent of Meal Consumed 25% # Voids 3 Weight 84.8 kg Blood Glucose* 134 131 114 Patient Weight 11/01/16 23:59 Weight 84.8 kg - Labs 10/29/16 03:30 10/31/16 03:55 - Attending Attestation I examined this patient and my medical decision-making was reviewed with the Resident Physician. I agree with the documented findings, disposition and treatment plan as described except to the extent set forth below. I reviewed the above assessment and evaluation with the resident present in agreement with the above. Patient still has poor by mouth intake due to poor appetite. On Megace and TPN (50 mL an hour). Wound VAC to be changed tomorrow. Continue with current measurements. Encourage out of bed and ambulation with assistance.
[2016-10-31] MEDS: Ondansetron 4 MG/2 ML VIAL IVP PRN (13:04)
[2016-10-31] MEDS ORDERED: Clinimix E 5%-15% SOLUTION 2,000 ML with MVI, adult with vitamin K 10 ML IVC SCH (17:00)
[2016-10-31] MEDS: *HR* Promethazine 25 MG/ML VIAL IVP PRN (17:49)
[2016-11-01] MEDS: *HR* HYDROmorphone (PF) 1 MG/ML SYRINGE IVP PRN ×8 (02:43→23:59)
[2016-11-01] MEDS: Acetaminophen 325 MG TABLET PO SCH ×3 (05:43→16:48)
[2016-11-01] MEDS: levETIRAcetam 250 MG TABLET PO SCH ×2 (05:43→16:48)
[2016-11-01] MEDS: *HR* Heparin 5,000 UNIT/ML VIAL SQ SCH ×3 (05:44→21:49)
[2016-11-01 06:38] LABS: Basophils # 0.1 K/mcL (0.0-0.2); Basophils % 1.1 %; Eosinophils # 1.1 K/mcL (0.0-0.6); Eosinophils % 9.4 %; Hematocrit 27.6 % (37.5-50.1); Lymphocytes # 0.9 K/mcL (0.6-4.6); Lymphocytes % 8.2 %; Mean Corpuscular HGB Conc 32.6 g/dL (31.6-35.5); Mean Corpuscular Hemoglobin 31.9 pg (28.0-33.3); Mean Corpuscular Volume 97.9 fL (83.0-100.0); Mean Platelet Volume 9.1 fL (9.4-12.4); Monocytes % 8.9 %; Neutrophils # 8.2 K/mcL (1.6-8.9); Platelet Count 512 K/mcL (140-400); Red Blood Count 2.82 M/mcL (4.19-5.50); Red Cell Distribution Width 17.8 % (11.5-14.5); Segmented Neutrophils % 71.4 %
[2016-11-01 06:49] LABS: BUN/Creatinine Ratio 20 (6-26); Blood Urea Nitrogen 11 mg/dL (8-26); Calcium 10.3 mg/dL (8.6-10.8); Carbon Dioxide 27 mEq/L (19-29); Chloride 102 mEq/L (98-109); Glucose 99 mg/dL (70-99); Magnesium 1.5 mg/dL (1.6-2.6); Osmolality,Calculated 279 (280-300); Phosphorous 3.6 mg/dL (2.3-4.7); Sodium 135 mEq/L (136-145); eGFR For African Americans > 60 (> 60); eGFR For Non-African Americans > 60 (> 60)
[2016-11-01] MEDS: Acetylcysteine 10% 2 ML INHSOL IH SCH ×3 (07:30→22:41)
[2016-11-01] MEDS: Ipratropium/Albuterol Neb 3 ML IH SCH ×3 (07:30→22:38)
--- NOTE | 2016-11-01 08:10 | General Surgery Progress Note ---
<Carroll Veloz - Last Filed: 11/01/16 15:26> Date of Encounter: 11/01/16 Time of Encounter: 07:20 - Assessment and Plan (1) S/P colectomy Current Visit: Yes Status: Acute sigmoid colectomy, lysis of adhesions, takedown of splenic flexure, colostomy relocation, and appendectomy 10/18/16 Not intaking much food currently Continue calorie counts TPN @ 50 Megace Pain control as ordered Antibiotics per ID Wound vac changes MWF Wound vac changed today without complication VIN drain removed Continue incentive spirometry and OOB (2) Abdominal pain Current Visit: No Status: Acute improved continue pain control Qualifiers: Abdominal location: periumbilical Qualified Code(s): R10.33 - Periumbilical pain (3) Leukocytosis Current Visit: Yes Status: Resolved abx per ID Qualifiers: Leukocytosis type: unspecified Qualified Code(s): D72.829 - Elevated white blood cell count, unspecified (4) Hypertension Current Visit: No Status: Chronic Continue daily medications Qualifiers: Hypertension type: essential hypertension Qualified Code(s): I10 - Essential (primary) hypertension (5) 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 Current Visit: No Status: Chronic New adrenal metastasis per CT abdomen (6) Chest congestion Current Visit: Yes Status: Resolved Resolved Continue breathing treatments as necessary (7) DVT prophylaxis Current Visit: No Status: Acute Continue heparin, SCDs, OOB Subjective Patient reports: pain is less, tolerating a regular diet (ate less yesterday, little appetite), bowel movement (from stoma), afebrile Objective Vital Signs - Last 8 Hours Temp Pulse Resp BP Pulse Ox 11/01/16 07:30 18 94 11/01/16 06:38 97.5 F L 107 18 156/102 94 11/01/16 04:37 98.6 F 107 18 150/87 95 11/01/16 00:16 98.5 F 107 18 159/108 94 Intake and Output 10/31/16 11/01/16 11/01/16 23:59 07:59 15:59 Intake Total 100 / 100 0 / 0 Output Total 875 / 875 275 / 275 Balance -775 / -775 -275 / -275 Intake: IV Fluids 100 / 100 Zosyn 3.375 GM In 100 / 100 Dextrose 5% (Minibag+) 100 ML 100 ML @ 25 mls/hr IVPB Q8HR [facility] Rx#: [id number] Oral 0 / 0 0 / 0 Output: Urine 875 / 875 275 / 275 Stool 0 / 0 Wound Drainage 0 / 0 0 / 0 Left Lower Abdomen 0 / 0 0 / 0 Lower Medial Abdomen 0 / 0 0 / 0 Other: # Voids 3 Weight 84.8 kg Blood Glucose* 131 126 Patient Weight 11/01/16 23:59 Weight 84.8 kg - General physical appearance well developed, well nourished, no distress - Eyes normal ocular movement - ENT atraumatic, normocephalic - Neck Neck exam: trachea midline - Respiratory normal expansion, normal respiratory effort - Cardiovascular Cardiovascular exam: Present: RRR, tachycardia Addtional Comments: 90s-low 100s - Abdomen Abdomen: Present: bowel sounds present, soft, non tender, wound (Midline abdomen [granulation tissue w/o purulence] and LLQ) - Incision Incision: Present: draining, serosanguinous. Absent: purulent - Psychiatric speech is normal - Labs 11/01/16 06:18 11/01/16 06:18 Diabetes panel 11/01/16 Range/Units 06:18 Sodium 135 L (136-145) mEq/L Potassium 4.0 (3.5-4.5) mEq/L Chloride 102 (98-109) mEq/L Carbon Dioxide 27 (19-29) mEq/L BUN 11 (8-26) mg/dL Creatinine 0.54 L (0.72-1.25) mg/dL Glucose 99 (70-99) mg/dL Calcium 10.3 (8.6-10.8) mg/dL Calcium panel 11/01/16 Range/Units 06:18 Calcium 10.3 (8.6-10.8) mg/dL Phosphorus 3.6 (2.3-4.7) mg/dL Pituitary panel 11/01/16 Range/Units 06:18 Sodium 135 L (136-145) mEq/L Potassium 4.0 (3.5-4.5) mEq/L Chloride 102 (98-109) mEq/L Carbon Dioxide 27 (19-29) mEq/L BUN 11 (8-26) mg/dL Creatinine 0.54 L (0.72-1.25) mg/dL Glucose 99 (70-99) mg/dL Calcium 10.3 (8.6-10.8) mg/dL Adrenal panel 11/01/16 Range/Units 06:18 Sodium 135 L (136-145) mEq/L Potassium 4.0 (3.5-4.5) mEq/L Chloride 102 (98-109) mEq/L Carbon Dioxide 27 (19-29) mEq/L BUN 11 (8-26) mg/dL Creatinine 0.54 L (0.72-1.25) mg/dL Glucose 99 (70-99) mg/dL Calcium 10.3 (8.6-10.8) mg/dL - VTE Documentation of Mechanical Device: Intermittent pneumatic compression device Consult Discharge Plan - Plan Referrals: NONE,PCP [Primary Care Provider] - <Loly Valentine - Last Filed: 11/02/16 11:35> Date of Encounter: 11/01/16 Time of Encounter: 17:30 - Assessment and Plan (1) Abdominal pain Current Visit: No Status: Acute continue prn pain control Qualifiers: Abdominal location: periumbilical Qualified Code(s): R10.33 - Periumbilical pain (2) Hypertension Current Visit: No Status: Chronic essentially normotensive, continue po meds Qualifiers: Hypertension type: essential hypertension Qualified Code(s): I10 - Essential (primary) hypertension (3) DVT prophylaxis Current Visit: No Status: Acute (4) 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 Current Visit: No Status: Chronic (5) Leukocytosis Current Visit: Yes Status: Resolved improving very slowly, abx per ID Qualifiers: Leukocytosis type: unspecified Qualified Code(s): D72.829 - Elevated white blood cell count, unspecified (6) S/P colectomy Current Visit: Yes Status: Acute patient continues to have extremely poor po intake, on regular diet and megace with supplements talked with that patient cannot continue to rely soley on tpn, his options are dobhobb with tube feeds, peg, or hospice. I am concerned that he just doesnt have the physiologic reserve to deal with this last surgery. He has had multiple new lesions within the last few months - brain, tongue, adrenal will ask oncology to come by and have a very realistic discussion of expections for patient Subjective Patient reports: still having pain, pain is less, tolerating a regular diet, bowel movement, afebrile Objective Vital Signs - Last 8 Hours Temp Pulse Resp BP Pulse Ox 11/02/16 10:51 97.8 F 117 16 140/91 97 11/02/16 09:27 97.4 F L 114 16 139/92 94 11/02/16 08:00 16 93 11/02/16 07:43 98 F 117 16 152/107 93 11/02/16 05:10 97.6 F 108 20 141/98 96 Intake and Output 11/01/16 11/02/16 11/02/16 23:59 07:59 15:59 Intake Total 100 / 100 100 / 100 Output Total 550 / 550 150 / 150 500 / 500 Balance -450 / -450 -50 / -50 -500 / -500 Intake: IV Fluids 100 / 100 100 / 100 Zosyn 3.375 GM In 100 / 100 100 / 100 Dextrose 5% (Minibag+) 100 ML 100 ML @ 25 mls/hr IVPB Q8HR [facility] Rx#: [id number] Output: Urine 550 / 550 125 / 125 350 / 350 Emesis 150 / 150 Wound Drainage 25 / 25 Lower Medial Abdomen 25 / 25 Other: Weight 85.1 kg Blood Glucose* 109 119 124 Patient Weight 11/02/16 23:59 Weight 85.1 kg - General physical appearance well developed, well nourished - Eyes normal ocular movement - ENT atraumatic, normocephalic - Neck Neck exam: trachea midline - Respiratory normal expansion, normal respiratory effort - Cardiovascular Cardiovascular exam: Present: RRR - Abdomen Abdomen: Present: bowel sounds present, soft, wound - Integumentary no rash, no growths - Neurologic CN 2-12 grossly intact - Musculoskeletal normal posture - Psychiatric oriented to time, oriented to person, oriented to place, speech is normal - Labs 11/02/16 05:05 11/02/16 05:05 Diabetes panel 11/02/16 Range/Units 05:05 Sodium 134 L (136-145) mEq/L Potassium 4.0 (3.5-4.5) mEq/L Chloride 102 (98-109) mEq/L Carbon Dioxide 26 (19-29) mEq/L BUN 14 (8-26) mg/dL Creatinine 0.53 L (0.72-1.25) mg/dL Glucose 104 H (70-99) mg/dL Calcium 10.2 (8.6-10.8) mg/dL Calcium panel 11/02/16 Range/Units 05:05 Calcium 10.2 (8.6-10.8) mg/dL Pituitary panel 11/02/16 Range/Units 05:05 Sodium 134 L (136-145) mEq/L Potassium 4.0 (3.5-4.5) mEq/L Chloride 102 (98-109) mEq/L Carbon Dioxide 26 (19-29) mEq/L BUN 14 (8-26) mg/dL Creatinine 0.53 L (0.72-1.25) mg/dL Glucose 104 H (70-99) mg/dL Calcium 10.2 (8.6-10.8) mg/dL Adrenal panel 11/02/16 Range/Units 05:05 Sodium 134 L (136-145) mEq/L Potassium 4.0 (3.5-4.5) mEq/L Chloride 102 (98-109) mEq/L Carbon Dioxide 26 (19-29) mEq/L BUN 14 (8-26) mg/dL Creatinine 0.53 L (0.72-1.25) mg/dL Glucose 104 H (70-99) mg/dL Calcium 10.2 (8.6-10.8) mg/dL - Attending Attestation I examined this patient and my medical decision-making was reviewed with the Resident Physician. I agree with the documented findings, disposition and treatment plan as described except to the extent set forth below.
[2016-11-01] MEDS: Ibuprofen 600 MG TABLET PO SCH ×2 (08:30→16:45)
[2016-11-01] MEDS: Lisinopril 20 MG TABLET PO SCH (08:30)
[2016-11-01] MEDS: Megestrol Acetate 400 MG/10 ML UDC PO SCH (08:30)
[2016-11-01] MEDS: Isosorbide MONOnitrate (24 HR) 30 MG TAB.ER.24H PO SCH (08:30)
[2016-11-01] MEDS: Fluconazole 200 MG/100 ML 200 MG/100 ML BAG IVPB SCH (08:31)
[2016-11-01] MEDS: Piperacillin/Tazobactam 3.375 GM in D5% in Water (Mini-Bag+) 100 ML IVPB SCH ×2 (08:31→16:46)
[2016-11-01] MEDS: Fluticasone Propionate Nasal 50 MCG/SPRAY BOTTLE NS SCH (08:32)
[2016-11-01] MEDS: *HR* LORazepam 0.5 MG TABLET PO PRN (14:40)
[2016-11-01] MEDS: *HR* LORazepam 2 MG/ML VIAL IVP PRN (15:02)
--- NOTE | 2016-11-01 15:39 | Event Note ---
Date of Encounter: 11/01/16 Time of Encounter: 15:00 Wound care and wound vac dressing change completed after patient received PRN IV lorazepam. LLQ packing with 1/4 plain gauze completed (OK to change packing daily per bedside RN). Adaptic applied to midline open area. Midline area and LUQ wound vac foam applied. No leaks noted. Patient tolerated well.
--- NOTE | 2016-11-01 16:04 | Infectious Disease Progress No ---
Date of Encounter: 11/01/16 Time of Encounter: 16:02 - Assessment and Plan (1) Sepsis Current Visit: Yes Status: Acute The patient had two SIRS criteria on admission. Likely secondary to perforated viscous. Lactic acid was not checked. Blood cultures were not drawn. The patient had resolution of leukocytosis and tachycardia 48 hours post-op, but had recurrence of leukocytosis. He continues to afebrile, but has had increased pain and tachycardia over the weekend. Etiology of recurrent/persistent leukocytosis unclear, but less likely infectious etiology. More likely reactive from recent surgical procedure/ infection. This morning, WBC improved to 11.5. Intra-operative cultures grew oro-sensitive P. mirabilis and E. coli, as well as anaerobic GPC and anaerobic GNR. Peripheral blood cultures drawn x 2 sets 10/25/16 are negative. Blood cultures drawn from the PICC line 10/25/[address] of the abdomen negative for abscess or leak. Continue Zosyn 3.375 grams IV Q8H. Continue fluconazole 200mg IV daily. Duration of treatment depends on the clinical picture. Monitor renal and liver function and for drug toxicity and dose-adjust antibiotics. Qualifiers: Sepsis type: sepsis due to unspecified organism Qualified Code(s): A41.9 - Sepsis, unspecified organism (2) Perforated viscus Current Visit: Yes Status: Acute CT of the abdomen and pelvis completed 10/18/16 with oral contrast given via the patient's stoma showed segment of colon within the ostomy site extending to the stoma diffusely thickened in appearance with mild inflammatory stranging of the adjacent fat. There was demonstration of extravasation through the left lateral wall compatible with a defect within the wall. Contrast was seen extending into the air collections within the subcutaneous fat noted on the prior CT scan. Stable pneumoperitoneum was also noted and the focal collection on the left side of the abdomen was grossly unchanged in appearance. The patient was taken to the OR 10/18/16 and underwent exploratory lap with takedown of previous colostomy and splenic flexure, left colectomy, RUQ colostomy placement, ABIODUN, and appendectomy by Dr. Valentine. Operative report reviewed. Case discussed with Dr. Valentine. Large amount of bowel contents noted in the abdomen during surgery. Intra-operative cultures grew oro-sensitive E. coli and P. mirabilis and anaerobes. Further management per the surgery team. Antibiotic recommendations as above. (3) Pneumoperitoneum Current Visit: No Status: Acute Secondary to perforated viscous. Management per the surgery team. (4) Abdominal pain Current Visit: No Status: Acute Likely post-op pain. CT abdomen and pelvis negative for infectious etiology. Pain control as outlined by the primary team. Qualifiers: Abdominal location: periumbilical Qualified Code(s): R10.33 - Periumbilical pain (5) Tongue lesion Current Visit: No Status: Acute MRI of the face concerning for possible metastatic disease. Consider ENT consult for further evaluation. (6) Postoperative anemia Current Visit: Yes Status: Acute Hemoglobin 8.7 this morning. No active bleeding noted on exam. Management per the surgery team. (7) History of rectal cancer Current Visit: No Status: Chronic Diagnosed in 2014. Status post APR with colostomy in 2014. Follows with Dr. Flores at the [facility]. Currently undergoing IV chemotherapy (Irinotecan, Xeloda, Avastin) with last dose given 09/29/16. Hem/Onc consulted and following. (8) Brain metastases Current Visit: No Status: Acute Status post craniotomy with parietal tumor excision 07/2016 at [facility]. (9) Lung metastases Current Visit: No Status: Acute Status post robotic left lower lobectomy 11/2015. 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 Weekend notes reviewed. No acute events noted overnight. Patient resting quietly in bed with his at the bedside. Patient has been complaining of increased abdominal pain over the weekend. Denies fevers , chills, or rigors. Denies chest pain or shortness of breath. Reports a sparse , moist cough, but no sputum productive. Denies nausea, vomiting, or constipation. Liquid stool per colostomy. States appetite is very poor. Denies urinary complaints. Denies oral thrush or skin lesions. Infect Dis PN-Objective Data - Labs CBC & Chem 7: 11/02/16 05:05 11/02/16 05:05 Labs: Laboratory Results - last 24 hr 10/31/16 10/31/16 10/31/16 07:49 11:22 16:42 WBC RBC Hgb Hct MCV MCH MCHC RDW Plt Count MPV Immature Gran % Seg Neutrophils % Lymphocytes % Monocytes % Eosinophils % Basophils % Neutrophils # Lymphocytes # Monocytes # Eosinophils # Basophils # Sodium Potassium Chloride Carbon Dioxide BUN Creatinine Est GFR ( Amer) Est GFR (Non-Af Amer) BUN/Creatinine Ratio Glucose POC Glucose 129 H 134 H 109 H Calculated Osmolality Calcium Phosphorus Magnesium 10/31/16 10/31/16 11/01/16 21:04 23:52 04:34 WBC RBC Hgb Hct MCV MCH MCHC RDW Plt Count MPV Immature Gran % Seg Neutrophils % Lymphocytes % Monocytes % Eosinophils % Basophils % Neutrophils # Lymphocytes # Monocytes # Eosinophils # Basophils # Sodium Potassium Chloride Carbon Dioxide BUN Creatinine Est GFR ( Amer) Est GFR (Non-Af Amer) BUN/Creatinine Ratio Glucose POC Glucose 131 H 133 H 114 H Calculated Osmolality Calcium Phosphorus Magnesium 11/01/16 11/01/16 11/01/16 06:18 06:18 07:16 WBC 11.5 H RBC 2.82 L Hgb 9.0 L Hct 27.6 L MCV 97.9 MCH 31.9 MCHC 32.6 RDW 17.8 H Plt Count 512 H MPV 9.1 L Immature Gran % 1.0 Seg Neutrophils % 71.4 Lymphocytes % 8.2 Monocytes % 8.9 Eosinophils % 9.4 Basophils % 1.1 Neutrophils # 8.2 Lymphocytes # 0.9 Monocytes # 1.0 Eosinophils # 1.1 H Basophils # 0.1 Sodium 135 L Potassium 4.0 Chloride 102 Carbon Dioxide 27 BUN 11 Creatinine 0.54 L Est GFR ( Amer) > 60 Est GFR (Non-Af Amer) > 60 BUN/Creatinine Ratio 20 Glucose 99 POC Glucose 126 H Calculated Osmolality 279 L Calcium 10.3 Phosphorus 3.6 Magnesium 1.5 L 11/01/16 12:08 WBC RBC Hgb Hct MCV MCH MCHC RDW Plt Count MPV Immature Gran % Seg Neutrophils % Lymphocytes % Monocytes % Eosinophils % Basophils % Neutrophils # Lymphocytes # Monocytes # Eosinophils # Basophils # Sodium Potassium Chloride Carbon Dioxide BUN Creatinine Est GFR ( Amer) Est GFR (Non-Af Amer) BUN/Creatinine Ratio Glucose POC Glucose 144 H Calculated Osmolality Calcium Phosphorus Magnesium Cultures: Cultures 10/25/16 16:10 Blood Culture - Final Peripheral Central Cath, Picc No growth. 10/25/16 16:08 Blood Culture - Final Peripheral Venipuncture No growth. 10/18/16 01:09 Wound Culture - Final Abdomen Proteus mirabilis Escherichia coli 10/18/16 01:09 Anaerobic Culture - Final Abdomen Anaerobic Gram Negative Heriberto Anaerobic Gram Positive Heriberto Exam - Constitutional Vitals: Temp Pulse Resp BP Pulse Ox 97.4 F L 106 17 134/86 94 11/01/16 14:45 11/01/16 14:45 11/01/16 14:45 11/01/16 14:45 11/01/16 14:45 General appearance: average body habitus, cooperative, no acute distress - Head Head exam: Present: atraumatic, normal inspection, normocephalic - Eye Eye exam: Present: EOMI, normal appearance, PERRL Pupils: Present: normal accommodation - ENT ENT exam: Present: mucous membranes dry - Neck Neck exam: Present: normal inspection - Respiratory Respiratory exam: Present: CTAB. Absent: rales, respiratory distress, rhonchi, wheezes - Cardiovascular Cardiovascular exam: Present: RRR, +S1, +S2 - GI/Abdominal GI/Abdominal exam: Present: normal bowel sounds, soft, tenderness (LLQ). Absent : distended Additional comments: Midline abdominal incision with wound VAC intact. Sponge well-compressed. Alida otherwise intact. RLQ colostomy with small amount of dark liquid stool noted in the collection bag. LLQ VIN drain with serous drainage. LLQ dressing C/D /I. - Extremities Exam Extremities exam: Present: normal inspection. Absent: joint swelling, pedal edema, tenderness - Neurological Exam Neurological exam: Present: alert, oriented X3, no focal deficits - Psychiatric Psychiatric exam: Present: normal affect, normal mood - Skin Skin exam: Present: dry, intact, normal color, warm - VTE Documentation of Mechanical Device: Intermittent pneumatic compression device Consult Discharge Plan - Plan Referrals: NONE,PCP [Primary Care Provider] - - Attending Attestation I examined this patient and my medical decision-making was reviewed with the Resident Physician. I agree with the documented findings, disposition and treatment plan as described except to the extent set forth below.
[2016-11-01] MEDS ORDERED: Clinimix E 5%-15% SOLUTION 2,000 ML with MVI, adult with vitamin K 10 ML IVC SCH (17:00)
[2016-11-01] MEDS ORDERED: Magnesium Sulfate 2 GM in D5% in Water 100 ML IVPB ONE (18:57)
[2016-11-02] MEDS: Piperacillin/Tazobactam 3.375 GM in D5% in Water (Mini-Bag+) 100 ML IVPB SCH ×3 (00:01→15:17)
[2016-11-02] MEDS: Ibuprofen 600 MG TABLET PO SCH ×3 (00:04→15:21)
[2016-11-02] MEDS: *HR* HYDROmorphone (PF) 1 MG/ML SYRINGE IVP PRN ×5 (02:02→20:35)
[2016-11-02] MEDS: *HR* LORazepam 2 MG/ML VIAL IVP PRN (02:02)
[2016-11-02] MEDS: levETIRAcetam 250 MG TABLET PO SCH ×2 (05:24→17:42)
[2016-11-02] MEDS: *HR* Heparin 5,000 UNIT/ML VIAL SQ SCH ×2 (05:24→15:10)
[2016-11-02] MEDS: Acetaminophen 325 MG TABLET PO SCH ×4 (05:24→17:42)
[2016-11-02 05:38] LABS: Basophils # 0.1 K/mcL (0.0-0.2); Eosinophils # 0.7 K/mcL (0.0-0.6); Eosinophils % 6.8 %; Hematocrit 26.6 % (37.5-50.1); Hemoglobin 8.8 g/dL (12.9-16.9); Immature Granulocytes % 0.8 % (0-4); Lymphocytes # 0.9 K/mcL (0.6-4.6); Lymphocytes % 8.9 %; Mean Corpuscular HGB Conc 33.1 g/dL (31.6-35.5); Mean Corpuscular Hemoglobin 32.5 pg (28.0-33.3); Mean Corpuscular Volume 98.2 fL (83.0-100.0); Mean Platelet Volume 9.6 fL (9.4-12.4); Monocytes # 0.9 K/mcL (0.0-1.3); Monocytes % 8.6 %; Neutrophils # 7.8 K/mcL (1.6-8.9); Platelet Count 506 K/mcL (140-400); Red Blood Count 2.71 M/mcL (4.19-5.50); Segmented Neutrophils % 73.9 %
[2016-11-02 05:53] LABS: BUN/Creatinine Ratio 26 (6-26); Blood Urea Nitrogen 14 mg/dL (8-26); Calcium 10.2 mg/dL (8.6-10.8); Carbon Dioxide 26 mEq/L (19-29); Chloride 102 mEq/L (98-109); Glucose 104 mg/dL (70-99); Osmolality,Calculated 279 (280-300); Sodium 134 mEq/L (136-145); eGFR For African Americans > 60 (> 60); eGFR For Non-African Americans > 60 (> 60)
[2016-11-02] MEDS: Acetylcysteine 10% 2 ML INHSOL IH SCH (07:58)
[2016-11-02] MEDS: Ipratropium/Albuterol Neb 3 ML IH SCH ×3 (07:58→23:46)
[2016-11-02] MEDS: Isosorbide MONOnitrate (24 HR) 30 MG TAB.ER.24H PO SCH (08:12)
[2016-11-02] MEDS: *HR* OxyCODONE Immed Rel 5 MG TABLET PO PRN ×2 (08:12→18:59)
[2016-11-02] MEDS: Megestrol Acetate 400 MG/10 ML UDC PO SCH (08:13)
[2016-11-02] MEDS: Lisinopril 20 MG TABLET PO SCH (08:13)
[2016-11-02] MEDS: Fluconazole 200 MG/100 ML 200 MG/100 ML BAG IVPB SCH (08:16)
[2016-11-02] MEDS: *HR* Promethazine 25 MG/ML VIAL IVP PRN ×2 (08:42→15:09)
[2016-11-02] MEDS: Fluticasone Propionate Nasal 50 MCG/SPRAY BOTTLE NS SCH (09:01)
--- NOTE | 2016-11-02 09:50 | General Surgery Progress Note ---
<Carroll Velzo - Last Filed: 11/02/16 11:01> Date of Encounter: 11/02/16 Time of Encounter: 08:45 - Assessment and Plan (1) S/P colectomy Current Visit: Yes Status: Acute sigmoid colectomy, lysis of adhesions, takedown of splenic flexure, colostomy relocation, and appendectomy 10/18/16 Not intaking much food currently Continue calorie counts Increased TPN since oral intake has dropped off Herb Family was resistant to both temporary NG and PEG tube when discussed yesterday , but his oral intake continues to decline over the past few days Pain control as ordered Antibiotics per ID Wound vac changes MWF Continue incentive spirometry and OOB Family has refused palliative consult in the past, we wonder if it is time to revisit (2) Abdominal pain Current Visit: No Status: Acute improved continue pain control Qualifiers: Abdominal location: periumbilical Qualified Code(s): R10.33 - Periumbilical pain (3) Leukocytosis Current Visit: Yes Status: Resolved abx per ID Qualifiers: Leukocytosis type: unspecified Qualified Code(s): D72.829 - Elevated white blood cell count, unspecified (4) Hypertension Current Visit: No Status: Chronic Continue daily medications Qualifiers: Hypertension type: essential hypertension Qualified Code(s): I10 - Essential (primary) hypertension (5) 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 Current Visit: No Status: Chronic It may be appropriate to broach the subject of palliative care with the family again (6) Chest congestion Current Visit: Yes Status: Resolved Continue breathing treatments as necessary (7) DVT prophylaxis Current Visit: No Status: Acute Continue heparin, SCDs, OOB Subjective Patient reports: tolerating a regular diet (in very small amounts), flatus, bowel movement (from stoma), nausea, vomiting (new bilious vomiting this morning ), afebrile Narrative: Patient is very sedated this morning, having just taken pain medication. Spoke with at bedside. Objective Vital Signs - Last 8 Hours Temp Pulse Resp BP Pulse Ox 11/02/16 09:27 97.4 F L 114 16 139/92 94 11/02/16 08:00 16 93 11/02/16 07:43 98 F 117 16 152/107 93 11/02/16 05:10 97.6 F 108 20 141/98 96 Intake and Output 11/01/16 11/02/16 11/02/16 23:59 07:59 15:59 Intake Total 100 / 100 100 / 100 Output Total 550 / 550 150 / 150 500 / 500 Balance -450 / -450 -50 / -50 -500 / -500 Intake: IV Fluids 100 / 100 100 / 100 Zosyn 3.375 GM In 100 / 100 100 / 100 Dextrose 5% (Minibag+) 100 ML 100 ML @ 25 mls/hr IVPB Q8HR [facility] Rx#: [id number] Output: Urine 550 / 550 125 / 125 350 / 350 Emesis 150 / 150 Wound Drainage 25 / 25 Lower Medial Abdomen 25 / 25 Other: Weight 85.1 kg Blood Glucose* 109 119 Patient Weight 11/02/16 23:59 Weight 85.1 kg - General physical appearance well developed, well nourished, no distress, obese - Eyes normal ocular movement - ENT atraumatic, normocephalic - Neck Neck exam: trachea midline - Cardiovascular Cardiovascular exam: Present: tachycardia (mildly, low 100s), regular rhythm - Abdomen Abdomen: Present: bowel sounds present, soft, non tender - Incision Incision: Present: draining (25 ml so far today, 50 ml yesterday), serosanguinous - Psychiatric other (somnolent secondary to pain medication) - Labs 11/02/16 05:05 11/02/16 05:05 Diabetes panel 11/02/16 Range/Units 05:05 Sodium 134 L (136-145) mEq/L Potassium 4.0 (3.5-4.5) mEq/L Chloride 102 (98-109) mEq/L Carbon Dioxide 26 (19-29) mEq/L BUN 14 (8-26) mg/dL Creatinine 0.53 L (0.72-1.25) mg/dL Glucose 104 H (70-99) mg/dL Calcium 10.2 (8.6-10.8) mg/dL Calcium panel 11/02/16 Range/Units 05:05 Calcium 10.2 (8.6-10.8) mg/dL Pituitary panel 11/02/16 Range/Units 05:05 Sodium 134 L (136-145) mEq/L Potassium 4.0 (3.5-4.5) mEq/L Chloride 102 (98-109) mEq/L Carbon Dioxide 26 (19-29) mEq/L BUN 14 (8-26) mg/dL Creatinine 0.53 L (0.72-1.25) mg/dL Glucose 104 H (70-99) mg/dL Calcium 10.2 (8.6-10.8) mg/dL Adrenal panel 11/02/16 Range/Units 05:05 Sodium 134 L (136-145) mEq/L Potassium 4.0 (3.5-4.5) mEq/L Chloride 102 (98-109) mEq/L Carbon Dioxide 26 (19-29) mEq/L BUN 14 (8-26) mg/dL Creatinine 0.53 L (0.72-1.25) mg/dL Glucose 104 H (70-99) mg/dL Calcium 10.2 (8.6-10.8) mg/dL - VTE Documentation of Mechanical Device: Intermittent pneumatic compression device Consult Discharge Plan - Plan Referrals: NONE,PCP [Primary Care Provider] - <Loly Valentine - Last Filed: 11/02/16 16:51> Date of Encounter: 11/02/16 - Assessment and Plan (1) Abdominal pain Current Visit: No Status: Acute patient receiving frequent dilaudid, will start fentanyl patch to see if helps with pain control Qualifiers: Abdominal location: periumbilical Qualified Code(s): R10.33 - Periumbilical pain (2) Hypertension Current Visit: No Status: Chronic normotensive, continue home meds, monitor Qualifiers: Hypertension type: essential hypertension Qualified Code(s): I10 - Essential (primary) hypertension (3) DVT prophylaxis Current Visit: No Status: Acute (4) 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 Current Visit: No Status: Chronic patient with multiple new lesions (brain, tongue, adrenal), any conversation with patient he states he would like to get chemotherapy again if he were to get strong enough. My concern is that he will not recover after this last surgery as he is not taking almost essentially anything in by mouth diet james. Have discussed ngt/dobhoff feeds, peg tube, and palliative. Family and patient very resistant to palliative at this time. (5) Leukocytosis Current Visit: Yes Status: Resolved Qualifiers: Leukocytosis type: unspecified Qualified Code(s): D72.829 - Elevated white blood cell count, unspecified (6) S/P colectomy Current Visit: Yes Status: Acute patient appears to be healing ok from his recent surgery still having midline pain had emesis today x 2 and am ordering acute abdominal series patient has scant po intake, has been on megace continue TPN aggressive pulmonary toilet OOB to chair BID for meals Subjective Patient reports: no new complaints, bowel movement, nausea, vomiting, afebrile Objective Vital Signs - Last 8 Hours Temp Pulse Resp BP Pulse Ox 11/02/16 16:10 20 95 11/02/16 15:08 97.7 F 116 20 148/93 95 11/02/16 13:11 97.7 F 117 18 127/86 95 11/02/16 10:51 97.8 F 117 16 140/91 97 11/02/16 09:27 97.4 F L 114 16 139/92 94 Intake and Output 11/02/16 11/02/16 11/02/16 07:59 15:59 23:59 Intake Total 100 / 100 200 / 200 Output Total 150 / 150 1125 / 1125 Balance -50 / -50 -925 / -925 Intake: IV Fluids 100 / 100 200 / 200 Diflucan Premix 200 MG/ 100 / 100 100 ML 200 mg In 100 ml @ 100 mls/hr IVPB DAILY [facility] Rx#:[id number] Zosyn 3.375 GM In 100 / 100 100 / 100 Dextrose 5% (Minibag+) 100 ML 100 ML @ 25 mls/hr IVPB Q8HR [facility] Rx#: [id number] Oral 0 / 0 Output: Urine 125 / 125 725 / 725 Stool 0 / 0 Emesis 400 / 400 Wound Drainage 25 / 25 Lower Medial Abdomen 25 / 25 Other: Meal Breakfast Percent of Meal Consumed 0% Weight 85.1 kg Blood Glucose* 119 110 Patient Weight 11/02/16 23:59 Weight 85.1 kg - General physical appearance no distress - Eyes normal ocular movement - ENT atraumatic, normocephalic - Neck Neck exam: trachea midline - Respiratory normal expansion, clear to auscultation - Abdomen Abdomen: Present: bowel sounds present, soft, tender (minimally, at midline ) - Incision Incision: Present: serosanguinous (wound vac in place) - Genitourinary normal penis with no external lesions - Integumentary no growths - Neurologic CN 2-12 grossly intact - Musculoskeletal normal posture - Psychiatric other - Labs 11/02/16 05:05 11/02/16 05:05 Diabetes panel 11/02/16 Range/Units 05:05 Sodium 134 L (136-145) mEq/L Potassium 4.0 (3.5-4.5) mEq/L Chloride 102 (98-109) mEq/L Carbon Dioxide 26 (19-29) mEq/L BUN 14 (8-26) mg/dL Creatinine 0.53 L (0.72-1.25) mg/dL Glucose 104 H (70-99) mg/dL Calcium 10.2 (8.6-10.8) mg/dL Calcium panel 11/02/16 Range/Units 05:05 Calcium 10.2 (8.6-10.8) mg/dL Pituitary panel 11/02/16 Range/Units 05:05 Sodium 134 L (136-145) mEq/L Potassium 4.0 (3.5-4.5) mEq/L Chloride 102 (98-109) mEq/L Carbon Dioxide 26 (19-29) mEq/L BUN 14 (8-26) mg/dL Creatinine 0.53 L (0.72-1.25) mg/dL Glucose 104 H (70-99) mg/dL Calcium 10.2 (8.6-10.8) mg/dL Adrenal panel 11/02/16 Range/Units 05:05 Sodium 134 L (136-145) mEq/L Potassium 4.0 (3.5-4.5) mEq/L Chloride 102 (98-109) mEq/L Carbon Dioxide 26 (19-29) mEq/L BUN 14 (8-26) mg/dL Creatinine 0.53 L (0.72-1.25) mg/dL Glucose 104 H (70-99) mg/dL Calcium 10.2 (8.6-10.8) mg/dL - Attending Attestation I examined this patient and my medical decision-making was reviewed with the Resident Physician. I agree with the documented findings, disposition and treatment plan as described except to the extent set forth below.
[2016-11-02] MEDS: *HR* FentaNYL PATCH 25 MCG PATCH TD SCH (11:16)
[2016-11-02] MEDS: Ondansetron 4 MG/2 ML VIAL IVP PRN (12:23)
[2016-11-02] MEDS: *HR* LORazepam 0.5 MG TABLET PO PRN (15:16)
--- NOTE | 2016-11-02 16:16 | Infectious Disease Progress No ---
Date of Encounter: 11/02/16 Time of Encounter: 16:14 - Assessment and Plan (1) Sepsis Current Visit: Yes Status: Acute The patient had two SIRS criteria on admission. Likely secondary to perforated viscous. Lactic acid was not checked. Blood cultures were not drawn. The patient had resolution of leukocytosis and tachycardia 48 hours post-op, but had recurrence of leukocytosis. He continues to afebrile, but has had increased pain and tachycardia over the weekend. Etiology of recurrent/persistent leukocytosis unclear, but less likely infectious etiology. More likely reactive from recent surgical procedure/ infection. This morning, WBC improved to 11.5. Intra-operative cultures grew oro-sensitive P. mirabilis and E. coli, as well as anaerobic GPC and anaerobic GNR. Peripheral blood cultures drawn x 2 sets 10/25/16 are negative. Blood cultures drawn from the PICC line 10/25/[address] of the abdomen negative for abscess or leak. Continue Zosyn 3.375 grams IV Q8H. Continue fluconazole 200mg IV daily. Duration of treatment depends on the clinical picture. Monitor renal and liver function and for drug toxicity and dose-adjust antibiotics. Qualifiers: Sepsis type: sepsis due to unspecified organism Qualified Code(s): A41.9 - Sepsis, unspecified organism (2) Perforated viscus Current Visit: Yes Status: Acute CT of the abdomen and pelvis completed 10/18/16 with oral contrast given via the patient's stoma showed segment of colon within the ostomy site extending to the stoma diffusely thickened in appearance with mild inflammatory stranging of the adjacent fat. There was demonstration of extravasation through the left lateral wall compatible with a defect within the wall. Contrast was seen extending into the air collections within the subcutaneous fat noted on the prior CT scan. Stable pneumoperitoneum was also noted and the focal collection on the left side of the abdomen was grossly unchanged in appearance. The patient was taken to the OR 10/18/16 and underwent exploratory lap with takedown of previous colostomy and splenic flexure, left colectomy, RUQ colostomy placement, ABIODUN, and appendectomy by Dr. Valentine. Operative report reviewed. Case discussed with Dr. Valentine. Large amount of bowel contents noted in the abdomen during surgery. Intra-operative cultures grew oro-sensitive E. coli and P. mirabilis and anaerobes. Further management per the surgery team. Antibiotic recommendations as above. (3) Pneumoperitoneum Current Visit: No Status: Acute Secondary to perforated viscous. Management per the surgery team. (4) Abdominal pain Current Visit: No Status: Acute Likely post-op pain. CT abdomen and pelvis negative for infectious etiology. Pain control as outlined by the primary team. Qualifiers: Abdominal location: periumbilical Qualified Code(s): R10.33 - Periumbilical pain (5) Tongue lesion Current Visit: No Status: Acute MRI of the face concerning for possible metastatic disease. Consider ENT consult for further evaluation. (6) Postoperative anemia Current Visit: Yes Status: Acute Hemoglobin 8.7 this morning. No active bleeding noted on exam. Management per the surgery team. (7) History of rectal cancer Current Visit: No Status: Chronic Diagnosed in 2014. Status post APR with colostomy in 2014. Follows with Dr. Flores at the [facility]. Currently undergoing IV chemotherapy (Irinotecan, Xeloda, Avastin) with last dose given 09/29/16. Hem/Onc consulted and following. (8) Brain metastases Current Visit: No Status: Acute Status post craniotomy with parietal tumor excision 07/2016 at [place]. (9) Lung metastases Current Visit: No Status: Acute Status post robotic left lower lobectomy 11/2015. 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 appears okay but was having abdominal pain earlier and had a couple of vomiting episodes. continues to have no appetite. Although his numbers are much improved. (no fever, WBC improved) Infect Dis PN-Objective Data - Labs CBC & Chem 7: 11/02/16 05:05 11/02/16 05:05 Labs: Laboratory Results - last 24 hr 11/01/16 11/01/16 11/02/16 16:10 21:41 00:11 WBC RBC Hgb Hct MCV MCH MCHC RDW Plt Count MPV Immature Gran % Seg Neutrophils % Lymphocytes % Monocytes % Eosinophils % Basophils % Neutrophils # Lymphocytes # Monocytes # Eosinophils # Basophils # Sodium Potassium Chloride Carbon Dioxide BUN Creatinine Est GFR ( Amer) Est GFR (Non-Af Amer) BUN/Creatinine Ratio Glucose POC Glucose 137 H 109 H 116 H Calculated Osmolality Calcium 11/02/16 11/02/16 11/02/16 05:05 05:05 05:08 WBC 10.5 RBC 2.71 L Hgb 8.8 L Hct 26.6 L MCV 98.2 MCH 32.5 MCHC 33.1 RDW 18.0 H Plt Count 506 H MPV 9.6 Immature Gran % 0.8 Seg Neutrophils % 73.9 Lymphocytes % 8.9 Monocytes % 8.6 Eosinophils % 6.8 Basophils % 1.0 Neutrophils # 7.8 Lymphocytes # 0.9 Monocytes # 0.9 Eosinophils # 0.7 H Basophils # 0.1 Sodium 134 L Potassium 4.0 Chloride 102 Carbon Dioxide 26 BUN 14 Creatinine 0.53 L Est GFR ( Amer) > 60 Est GFR (Non-Af Amer) > 60 BUN/Creatinine Ratio 26 Glucose 104 H POC Glucose 105 H Calculated Osmolality 279 L Calcium 10.2 11/02/16 11/02/16 11/02/16 07:50 10:47 15:04 WBC RBC Hgb Hct MCV MCH MCHC RDW Plt Count MPV Immature Gran % Seg Neutrophils % Lymphocytes % Monocytes % Eosinophils % Basophils % Neutrophils # Lymphocytes # Monocytes # Eosinophils # Basophils # Sodium Potassium Chloride Carbon Dioxide BUN Creatinine Est GFR ( Amer) Est GFR (Non-Af Amer) BUN/Creatinine Ratio Glucose POC Glucose 119 H 124 H 110 H Calculated Osmolality Calcium Cultures: Cultures 10/25/16 16:10 Blood Culture - Final Peripheral Central Cath, Picc No growth. 10/25/16 16:08 Blood Culture - Final Peripheral Venipuncture No growth. 10/18/16 01:09 Wound Culture - Final Abdomen Proteus mirabilis Escherichia coli 10/18/16 01:09 Anaerobic Culture - Final Abdomen Anaerobic Gram Negative Heriberto Anaerobic Gram Positive Heriberto Exam - Constitutional Vitals: Temp Pulse Resp BP Pulse Ox 97.7 F 116 20 148/93 95 11/02/16 15:08 11/02/16 15:08 11/02/16 16:10 11/02/16 15:08 11/02/16 16:10 General appearance: no acute distress, no febrile - Head Head exam: Present: atraumatic, normocephalic - Respiratory Respiratory exam: Present: CTAB. Absent: wheezes - Cardiovascular Cardiovascular exam: Present: RRR, +S1, +S2 - GI/Abdominal GI/Abdominal exam: Present: hypoactive bowel sounds, soft, tenderness - Extremities Exam Extremities exam: Present: normal inspection. Absent: pedal edema - VTE Documentation of Mechanical Device: Intermittent pneumatic compression device Consult Discharge Plan - Plan Referrals: NONE,PCP [Primary Care Provider] -
[2016-11-02] MEDS ORDERED: Clinimix E 5%-15% SOLUTION 2,000 ML with MVI, adult with vitamin K 10 ML IVC SCH (17:00)
--- NOTE | 2016-11-02 17:49 | Oncology Inp Progress Note ---
Date of Encounter: 11/02/16 Time of Encounter: 11:30 (1) Tongue lesion Current Visit: No Status: Acute Assessment and plan: Consult10/19/2016 ENT regarding tongue lesion (2) 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 Current Visit: No Status: Chronic Assessment and plan: Unable to receive further chemotherapy until has recovered from recent surgery and is maintains adequate nutritional intake. Patient and did agree to see Palliative care. Seemed agreeable to PEG. (3) Rectal cancer Current Visit: No Status: Chronic Oncology: Subj Interval history: Patient seen and examined at bedside. Patient was crying with abdominal pain during this visit. They had applied a fentanyl patch but he continued to have pain. I did request that his nurse give him additional pain medication for breakthrough pain. The patient remains on TPN. He is not eating well. His states he ate peripheral bites at each meal yesterday however he is occasionally drinking Ensure. I did explain to the patient that in his current condition there was not a possibility of him receiving treatment. Explaining that he needs time to heal from surgery. He needs to increase his physical activity and most importantly his nutritional intake. The patient states that he has not been eating because "I do not want it. The stated that it has been discussed the possibility of placing a PEG tube they seemed to be open regarding this possibility. The patient does understand that the treatment that he will receive if he does resume chemotherapy is palliative. However he stated "I do not want to , I want more treatment ". Not seem to be comprehending the seriousness of his current illness. I did discuss with the the possibility of having palliative care consult she stated they were open to a palliative care consult but absolutely did not want hospice. The also expressed that she is interested in him going to rehabilitation to try to gain his strength and appetite and nutritional intake - hoping that he will be able to resume treatment with chemotherapy. - Constitutional Vitals: Vital Signs Temp Pulse Resp BP Pulse Ox 11/02/16 17:35 97.7 F 119 14 130/88 96 11/02/16 16:10 20 95 11/02/16 15:08 97.7 F 116 20 148/93 95 11/02/16 13:11 97.7 F 117 18 127/86 95 11/02/16 10:51 97.8 F 117 16 140/91 97 11/02/16 09:27 97.4 F L 114 16 139/92 94 11/02/16 08:00 16 93 11/02/16 07:43 98 F 117 16 152/107 93 11/02/16 05:10 97.6 F 108 20 141/98 96 11/01/16 23:47 97.5 F L 115 20 132/88 96 11/01/16 22:38 18 95 11/01/16 21:56 97.4 F L 115 18 135/88 94 11/01/16 18:36 97.6 F 118 20 135/89 95 Intake and Output 11/02/16 11/02/16 11/02/16 07:59 15:59 23:59 Intake Total 100 / 100 200 / 200 Output Total 150 / 150 1125 / 1125 Balance -50 / -50 -925 / -925 Intake: IV Fluids 100 / 100 200 / 200 Diflucan Premix 200 MG/ 100 / 100 100 ML 200 mg In 100 ml @ 100 mls/hr IVPB DAILY [facility] Rx#:[id number] Zosyn 3.375 GM In 100 / 100 100 / 100 Dextrose 5% (Minibag+) 100 ML 100 ML @ 25 mls/hr IVPB Q8HR [facility] Rx#: [id number] Oral 0 / 0 Output: Urine 125 / 125 725 / 725 Stool 0 / 0 Emesis 400 / 400 Wound Drainage 25 / 25 Lower Medial Abdomen 25 / 25 Other: Meal Breakfast Percent of Meal Consumed 0% Weight 85.1 kg Blood Glucose* 119 110 Patient Weight 11/02/16 23:59 Weight 85.1 kg General appearance: mild distress (having abdominal pain) - Head Head exam: Present: normal inspection - Respiratory Respiratory exam: Present: CTAB - Cardiovascular Cardiovascular exam: Present: RRR - GI/Abdominal GI/Abdominal exam: Present: soft (Dsg and wound vac in place) - Extremities Exam Extremities exam: Present: normal inspection (no edema, PICC in L arm) - Psychiatric Psychiatric exam: Present: depressed Oncology: Obj Data - Labs CBC & Chem 7: 11/02/16 05:05 11/02/16 05:05 Labs: Laboratory Results - last 24 hr 11/01/16 11/02/16 11/02/16 21:41 00:11 05:05 WBC 10.5 RBC 2.71 L Hgb 8.8 L Hct 26.6 L MCV 98.2 MCH 32.5 MCHC 33.1 RDW 18.0 H Plt Count 506 H MPV 9.6 Immature Gran % 0.8 Seg Neutrophils % 73.9 Lymphocytes % 8.9 Monocytes % 8.6 Eosinophils % 6.8 Basophils % 1.0 Neutrophils # 7.8 Lymphocytes # 0.9 Monocytes # 0.9 Eosinophils # 0.7 H Basophils # 0.1 Sodium Potassium Chloride Carbon Dioxide BUN Creatinine Est GFR ( Amer) Est GFR (Non-Af Amer) BUN/Creatinine Ratio Glucose POC Glucose 109 H 116 H Calculated Osmolality Calcium 11/02/16 11/02/16 11/02/16 05:05 05:08 07:50 WBC RBC Hgb Hct MCV MCH MCHC RDW Plt Count MPV Immature Gran % Seg Neutrophils % Lymphocytes % Monocytes % Eosinophils % Basophils % Neutrophils # Lymphocytes # Monocytes # Eosinophils # Basophils # Sodium 134 L Potassium 4.0 Chloride 102 Carbon Dioxide 26 BUN 14 Creatinine 0.53 L Est GFR ( Amer) > 60 Est GFR (Non-Af Amer) > 60 BUN/Creatinine Ratio 26 Glucose 104 H POC Glucose 105 H 119 H Calculated Osmolality 279 L Calcium 10.2 11/02/16 11/02/16 10:47 15:04 WBC RBC Hgb Hct MCV MCH MCHC RDW Plt Count MPV Immature Gran % Seg Neutrophils % Lymphocytes % Monocytes % Eosinophils % Basophils % Neutrophils # Lymphocytes # Monocytes # Eosinophils # Basophils # Sodium Potassium Chloride Carbon Dioxide BUN Creatinine Est GFR ( Amer) Est GFR (Non-Af Amer) BUN/Creatinine Ratio Glucose POC Glucose 124 H 110 H Calculated Osmolality Calcium - Impressions Impressions Abdomen X-Ray 11/02/16 16:09 IMPRESSION: 1. Right lower quadrant ostomy noted. 2. Nonspecific bowel gas pattern with air seen scattered within the small bowel loops. 3. The stomach appears somewhat distended with air. D/ / Santo Mcneal MD / Santo Mcneal MD Interpreting Provider: Santo Mcneal MD - ABG Interpretation ABG results: PT/INR, D-dimer PT 11.9 Seconds (9.4-12.1) 10/18/16 18:45 Consult Discharge Plan - Plan Referrals: NONE,PCP [Primary Care Provider] -
[2016-11-03] MEDS: Piperacillin/Tazobactam 3.375 GM in D5% in Water (Mini-Bag+) 100 ML IVPB SCH ×3 (00:01→16:50)
[2016-11-03] MEDS: *HR* Heparin 5,000 UNIT/ML VIAL SQ SCH ×4 (00:02→21:02)
[2016-11-03] MEDS: Ibuprofen 600 MG TABLET PO SCH ×3 (00:02→16:52)
[2016-11-03] MEDS: Acetaminophen 325 MG TABLET PO SCH ×4 (00:02→16:51)
[2016-11-03] MEDS: *HR* OxyCODONE Immed Rel 5 MG TABLET PO PRN ×2 (01:01→09:51)
[2016-11-03] MEDS: Ondansetron 4 MG/2 ML VIAL IVP PRN ×3 (04:20→16:59)
[2016-11-03] MEDS: *HR* Promethazine 25 MG/ML VIAL IVP PRN ×2 (05:20→14:59)
[2016-11-03] MEDS: levETIRAcetam 250 MG TABLET PO SCH ×2 (05:20→16:51)
[2016-11-03] MEDS: *HR* HYDROmorphone (PF) 1 MG/ML SYRINGE IVP PRN ×5 (05:21→21:15)
[2016-11-03 06:57] LABS: Basophils # 0.1 K/mcL (0.0-0.2); Eosinophils # 0.7 K/mcL (0.0-0.6); Eosinophils % 6.3 %; Hematocrit 27.8 % (37.5-50.1); Hemoglobin 8.7 g/dL (12.9-16.9); Immature Granulocytes % 1.4 % (0-4); Immature Platelets 1.8 % (1.1-6.1); Lymphocytes % 9.4 %; Mean Corpuscular HGB Conc 31.3 g/dL (31.6-35.5); Mean Corpuscular Hemoglobin 31.3 pg (28.0-33.3); Mean Platelet Volume 9.1 fL (9.4-12.4); Monocytes # 0.8 K/mcL (0.0-1.3); Monocytes % 7.6 %; Neutrophils # 7.8 K/mcL (1.6-8.9); Nucleated Red Blood Cells 0.2 /100 WBC (0); Platelet Count 589 K/mcL (140-400); Red Blood Count 2.78 M/mcL (4.19-5.50); Red Cell Distribution Width 17.5 % (11.5-14.5); Segmented Neutrophils % 74.3 %
[2016-11-03 07:09] LABS: BUN/Creatinine Ratio 30 (6-26); Blood Urea Nitrogen 16 mg/dL (8-26); Calcium 10.5 mg/dL (8.6-10.8); Carbon Dioxide 23 mEq/L (19-29); Chloride 103 mEq/L (98-109); Glucose 111 mg/dL (70-99); Magnesium 1.4 mg/dL (1.6-2.6); Osmolality,Calculated 278 (280-300); Phosphorous 3.1 mg/dL (2.3-4.7); Potassium 4.1 mEq/L (3.5-4.5); Sodium 133 mEq/L (136-145); Triglycerides 95 mg/dL (< 150); eGFR For African Americans > 60 (> 60); eGFR For Non-African Americans > 60 (> 60)
[2016-11-03] MEDS: Ipratropium/Albuterol Neb 3 ML IH SCH ×2 (07:24→16:32)
[2016-11-03] MEDS: *HR* LORazepam 0.5 MG TABLET PO PRN ×2 (08:17→16:58)
[2016-11-03] MEDS: Isosorbide MONOnitrate (24 HR) 30 MG TAB.ER.24H PO SCH (08:17)
[2016-11-03] MEDS: Lisinopril 20 MG TABLET PO SCH (08:17)
[2016-11-03] MEDS: Megestrol Acetate 400 MG/10 ML UDC PO SCH (08:18)
[2016-11-03] MEDS: Fluconazole 200 MG/100 ML 200 MG/100 ML BAG IVPB SCH (08:19)
[2016-11-03] MEDS: Fluticasone Propionate Nasal 50 MCG/SPRAY BOTTLE NS SCH (10:09)
[2016-11-03 11:52] LABS: Carcinoembryonic Antigen 31.6 ng/mL (0-5.0)
--- NOTE | 2016-11-03 13:15 | General Surgery Progress Note ---
<Miriam Jeter Hailey - Last Filed: 11/03/16 13:28> Date of Encounter: 11/03/16 Time of Encounter: 11:00 - Assessment and Plan (1) S/P colectomy Current Visit: Yes Status: Acute Postoperative day #16 from exploratory laparotomy with sigmoid colectomy, lysis of adhesions, takedown of splenic flexure, relocation of colostomy, appendectomy with Dr. Valentine Continue Regular diet with protein supplements as tolerated- patient is not eating and states that he has no appetite NPO after midnight for peg tube placement in the am with Dr. Valentine (patient's is agreeable to placement and consent obtained) Will start tube feeds after peg tube placement- hotel associate notified Continue Megace and Reglan added Continue TPN at goal due to poor appetite IV antibiotics- Zosyn and diflucan (ID following for recommendations) Supportive care and pain control- scheduled tylenol and toradol added, fentanyl patch, oxycodone, dilaudid Wound vac therapy- change every MWF Wound care- LLQ daily packing Colostomy care daily- change every MWF with wound vac change IS every 1 hour while awake Increase activity as tolerated PPI therapy daily Repeat am labs (2) Hypertension Current Visit: No Status: Chronic Continue Lisinopril daily Metoprolol prn Qualifiers: Hypertension type: essential hypertension Qualified Code(s): I10 - Essential (primary) hypertension (3) 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 Current Visit: No Status: Chronic Oncology following and patient would like to continue with aggressive management They are not interested in palliative care or hospice at this time (4) Abdominal pain Current Visit: No Status: Acute Scheduled PO tylenol and toradol added today, fentanyl patch, oxycodone, dilaudid Qualifiers: Abdominal location: generalized Qualified Code(s): R10.84 - Generalized abdominal pain (5) Nausea and vomiting Current Visit: Yes Status: Acute Continue with antiemetics prn- phenergan decreased to 6.25mg due to sedating effects, zofran increased to every 4 hours prn Reglan added every 6 hours Plan for peg tube placement in the next [address] Valentine- can use for decompression if experiencing vomiting AAS reviewed- dilated stomach with normal small bowel gas pattern Qualifiers: Vomiting type: unspecified Vomiting Intractability: non-intractable Qualified Code(s): R11.2 - Nausea with vomiting, unspecified (6) DVT prophylaxis Current Visit: No Status: Acute Heparin 5000 units subcutaneous TID for DVT prophylaxis Subjective Patient reports: no new complaints, still having pain, voiding w/o difficulty, flatus, bowel movement (via colostomy), nausea, vomiting (50ml of bile from this am), afebrile Objective Vital Signs - Last 8 Hours Temp Pulse Resp BP Pulse Ox 11/03/16 12:47 98 F 108 18 154/102 99 11/03/16 08:38 97.7 F 114 14 147/93 94 11/03/16 07:29 18 93 Intake and Output 11/02/16 11/03/16 11/03/16 23:59 07:59 15:59 Intake Total 0 / 0 320 / 320 100 / 100 Output Total 550 / 550 370 / 370 275 / 275 Balance -550 / -550 -50 / -50 -175 / -175 Intake: IV Fluids 200 / 200 100 / 100 Zosyn 3.375 GM In 200 / 200 100 / 100 Dextrose 5% (Minibag+) 100 ML 100 ML @ 25 mls/hr IVPB Q8HR [facility] Rx#: [id number] Oral 0 / 0 120 / 120 Output: Urine 550 / 550 350 / 350 275 / 275 Wound Drainage 20 / 20 Lower Medial Abdomen 20 / 20 Other: Meal Dinner Percent of Meal Consumed 0% Weight 50.349 kg Blood Glucose* 122 128 123 Patient Weight 11/03/16 23:59 Weight 50.349 kg - General physical appearance well developed, no distress, moderate pain, chronically ill - Eyes normal ocular movement - ENT dry mucosa, atraumatic, normocephalic - Neck Neck exam: trachea midline - Respiratory normal respiratory effort, clear to auscultation, other (diminished bibasilar bases) - Cardiovascular Cardiovascular exam: Present: tachycardia - Abdomen Abdomen: Present: bowel sounds present, soft, tender, wound (Midline and old ostomy with open areas noted- wound vac changed today, small amount of serous drainage noted; Ostomy pink and moist with soft, brown stool noted (small amount ); LLQ wound with scant amount of serousang. drainage noted.) - Incision Incision: Present: open (See abdominal assessment; Midline and old ostomy site with 90% granulation tissue, 10% fibrin, no surrounding erythema or induration, small amount of serous drainage noted, no tunnelling or undermining noted.) - Neurologic CN 2-12 grossly intact - Musculoskeletal other (severe deconditioning) - Psychiatric oriented to person, oriented to place - Labs 11/03/16 06:39 11/03/16 06:39 Diabetes panel 11/03/16 Range/Units 06:39 Sodium 133 L (136-145) mEq/L Potassium 4.1 (3.5-4.5) mEq/L Chloride 103 (98-109) mEq/L Carbon Dioxide 23 (19-29) mEq/L BUN 16 (8-26) mg/dL Creatinine 0.54 L (0.72-1.25) mg/dL Glucose 111 H (70-99) mg/dL Calcium 10.5 (8.6-10.8) mg/dL Triglycerides 95 (< 150) mg/dL Calcium panel 11/03/16 Range/Units 06:39 Calcium 10.5 (8.6-10.8) mg/dL Phosphorus 3.1 (2.3-4.7) mg/dL Pituitary panel 11/03/16 Range/Units 06:39 Sodium 133 L (136-145) mEq/L Potassium 4.1 (3.5-4.5) mEq/L Chloride 103 (98-109) mEq/L Carbon Dioxide 23 (19-29) mEq/L BUN 16 (8-26) mg/dL Creatinine 0.54 L (0.72-1.25) mg/dL Glucose 111 H (70-99) mg/dL Calcium 10.5 (8.6-10.8) mg/dL Adrenal panel 11/03/16 Range/Units 06:39 Sodium 133 L (136-145) mEq/L Potassium 4.1 (3.5-4.5) mEq/L Chloride 103 (98-109) mEq/L Carbon Dioxide 23 (19-29) mEq/L BUN 16 (8-26) mg/dL Creatinine 0.54 L (0.72-1.25) mg/dL Glucose 111 H (70-99) mg/dL Calcium 10.5 (8.6-10.8) mg/dL - VTE Documentation of Mechanical Device: Intermittent pneumatic compression device Consult Discharge Plan - Plan Referrals: NONE,PCP [Primary Care Provider] - - Attending Attestation For this encounter, I have reviewed the VEGETABLE TIER or PA documentation, treatment plan, and medical decision making; and I have had face to face time with this patient. <Loly Valentine - Last Filed: 11/03/16 18:59> Date of Encounter: 11/03/16 Time of Encounter: 17:54 - Assessment and Plan (1) Abdominal pain Current Visit: No Status: Acute Qualifiers: Abdominal location: generalized Qualified Code(s): R10.84 - Generalized abdominal pain (2) Hypertension Current Visit: No Status: Chronic Qualifiers: Hypertension type: essential hypertension Qualified Code(s): I10 - Essential (primary) hypertension (3) DVT prophylaxis Current Visit: No Status: Acute (4) 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 Current Visit: No Status: Chronic (5) Leukocytosis Current Visit: Yes Status: Resolved abx management per ID, normal WBC last 2 days Qualifiers: Leukocytosis type: unspecified Qualified Code(s): D72.829 - Elevated white blood cell count, unspecified (6) S/P colectomy Current Visit: Yes Status: Acute will stop megace and start marinol wound vac therapy M, W, F discussed peg for protein calorie malnutrition and patient without any appreciable po intake, risks and benefits discussed and they wish to proceed currently continue TPN (7) Protein-calorie malnutrition, severe Current Visit: Yes Status: Acute continue TPN planning peg tomorrow (8) Nausea and vomiting Current Visit: Yes Status: Acute patient w/ nausea and emesis - will add scopalamine patch Qualifiers: Vomiting type: unspecified Vomiting Intractability: non-intractable Qualified Code(s): R11.2 - Nausea with vomiting, unspecified Subjective Narrative: patient more alert today nausea and bilious emesis this evening - when sits up complain of intermittent abdominal pain Objective Vital Signs - Last 8 Hours Temp Pulse Resp BP Pulse Ox 11/03/16 16:32 16 98 11/03/16 15:27 97.5 F L 108 16 127/86 95 11/03/16 12:47 98 F 108 18 154/102 99 Intake and Output 11/03/16 11/03/16 11/03/16 07:59 15:59 23:59 Intake Total 320 / 320 100 / 100 Output Total 370 / 370 275 / 275 150 / 150 Balance -50 / -50 -175 / -175 -150 / -150 Intake: IV Fluids 200 / 200 100 / 100 Zosyn 3.375 GM In 200 / 200 100 / 100 Dextrose 5% (Minibag+) 100 ML 100 ML @ 25 mls/hr IVPB Q8HR [facility] Rx#: [id number] Oral 120 / 120 0 / 0 Output: Urine 350 / 350 275 / 275 Emesis 150 / 150 Wound Drainage 20 / 20 Lower Medial Abdomen 20 / 20 Other: Meal Lunch Percent of Meal Consumed 0% Weight 50.349 kg Blood Glucose* 128 137 Patient Weight 11/03/16 23:59 Weight 50.349 kg - General physical appearance no distress, moderate pain, chronically ill - Eyes PERRL, normal ocular movement - ENT dry mucosa, atraumatic, normocephalic - Neck Neck exam: trachea midline - Respiratory normal expansion, clear to auscultation - Cardiovascular Cardiovascular exam: Present: tachycardia, no murmurs/rubs/gallops - Abdomen Abdomen: Present: bowel sounds present, soft, tender, wound - Integumentary no growths - Neurologic CN 2-12 grossly intact - Musculoskeletal other - Psychiatric oriented to time, oriented to person, oriented to place, memory intact - Labs 11/03/16 06:39 11/03/16 06:39 Short CBC 11/03/16 Range/Units 06:39 WBC 10.4 (4.3-11.1) K/mcL Hgb 8.7 L (12.9-16.9) g/dL Hct 27.8 L (37.5-50.1) % Plt Count 589 H (140-400) K/mcL Neutrophils # 7.8 (1.6-8.9) K/mcL BMP 11/03/16 Range/Units 06:39 Sodium 133 L (136-145) mEq/L Potassium 4.1 (3.5-4.5) mEq/L Chloride 103 (98-109) mEq/L Carbon Dioxide 23 (19-29) mEq/L BUN 16 (8-26) mg/dL Creatinine 0.54 L (0.72-1.25) mg/dL Glucose 111 H (70-99) mg/dL Calcium 10.5 (8.6-10.8) mg/dL Vital Signs Temp Pulse Resp BP Pulse Ox 11/03/16 16:32 16 98 11/03/16 15:27 97.5 F L 108 16 127/86 95 11/03/16 12:47 98 F 108 18 154/102 99 11/03/16 08:38 97.7 F 114 14 147/93 94 11/03/16 07:29 18 93 11/03/16 04:03 98.3 F 99 14 131/87 94 11/02/16 23:46 16 95 Intake and Output 11/03/16 11/03/16 11/03/16 07:59 15:59 23:59 Intake Total 320 / 320 100 / 100 Output Total 370 / 370 275 / 275 150 / 150 Balance -50 / -50 -175 / -175 -150 / -150 Intake: IV Fluids 200 / 200 100 / 100 Zosyn 3.375 GM In 200 / 200 100 / 100 Dextrose 5% (Minibag+) 100 ML 100 ML @ 25 mls/hr IVPB Q8HR [facility] Rx#: [id number] Oral 120 / 120 0 / 0 Output: Urine 350 / 350 275 / 275 Emesis 150 / 150 Wound Drainage 20 / 20 Lower Medial Abdomen 20 / 20 Other: Meal Lunch Percent of Meal Consumed 0% Weight 50.349 kg Blood Glucose* 128 137 Patient Weight 11/03/16 23:59 Weight 50.349 kg - Imaging Abdominal x-ray: report reviewed, image reviewed - Attending Attestation I have personally performed a face to face evaluation on this patient. I have reviewed and agree with the care plan. History and Exam by me shows:severe deconditioning, inability to take in po, nausea and vomiting, abdominal pain
[2016-11-03] MEDS: Saline Nasal Spray 44 ML BOTTLE NS PRN (15:00)
[2016-11-03] MEDS ORDERED: Clinimix E 5%-15% SOLUTION 2,000 ML with MVI, adult with vitamin K 10 ML, Magnesium S... IVC SCH (17:00)
--- NOTE | 2016-11-03 17:13 | Infectious Disease Progress No ---
Date of Encounter: 11/03/16 Time of Encounter: 17:11 - Assessment and Plan (1) Sepsis Current Visit: Yes Status: Acute The patient had two SIRS criteria on admission. Secondary to perforated viscous. The patient had resolution of leukocytosis and tachycardia 48 hours post-op, but had recurrence of leukocytosis. He continues to afebrile, but has had increased pain and tachycardia over the weekend. Etiology of recurrent/persistent leukocytosis unclear, but less likely infectious etiology. More likely reactive from recent surgical procedure/ infection. This morning, WBC improved to 11.5. Intra-operative cultures grew oro-sensitive P. mirabilis and E. coli, as well as anaerobic GPC and anaerobic GNR. Peripheral blood cultures drawn x 2 sets 10/25/16 are negative. Blood cultures drawn from the PICC line 10/25/[address] of the abdomen negative for abscess or leak. Continue Zosyn 3.375 grams IV Q8H. Continue fluconazole 200mg IV daily. Duration of treatment depends on the clinical picture. Monitor renal and liver function and for drug toxicity and dose-adjust antibiotics. Qualifiers: Sepsis type: sepsis due to unspecified organism Qualified Code(s): A41.9 - Sepsis, unspecified organism (2) Perforated viscus Current Visit: Yes Status: Acute CT of the abdomen and pelvis completed 10/18/16 with oral contrast given via the patient's stoma showed segment of colon within the ostomy site extending to the stoma diffusely thickened in appearance with mild inflammatory stranging of the adjacent fat. There was demonstration of extravasation through the left lateral wall compatible with a defect within the wall. Contrast was seen extending into the air collections within the subcutaneous fat noted on the prior CT scan. Stable pneumoperitoneum was also noted and the focal collection on the left side of the abdomen was grossly unchanged in appearance. The patient was taken to the OR 10/18/16 and underwent exploratory lap with takedown of previous colostomy and splenic flexure, left colectomy, RUQ colostomy placement, ABIODUN, and appendectomy by Dr. Valentine. Operative report reviewed. Case discussed with Dr. Valentine. Large amount of bowel contents noted in the abdomen during surgery. Intra-operative cultures grew oro-sensitive E. coli and P. mirabilis and anaerobes. Further management per the surgery team. Antibiotic recommendations as above. (3) Pneumoperitoneum Current Visit: No Status: Acute Secondary to perforated viscous. Management per the surgery team. (4) Abdominal pain Current Visit: No Status: Acute Likely post-op pain. CT abdomen and pelvis negative for infectious etiology. Pain control as outlined by the primary team. Qualifiers: Abdominal location: generalized Qualified Code(s): R10.84 - Generalized abdominal pain (5) Tongue lesion Current Visit: No Status: Acute MRI of the face concerning for possible metastatic disease. Consider ENT consult for further evaluation. (6) Postoperative anemia Current Visit: Yes Status: Acute Hemoglobin 8.7 this morning. No active bleeding noted on exam. Management per the surgery team. (7) History of rectal cancer Current Visit: No Status: Chronic Diagnosed in 2014. Status post APR with colostomy in 2014. Follows with Dr. Flores at the [email or web address] Currently undergoing IV chemotherapy (Irinotecan, Xeloda, Avastin) with last dose given 09/29/16. Hem/Onc consulted and following. (8) Brain metastases Current Visit: No Status: Acute Status post craniotomy with parietal tumor excision 07/2016 at [facility]. (9) Lung metastases Current Visit: No Status: Acute Status post robotic left lower lobectomy 11/2015. 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 appears tired continues to be afebrile WBC improved surgery recommendations noted Infect Dis PN-Objective Data - Labs CBC & Chem 7: 11/03/16 06:39 11/03/16 06:39 Labs: Laboratory Results - last 24 hr 11/02/16 11/03/16 11/03/16 21:31 01:06 06:39 WBC 10.4 RBC 2.78 L Hgb 8.7 L Hct 27.8 L MCV 100.0 MCH 31.3 MCHC 31.3 L RDW 17.5 H Plt Count 589 H MPV 9.1 L Immature Gran % 1.4 Seg Neutrophils % 74.3 Lymphocytes % 9.4 Monocytes % 7.6 Eosinophils % 6.3 Basophils % 1.0 Neutrophils # 7.8 Lymphocytes # 1.0 Monocytes # 0.8 Eosinophils # 0.7 H Basophils # 0.1 Nucleated RBCs/100 WBC 0.2 H Immature Plt Fraction 1.8 Sodium Potassium Chloride Carbon Dioxide BUN Creatinine Est GFR ( Amer) Est GFR (Non-Af Amer) BUN/Creatinine Ratio Glucose POC Glucose 122 H 128 H Calculated Osmolality Calcium Phosphorus Magnesium Prealbumin Triglycerides Carcinoembryonic Ag 11/03/16 11/03/16 11/03/16 06:39 06:39 08:35 WBC RBC Hgb Hct MCV MCH MCHC RDW Plt Count MPV Immature Gran % Seg Neutrophils % Lymphocytes % Monocytes % Eosinophils % Basophils % Neutrophils # Lymphocytes # Monocytes # Eosinophils # Basophils # Nucleated RBCs/100 WBC Immature Plt Fraction Sodium 133 L Potassium 4.1 Chloride 103 Carbon Dioxide 23 BUN 16 Creatinine 0.54 L Est GFR ( Amer) > 60 Est GFR (Non-Af Amer) > 60 BUN/Creatinine Ratio 30 H Glucose 111 H POC Glucose 130 H Calculated Osmolality 278 L Calcium 10.5 Phosphorus 3.1 Magnesium 1.4 L Prealbumin 16.0 L Triglycerides 95 Carcinoembryonic Ag 31.6 H 11/03/16 11/03/16 12:45 15:25 WBC RBC Hgb Hct MCV MCH MCHC RDW Plt Count MPV Immature Gran % Seg Neutrophils % Lymphocytes % Monocytes % Eosinophils % Basophils % Neutrophils # Lymphocytes # Monocytes # Eosinophils # Basophils # Nucleated RBCs/100 WBC Immature Plt Fraction Sodium Potassium Chloride Carbon Dioxide BUN Creatinine Est GFR ( Amer) Est GFR (Non-Af Amer) BUN/Creatinine Ratio Glucose POC Glucose 123 H 137 H Calculated Osmolality Calcium Phosphorus Magnesium Prealbumin Triglycerides Carcinoembryonic Ag Cultures: Cultures 10/25/16 16:10 Blood Culture - Final Peripheral Central Cath, Picc No growth. 10/25/16 16:08 Blood Culture - Final Peripheral Venipuncture No growth. 10/18/16 01:09 Wound Culture - Final Abdomen Proteus mirabilis Escherichia coli 10/18/16 01:09 Anaerobic Culture - Final Abdomen Anaerobic Gram Negative Heriberto Anaerobic Gram Positive Heriberto - Impressions Impressions Abdomen X-Ray 11/02/16 16:09 IMPRESSION: 1. Right lower quadrant ostomy noted. 2. Nonspecific bowel gas pattern with air seen scattered within the small bowel loops. 3. The stomach appears somewhat distended with air. D/ / Santo Mcneal MD / Santo Mcneal MD Interpreting Provider: Santo Mcneal MD Exam - Constitutional Vitals: Temp Pulse Resp BP Pulse Ox 97.5 F L 108 16 127/86 98 11/03/16 15:27 11/03/16 15:27 11/03/16 16:32 11/03/16 15:27 11/03/16 16:32 General appearance: no acute distress - Head Head exam: Present: atraumatic, normocephalic - Respiratory Respiratory exam: Present: CTAB. Absent: wheezes - Cardiovascular Cardiovascular exam: Present: RRR, +S1, +S2 - GI/Abdominal GI/Abdominal exam: Present: hypoactive bowel sounds, soft - Extremities Exam Extremities exam: Present: normal inspection. Absent: joint swelling - VTE Documentation of Mechanical Device: Intermittent pneumatic compression device Consult Discharge Plan - Plan Referrals: NONE,PCP [Primary Care Provider] -
[2016-11-03] MEDS: Scopolamine Patch 1.5 MG PATCH.TD72 TD SCH (21:01)
[2016-11-04] MEDS: Ipratropium/Albuterol Neb 3 ML IH SCH ×4 (00:12→23:12)
[2016-11-04] MEDS: *HR* HYDROmorphone (PF) 1 MG/ML SYRINGE IVP PRN ×6 (00:33→14:37)
[2016-11-04] MEDS: Acetaminophen 325 MG TABLET PO SCH ×4 (00:33→18:21)
[2016-11-04] MEDS: Piperacillin/Tazobactam 3.375 GM in D5% in Water (Mini-Bag+) 100 ML IVPB SCH ×3 (00:34→16:24)
[2016-11-04] MEDS: Ibuprofen 600 MG TABLET PO SCH ×2 (00:34→08:29)
[2016-11-04] MEDS: levETIRAcetam 250 MG TABLET PO SCH ×2 (04:55→18:21)
[2016-11-04] MEDS: *HR* Heparin 5,000 UNIT/ML VIAL SQ SCH ×3 (04:56→22:27)
[2016-11-04] MEDS: Ondansetron 4 MG/2 ML VIAL IVP PRN (06:43)
[2016-11-04] MEDS: Isosorbide MONOnitrate (24 HR) 30 MG TAB.ER.24H PO SCH (08:29)
[2016-11-04] MEDS: Fluconazole 200 MG/100 ML 200 MG/100 ML BAG IVPB SCH (08:30)
[2016-11-04] MEDS: Lisinopril 20 MG TABLET PO SCH (08:30)
[2016-11-04] MEDS: Fluticasone Propionate Nasal 50 MCG/SPRAY BOTTLE NS SCH (08:31)
[2016-11-04] MEDS: *HR* LORazepam 0.5 MG TABLET PO PRN (08:46)
[2016-11-04] MEDS: *HR* Promethazine 25 MG/ML VIAL IVP PRN (09:38)
[2016-11-04] MEDS ORDERED: *HR* Alteplase (Cathflo) 2 MG VIAL IVP ONE (14:17)
[2016-11-04] MEDS: Ketorolac 15 MG/ML VIAL IVP SCH ×2 (14:36→18:21)
[2016-11-04] MEDS ORDERED: Simethicone 40 MG/0.6 ML MLS IR ONE (14:53)
[2016-11-04] MEDS ORDERED: Tetracaine/Benzocaine/Butamben 200MG/SPRAY (100SPY/BOT) MM ONE (14:53)
[2016-11-04 14:55] LABS: Basophils # 0.1 K/mcL (0.0-0.2); Basophils % 0.7 %; Eosinophils # 0.7 K/mcL (0.0-0.6); Hematocrit 26.1 % (37.5-50.1); Hemoglobin 8.4 g/dL (12.9-16.9); Immature Granulocytes % 0.6 % (0-4); Lymphocytes % 9.7 %; Mean Corpuscular HGB Conc 32.2 g/dL (31.6-35.5); Mean Corpuscular Hemoglobin 31.2 pg (28.0-33.3); Mean Platelet Volume 9.6 fL (9.4-12.4); Monocytes # 0.9 K/mcL (0.0-1.3); Monocytes % 9.2 %; Neutrophils # 7.2 K/mcL (1.6-8.9); Platelet Count 542 K/mcL (140-400); Red Blood Count 2.69 M/mcL (4.19-5.50); Red Cell Distribution Width 17.2 % (11.5-14.5); Segmented Neutrophils % 72.8 %
[2016-11-04 14:58] LABS: BUN/Creatinine Ratio 33 (6-26); Blood Urea Nitrogen 18 mg/dL (8-26); Calcium 9.9 mg/dL (8.6-10.8); Carbon Dioxide 26 mEq/L (19-29); Chloride 100 mEq/L (98-109); Glucose 111 mg/dL (70-99); Magnesium 1.5 mg/dL (1.6-2.6); Osmolality,Calculated 277 (280-300); Potassium 4.1 mEq/L (3.5-4.5); Sodium 132 mEq/L (136-145); eGFR For African Americans > 60 (> 60); eGFR For Non-African Americans > 60 (> 60)
[2016-11-04] MEDS: *HR* OxyCODONE Immed Rel 5 MG TABLET PO PRN (16:24)
[2016-11-04] MEDS ORDERED: *HR* FentaNYL (PF) 100 MCG/2 ML VIAL ONE ×2 (16:42→17:21)
[2016-11-04] MEDS ORDERED: *HR* Midazolam HCl 5 MG/5 ML VIAL IVP ONE (16:42)
[2016-11-04] MEDS: *HR* FentaNYL (PF) 100 MCG/2 ML VIAL IVP PRN ×5 (16:50→17:24)
[2016-11-04] MEDS: *HR* Midazolam HCl 5 MG/5 ML VIAL IVP PRN ×5 (16:50→17:24)
[2016-11-04] MEDS ORDERED: Clinimix E 5%-15% SOLUTION 2,000 ML with MVI, adult with vitamin K 10 ML IVC SCH (17:00)
[2016-11-05] MEDS: Piperacillin/Tazobactam 3.375 GM in D5% in Water (Mini-Bag+) 100 ML IVPB SCH ×3 (00:34→15:43)
[2016-11-05] MEDS: Acetaminophen 325 MG TABLET PO SCH ×4 (00:34→17:43)
[2016-11-05] MEDS: Ketorolac 15 MG/ML VIAL IVP SCH ×4 (00:34→17:53)
[2016-11-05] MEDS: Ondansetron 4 MG/2 ML VIAL IVP PRN (00:50)
[2016-11-05] MEDS: levETIRAcetam 250 MG TABLET PO SCH ×2 (06:39→17:43)
[2016-11-05] MEDS: *HR* Heparin 5,000 UNIT/ML VIAL SQ SCH ×3 (06:39→20:58)
[2016-11-05] MEDS: 0.9 % Sodium Chloride 1,000 ML IVC SCH (07:21)
[2016-11-05] MEDS: Ipratropium/Albuterol Neb 3 ML IH SCH ×3 (07:55→22:58)
[2016-11-05] MEDS: Isosorbide MONOnitrate (24 HR) 30 MG TAB.ER.24H PO SCH (09:14)
[2016-11-05] MEDS: Lisinopril 20 MG TABLET PO SCH (09:14)
[2016-11-05] MEDS: Fluconazole 200 MG/100 ML 200 MG/100 ML BAG IVPB SCH (09:20)
[2016-11-05] MEDS: *HR* FentaNYL PATCH 25 MCG PATCH TD SCH (09:24)
[2016-11-05] MEDS: *HR* OxyCODONE Immed Rel 5 MG TABLET PO PRN (09:30)
[2016-11-05] MEDS: Fluticasone Propionate Nasal 50 MCG/SPRAY BOTTLE NS SCH (09:37)
[2016-11-05] MEDS ORDERED: Bisacodyl 10 MG RECTAL SUPPOSITORY RC STA (10:51)
[2016-11-05] MEDS: *HR* Promethazine 25 MG/ML VIAL IVP PRN (11:40)
--- NOTE | 2016-11-05 11:40 | General Surgery Progress Note ---
<Carroll Veloz - Last Filed: 11/05/16 11:26> Date of Encounter: 11/05/16 Time of Encounter: 09:00 - Assessment and Plan (1) S/P colectomy Current Visit: Yes Status: Acute sigmoid colectomy, lysis of adhesions, takedown of splenic flexure, colostomy relocation, and appendectomy 10/18/16 Restarting on clears since PEG placement yesterday PEG set to gravity Continue calorie counts Continue TPN Continue Megace, marinol decreased fentanyl due to ileus Antibiotics per ID Wound vac changes MWF Continue incentive spirometry and OOB (2) Abdominal pain Current Visit: No Status: Acute improved continue pain control Qualifiers: Abdominal location: generalized Qualified Code(s): R10.84 - Generalized abdominal pain (3) Ileus Current Visit: Yes Status: Acute Decreasing narcotic medications Suppository given through stoma (4) Leukocytosis Current Visit: Yes Status: Resolved abx per ID Qualifiers: Leukocytosis type: unspecified Qualified Code(s): D72.829 - Elevated white blood cell count, unspecified (5) Hypertension Current Visit: No Status: Chronic Continue daily medications Qualifiers: Hypertension type: essential hypertension Qualified Code(s): I10 - Essential (primary) hypertension (6) 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 Current Visit: No Status: Chronic (7) DVT prophylaxis Current Visit: No Status: Acute Continue heparin, SCDs, OOB Subjective Patient reports: no new complaints, still having pain, pain is less, bowel movement (small amount through stoma), afebrile Objective Vital Signs - Last 8 Hours Temp Pulse Resp BP Pulse Ox 11/05/16 10:37 98.6 F 78 16 115/73 96 11/05/16 07:57 16 98 11/05/16 07:07 98.6 F 75 16 142/85 92 11/05/16 03:36 97.7 F 95 16 120/73 93 Intake and Output 11/04/16 11/05/16 11/05/16 23:59 07:59 15:59 Intake Total 2112 350 / 350 100 / 100 Output Total 480 / 480 45 / 45 525 / 525 Balance 1633 / 1633 305 / 305 -425 / -425 Intake: IV Fluids 2112 350 / 350 100 / 100 Clinimix E 5%-15% 2012 SOLUTION 2,000 ML @ 83.3 mls/hr IVC .Q24H [facility] with M.v.i. Adult 10 ml with Magnesium Sulfate 10 [facility] Rx#:[id number] Intralipid 20% 250 ML @ 250 / 250 21 mls/hr IVPB DAILY@1700 [facility] Rx#:[id number] Diflucan Premix 200 MG/ 100 / 100 100 ML 200 mg In 100 ml @ 100 mls/hr IVPB DAILY [facility] Rx#:[id number] Zosyn 3.375 GM In 100 / 100 100 / 100 Dextrose 5% (Minibag+) 100 ML 100 ML @ 25 mls/hr IVPB Q8HR [facility] Rx#: [id number] Oral 0 / 0 0 / 0 Output: Urine 480 / 480 25 / 25 225 / 225 Stool 0 / 0 0 / 0 Wound Drainage 300 / 300 Left Upper Abdomen 300 / 300 Lower Medial Abdomen 20 / 20 Other: Meal NPO npo Percent of Meal Consumed 0% Weight 49.94 kg Blood Glucose* 124 114 Patient Weight 11/05/16 23:59 Weight 49.94 kg - General physical appearance well developed, well nourished, no distress, other (somnolment, but better than yesterday) - Eyes normal ocular movement - ENT atraumatic - Neck Neck exam: trachea midline - Respiratory normal expansion, normal respiratory effort, clear to auscultation - Cardiovascular Cardiovascular exam: Present: RRR - Abdomen Abdomen: Present: bowel sounds present (hypoactive), soft - Incision Incision: Present: draining, serosanguinous - Psychiatric memory intact - Labs 11/04/16 14:25 11/04/16 14:25 Diabetes panel 11/04/16 Range/Units 14:25 Sodium 132 L (136-145) mEq/L Potassium 4.1 (3.5-4.5) mEq/L Chloride 100 (98-109) mEq/L Carbon Dioxide 26 (19-29) mEq/L BUN 18 (8-26) mg/dL Creatinine 0.54 L (0.72-1.25) mg/dL Glucose 111 H (70-99) mg/dL Calcium 9.9 (8.6-10.8) mg/dL Calcium panel 11/04/16 Range/Units 14:25 Calcium 9.9 (8.6-10.8) mg/dL Pituitary panel 11/04/16 Range/Units 14:25 Sodium 132 L (136-145) mEq/L Potassium 4.1 (3.5-4.5) mEq/L Chloride 100 (98-109) mEq/L Carbon Dioxide 26 (19-29) mEq/L BUN 18 (8-26) mg/dL Creatinine 0.54 L (0.72-1.25) mg/dL Glucose 111 H (70-99) mg/dL Calcium 9.9 (8.6-10.8) mg/dL Adrenal panel 11/04/16 Range/Units 14:25 Sodium 132 L (136-145) mEq/L Potassium 4.1 (3.5-4.5) mEq/L Chloride 100 (98-109) mEq/L Carbon Dioxide 26 (19-29) mEq/L BUN 18 (8-26) mg/dL Creatinine 0.54 L (0.72-1.25) mg/dL Glucose 111 H (70-99) mg/dL Calcium 9.9 (8.6-10.8) mg/dL - VTE Documentation of Mechanical Device: Intermittent pneumatic compression device Consult Discharge Plan - Plan Referrals: NONE,PCP [Primary Care Provider] - <Loly Valentine - Last Filed: 11/05/16 16:34> Date of Encounter: 11/05/16 - Assessment and Plan (1) Abdominal pain Current Visit: No Status: Acute Qualifiers: Abdominal location: generalized Qualified Code(s): R10.84 - Generalized abdominal pain (2) Hypertension Current Visit: No Status: Chronic normotensive, continue home meds Qualifiers: Hypertension type: essential hypertension Qualified Code(s): I10 - Essential (primary) hypertension (3) DVT prophylaxis Current Visit: No Status: Acute (4) 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 Current Visit: No Status: Chronic (5) Leukocytosis Current Visit: Yes Status: Resolved no leukocystosis for three days, ok to dc abx from surgery standpoint, Infectious disease is managing Qualifiers: Leukocytosis type: unspecified Qualified Code(s): D72.829 - Elevated white blood cell count, unspecified (6) S/P colectomy Current Visit: Yes Status: Acute continue peg to gravity ok to restart clears and see if tolerates no bm for ~2 days continue po colace and miralax continue marinol, megace dc'd several days ago. wound vac changes PT/OT (7) Protein-calorie malnutrition, severe Current Visit: Yes Status: Acute continue TPN until able to take in adequate po or tube feeds (8) Nausea and vomiting Current Visit: Yes Status: Acute improved, continue scopalamine patch, ngt to gravity and prn antiemetics Qualifiers: Vomiting type: unspecified Vomiting Intractability: non-intractable Qualified Code(s): R11.2 - Nausea with vomiting, unspecified Subjective Patient reports: no new complaints, feels better, still having pain, pain is less, flatus, afebrile, other (less nausea) Objective Vital Signs - Last 8 Hours Temp Pulse Resp BP Pulse Ox 11/05/16 15:02 98.7 F 91 17 124/85 95 11/05/16 10:37 98.6 F 78 16 115/73 96 Intake and Output 11/05/16 11/05/16 11/05/16 07:59 15:59 23:59 Intake Total 350 / 350 200 / 200 Output Total 45 / 45 1125 / 1125 Balance 305 / 305 -925 / -925 Intake: IV Fluids 350 / 350 200 / 200 Intralipid 20% 250 ML @ 250 / 250 21 mls/hr IVPB DAILY@1700 [facility] Rx#:[id number] Diflucan Premix 200 MG/ 100 / 100 100 ML 200 mg In 100 ml @ 100 mls/hr IVPB DAILY [facility] Rx#:[id number] Zosyn 3.375 GM In 100 / 100 100 / 100 Dextrose 5% (Minibag+) 100 ML 100 ML @ 25 mls/hr IVPB Q8HR [facility] Rx#: [id number] Oral 0 / 0 Output: Urine 25 / 25 475 / 475 Stool 0 / 0 0 / 0 Wound Drainage 20 / 20 650 / 650 Left Upper Abdomen 650 / 650 Lower Medial Abdomen 20 / 20 Other: Meal NPO Weight 49.94 kg Blood Glucose* 114 131 Patient Weight 11/05/16 23:59 Weight 49.94 kg - General physical appearance well nourished, no distress - Eyes normal ocular movement - ENT normal mucosa, normocephalic - Neck Neck exam: trachea midline - Respiratory normal expansion, clear to auscultation - Cardiovascular Cardiovascular exam: Present: RRR - Abdomen Abdomen: Present: bowel sounds present, soft, tender (less than usual) - Incision Incision: Present: clean and dry (wound vac in place) - Neurologic CN 2-12 grossly intact - Musculoskeletal normal posture - Psychiatric oriented to time, oriented to person, oriented to place, memory intact - Labs 11/04/16 14:25 11/05/16 10:45 Diabetes panel 11/05/16 Range/Units 10:45 Sodium 135 L (136-145) mEq/L Potassium 4.0 (3.5-4.5) mEq/L Chloride 105 (98-109) mEq/L Carbon Dioxide 23 (19-29) mEq/L BUN 21 (8-26) mg/dL Creatinine 0.56 L (0.72-1.25) mg/dL Glucose 126 H (70-99) mg/dL Calcium 9.7 (8.6-10.8) mg/dL Calcium panel 11/05/16 Range/Units 10:45 Calcium 9.7 (8.6-10.8) mg/dL Pituitary panel 11/05/16 Range/Units 10:45 Sodium 135 L (136-145) mEq/L Potassium 4.0 (3.5-4.5) mEq/L Chloride 105 (98-109) mEq/L Carbon Dioxide 23 (19-29) mEq/L BUN 21 (8-26) mg/dL Creatinine 0.56 L (0.72-1.25) mg/dL Glucose 126 H (70-99) mg/dL Calcium 9.7 (8.6-10.8) mg/dL Adrenal panel 11/05/16 Range/Units 10:45 Sodium 135 L (136-145) mEq/L Potassium 4.0 (3.5-4.5) mEq/L Chloride 105 (98-109) mEq/L Carbon Dioxide 23 (19-29) mEq/L BUN 21 (8-26) mg/dL Creatinine 0.56 L (0.72-1.25) mg/dL Glucose 126 H (70-99) mg/dL Calcium 9.7 (8.6-10.8) mg/dL - Attending Attestation I examined this patient and my medical decision-making was reviewed with the Resident Physician. I agree with the documented findings, disposition and treatment plan as described except to the extent set forth below.
[2016-11-05] MEDS: *HR* FentaNYL PATCH 12 MCG PATCH TD SCH (11:49)
--- NOTE | 2016-11-05 12:44 | Infectious Disease Progress No ---
Date of Encounter: 11/05/16 Time of Encounter: 12:41 - Assessment and Plan (1) Sepsis Current Visit: Yes Status: Resolved The patient had two SIRS criteria on admission. Secondary to perforated viscous. The patient had resolution of leukocytosis and tachycardia 48 hours post-op, but had recurrence of leukocytosis. He continues to afebrile, but has had increased pain and tachycardia over the weekend. Etiology of recurrent/persistent leukocytosis unclear, but less likely infectious etiology. More likely reactive from recent surgical procedure/ infection. WBC has normalized. Intra-operative cultures grew oro-sensitive P. mirabilis and E. coli, as well as anaerobic GPC and anaerobic GNR. Peripheral blood cultures drawn x 2 sets 10/25/16 are negative. Blood cultures drawn from the PICC line 10/25/[address] of the abdomen negative for abscess or leak. Continue Zosyn 3.375 grams IV Q8H. Continue fluconazole 200mg IV daily. Duration of treatment depends on the clinical picture. Monitor renal and liver function and for drug toxicity and dose-adjust antibiotics. Qualifiers: Sepsis type: sepsis due to unspecified organism Qualified Code(s): A41.9 - Sepsis, unspecified organism (2) Perforated viscus Current Visit: Yes Status: Acute CT of the abdomen and pelvis completed 10/18/16 with oral contrast given via the patient's stoma showed segment of colon within the ostomy site extending to the stoma diffusely thickened in appearance with mild inflammatory stranging of the adjacent fat. There was demonstration of extravasation through the left lateral wall compatible with a defect within the wall. Contrast was seen extending into the air collections within the subcutaneous fat noted on the prior CT scan. Stable pneumoperitoneum was also noted and the focal collection on the left side of the abdomen was grossly unchanged in appearance. The patient was taken to the OR 10/18/16 and underwent exploratory lap with takedown of previous colostomy and splenic flexure, left colectomy, RUQ colostomy placement, ABIODUN, and appendectomy by Dr. Valentine. Operative report reviewed. Case discussed with Dr. Valentine. Large amount of bowel contents noted in the abdomen during surgery. Intra-operative cultures grew oro-sensitive E. coli and P. mirabilis and anaerobes. Further management per the surgery team. Antibiotic recommendations as above. (3) Pneumoperitoneum Current Visit: No Status: Acute Secondary to perforated viscous. Management per the surgery team. (4) Abdominal pain Current Visit: No Status: Acute AAS completed 11/02/16 shows a nonspecific bowel gas pattern with air seen scattered within the small bowel loops. The stomach was also noted to appear somewhat distended with air. Patient is status post PEG tube placement yesterday that has been placed to straight drain. A large amount of bile was noted within the collection bag. Patient reports some improvement in his abdominal pain since having the PEG tube placed to straight drain. Pain control as outlined by the primary team. Qualifiers: Abdominal location: generalized Qualified Code(s): R10.84 - Generalized abdominal pain (5) Tongue lesion Current Visit: No Status: Acute MRI of the face concerning for possible metastatic disease. Consider ENT consult for further evaluation. (6) Postoperative anemia Current Visit: Yes Status: Acute Hemoglobin 8.4 this morning. No active bleeding noted on exam. Management per the surgery team. (7) History of rectal cancer Current Visit: No Status: Chronic Diagnosed in 2014. Status post APR with colostomy in 2014. Follows with Dr. Flores at the [facility]. Currently undergoing IV chemotherapy (Irinotecan, Xeloda, Avastin) with last dose given 09/29/16. Hem/Onc consulted and following. (8) Brain metastases Current Visit: No Status: Acute Status post craniotomy with parietal tumor excision 07/2016 at [place]. (9) Lung metastases Current Visit: No Status: Acute Status post robotic left lower lobectomy 11/2015. 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 - Subjective Interval history: Patient seen and examined. No acute events noted overnight. Patient resting quietly in bed with his at the bedside. Patient has been complaining of increased abdominal pain and had some nausea with physical therapy this morning. Denies fevers, chills, or rigors. Denies chest pain or shortness of breath. Continues to report a poor appetite, but he has been NPO since yesterday when he had PEG tube placed. reports a decrease in colostomy output. Denies urinary complaints. Denies oral thrush or skin lesions. Infect Dis PN-Objective Data - Labs CBC & Chem 7: 11/04/16 14:25 11/04/16 14:25 Labs: Laboratory Results - last 24 hr 11/04/16 11/04/16 11/04/16 14:25 14:25 15:32 WBC 9.8 RBC 2.69 L Hgb 8.4 L Hct 26.1 L MCV 97.0 MCH 31.2 MCHC 32.2 RDW 17.2 H Plt Count 542 H MPV 9.6 Immature Gran % 0.6 Seg Neutrophils % 72.8 Lymphocytes % 9.7 Monocytes % 9.2 Eosinophils % 7.0 Basophils % 0.7 Neutrophils # 7.2 Lymphocytes # 1.0 Monocytes # 0.9 Eosinophils # 0.7 H Basophils # 0.1 Sodium 132 L Potassium 4.1 Chloride 100 Carbon Dioxide 26 BUN 18 Creatinine 0.54 L Est GFR ( Amer) > 60 Est GFR (Non-Af Amer) > 60 BUN/Creatinine Ratio 33 H Glucose 111 H POC Glucose 111 H Calculated Osmolality 277 L Calcium 9.9 Magnesium 1.5 L Specimen Rejected 11/04/16 11/05/16 11/05/16 21:02 00:35 03:32 WBC RBC Hgb Hct MCV MCH MCHC RDW Plt Count MPV Immature Gran % Seg Neutrophils % Lymphocytes % Monocytes % Eosinophils % Basophils % Neutrophils # Lymphocytes # Monocytes # Eosinophils # Basophils # Sodium Potassium Chloride Carbon Dioxide BUN Creatinine Est GFR ( Amer) Est GFR (Non-Af Amer) BUN/Creatinine Ratio Glucose POC Glucose 124 H 127 H 121 H Calculated Osmolality Calcium Magnesium Specimen Rejected 11/05/16 11/05/16 11/05/16 07:14 09:28 11:44 WBC RBC Hgb Hct MCV MCH MCHC RDW Plt Count MPV Immature Gran % Seg Neutrophils % Lymphocytes % Monocytes % Eosinophils % Basophils % Neutrophils # Lymphocytes # Monocytes # Eosinophils # Basophils # Sodium Potassium Chloride Carbon Dioxide BUN Creatinine Est GFR ( Amer) Est GFR (Non-Af Amer) BUN/Creatinine Ratio Glucose POC Glucose 114 H 117 H Calculated Osmolality Calcium Magnesium Specimen Rejected Hemolyzed Cultures: Cultures 10/25/16 16:10 Blood Culture - Final Peripheral Central Cath, Picc No growth. 10/25/16 16:08 Blood Culture - Final Peripheral Venipuncture No growth. 10/18/16 01:09 Wound Culture - Final Abdomen Proteus mirabilis Escherichia coli 10/18/16 01:09 Anaerobic Culture - Final Abdomen Anaerobic Gram Negative Heriberto Anaerobic Gram Positive Heriberto Exam - Constitutional Vitals: Temp Pulse Resp BP Pulse Ox 98.6 F 78 16 115/73 96 11/05/16 10:37 11/05/16 10:37 11/05/16 10:37 11/05/16 10:37 11/05/16 10:37 General appearance: average body habitus, cooperative, no acute distress - Head Head exam: Present: atraumatic, normal inspection, normocephalic - Eye Eye exam: Present: EOMI, normal appearance, PERRL Pupils: Present: normal accommodation - ENT ENT exam: Present: mucous membranes moist - Neck Neck exam: Present: normal inspection - Respiratory Respiratory exam: Present: CTAB. Absent: rales, respiratory distress, rhonchi, wheezes - Cardiovascular Cardiovascular exam: Present: RRR, +S1, +S2 - GI/Abdominal GI/Abdominal exam: Present: normal bowel sounds, soft, tenderness (LUQ). Absent : distended Additional comments: Midline abdominal incision with wound VAC sponge well-compressed and dressing intact. Colostomy noted to the RLQ with empty collection bag. VIN drain noted to the LLQ with serous drainage. - Extremities Exam Extremities exam: Present: normal inspection. Absent: joint swelling, pedal edema, tenderness - Neurological Exam Neurological exam: Present: alert, oriented X3, no focal deficits - Psychiatric Psychiatric exam: Present: normal affect, normal mood - Skin Skin exam: Present: dry, intact, normal color, warm - Additional findings Additional findings: PICC line noted to the LUE with transparent dressing C/D/I. - VTE Documentation of Mechanical Device: Intermittent pneumatic compression device Consult Discharge Plan - Plan Referrals: NONE,PCP [Primary Care Provider] -
[2016-11-05] MEDS: *HR* HYDROmorphone (PF) 1 MG/ML SYRINGE IVP PRN ×3 (13:54→23:28)
[2016-11-05 15:36] LABS: BUN/Creatinine Ratio 38 (6-26); Blood Urea Nitrogen 21 mg/dL (8-26); Calcium 9.7 mg/dL (8.6-10.8); Carbon Dioxide 23 mEq/L (19-29); Chloride 105 mEq/L (98-109); Glucose 126 mg/dL (70-99); Magnesium 1.4 mg/dL (1.6-2.6); Osmolality,Calculated 285 (280-300); Sodium 135 mEq/L (136-145); eGFR For African Americans > 60 (> 60); eGFR For Non-African Americans > 60 (> 60)
[2016-11-05] MEDS ORDERED: Clinimix E 5%-15% SOLUTION 2,000 ML with MVI, adult with vitamin K 10 ML IVC SCH (17:00)
[2016-11-05] MEDS: Magnesium Oxide 400 MG TABLET PO SCH (20:58)
[2016-11-06] MEDS: Ketorolac 15 MG/ML VIAL IVP SCH ×4 (01:26→16:53)
[2016-11-06] MEDS: Acetaminophen 325 MG TABLET PO SCH ×4 (01:27→16:53)
[2016-11-06] MEDS: Piperacillin/Tazobactam 3.375 GM in D5% in Water (Mini-Bag+) 100 ML IVPB SCH ×3 (01:27→16:07)
[2016-11-06] MEDS: *HR* Promethazine 25 MG/ML VIAL IVP PRN (03:05)
[2016-11-06] MEDS: *HR* HYDROmorphone (PF) 1 MG/ML SYRINGE IVP PRN ×2 (03:06→06:08)
[2016-11-06] MEDS: *HR* LORazepam 2 MG/ML VIAL IVP PRN (04:25)
[2016-11-06] MEDS: *HR* Heparin 5,000 UNIT/ML VIAL SQ SCH ×3 (04:25→21:14)
[2016-11-06] MEDS: levETIRAcetam 250 MG TABLET PO SCH ×2 (04:27→16:53)
[2016-11-06] MEDS: *HR* OxyCODONE Immed Rel 5 MG TABLET PO PRN (04:27)
[2016-11-06] MEDS: Ipratropium/Albuterol Neb 3 ML IH SCH ×3 (08:20→23:37)
[2016-11-06] MEDS: Fluconazole 200 MG/100 ML 200 MG/100 ML BAG IVPB SCH (09:35)
[2016-11-06] MEDS: Lisinopril 20 MG TABLET PO SCH (09:35)
[2016-11-06] MEDS: Magnesium Oxide 400 MG TABLET PO SCH ×2 (09:35→20:14)
[2016-11-06] MEDS: Isosorbide MONOnitrate (24 HR) 30 MG TAB.ER.24H PO SCH (09:35)
[2016-11-06] MEDS: Fluticasone Propionate Nasal 50 MCG/SPRAY BOTTLE NS SCH (09:41)
--- NOTE | 2016-11-06 10:40 | Oncology Inp Progress Note ---
Date of Encounter: 11/06/16 Time of Encounter: 09:30 (1) 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 Current Visit: No Status: Chronic Assessment and plan: I met with Mr. Romano as well as his today. I reviewed his history and recent hospitalization with him today. He is making a slow recovery from his recent bowel perforation. He is being transitioned to oral antibiotics in the near future tentatively. From my perspective, he will need to be of better performance status and hopefully be able to maintain oral/PEG tube feeds for nutritional support. If he is unable to manage these goals, hospice would be appropriate. This was discussed with the and patient today. They seem resistant to this but I think understand the need for him to be in better shape to even consider further treatment. I think treatment is many weeks away at best. Oncology: Subj Interval history: He had a difficult night last night. He received Ativan, Dilaudid and oxycodone and was confused this morning. However, his pain has markedly improved since placement of his PEG tube. He has bilious output from his PEG tube. There is concern he has underlying PSBO versus ileus. This is being managed conservatively. No fever chills or symptoms of infection. is at bedside and is most concerned about medications he has received. - Constitutional Vitals: Vital Signs Temp Pulse Resp BP Pulse Ox 11/06/16 07:11 96.9 F L 90 15 136/84 95 11/06/16 04:18 97.5 F L 88 17 158/77 93 11/06/16 01:04 97.8 F 91 17 132/83 95 11/05/16 22:58 17 96 11/05/16 19:05 98.0 F 95 16 124/59 94 11/05/16 16:47 16 94 11/05/16 15:02 98.7 F 91 17 124/85 95 Intake and Output 11/06/16 11/06/16 11/06/16 00:59 08:59 16:59 Intake Total 2220 / 2220 350 / 350 0 / 0 Output Total 175 / 175 1950 / 1950 0 / 0 Balance 2044 / 2044 -1600 / -1600 0 / 0 Intake: IV Fluids 2100 / 2100 350 / 350 Clinimix E 5%-15% 2000 / 1999 SOLUTION 2,000 ML @ 83.3 mls/hr IVC .Q24H [facility] with M.v.i. Adult 10 ml Rx#: [id number] Intralipid 20% 250 ML @ 250 / 250 21 mls/hr IVPB DAILY@1700 [facility] Rx#:[id number] Zosyn 3.375 GM In 100 / 100 100 / 100 Dextrose 5% (Minibag+) 100 ML 100 ML @ 25 mls/hr IVPB Q8HR [facility] Rx#: [id number] Oral 120 / 120 0 / 0 0 / 0 Output: Urine 175 / 175 1050 / 1050 Stool 0 / 0 Wound Drainage 900 / 900 0 / 0 Left Upper Abdomen 900 / 900 0 / 0 Other: Meal Dinner Clear Percent of Meal Consumed 0% Weight 50.1 kg Blood Glucose* 122 115 Patient Weight 11/07/16 00:59 Weight 50.1 kg - Head Head exam: Present: atraumatic, normal inspection, normocephalic - Eye Eye exam: Present: normal appearance, conjuntiva pink, sclera anicteric - ENT ENT exam: Present: mucous membranes moist, normal exam, normal oropharynx - Neck Neck exam: Present: full ROM, normal inspection - Respiratory Respiratory exam: Present: decreased breath sounds - Cardiovascular Cardiovascular exam: Present: RRR - GI/Abdominal GI/Abdominal exam: Present: diminished bowel sounds, tenderness Additional comments: Abdominal binder in place. Colostomy bag empty. PEG site C/D/I - Extremities Exam Extremities exam: Present: full ROM, pedal edema - Neurological Exam Neurological exam: Present: alert, CN II-XII intact, no focal deficits Oncology: Obj Data - Labs CBC & Chem 7: 11/04/16 14:25 11/05/16 10:45 Labs: Laboratory Results - last 24 hr 11/05/16 11/05/16 11/05/16 10:45 11:44 16:02 Sodium 135 L Potassium 4.0 Chloride 105 Carbon Dioxide 23 BUN 21 Creatinine 0.56 L Est GFR ( Amer) > 60 Est GFR (Non-Af Amer) > 60 BUN/Creatinine Ratio 38 H Glucose 126 H POC Glucose 117 H 131 H Calculated Osmolality 285 Calcium 9.7 Magnesium 1.4 L 11/05/16 11/06/16 11/06/16 21:21 04:06 07:16 Sodium Potassium Chloride Carbon Dioxide BUN Creatinine Est GFR ( Amer) Est GFR (Non-Af Amer) BUN/Creatinine Ratio Glucose POC Glucose 122 H 106 H 115 H Calculated Osmolality Calcium Magnesium - ABG Interpretation ABG results: PT/INR, D-dimer PT 11.9 Seconds (9.4-12.1) 10/18/16 18:45 Consult Discharge Plan - Plan Referrals: NONE,PCP [Primary Care Provider] -
--- NOTE | 2016-11-06 10:40 | General Surgery Progress Note ---
Date of Encounter: 11/06/16 Time of Encounter: 10:30 - Assessment and Plan (1) S/P colectomy Current Visit: Yes Status: Acute Postoperative day #19 from exploratory laparotomy with sigmoid colectomy, lysis of adhesions, takedown of splenic flexure, relocation of colostomy, appendectomy with Dr. Valentine Peg tube to gravity drain- peg tube placed 11/04/16 Continue clear liquid diet while awaiting resolution of narcotic induced ileus Continue Marinol for appetite stimulant Continue TPN at goal due to poor appetite and ileus IV antibiotics- Zosyn and diflucan (ID following for recommendations) Supportive care and pain control- scheduled tylenol and toradol, fentanyl patch ; oxycodone prn Wound vac therapy- change every MWF Colostomy care daily- change appliance every MWF with wound vac change IS every 1 hour while awake Increase activity as tolerated PPI therapy daily Am labs- RN asked to call lab due to labs not being complete (PICC line does not draw blood) (2) Hypertension Current Visit: No Status: Chronic Stable Continue Lisinopril daily Metoprolol prn Qualifiers: Hypertension type: essential hypertension Qualified Code(s): I10 - Essential (primary) hypertension (3) 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 Current Visit: No Status: Chronic Oncology following and patient would like to continue with aggressive management They are not interested in palliative care or hospice at this time (4) Abdominal pain Current Visit: No Status: Acute Scheduled PO tylenol and toradol, fentanyl patch; oxycodone prn Improved since placement of peg tube Qualifiers: Abdominal location: generalized Qualified Code(s): R10.84 - Generalized abdominal pain (5) Nausea and vomiting Current Visit: Yes Status: Acute Likely due to narcotic induced ileus Markedly improved after peg tube placed Continue peg tube to gravity drain while awaiting return of bowel function May continue clear liquids Qualifiers: Vomiting type: unspecified Vomiting Intractability: non-intractable Qualified Code(s): R11.2 - Nausea with vomiting, unspecified (6) Ileus Current Visit: Yes Status: Acute Continue peg tube to gravity drain while awaiting return of bowel function May continue clear liquids (7) DVT prophylaxis Current Visit: No Status: Acute Heparin 5000 units subcutaneous TID for DVT prophylaxis Subjective Patient reports: voiding w/o difficulty, no flatus, bowel movement (small amount of liquid brown stool noted in colostomy bag), afebrile, other (Patient with episode of agitation and confusion over night after being give Ativan and Dilaudid per nursing staff. reports that he is slowly improving and has been out of bed to chair this morning.) Objective Vital Signs - Last 8 Hours Temp Pulse Resp BP Pulse Ox 11/06/16 07:11 96.9 F L 90 15 136/84 95 11/06/16 04:18 97.5 F L 88 17 158/77 93 Intake and Output 11/05/16 11/06/16 11/06/16 23:59 07:59 15:59 Intake Total 2220 / 2220 350 / 350 0 / 0 Output Total 175 / 175 1650 / 1650 300 / 300 Balance 2045 / 5 -1300 / -1300 -300 / -300 Intake: IV Fluids 2099 / 2100 350 / 350 Clinimix E 5%-15% 2000 / 1999 SOLUTION 2,000 ML @ 83.3 mls/hr IVC .Q24H [facility] with M.v.i. Adult 10 ml Rx#: [id number] Intralipid 20% 250 ML @ 250 / 250 21 mls/hr IVPB DAILY@1700 [facility] Rx#:[id number] Zosyn 3.375 GM In 100 / 100 100 / 100 Dextrose 5% (Minibag+) 100 ML 100 ML @ 25 mls/hr IVPB Q8HR [facility] Rx#: [id number] Oral 120 / 120 0 / 0 0 / 0 Output: Urine 175 / 175 750 / 750 300 / 300 Stool 0 / 0 Wound Drainage 900 / 900 0 / 0 Left Upper Abdomen 900 / 900 0 / 0 Other: Meal Dinner Clear Percent of Meal Consumed 0% Weight 50.1 kg Blood Glucose* 122 115 Patient Weight 11/06/16 23:59 Weight 50.1 kg - General physical appearance well developed, well nourished, no distress, chronically ill, other (resting comfortably) - Eyes PERRL, normal ocular movement - ENT normal mucosa, atraumatic, normocephalic - Neck Neck exam: trachea midline - Respiratory normal respiratory effort, clear to auscultation, other (diminished bibasilar bases) - Cardiovascular Cardiovascular exam: Present: RRR - Abdomen Abdomen: Present: bowel sounds present (hypoactive), soft, tender (minimal tenderness with examination (improving)), wound (Wound vac intact to midline and old ostomy site with scant amount of serous drainage noted; colostomy with small amount of soft, brown stool noted without flatus) - Neurologic CN 2-12 grossly intact - Musculoskeletal other (severe deconditioning noted) - Psychiatric oriented to person, oriented to place, speech is normal - Labs 11/04/16 14:25 11/05/16 10:45 Diabetes panel 11/05/16 Range/Units 10:45 Sodium 135 L (136-145) mEq/L Potassium 4.0 (3.5-4.5) mEq/L Chloride 105 (98-109) mEq/L Carbon Dioxide 23 (19-29) mEq/L BUN 21 (8-26) mg/dL Creatinine 0.56 L (0.72-1.25) mg/dL Glucose 126 H (70-99) mg/dL Calcium 9.7 (8.6-10.8) mg/dL Calcium panel 11/05/16 Range/Units 10:45 Calcium 9.7 (8.6-10.8) mg/dL Pituitary panel 11/05/16 Range/Units 10:45 Sodium 135 L (136-145) mEq/L Potassium 4.0 (3.5-4.5) mEq/L Chloride 105 (98-109) mEq/L Carbon Dioxide 23 (19-29) mEq/L BUN 21 (8-26) mg/dL Creatinine 0.56 L (0.72-1.25) mg/dL Glucose 126 H (70-99) mg/dL Calcium 9.7 (8.6-10.8) mg/dL Adrenal panel 11/05/16 Range/Units 10:45 Sodium 135 L (136-145) mEq/L Potassium 4.0 (3.5-4.5) mEq/L Chloride 105 (98-109) mEq/L Carbon Dioxide 23 (19-29) mEq/L BUN 21 (8-26) mg/dL Creatinine 0.56 L (0.72-1.25) mg/dL Glucose 126 H (70-99) mg/dL Calcium 9.7 (8.6-10.8) mg/dL - VTE Documentation of Mechanical Device: Intermittent pneumatic compression device Consult Discharge Plan - Plan Referrals: NONE,PCP [Primary Care Provider] -
[2016-11-06 11:23] LABS: Basophils # 0.1 K/mcL (0.0-0.2); Basophils % 0.9 %; Eosinophils # 0.8 K/mcL (0.0-0.6); Eosinophils % 10.6 %; Hematocrit 25.7 % (37.5-50.1); Hemoglobin 8.4 g/dL (12.9-16.9); Immature Granulocytes % 0.9 % (0-4); Lymphocytes # 0.7 K/mcL (0.6-4.6); Lymphocytes % 9.4 %; Mean Corpuscular HGB Conc 32.7 g/dL (31.6-35.5); Mean Corpuscular Hemoglobin 31.2 pg (28.0-33.3); Mean Corpuscular Volume 95.5 fL (83.0-100.0); Mean Platelet Volume 9.4 fL (9.4-12.4); Monocytes # 0.8 K/mcL (0.0-1.3); Monocytes % 10.4 %; Neutrophils # 5.1 K/mcL (1.6-8.9); Platelet Count 444 K/mcL (140-400); Red Blood Count 2.69 M/mcL (4.19-5.50); Red Cell Distribution Width 16.9 % (11.5-14.5); Segmented Neutrophils % 67.8 %
[2016-11-06 11:31] LABS: BUN/Creatinine Ratio 39 (6-26); Blood Urea Nitrogen 22 mg/dL (8-26); Calcium 10.1 mg/dL (8.6-10.8); Carbon Dioxide 26 mEq/L (19-29); Chloride 105 mEq/L (98-109); Glucose 113 mg/dL (70-99); Magnesium 1.6 mg/dL (1.6-2.6); Osmolality,Calculated 286 (280-300); Sodium 136 mEq/L (136-145); eGFR For African Americans > 60 (> 60); eGFR For Non-African Americans > 60 (> 60)
[2016-11-06 11:32] LABS: Potassium 3.9 mEq/L (3.5-4.5)
[2016-11-06] MEDS: Ondansetron 4 MG/2 ML VIAL IVP PRN (12:07)
[2016-11-06] MEDS: *HR* LORazepam 0.5 MG TABLET PO PRN ×2 (12:10→20:14)
[2016-11-06] MEDS ORDERED: Clinimix E 5%-15% SOLUTION 2,000 ML with MVI, adult with vitamin K 10 ML IVC SCH (17:00)
[2016-11-06] MEDS: Scopolamine Patch 1.5 MG PATCH.TD72 TD SCH (19:02)
[2016-11-07] MEDS: *HR* LORazepam 0.5 MG TABLET PO PRN ×4 (00:19→22:56)
[2016-11-07] MEDS: Piperacillin/Tazobactam 3.375 GM in D5% in Water (Mini-Bag+) 100 ML IVPB SCH ×3 (00:19→17:01)
[2016-11-07] MEDS: Ketorolac 15 MG/ML VIAL IVP SCH ×3 (00:19→12:41)
[2016-11-07] MEDS: Acetaminophen 325 MG TABLET PO SCH ×4 (00:19→17:03)
[2016-11-07] MEDS: *HR* Heparin 5,000 UNIT/ML VIAL SQ SCH ×3 (06:17→21:11)
[2016-11-07] MEDS: levETIRAcetam 250 MG TABLET PO SCH ×2 (06:18→17:03)
[2016-11-07] MEDS: Ipratropium/Albuterol Neb 3 ML IH SCH ×3 (08:27→22:27)
[2016-11-07] MEDS: Lisinopril 20 MG TABLET PO SCH (09:25)
[2016-11-07] MEDS: Fluconazole 200 MG/100 ML 200 MG/100 ML BAG IVPB SCH (09:25)
[2016-11-07] MEDS: Isosorbide MONOnitrate (24 HR) 30 MG TAB.ER.24H PO SCH (09:25)
[2016-11-07] MEDS: Magnesium Oxide 400 MG TABLET PO SCH ×2 (09:25→21:05)
[2016-11-07] MEDS: Fluticasone Propionate Nasal 50 MCG/SPRAY BOTTLE NS SCH (09:27)
--- NOTE | 2016-11-07 12:31 | General Surgery Progress Note ---
Date of Encounter: 11/07/16 Time of Encounter: 09:20 - Assessment and Plan (1) S/P colectomy Current Visit: Yes Status: Acute Post-surgical day #20 exploratory laparotomy with sigmoid colectomy, lysis of adhesions, takedown of splenic flexture, relocation of colostomy, appendectomy by Dr. Valentine. Patient is chronically ill and overall health is poor. He continues to have poor appetite. His nausea and abdominal is improved with PEG tube placement. Peg tube was placed on 11/04/16. Continue Peg tube to gravity drain while awaiting return of bowel function. Continue him on clear liquid diet and Marinol to stimulate his appetite. Continue TPN due to low caloric intake and ileus. The patient has no signs of infection. Continue Zosyn Day #14 Supportive and pain care. Continue Wound vac therapy. Colostomy care daily - change every MWF with wound vac change. Encourage IS every hour. Ambulate with assistance as tolerated. PPI therapy. The patient had better rest yesterday. Continue order to not disturb him from 10pm to 6am unless necessary. (2) Hypertension Current Visit: No Status: Chronic Continue current blood pressure medications Qualifiers: Hypertension type: essential hypertension Qualified Code(s): I10 - Essential (primary) hypertension (3) 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 Current Visit: No Status: Chronic Oncology is on board and spoke with patient and his . The patient is still not interested in palliative care or hospice. Plan per oncology team (4) DVT prophylaxis Current Visit: No Status: Acute Heparin 5000 units SQ Q8h for DVT prophylaxis Subjective Patient reports: no new complaints, voiding w/o difficulty, flatus, bowel movement (via stoma), afebrile, other (Patient rested better yesterday night) Objective Vital Signs - Last 8 Hours Temp Pulse Resp BP Pulse Ox 11/07/16 10:28 98.4 F 89 15 127/78 96 11/07/16 08:27 16 99 11/07/16 07:29 97.6 F 91 15 154/85 96 Intake and Output 11/06/16 11/07/16 11/07/16 23:59 07:59 15:59 Intake Total 850 / 850 350 / 350 100 / 100 Output Total 175 / 175 1230 / 1230 930 / 930 Balance 675 / 675 -880 / -880 -830 / -830 Intake: IV Fluids 200 / 200 350 / 350 100 / 100 Intralipid 20% 250 ML @ 250 / 250 21 mls/hr IVPB DAILY@1700 [facility] Rx#:[id number] Diflucan Premix 200 MG/ 100 / 100 100 / 100 100 ML 200 mg In 100 ml @ 100 mls/hr IVPB DAILY [facility] Rx#:[id number] Zosyn 3.375 GM In 100 / 100 100 / 100 Dextrose 5% (Minibag+) 100 ML 100 ML @ 25 mls/hr IVPB Q8HR [facility] Rx#: [id number] Oral 650 / 650 Output: Urine 175 / 175 750 / 750 450 / 450 Stool 0 / 0 0 / 0 Wound Drainage 480 / 480 480 / 480 LUQ Peg Tube 450 / 450 450 / 450 Medial Abdomen 30 / 30 30 / 30 Other: Weight 50.077 kg Blood Glucose* 114 121 113 Patient Weight 11/07/16 23:59 Weight 50.077 kg - General physical appearance well developed, well nourished, no distress, cachectic, chronically ill - Eyes normal ocular movement - ENT atraumatic, normocephalic, CN 2-12 grossly intact - Neck Neck exam: trachea midline - Respiratory normal expansion, normal respiratory effort, clear to auscultation - Cardiovascular Cardiovascular exam: Present: RRR, no murmurs/rubs/gallops - Abdomen Abdomen: Present: bowel sounds present, soft, non tender, wound (Colostomy bag with brown stool and small amount of flatus. Wound vac intact to midline with minimal drainage. ) - Labs 11/06/16 11:09 11/06/16 11:09 - VTE Documentation of Mechanical Device: Intermittent pneumatic compression device Consult Discharge Plan - Plan Referrals: NONE,PCP [Primary Care Provider] -
[2016-11-07] MEDS ORDERED: Clinimix E 5%-15% SOLUTION 2,000 ML with MVI, adult with vitamin K 10 ML IVC SCH (17:00)
[2016-11-07] MEDS: Ondansetron 4 MG/2 ML VIAL IVP PRN (21:04)
[2016-11-07 22:29] LABS: INR 1.2; Prothrombin Time 13.3 Seconds (9.4-12.1)
[2016-11-08] MEDS: Piperacillin/Tazobactam 3.375 GM in D5% in Water (Mini-Bag+) 100 ML IVPB SCH (00:12)
[2016-11-08] MEDS: Acetaminophen 325 MG TABLET PO SCH ×5 (00:12→23:31)
[2016-11-08] MEDS: *HR* OxyCODONE Immed Rel 5 MG TABLET PO PRN ×3 (00:22→14:23)
[2016-11-08 05:26] LABS: Magnesium 1.4 mg/dL (1.6-2.6)
[2016-11-08] MEDS: levETIRAcetam 250 MG TABLET PO SCH ×2 (05:38→16:53)
[2016-11-08] MEDS: *HR* Heparin 5,000 UNIT/ML VIAL SQ SCH ×3 (05:43→21:54)
[2016-11-08] MEDS: Ipratropium/Albuterol Neb 3 ML IH SCH ×3 (07:05→23:16)
--- NOTE | 2016-11-08 07:51 | General Surgery Progress Note ---
<Carroll Veloz - Last Filed: 11/08/16 16:36> Date of Encounter: 11/08/16 Time of Encounter: 07:00 - Assessment and Plan (1) S/P colectomy Current Visit: Yes Status: Acute POD #21 sigmoid colectomy, lysis of adhesions, takedown of splenic flexure, colostomy relocation, and appendectomy 10/18/[address] Valentine While still having occasional nausea, it has improved since PEG placement. No vomiting. PEG tube set to gravity On clear liquids currently, can consider advancing to fulls. Continue TPN Appetite continues to be poor. Continue marinol on Zosyn day 15, no signs of infection currently Restarting on clears since PEG placement yesterday PEG set to gravity Continue wound vac changes MWF Wound vac changed today - good amounts of granulation tissue, patient tolerated procedure well Continue increntive spirometry hourly and OOB as tolerated Continue supportive care and pain management avoid coadministration of ativan and opioid medications given patient reaction - at least 1 hr between doses (2) Abdominal pain Current Visit: No Status: Acute See plan of care above Qualifiers: Abdominal location: generalized Qualified Code(s): R10.84 - Generalized abdominal pain (3) Ileus Current Visit: Yes Status: Acute Output still small through stoma Limit use opioid pain medication (4) Hypertension Current Visit: No Status: Chronic Continue daily medications Qualifiers: Hypertension type: essential hypertension Qualified Code(s): I10 - Essential (primary) hypertension (5) 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 Current Visit: No Status: Chronic Per oncology (6) DVT prophylaxis Current Visit: No Status: Acute Continue heparin subq Subjective Patient reports: no new complaints, still having pain, pain is less, voiding w/ o difficulty, flatus, bowel movement (small output into the colostomy bag), nausea, afebrile Objective Vital Signs - Last 8 Hours Temp Pulse Resp BP Pulse Ox 11/08/16 07:05 16 94 11/08/16 06:57 97.0 F L 80 17 150/86 94 Intake and Output 11/07/16 11/07/16 11/08/16 15:59 23:59 07:59 Intake Total 200 / 200 100 / 100 250 / 250 Output Total 1380 / 1380 625 / 625 550 / 550 Balance -1180 / -1180 -525 / -525 -300 / -300 Intake: IV Fluids 200 / 200 100 / 100 250 / 250 Intralipid 20% 250 ML @ 250 / 250 21 mls/hr IVPB DAILY@1700 [facility] Rx#:[id number] Diflucan Premix 200 MG/ 100 / 100 100 ML 200 mg In 100 ml @ 100 mls/hr IVPB DAILY [facility] Rx#:[id number] Zosyn 3.375 GM In 100 / 100 100 / 100 Dextrose 5% (Minibag+) 100 ML 100 ML @ 25 mls/hr IVPB Q8HR [facility] Rx#: [id number] Oral 0 / 0 0 / 0 Output: Urine 850 / 850 300 / 300 300 / 300 Stool 0 / 0 0 / 0 Wound Drainage 530 / 530 325 / 325 250 / 250 LUQ Peg Tube 500 / 500 325 / 325 250 / 250 Medial Abdomen 30 / 30 Other: Meal Dinner Percent of Meal Consumed 0% Weight 50.1 kg Blood Glucose* 113 115 122 Patient Weight 11/08/16 23:59 Weight 50.1 kg - General physical appearance well developed, well nourished, no distress - Eyes normal ocular movement - ENT atraumatic, normocephalic - Neck Neck exam: trachea midline - Respiratory normal expansion, normal respiratory effort, clear to auscultation - Cardiovascular Cardiovascular exam: Present: RRR - Abdomen Abdomen: Present: bowel sounds present, soft, non tender - Musculoskeletal normal posture - Psychiatric speech is normal - Labs 11/06/16 11:09 11/08/16 05:04 - VTE Documentation of Mechanical Device: Intermittent pneumatic compression device Consult Discharge Plan - Plan Referrals: NONE,PCP [Primary Care Provider] - <Loly Valentine - Last Filed: 11/09/16 08:30> Date of Encounter: 11/08/16 Time of Encounter: 17:25 - Assessment and Plan (1) Abdominal pain Current Visit: No Status: Acute fentanyl patch and prn pain control Qualifiers: Abdominal location: generalized Qualified Code(s): R10.84 - Generalized abdominal pain (2) Hypertension Current Visit: No Status: Chronic Qualifiers: Hypertension type: essential hypertension Qualified Code(s): I10 - Essential (primary) hypertension (3) DVT prophylaxis Current Visit: No Status: Acute (4) 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 Current Visit: No Status: Chronic (5) S/P colectomy Current Visit: Yes Status: Acute patient with continued flatus but no bm for last few days, intermittent nausea but nothing like previously continue clears as he can tolerate peg to denise, may try to clamp tomorrow wound vac changes M, W, F aggressive pulmonary toilet, continue PT/OT TPN until adaquate po or tube feeds (6) Protein-calorie malnutrition, severe Current Visit: Yes Status: Acute continue TPN (7) Nausea and vomiting Current Visit: Yes Status: Acute prn antiemetics Qualifiers: Vomiting type: unspecified Vomiting Intractability: non-intractable Qualified Code(s): R11.2 - Nausea with vomiting, unspecified Subjective Patient reports: pain is less, voiding w/o difficulty, flatus, no bowel movement Objective Vital Signs - Last 8 Hours Temp Pulse Resp BP Pulse Ox 11/09/16 07:11 98.6 F 93 18 134/80 93 11/09/16 04:41 97.5 F L 98 18 156/95 93 Intake and Output 11/08/16 11/09/16 11/09/16 23:59 07:59 15:59 Intake Total 2744 / 2744 250 / 250 Output Total 975 / 975 300 / 300 Balance 1769 / 1769 -50 / -50 Intake: IV Fluids 1943 250 / 250 Clinimix E 5%-15% 1943 / 1943 SOLUTION 2,000 ML @ 83.3 mls/hr IVC .Q24H [facility] with M.v.i. Adult 10 ml Rx#: [id number] Intralipid 20% 250 ML @ 250 / 250 21 mls/hr IVPB DAILY@1700 [facility] Rx#:[id number] Oral 800 / 800 0 / 0 Output: Urine 600 / 600 300 / 300 Stool 0 / 0 Wound Drainage 375 / 375 0 / 0 LUQ Peg Tube 375 / 375 0 / 0 Lower Medial Abdomen 0 / 0 0 / 0 Medial Abdomen 0 / 0 0 / 0 Other: Weight 50.332 kg Blood Glucose* 133 127 Patient Weight 11/09/16 23:59 Weight 50.332 kg - General physical appearance well developed, no distress - Eyes PERRL, normal ocular movement - ENT dry mucosa, atraumatic, normocephalic - Neck Neck exam: trachea midline - Respiratory normal expansion, clear to auscultation - Cardiovascular Cardiovascular exam: Present: RRR - Abdomen Abdomen: Present: bowel sounds present, soft, tender (minimal, near wound vac) - Integumentary no rash, no growths - Neurologic normal sensation - Musculoskeletal normal posture - Psychiatric oriented to time, oriented to person, oriented to place, speech is normal, memory intact - Labs 11/06/16 11:09 11/08/16 05:04 Diabetes panel 11/08/16 Range/Units 05:04 Sodium 133 L (136-145) mEq/L Potassium 3.9 (3.5-4.5) mEq/L Chloride 102 (98-109) mEq/L Carbon Dioxide 23 (19-29) mEq/L BUN 22 (8-26) mg/dL Creatinine 0.61 L (0.72-1.25) mg/dL Glucose 109 H (70-99) mg/dL Calcium 10.0 (8.6-10.8) mg/dL Calcium panel 11/08/16 Range/Units 05:04 Calcium 10.0 (8.6-10.8) mg/dL Pituitary panel 11/08/16 Range/Units 05:04 Sodium 133 L (136-145) mEq/L Potassium 3.9 (3.5-4.5) mEq/L Chloride 102 (98-109) mEq/L Carbon Dioxide 23 (19-29) mEq/L BUN 22 (8-26) mg/dL Creatinine 0.61 L (0.72-1.25) mg/dL Glucose 109 H (70-99) mg/dL Calcium 10.0 (8.6-10.8) mg/dL Adrenal panel 11/08/16 Range/Units 05:04 Sodium 133 L (136-145) mEq/L Potassium 3.9 (3.5-4.5) mEq/L Chloride 102 (98-109) mEq/L Carbon Dioxide 23 (19-29) mEq/L BUN 22 (8-26) mg/dL Creatinine 0.61 L (0.72-1.25) mg/dL Glucose 109 H (70-99) mg/dL Calcium 10.0 (8.6-10.8) mg/dL - Attending Attestation I examined this patient and my medical decision-making was reviewed with the Resident Physician. I agree with the documented findings, disposition and treatment plan as described except to the extent set forth below.
[2016-11-08 08:37] LABS: BUN/Creatinine Ratio 36 (6-26); Blood Urea Nitrogen 22 mg/dL (8-26); Carbon Dioxide 23 mEq/L (19-29); Chloride 102 mEq/L (98-109); Glucose 109 mg/dL (70-99); Osmolality,Calculated 280 (280-300); Potassium 3.9 mEq/L (3.5-4.5); Sodium 133 mEq/L (136-145); eGFR For African Americans > 60 (> 60); eGFR For Non-African Americans > 60 (> 60)
[2016-11-08] MEDS: Fluticasone Propionate Nasal 50 MCG/SPRAY BOTTLE NS SCH (09:57)
[2016-11-08] MEDS: Lisinopril 20 MG TABLET PO SCH (09:58)
[2016-11-08] MEDS: Isosorbide MONOnitrate (24 HR) 30 MG TAB.ER.24H PO SCH (09:58)
--- NOTE | 2016-11-08 11:36 | Infectious Disease Progress No ---
Date of Encounter: 11/08/16 Time of Encounter: 11:34 - Assessment and Plan (1) Sepsis Current Visit: Yes Status: Resolved The patient had two SIRS criteria on admission. Secondary to perforated viscous. The patient had resolution of leukocytosis and tachycardia 48 hours post-op, but had recurrence of leukocytosis. He continues to afebrile, but has had increased pain and tachycardia over the weekend. Etiology of recurrent/persistent leukocytosis unclear, but less likely infectious etiology. More likely reactive from recent surgical procedure/ infection. WBC has normalized. Intra-operative cultures grew oro-sensitive P. mirabilis and E. coli, as well as anaerobic GPC and anaerobic GNR. Peripheral blood cultures drawn x 2 sets 10/25/16 are negative. Blood cultures drawn from the PICC line 10/25/[address] of the abdomen negative for abscess or leak. Antibiotics and antifungals discontinued by the surgery team. No further recommendations from the ID team. Will sign off. Please re-consult if needed. Qualifiers: Sepsis type: sepsis due to unspecified organism Qualified Code(s): A41.9 - Sepsis, unspecified organism (2) Perforated viscus Current Visit: Yes Status: Acute CT of the abdomen and pelvis completed 10/18/16 with oral contrast given via the patient's stoma showed segment of colon within the ostomy site extending to the stoma diffusely thickened in appearance with mild inflammatory stranging of the adjacent fat. There was demonstration of extravasation through the left lateral wall compatible with a defect within the wall. Contrast was seen extending into the air collections within the subcutaneous fat noted on the prior CT scan. Stable pneumoperitoneum was also noted and the focal collection on the left side of the abdomen was grossly unchanged in appearance. The patient was taken to the OR 10/18/16 and underwent exploratory lap with takedown of previous colostomy and splenic flexure, left colectomy, RUQ colostomy placement, ABIODUN, and appendectomy by Dr. Valentine. Operative report reviewed. Case discussed with Dr. Valentine. Large amount of bowel contents noted in the abdomen during surgery. Intra-operative cultures grew oro-sensitive E. coli and P. mirabilis and anaerobes. Further management per the surgery team. (3) Pneumoperitoneum Current Visit: No Status: Acute Secondary to perforated viscous. Management per the surgery team. (4) Abdominal pain Current Visit: No Status: Acute AAS completed 11/02/16 shows a nonspecific bowel gas pattern with air seen scattered within the small bowel loops. The stomach was also noted to appear somewhat distended with air. Patient is status post PEG tube placement yesterday that has been placed to straight drain. A large amount of bile was noted within the collection bag. Patient reports some improvement in his abdominal pain since having the PEG tube placed to straight drain. Pain control as outlined by the primary team. Qualifiers: Abdominal location: generalized Qualified Code(s): R10.84 - Generalized abdominal pain (5) Tongue lesion Current Visit: No Status: Acute MRI of the face concerning for possible metastatic disease. Consider ENT consult for further evaluation. (6) Postoperative anemia Current Visit: Yes Status: Acute Hemoglobin stable. No active bleeding noted on exam. Management per the surgery team. (7) History of rectal cancer Current Visit: No Status: Chronic Diagnosed in 2014. Status post APR with colostomy in 2014. Follows with Dr. Flores at the [facility]. Currently undergoing IV chemotherapy (Irinotecan, Xeloda, Avastin) with last dose given 09/29/16. Hem/Onc consulted and following. (8) Brain metastases Current Visit: No Status: Acute Status post craniotomy with parietal tumor excision 07/2016 at [place]. (9) Lung metastases Current Visit: No Status: Acute Status post robotic left lower lobectomy 11/2015. 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 - Subjective Interval history: Patient seen and examined. Weekend notes reviewed. No acute events noted overnight. Patient sitting up on the side of the bed. States he took two walks this morning. Patient states abdominal pain is improved. Denies fevers, chills , or rigors. Denies chest pain or shortness of breath. Continues to report a poor appetite. Complains of nausea, but no vomiting. Denies urinary complaints. Denies oral thrush or skin lesions. Infect Dis PN-Objective Data - Labs CBC & Chem 7: 11/06/16 11:09 11/08/16 05:04 Labs: Laboratory Results - last 24 hr 11/07/16 11/07/16 11/07/16 11:18 15:43 19:45 PT INR Sodium Potassium Chloride Carbon Dioxide BUN Creatinine Est GFR ( Amer) Est GFR (Non-Af Amer) BUN/Creatinine Ratio Glucose POC Glucose 113 H 114 H 113 H Calculated Osmolality Calcium Magnesium 11/07/16 11/07/16 11/08/16 22:14 22:59 05:04 PT 13.3 H INR 1.2 Sodium 133 L Potassium 3.9 Chloride 102 Carbon Dioxide 23 BUN 22 Creatinine 0.61 L Est GFR ( Amer) > 60 Est GFR (Non-Af Amer) > 60 BUN/Creatinine Ratio 36 H Glucose 109 H POC Glucose 115 H Calculated Osmolality 280 Calcium 10.0 Magnesium 1.4 L Cultures: Cultures 10/25/16 16:10 Blood Culture - Final Peripheral Central Cath, Picc No growth. 10/25/16 16:08 Blood Culture - Final Peripheral Venipuncture No growth. 10/18/16 01:09 Wound Culture - Final Abdomen Proteus mirabilis Escherichia coli 10/18/16 01:09 Anaerobic Culture - Final Abdomen Anaerobic Gram Negative Heriberto Anaerobic Gram Positive Heriberto Exam - Constitutional Vitals: Temp Pulse Resp BP Pulse Ox 97.0 F L 80 16 150/86 94 11/08/16 06:57 11/08/16 06:57 11/08/16 07:05 11/08/16 06:57 11/08/16 07:05 General appearance: average body habitus, cooperative, no acute distress - Head Head exam: Present: atraumatic, normal inspection, normocephalic - Eye Eye exam: Present: EOMI, normal appearance, PERRL Pupils: Present: normal accommodation - ENT ENT exam: Present: mucous membranes moist - Neck Neck exam: Present: normal inspection - Respiratory Respiratory exam: Present: CTAB. Absent: rales, respiratory distress, rhonchi, wheezes - Cardiovascular Cardiovascular exam: Present: RRR, +S1, +S2 - GI/Abdominal GI/Abdominal exam: Present: normal bowel sounds, soft, tenderness (generalized) . Absent: distended Additional comments: Midline abdominal incision with wound VAC intact and sponge well-compressed. Colostomy noted to the RLQ with moderate amount of brown liquid stool. PEG tube noted to the LUQ, currently to straight drain. - Extremities Exam Extremities exam: Present: normal inspection. Absent: joint swelling, pedal edema, tenderness - Neurological Exam Neurological exam: Present: alert, oriented X3, no focal deficits - Psychiatric Psychiatric exam: Present: normal affect, normal mood - Skin Skin exam: Present: dry, intact, normal color, warm - Additional findings Additional findings: PICC line noted to the LUE with transparent dressing C/D/I. - VTE Documentation of Mechanical Device: Intermittent pneumatic compression device Consult Discharge Plan - Plan Referrals: NONE,PCP [Primary Care Provider] -
[2016-11-08] MEDS: *HR* LORazepam 0.5 MG TABLET PO PRN ×3 (11:46→23:32)
[2016-11-08] MEDS: *HR* FentaNYL PATCH 12 MCG PATCH TD SCH (11:47)
[2016-11-08] MEDS: Saline Nasal Spray 44 ML BOTTLE NS PRN (14:29)
[2016-11-08] MEDS: Clinimix E 5%-20% SOLUTION 2,000 ML with MVI, adult with vitamin K 10 ML, Magnesium S... IVC SCH (16:44)
[2016-11-08] MEDS: 0.9 % Sodium Chloride 1,000 ML IVC SCH (19:52)
[2016-11-08] MEDS: Ketorolac 15 MG/ML VIAL IVP PRN (20:13)
[2016-11-09] MEDS: Acetaminophen 325 MG TABLET PO SCH ×3 (06:24→17:16)
[2016-11-09] MEDS: levETIRAcetam 250 MG TABLET PO SCH ×2 (06:24→17:16)
[2016-11-09] MEDS: *HR* Heparin 5,000 UNIT/ML VIAL SQ SCH ×3 (06:24→21:32)
[2016-11-09] MEDS: *HR* LORazepam 0.5 MG TABLET PO PRN (06:30)
[2016-11-09] MEDS: Ipratropium/Albuterol Neb 3 ML IH SCH ×3 (07:59→22:28)
[2016-11-09] MEDS: Ondansetron 4 MG/2 ML VIAL IVP PRN (08:05)
[2016-11-09] MEDS: Isosorbide MONOnitrate (24 HR) 30 MG TAB.ER.24H PO SCH (08:05)
[2016-11-09] MEDS: Lisinopril 20 MG TABLET PO SCH (08:05)
[2016-11-09] MEDS: Fluticasone Propionate Nasal 50 MCG/SPRAY BOTTLE NS SCH (08:06)
[2016-11-09 08:28] LABS: Magnesium 1.6 mg/dL (1.6-2.6); Phosphorous 2.9 mg/dL (2.3-4.7)
--- NOTE | 2016-11-09 09:08 | General Surgery Progress Note ---
<Carroll Veloz - Last Filed: 11/09/16 16:02> Date of Encounter: 11/09/16 Time of Encounter: 08:00 - Assessment and Plan (1) S/P colectomy Current Visit: Yes Status: Acute POD #22 sigmoid colectomy, lysis of adhesions, takedown of splenic flexure, colostomy relocation, and appendectomy 10/18/[address] Valentine Still having nausea, no vomiting. Patient still not having BMs, but is passing flatus. Restarted colace and miralax If patient does not improve by Tuesday, we will consider bringing palliative care onboard to try to discuss options with family PEG tube clamped, we will see if he tolerates full liquids Continue TPN until adequate oral intake Appetite continues to be poor. Continue marinol Continue wound vac changes MWF Continue increntive spirometry hourly and OOB as tolerated Continue supportive care and pain management avoid coadministration of ativan and opioid medications given patient reaction - at least 1 hr between doses (2) Abdominal pain Current Visit: No Status: Acute See plan of care above Qualifiers: Abdominal location: generalized Qualified Code(s): R10.84 - Generalized abdominal pain (3) Ileus Current Visit: Yes Status: Acute Limit use opioid pain medication Restarted colace and miralax (4) Hypertension Current Visit: No Status: Chronic Continue daily medications Qualifiers: Hypertension type: essential hypertension Qualified Code(s): I10 - Essential (primary) hypertension (5) 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 Current Visit: No Status: Chronic Managed per oncology (6) DVT prophylaxis Current Visit: No Status: Acute Continue heparin subq (7) Nausea and vomiting Current Visit: Yes Status: Acute Continue prn antiemetics Qualifiers: Vomiting type: unspecified Vomiting Intractability: non-intractable Qualified Code(s): R11.2 - Nausea with vomiting, unspecified (8) Protein-calorie malnutrition, severe Current Visit: Yes Status: Acute Continue TPN until adequate oral intake Subjective Patient reports: no new complaints, pain is less, voiding w/o difficulty, no bowel movement, afebrile Narrative: Patient ate most of a grilled cheese last night without nausea or other complaint. Patient's reports less output from PEG since yesterday. Patient has been taking less pain and anxiety medication. Objective Vital Signs - Last 8 Hours Temp Pulse Resp BP Pulse Ox 11/09/16 07:11 98.6 F 93 18 134/80 93 11/09/16 04:41 97.5 F L 98 18 156/95 93 Intake and Output 11/08/16 11/09/16 11/09/16 23:59 07:59 15:59 Intake Total 2744 / 2744 250 / 250 Output Total 975 / 975 300 / 300 Balance 1769 / 1769 -50 / -50 Intake: IV Fluids 1943 250 / 250 Clinimix E 5%-15% 1943 SOLUTION 2,000 ML @ 83.3 mls/hr IVC .Q24H EMILY with M.v.i. Adult 10 ml Rx#: [id number] Intralipid 20% 250 ML @ 250 / 250 21 mls/hr IVPB DAILY@1700 EMILY Rx#:[id number] Oral 800 / 800 0 / 0 Output: Urine 600 / 600 300 / 300 Stool 0 / 0 Wound Drainage 375 / 375 0 / 0 LUQ Peg Tube 375 / 375 0 / 0 Lower Medial Abdomen 0 / 0 0 / 0 Medial Abdomen 0 / 0 0 / 0 Other: Weight 50.332 kg Blood Glucose* 133 127 Patient Weight 11/09/16 23:59 Weight 50.332 kg - General physical appearance well developed, well nourished, no distress, chronically ill - Eyes normal ocular movement - ENT atraumatic, normocephalic - Neck Neck exam: trachea midline - Respiratory normal expansion, normal respiratory effort, clear to auscultation - Cardiovascular Cardiovascular exam: Present: RRR - Abdomen Abdomen: Present: bowel sounds present (hypoactive), soft, non tender - Incision Incision: Present: draining (little), serosanguinous - Musculoskeletal normal posture - Psychiatric speech is normal - Labs 11/06/16 11:09 11/08/16 05:04 Diabetes panel 11/09/16 Range/Units 07:59 Triglycerides 83 (< 150) mg/dL Calcium panel 11/09/16 Range/Units 07:59 Phosphorus 2.9 (2.3-4.7) mg/dL - VTE Documentation of Mechanical Device: Intermittent pneumatic compression device Consult Discharge Plan - Plan Referrals: NONE,PCP [Primary Care Provider] - <Loly Valentine - Last Filed: 11/10/16 09:13> Date of Encounter: 11/09/16 Time of Encounter: 13:45 - Assessment and Plan (1) Abdominal pain Current Visit: No Status: Acute Qualifiers: Abdominal location: generalized Qualified Code(s): R10.84 - Generalized abdominal pain (2) Hypertension Current Visit: No Status: Chronic Qualifiers: Hypertension type: essential hypertension Qualified Code(s): I10 - Essential (primary) hypertension (3) DVT prophylaxis Current Visit: No Status: Acute (4) 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 Current Visit: No Status: Chronic (5) S/P colectomy Current Visit: Yes Status: Acute patient without bowel function for several days, clamp peg and see how patient tolerates if significant nausea or emesis place back to denise gravity ok fulls as patient can tolerate and anything his brings him to eat continue tpn continue marinol start reglan prn pain control if patient doesnt open up soon will consult palliative for goals of care OOB, PT/OT wound vac changes M, W, F (6) Protein-calorie malnutrition, severe Current Visit: Yes Status: Acute (7) Nausea and vomiting Current Visit: Yes Status: Acute Qualifiers: Vomiting type: unspecified Vomiting Intractability: non-intractable Qualified Code(s): R11.2 - Nausea with vomiting, unspecified Subjective Patient reports: no new complaints, pain is less, voiding w/o difficulty, flatus , no bowel movement Objective Vital Signs - Last 8 Hours Temp Pulse Resp BP Pulse Ox 11/10/16 07:21 98.6 F 80 18 138/95 96 Intake and Output 11/09/16 11/10/16 11/10/16 23:59 07:59 15:59 Intake Total 0 / 0 250 / 250 Output Total 1325 / 1325 280 / 280 Balance -1325 / -1325 -30 / -30 Intake: IV Fluids 250 / 250 Intralipid 20% 250 ML @ 250 / 250 21 mls/hr IVPB DAILY@1700 [facility] Rx#:[id number] Oral 0 / 0 0 / 0 Output: Urine 650 / 650 250 / 250 Wound Drainage 675 / 675 30 / 30 LUQ Peg Tube 675 / 675 Lower Medial Abdomen 30 / 30 Other: Weight 50.6 kg Blood Glucose* 121 124 Patient Weight 11/10/16 23:59 Weight 50.6 kg - General physical appearance no distress, cachectic, chronically ill - Eyes normal ocular movement - ENT dry mucosa, atraumatic, normocephalic - Neck Neck exam: trachea midline - Respiratory normal expansion, normal respiratory effort - Cardiovascular Cardiovascular exam: Present: RRR - Abdomen Abdomen: Present: bowel sounds present, soft, non tender - Incision Incision: Present: clean and dry, open (wound vac in place) - Integumentary no rash, no growths - Neurologic CN 2-12 grossly intact - Musculoskeletal normal posture - Psychiatric oriented to time - Labs 11/06/16 11:09 11/10/16 05:33 Diabetes panel 11/10/16 Range/Units 05:33 Sodium 136 (136-145) mEq/L Potassium 3.7 (3.5-4.5) mEq/L Chloride 102 (98-109) mEq/L Carbon Dioxide 29 (19-29) mEq/L BUN 23 (8-26) mg/dL Creatinine 0.53 L (0.72-1.25) mg/dL Glucose 120 H (70-99) mg/dL Calcium 10.0 (8.6-10.8) mg/dL AST 17 (5-34) Units/L ALT 11 (0-55) Units/L Alkaline Phosphatase 117 (38-126) Units/L Albumin 1.8 L (3.5-5.0) g/dL Calcium panel 11/10/16 Range/Units 05:33 Calcium 10.0 (8.6-10.8) mg/dL Albumin 1.8 L (3.5-5.0) g/dL Pituitary panel 11/10/16 Range/Units 05:33 Sodium 136 (136-145) mEq/L Potassium 3.7 (3.5-4.5) mEq/L Chloride 102 (98-109) mEq/L Carbon Dioxide 29 (19-29) mEq/L BUN 23 (8-26) mg/dL Creatinine 0.53 L (0.72-1.25) mg/dL Glucose 120 H (70-99) mg/dL Calcium 10.0 (8.6-10.8) mg/dL Adrenal panel 11/10/16 Range/Units 05:33 Sodium 136 (136-145) mEq/L Potassium 3.7 (3.5-4.5) mEq/L Chloride 102 (98-109) mEq/L Carbon Dioxide 29 (19-29) mEq/L BUN 23 (8-26) mg/dL Creatinine 0.53 L (0.72-1.25) mg/dL Glucose 120 H (70-99) mg/dL Calcium 10.0 (8.6-10.8) mg/dL Total Bilirubin 0.3 (0.2-1.2) mg/dL AST 17 (5-34) Units/L ALT 11 (0-55) Units/L Alkaline Phosphatase 117 (38-126) Units/L Albumin 1.8 L (3.5-5.0) g/dL - Attending Attestation I examined this patient and my medical decision-making was reviewed with the Resident Physician. I agree with the documented findings, disposition and treatment plan as described except to the extent set forth below.
[2016-11-09] MEDS: Ketorolac 15 MG/ML VIAL IVP PRN ×2 (13:43→22:18)
[2016-11-09] MEDS: Clinimix E 5%-20% SOLUTION 2,000 ML with MVI, adult with vitamin K 10 ML, Magnesium S... IVC SCH (16:46)
[2016-11-09] MEDS: Metoclopramide 10 MG/2 ML VIAL IVP SCH ×2 (16:57→17:18)
[2016-11-09] MEDS ORDERED: Clinimix E 5%-20% SOLUTION 2,000 ML, Parenteral Amino Acid 10% 200 ML with MVI, adult ... IVC SCH (17:00)
[2016-11-09] MEDS: Scopolamine Patch 1.5 MG PATCH.TD72 TD SCH (17:09)
[2016-11-09] MEDS: Saline Nasal Spray 44 ML BOTTLE NS PRN (17:24)
[2016-11-09] MEDS: Mirtazapine 15 MG TABLET PO SCH (21:32)
[2016-11-10] MEDS: Acetaminophen 325 MG TABLET PO SCH ×4 (00:06→17:45)
[2016-11-10] MEDS: Metoclopramide 10 MG/2 ML VIAL IVP SCH ×4 (00:06→17:46)
[2016-11-10] MEDS: *HR* LORazepam 0.5 MG TABLET PO PRN ×5 (00:35→21:20)
[2016-11-10 06:19] LABS: Alanine Aminotransferase 11 Units/L (0-55); Albumin/Globulin Ratio 0.5 (1.1-2.2); Alkaline Phosphatase 117 Units/L (38-126); Aspartate Amino Transferase 17 Units/L (5-34); BUN/Creatinine Ratio 43 (6-26); Bilirubin,Total 0.3 mg/dL (0.2-1.2); Blood Urea Nitrogen 23 mg/dL (8-26); Carbon Dioxide 29 mEq/L (19-29); Chloride 102 mEq/L (98-109); Globulin 3.8 g/dL (2.4-3.5); Glucose 120 mg/dL (70-99); Osmolality,Calculated 287 (280-300); Potassium 3.7 mEq/L (3.5-4.5); Sodium 136 mEq/L (136-145); Total Protein 5.6 g/dL (6.0-8.3); eGFR For African Americans > 60 (> 60); eGFR For Non-African Americans > 60 (> 60)
[2016-11-10 06:23] LABS: Albumin 1.8 g/dL (3.5-5.0)
[2016-11-10] MEDS: *HR* Heparin 5,000 UNIT/ML VIAL SQ SCH ×3 (06:25→21:14)
[2016-11-10] MEDS: levETIRAcetam 250 MG TABLET PO SCH ×2 (06:26→17:45)
[2016-11-10] MEDS: Ipratropium/Albuterol Neb 3 ML IH SCH ×3 (08:15→22:39)
[2016-11-10] MEDS: Isosorbide MONOnitrate (24 HR) 30 MG TAB.ER.24H PO SCH (09:52)
[2016-11-10] MEDS: Lisinopril 20 MG TABLET PO SCH (09:52)
[2016-11-10] MEDS: Fluticasone Propionate Nasal 50 MCG/SPRAY BOTTLE NS SCH (09:53)
[2016-11-10 10:33] LABS: Bilirubin,Urine Negative (Negative); Blood,Urine Negative (Negative); Clarity,Urine Clear (Clear); Color,Urine Yellow (Yellow); Glucose,Urine (UA) Normal (Normal); Ketones,Urine Negative (Negative); Leukocyte Esterase,Urine Negative (Negative); Nitrite,Urine Negative (Negative); Protein,Urine Negative (Neg-Trace); Specific Gravity,Urine 1.012 (1.010-1.025); Urobilinogen,Urine Normal (Normal)
--- NOTE | 2016-11-10 11:09 | General Surgery Progress Note ---
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 Surgical history of abdominoperineal resection, colostomy, left lower lobectomy, craniotomy, tumor excision. Post-surgical day #23 exploratory laparotomy with sigmoid colectomy, lysis of adhesions, takedown of splenic flexture, relocation of colostomy, appendectomy by Dr. Valentine. Patient is chronically ill and overall health is poor. Peg tube was placed on 11/04/16 and clamped yesterday, but patient had nausea and "dry heaves" at night. Peg tube was unclamped and connected to drainage bag with immediate return of 325ml green liquid and symptomatic relief. Continue tube feedings. Patient continues to have poor appetite. He still has nausea, but no vomiting. Continue full liquid diet, encourage PO intake and monitor I/Os. Marinol to stimulate his appetite. Continue TPN due to low caloric intake and ileus. Supportive and pain care with tylenol, toradol. Colostomy did not have flatus or stool. Colostomy care daily. Wound vac change today. Encourage IS every hour. Ambulate with assistance as tolerated. PPI therapy. Avoid coadministration of ativan and opioid medications given patient reaction - at least 1 hr between doses. Discharge plan remains the same - consider bringing in palliative care onboard to discuss options with family if patient does not improve by Tuesday. (2) Hypertension Current Visit: No Status: Chronic BP is stable. Continue current blood pressure medications Qualifiers: Hypertension type: essential hypertension Qualified Code(s): I10 - Essential (primary) hypertension (3) 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 Current Visit: No Status: Chronic Manage per oncology (4) Ileus Current Visit: Yes Status: Acute Colostomy has no flatus or stool. Bowel sounds present. Continue colace and miralax (5) DVT prophylaxis Current Visit: No Status: Acute Heparin 5000 units SQ Q8h for DVT prophylaxis Subjective Patient reports: no new complaints, voiding w/o difficulty, no flatus, no bowel movement, afebrile, other (Patient continues to not have any appetite. He is trying to eat his oatmeal during the encouter but is only takes 1/2 spoonful. ) Objective Vital Signs - Last 8 Hours Temp Pulse Resp BP Pulse Ox 11/10/16 08:15 18 96 11/10/16 07:21 98.6 F 80 18 138/95 96 Intake and Output 11/09/16 11/10/16 11/10/16 23:59 07:59 15:59 Intake Total 0 / 0 250 / 250 0 / 0 Output Total 1325 / 1325 280 / 280 825 / 825 Balance -1325 / -1325 -30 / -30 -825 / -825 Intake: IV Fluids 250 / 250 Intralipid 20% 250 ML @ 250 / 250 21 mls/hr IVPB DAILY@1700 [facility] Rx#:[id number] Oral 0 / 0 0 / 0 0 / 0 Output: Urine 650 / 650 250 / 250 400 / 400 Wound Drainage 675 / 675 30 / 30 425 / 425 LUQ Peg Tube 675 / 675 425 / 425 Lower Medial Abdomen Other: Meal Breakfast Percent of Meal Consumed 5% Weight 50.6 kg Blood Glucose* 121 124 Patient Weight 11/10/16 23:59 Weight 50.6 kg - General physical appearance cachectic, chronically ill - ENT atraumatic, normocephalic, CN 2-12 grossly intact - Neck Neck exam: trachea midline - Respiratory normal respiratory effort, clear to auscultation - Cardiovascular Cardiovascular exam: Present: NR - Abdomen Abdomen: Present: bowel sounds present, soft, non tender - Incision Incision: Present: serosanguinous (wound vac in place) - Psychiatric oriented to time, oriented to person, oriented to place, speech is normal, memory intact - Labs 11/06/16 11:09 11/10/16 05:33 Diabetes panel 11/10/16 Range/Units 05:33 Sodium 136 (136-145) mEq/L Potassium 3.7 (3.5-4.5) mEq/L Chloride 102 (98-109) mEq/L Carbon Dioxide 29 (19-29) mEq/L BUN 23 (8-26) mg/dL Creatinine 0.53 L (0.72-1.25) mg/dL Glucose 120 H (70-99) mg/dL Calcium 10.0 (8.6-10.8) mg/dL AST 17 (5-34) Units/L ALT 11 (0-55) Units/L Alkaline Phosphatase 117 (38-126) Units/L Albumin 1.8 L (3.5-5.0) g/dL Calcium panel 11/10/16 Range/Units 05:33 Calcium 10.0 (8.6-10.8) mg/dL Albumin 1.8 L (3.5-5.0) g/dL Pituitary panel 11/10/16 Range/Units 05:33 Sodium 136 (136-145) mEq/L Potassium 3.7 (3.5-4.5) mEq/L Chloride 102 (98-109) mEq/L Carbon Dioxide 29 (19-29) mEq/L BUN 23 (8-26) mg/dL Creatinine 0.53 L (0.72-1.25) mg/dL Glucose 120 H (70-99) mg/dL Calcium 10.0 (8.6-10.8) mg/dL Adrenal panel 11/10/16 Range/Units 05:33 Sodium 136 (136-145) mEq/L Potassium 3.7 (3.5-4.5) mEq/L Chloride 102 (98-109) mEq/L Carbon Dioxide 29 (19-29) mEq/L BUN 23 (8-26) mg/dL Creatinine 0.53 L (0.72-1.25) mg/dL Glucose 120 H (70-99) mg/dL Calcium 10.0 (8.6-10.8) mg/dL Total Bilirubin 0.3 (0.2-1.2) mg/dL AST 17 (5-34) Units/L ALT 11 (0-55) Units/L Alkaline Phosphatase 117 (38-126) Units/L Albumin 1.8 L (3.5-5.0) g/dL - VTE Documentation of Mechanical Device: Intermittent pneumatic compression device Consult Discharge Plan - Plan Referrals: NONE,PCP [Primary Care Provider] - <Loly Valentine - Last Filed: 11/12/16 09:08> Date of Encounter: 11/10/16 - Assessment and Plan (1) Abdominal pain Current Visit: No Status: Acute prn pain control Qualifiers: Abdominal location: generalized Qualified Code(s): R10.84 - Generalized abdominal pain (2) Hypertension Current Visit: No Status: Chronic Qualifiers: Hypertension type: essential hypertension Qualified Code(s): I10 - Essential (primary) hypertension (3) DVT prophylaxis Current Visit: No Status: Acute (4) 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 Current Visit: No Status: Chronic (5) S/P colectomy Current Visit: Yes Status: Acute patient did not tolerate clamping of peg overnight, back to denise gravity, patient is not on tube feeds, continue TPN prn pain control antiemetics as needed continue reglan and colace/miralax discussed with patient that if he has no bowel function by tuesday we will obtain a CT scan with po (down peg) contrast to evaluate and likely consult palliative care discussed that if he has a bowel obstruction that I do not feel his a good surgical candidate and will consult palliative to help discuss goals of care (6) Protein-calorie malnutrition, severe Current Visit: Yes Status: Acute (7) Nausea and vomiting Current Visit: Yes Status: Acute Qualifiers: Vomiting type: unspecified Vomiting Intractability: non-intractable Qualified Code(s): R11.2 - Nausea with vomiting, unspecified Subjective Patient reports: no new complaints, still having pain, pain is less, voiding w/ o difficulty, flatus, no bowel movement, afebrile Objective Vital Signs - Last 8 Hours Temp Pulse Resp BP Pulse Ox 11/12/16 07:48 18 95 11/12/16 07:10 99.1 F 90 16 154/97 95 11/12/16 01:15 97.3 F L 99 16 157/89 93 Intake and Output 11/11/16 11/12/16 11/12/16 23:59 07:59 15:59 Intake Total 3040 / 3040 250 / 250 Output Total 1100 / 1100 250 / 250 Balance 1940 / 1940 0 / 0 Intake: IV Fluids 250 / 250 Intralipid 20% 250 ML @ 250 / 250 21 mls/hr IVPB DAILY@1700 [facility] Rx#:[id number] Oral 1040 / 1040 0 / 0 Infusion Intake 1999 Output: Urine 700 / 700 250 / 250 Stool 0 / 0 Wound Drainage 400 / 400 0 / 0 LUQ Peg Tube 400 / 400 0 / 0 Other: Percent of Meal Consumed 0% Blood Glucose* 123 122 - General physical appearance no distress, chronically ill - Eyes PERRL, normal ocular movement - ENT normal mucosa, normocephalic - Neck Neck exam: trachea midline - Respiratory normal expansion, normal respiratory effort - Cardiovascular Cardiovascular exam: Present: RRR - Abdomen Abdomen: Present: bowel sounds present, soft, non tender - Incision Incision: Present: clean and dry, serosanguinous - Integumentary no growths - Neurologic CN 2-12 grossly intact - Musculoskeletal normal posture - Psychiatric oriented to time, oriented to person, memory intact - Labs 11/11/16 05:38 11/12/16 05:56 Diabetes panel 11/12/16 Range/Units 05:56 Sodium 133 L (136-145) mEq/L Potassium 3.9 (3.5-4.5) mEq/L Chloride 105 (98-109) mEq/L Carbon Dioxide 24 (19-29) mEq/L BUN 20 (8-26) mg/dL Creatinine 0.52 L (0.72-1.25) mg/dL Glucose 121 H (70-99) mg/dL Calcium 10.0 (8.6-10.8) mg/dL Calcium panel 11/12/16 Range/Units 05:56 Calcium 10.0 (8.6-10.8) mg/dL Phosphorus 2.7 (2.3-4.7) mg/dL Pituitary panel 11/12/16 Range/Units 05:56 Sodium 133 L (136-145) mEq/L Potassium 3.9 (3.5-4.5) mEq/L Chloride 105 (98-109) mEq/L Carbon Dioxide 24 (19-29) mEq/L BUN 20 (8-26) mg/dL Creatinine 0.52 L (0.72-1.25) mg/dL Glucose 121 H (70-99) mg/dL Calcium 10.0 (8.6-10.8) mg/dL Adrenal panel 11/12/16 Range/Units 05:56 Sodium 133 L (136-145) mEq/L Potassium 3.9 (3.5-4.5) mEq/L Chloride 105 (98-109) mEq/L Carbon Dioxide 24 (19-29) mEq/L BUN 20 (8-26) mg/dL Creatinine 0.52 L (0.72-1.25) mg/dL Glucose 121 H (70-99) mg/dL Calcium 10.0 (8.6-10.8) mg/dL - Attending Attestation I examined this patient and my medical decision-making was reviewed with the Resident Physician. I agree with the documented findings, disposition and treatment plan as described except to the extent set forth below.
[2016-11-10] MEDS: Ketorolac 15 MG/ML VIAL IVP PRN ×2 (12:03→18:57)
[2016-11-10] MEDS ORDERED: Clinimix E 5%-20% SOLUTION 2,000 ML, Parenteral Amino Acid 10% 200 ML with MVI, adult ... IVC SCH (17:00)
[2016-11-10] MEDS: Mirtazapine 15 MG TABLET PO SCH (21:14)
[2016-11-11] MEDS: Acetaminophen 325 MG TABLET PO SCH ×5 (00:03→23:25)
[2016-11-11] MEDS: Metoclopramide 10 MG/2 ML VIAL IVP SCH ×5 (00:04→23:25)
[2016-11-11] MEDS: *HR* LORazepam 2 MG/ML VIAL IVP PRN (02:43)
[2016-11-11] MEDS: levETIRAcetam 250 MG TABLET PO SCH ×2 (05:54→17:22)
[2016-11-11] MEDS: *HR* Heparin 5,000 UNIT/ML VIAL SQ SCH ×3 (05:54→21:07)
[2016-11-11] MEDS: Ondansetron 4 MG/2 ML VIAL IVP PRN (06:01)
[2016-11-11 06:02] LABS: Basophils % 0.4 %; Eosinophils # 0.8 K/mcL (0.0-0.6); Eosinophils % 8.1 %; Hematocrit 28.8 % (37.5-50.1); Hemoglobin 9.2 g/dL (12.9-16.9); Immature Granulocytes % 0.5 % (0-4); Lymphocytes # 0.9 K/mcL (0.6-4.6); Lymphocytes % 9.1 %; Mean Corpuscular HGB Conc 31.9 g/dL (31.6-35.5); Mean Corpuscular Hemoglobin 31.2 pg (28.0-33.3); Mean Corpuscular Volume 97.6 fL (83.0-100.0); Mean Platelet Volume 9.6 fL (9.4-12.4); Monocytes # 0.7 K/mcL (0.0-1.3); Monocytes % 6.7 %; Neutrophils # 7.6 K/mcL (1.6-8.9); Platelet Count 446 K/mcL (140-400); Red Blood Count 2.95 M/mcL (4.19-5.50); Red Cell Distribution Width 16.2 % (11.5-14.5); Segmented Neutrophils % 75.2 %
[2016-11-11 06:15] LABS: BUN/Creatinine Ratio 50 (6-26); Blood Urea Nitrogen 26 mg/dL (8-26); Calcium 10.3 mg/dL (8.6-10.8); Carbon Dioxide 26 mEq/L (19-29); Chloride 102 mEq/L (98-109); Glucose 110 mg/dL (70-99); Osmolality,Calculated 281 (280-300); Potassium 3.8 mEq/L (3.5-4.5); Sodium 133 mEq/L (136-145); eGFR For African Americans > 60 (> 60); eGFR For Non-African Americans > 60 (> 60)
[2016-11-11] MEDS: Ipratropium/Albuterol Neb 3 ML IH SCH ×3 (07:44→22:33)
[2016-11-11] MEDS: Isosorbide MONOnitrate (24 HR) 30 MG TAB.ER.24H PO SCH (09:26)
[2016-11-11] MEDS: Lisinopril 20 MG TABLET PO SCH (09:27)
[2016-11-11] MEDS: Fluticasone Propionate Nasal 50 MCG/SPRAY BOTTLE NS SCH (09:27)
[2016-11-11] MEDS: *HR* LORazepam 0.5 MG TABLET PO PRN ×2 (10:48→18:45)
[2016-11-11] MEDS: *HR* FentaNYL PATCH 12 MCG PATCH TD SCH (12:21)
--- NOTE | 2016-11-11 13:54 | General Surgery Progress Note ---
Date of Encounter: 11/11/16 Time of Encounter: 13:30 - Assessment and Plan (1) S/P colectomy Current Visit: Yes Status: Acute POD#24 S/P sigmoid colectomy, lysis of adhesions, colostomy relocation, and appendectomy on 10/18/2016 -continue supportive care and discomfort management -scheduled Fentanyl patch, and PRN tylenol for pain medications -Marinol for appetite support -Wound VAC changes and wound care per surgery team -Encourage PO intake as tolerated. OK to trial clamp PEG tube and may return to gravity if he experiences nausea or vomiting. Continue TPN at this time as PO intake is insufficient. I certify that the patient continues to need inpatient care given the above assessment and plan. (2) Ileus Current Visit: Yes Status: Acute Awaiting return of bowel function. Noted output in ostomy today s/p manual stimulation and enema on 11/10/2016. As discussed with patient and Dorita previously, if no or inadequate output from ostomy by Tuesday, would consider CT of Abd/Pelvis with PO and IV contrast to r/ o SBO. See further plan above. (3) DVT prophylaxis Current Visit: No Status: Acute SCDs while in bed Mobilize as tolerated per PT/OT Heparin 5000 units Q8H SQ (4) Protein-calorie malnutrition, severe Current Visit: Yes Status: Acute (5) Insomnia due to anxiety and fear Current Visit: Yes Status: Acute Continue supportive care and do not disturb from 11pm-06:00 am. Scheduled Remeron and PRN Lorazepam at bedtime (6) 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 Current Visit: No Status: Chronic Management per oncology. (7) Leukocytosis Current Visit: Yes Status: Resolved Resolved. We'll continue to follow. Qualifiers: Leukocytosis type: unspecified Qualified Code(s): D72.829 - Elevated white blood cell count, unspecified (8) Nausea and vomiting Current Visit: Yes Status: Acute Continue antiemetics. Trial clamp PEG tube. May return to gravity if experiences nausea or vomiting. Qualifiers: Vomiting type: unspecified Vomiting Intractability: non-intractable Qualified Code(s): R11.2 - Nausea with vomiting, unspecified Subjective Patient reports: no new complaints, still having pain, pain is less, voiding w/ o difficulty, flatus, bowel movement Narrative: Ernie reports some feelings of nausea after lunch this afternoon. Denies vomiting. Dorita (his ) reports that he has had improved appetite over the 24 hours. He reports stool from the ostomy and also flatus. He has ambulated to the nurses station twice today. Objective Vital Signs - Last 8 Hours Temp Pulse Resp BP Pulse Ox 11/11/16 10:35 98.0 F 101 17 130/84 96 11/11/16 07:46 18 95 11/11/16 06:59 98.0 F 89 16 144/86 95 Intake and Output 11/10/16 11/11/16 11/11/16 23:59 07:59 15:59 Intake Total 0 / 0 250 / 250 0 / 0 Output Total 0 / 0 1225 / 1225 275 / 275 Balance 0 / 0 -975 / -975 -275 / -275 Intake: IV Fluids 250 / 250 Intralipid 20% 250 ML @ 250 / 250 21 mls/hr IVPB DAILY@1700 [facility] Rx#:[id number] Oral 0 / 0 0 / 0 0 / 0 Output: Urine 0 / 0 625 / 625 200 / 200 Stool 250 / 250 75 / 75 Wound Drainage 350 / 350 0 / 0 LUQ Peg Tube 350 / 350 0 / 0 Other: Meal Full Percent of Meal Consumed 100% Weight 50.9 kg 82.4 kg Blood Glucose* 103 125 129 Patient Weight 11/11/16 23:59 Weight 82.4 kg - General physical appearance no distress (Appears sleepy, but reports anxiety), chronically ill - Eyes normal ocular movement - ENT atraumatic, normocephalic - Neck Neck exam: trachea midline - Respiratory normal expansion, normal respiratory effort, clear to auscultation - Cardiovascular Cardiovascular exam: Present: RRR - Abdomen Abdomen: Present: bowel sounds present, soft, non tender, wound (Right ostomy site with green/brown liquid stool. Wound vac in place and without leaking) - Musculoskeletal normal posture - Psychiatric oriented to time, oriented to person, oriented to place - Labs 11/11/16 05:38 11/11/16 05:38 Diabetes panel 11/11/16 Range/Units 05:38 Sodium 133 L (136-145) mEq/L Potassium 3.8 (3.5-4.5) mEq/L Chloride 102 (98-109) mEq/L Carbon Dioxide 26 (19-29) mEq/L BUN 26 (8-26) mg/dL Creatinine 0.52 L (0.72-1.25) mg/dL Glucose 110 H (70-99) mg/dL Calcium 10.3 (8.6-10.8) mg/dL Calcium panel 11/11/16 Range/Units 05:38 Calcium 10.3 (8.6-10.8) mg/dL Pituitary panel 11/11/16 Range/Units 05:38 Sodium 133 L (136-145) mEq/L Potassium 3.8 (3.5-4.5) mEq/L Chloride 102 (98-109) mEq/L Carbon Dioxide 26 (19-29) mEq/L BUN 26 (8-26) mg/dL Creatinine 0.52 L (0.72-1.25) mg/dL Glucose 110 H (70-99) mg/dL Calcium 10.3 (8.6-10.8) mg/dL Adrenal panel 11/11/16 Range/Units 05:38 Sodium 133 L (136-145) mEq/L Potassium 3.8 (3.5-4.5) mEq/L Chloride 102 (98-109) mEq/L Carbon Dioxide 26 (19-29) mEq/L BUN 26 (8-26) mg/dL Creatinine 0.52 L (0.72-1.25) mg/dL Glucose 110 H (70-99) mg/dL Calcium 10.3 (8.6-10.8) mg/dL - VTE Documentation of Mechanical Device: Intermittent pneumatic compression device Consult Discharge Plan - Plan Referrals: NONE,PCP [Primary Care Provider] -
[2016-11-11] MEDS ORDERED: *HR* LORazepam 1 MG TABLET PO PRN (14:13)
[2016-11-11] MEDS ORDERED: Clinimix E 5%-20% SOLUTION 2,000 ML, Parenteral Amino Acid 10% 200 ML with MVI, adult ... IVC SCH (17:00)
[2016-11-11] MEDS: Mirtazapine 15 MG TABLET PO SCH (21:54)
[2016-11-12] MEDS: Acetaminophen 325 MG TABLET PO SCH ×4 (05:58→23:12)
[2016-11-12] MEDS: *HR* Heparin 5,000 UNIT/ML VIAL SQ SCH ×3 (05:59→22:44)
[2016-11-12] MEDS: levETIRAcetam 250 MG TABLET PO SCH ×2 (05:59→17:37)
[2016-11-12] MEDS: Metoclopramide 10 MG/2 ML VIAL IVP SCH ×4 (05:59→23:44)
[2016-11-12 06:36] LABS: BUN/Creatinine Ratio 38 (6-26); Blood Urea Nitrogen 20 mg/dL (8-26); Carbon Dioxide 24 mEq/L (19-29); Chloride 105 mEq/L (98-109); Glucose 121 mg/dL (70-99); Magnesium 1.6 mg/dL (1.6-2.6); Osmolality,Calculated 280 (280-300); Phosphorous 2.7 mg/dL (2.3-4.7); Potassium 3.9 mEq/L (3.5-4.5); Sodium 133 mEq/L (136-145); eGFR For African Americans > 60 (> 60); eGFR For Non-African Americans > 60 (> 60)
[2016-11-12] MEDS: Ipratropium/Albuterol Neb 3 ML IH SCH ×3 (07:48→22:11)
--- NOTE | 2016-11-12 09:37 | General Surgery Progress Note ---
<GaelStephy Yojana - Last Filed: 11/12/16 17:07> Date of Encounter: 11/12/16 Time of Encounter: 07:30 - Assessment and Plan (1) S/P colectomy Current Visit: Yes Status: Acute POD#25 S/P sigmoid colectomy, lysis of adhesions, colostomy relocation, and appendectomy on 10/18/2016 -continue supportive care and discomfort management -scheduled Fentanyl patch, and PRN tylenol for pain medications -Trialed PEG tube clamping overnight. Denies vomiting, had some nausea. No further output from ostomy. -Denies appetite. States looking at food makes him nauseated. Marinol for appetite support -Wound VAC changes and wound care per surgery team Concern for aspiration. pt is coughing repeatedly after every drink of thin liquids and is unable to swallow pills. Will complete a modified barium swallow after CT completed. No need for bedside swallow eval as this RETREAD OPERATOR witnessed the above assessment x2. As previously discussed will pursue CT abdomen/pelvis with po and iv contrast. PO contrast through PEG tube. -Failed all portions of swallow eval today. -No new concerns noted per CT today Albumin remains low despite adjustments in TPN (per home attendant). Palliative care consult today; see note and code status change (2) Ileus Current Visit: Yes Status: Acute Awaiting return of bowel function. No furhter ostomy output. Suspect the output previously was remnant of enema administered 11/10/2016. See further plan above. (3) Aspiration of blood without respiratory symptoms Current Visit: Yes Status: Acute See plan above. Further recommendations pending OK to give PO meds through PEG tube and clamp for 60 at least 60 minutes afterwards. (4) Protein-calorie malnutrition, severe Current Visit: Yes Status: Acute Albumin remains low despite adjustments in TPN (per home attendant). Failed all portions of swallow eval today. Continue TPN Further recommendations pending possible palliative care consult (5) Nausea and vomiting Current Visit: Yes Status: Acute Continue antiemetics. Imaging and plan above Qualifiers: Vomiting type: unspecified Vomiting Intractability: non-intractable Qualified Code(s): R11.2 - Nausea with vomiting, unspecified (6) Insomnia due to anxiety and fear Current Visit: Yes Status: Acute Continue supportive care and do not disturb from 11pm-06:00 am. Scheduled Remeron and PRN Lorazepam at bedtime States well controlled on current regimen. (7) 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 Current Visit: No Status: Chronic Management per oncology. (8) DVT prophylaxis Current Visit: No Status: Acute SCDs while in bed Mobilize as tolerated per PT/OT Heparin 5000 units Q8H SQ (9) Leukocytosis Current Visit: Yes Status: Resolved Resolved. We'll continue to follow. Qualifiers: Leukocytosis type: unspecified Qualified Code(s): D72.829 - Elevated white blood cell count, unspecified Subjective Patient reports: pain is less, voiding w/o difficulty, no flatus, no bowel movement, nausea Narrative: Ernie and his Dorita are at bedside. Ernie reports that he has not had nausea throughout the night. He did report some nausea with eating dinner yesterday. He denies vomiting. He denies any further output or flatus from his ostomy site. He states his discomfort is controlled as well as his anxiety and insomnia controlled with the current regimen. Objective Vital Signs - Last 8 Hours Temp Pulse Resp BP Pulse Ox 11/12/16 07:48 18 95 11/12/16 07:10 99.1 F 90 16 154/97 95 Intake and Output 11/11/16 11/12/16 11/12/16 23:59 07:59 15:59 Intake Total 3040 / 3040 250 / 250 Output Total 1100 / 1100 250 / 250 Balance 1940 / 1940 0 / 0 Intake: IV Fluids 250 / 250 Intralipid 20% 250 ML @ 250 / 250 21 mls/hr IVPB DAILY@1700 COUNTS INCLUDE 234 BEDS AT [facility] Rx#:[id number] Oral 1040 / 1040 0 / 0 Infusion Intake 1999 Output: Urine 700 / 700 250 / 250 Stool 0 / 0 Wound Drainage 400 / 400 0 / 0 LUQ Peg Tube 400 / 400 0 / 0 Other: Percent of Meal Consumed 0% Blood Glucose* 123 122 - General physical appearance no distress, chronically ill - Eyes normal ocular movement - ENT dry mucosa, atraumatic, normocephalic - Neck Neck exam: trachea midline - Respiratory normal expansion, normal respiratory effort, clear to auscultation, other ( Productive cough of thick, clear, sputum occurring twice immediately after attempting to swallow water.) - Cardiovascular Cardiovascular exam: Present: RRR - Abdomen Abdomen: Present: bowel sounds present (Faint and hypoactive), tender, wound - Integumentary no rash - Neurologic CN 2-12 grossly intact - Musculoskeletal normal posture - Psychiatric oriented to time, oriented to person, oriented to place - Labs 11/11/16 05:38 11/12/16 05:56 Diabetes panel 11/12/16 Range/Units 05:56 Sodium 133 L (136-145) mEq/L Potassium 3.9 (3.5-4.5) mEq/L Chloride 105 (98-109) mEq/L Carbon Dioxide 24 (19-29) mEq/L BUN 20 (8-26) mg/dL Creatinine 0.52 L (0.72-1.25) mg/dL Glucose 121 H (70-99) mg/dL Calcium 10.0 (8.6-10.8) mg/dL Calcium panel 11/12/16 Range/Units 05:56 Calcium 10.0 (8.6-10.8) mg/dL Phosphorus 2.7 (2.3-4.7) mg/dL Pituitary panel 11/12/16 Range/Units 05:56 Sodium 133 L (136-145) mEq/L Potassium 3.9 (3.5-4.5) mEq/L Chloride 105 (98-109) mEq/L Carbon Dioxide 24 (19-29) mEq/L BUN 20 (8-26) mg/dL Creatinine 0.52 L (0.72-1.25) mg/dL Glucose 121 H (70-99) mg/dL Calcium 10.0 (8.6-10.8) mg/dL Adrenal panel 11/12/16 Range/Units 05:56 Sodium 133 L (136-145) mEq/L Potassium 3.9 (3.5-4.5) mEq/L Chloride 105 (98-109) mEq/L Carbon Dioxide 24 (19-29) mEq/L BUN 20 (8-26) mg/dL Creatinine 0.52 L (0.72-1.25) mg/dL Glucose 121 H (70-99) mg/dL Calcium 10.0 (8.6-10.8) mg/dL - VTE Documentation of Mechanical Device: Intermittent pneumatic compression device Consult Discharge Plan - Plan Referrals: NONE,PCP [Primary Care Provider] - <Loly Valentine - Last Filed: 11/13/16 15:04> Date of Encounter: 11/12/16 - Assessment and Plan (1) Abdominal pain Current Visit: No Status: Acute prn pain control fentanyl patch Qualifiers: Abdominal location: generalized Qualified Code(s): R10.84 - Generalized abdominal pain (2) Hypertension Current Visit: No Status: Chronic normotensive, monitor Qualifiers: Hypertension type: essential hypertension Qualified Code(s): I10 - Essential (primary) hypertension (3) DVT prophylaxis Current Visit: No Status: Acute (4) 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 Current Visit: Yes Status: Chronic (5) S/P colectomy Current Visit: Yes Status: Acute nurses and DESULFURIZER OPERATOR concern for aspiration, await results of swallow evaluation CT abd/pelvis with contrast to evaluate for psbo clamp peg as patient can tolerate prn pain control wound vac changes three times weekly GI/dvt prophylaxis OOB to chair, PT/OT (6) Protein-calorie malnutrition, severe Current Visit: Yes Status: Acute (7) Nausea and vomiting Current Visit: Yes Status: Acute Qualifiers: Vomiting type: unspecified Vomiting Intractability: non-intractable Qualified Code(s): R11.2 - Nausea with vomiting, unspecified Subjective Patient reports: no new complaints, voiding w/o difficulty, flatus, no bowel movement, nausea Objective Vital Signs - Last 8 Hours Temp Pulse Resp BP Pulse Ox 11/13/16 10:38 97.5 F L 98 18 156/73 97 11/13/16 08:27 97.5 F L 98 16 138/82 96 Intake and Output 11/12/16 11/13/16 11/13/16 23:59 07:59 15:59 Intake Total 0 / 0 250 / 250 0 / 0 Output Total 575 / 575 300 / 300 625 / 625 Balance -575 / -575 -50 / -50 -625 / -625 Intake: IV Fluids 250 / 250 Intralipid 20% 250 ML @ 250 / 250 21 mls/hr IVPB DAILY@1700 COUNTS INCLUDE 234 BEDS AT [facility] Rx#:[id number] Oral 0 / 0 0 / 0 0 / 0 Output: Urine 500 / 500 300 / 300 625 / 625 Stool 0 / 0 0 / 0 Wound Drainage 75 / 75 0 / 0 LUQ Peg Tube 75 / 75 0 / 0 Other: Meal NPO npo Percent of Meal Consumed 0% Weight 82.2 kg Blood Glucose* 136 130 Patient Weight 11/13/16 23:59 Weight 82.2 kg - General physical appearance cachectic, chronically ill - Eyes PERRL, normal ocular movement - ENT dry mucosa, atraumatic, normocephalic - Neck Neck exam: trachea midline - Respiratory normal expansion, clear to auscultation - Cardiovascular Cardiovascular exam: Present: RRR - Abdomen Abdomen: Present: bowel sounds present, soft, non tender - Integumentary no rash - Neurologic CN 2-12 grossly intact - Musculoskeletal normal posture - Psychiatric oriented to time, oriented to person, oriented to place - Labs 11/13/16 07:15 11/13/16 07:15 Diabetes panel 11/13/16 Range/Units 07:15 Sodium 136 (136-145) mEq/L Potassium 3.8 (3.5-4.5) mEq/L Chloride 105 (98-109) mEq/L Carbon Dioxide 28 (19-29) mEq/L BUN 21 (8-26) mg/dL Creatinine 0.47 L (0.72-1.25) mg/dL Glucose 87 (70-99) mg/dL Calcium 10.0 (8.6-10.8) mg/dL Calcium panel 11/13/16 Range/Units 07:15 Calcium 10.0 (8.6-10.8) mg/dL Pituitary panel 11/13/16 Range/Units 07:15 Sodium 136 (136-145) mEq/L Potassium 3.8 (3.5-4.5) mEq/L Chloride 105 (98-109) mEq/L Carbon Dioxide 28 (19-29) mEq/L BUN 21 (8-26) mg/dL Creatinine 0.47 L (0.72-1.25) mg/dL Glucose 87 (70-99) mg/dL Calcium 10.0 (8.6-10.8) mg/dL Adrenal panel 11/13/16 Range/Units 07:15 Sodium 136 (136-145) mEq/L Potassium 3.8 (3.5-4.5) mEq/L Chloride 105 (98-109) mEq/L Carbon Dioxide 28 (19-29) mEq/L BUN 21 (8-26) mg/dL Creatinine 0.47 L (0.72-1.25) mg/dL Glucose 87 (70-99) mg/dL Calcium 10.0 (8.6-10.8) mg/dL - Attending Attestation I have personally performed a face to face evaluation on this patient. I have reviewed and agree with the care plan. History and Exam by me shows:
[2016-11-12] MEDS ORDERED: D10% in Water 500 ML IVC PRN (11:44)
[2016-11-12] MEDS ORDERED: *HR* LORazepam 2 MG/ML VIAL IVP ONE (12:28)
[2016-11-12] MEDS: Isosorbide MONOnitrate (24 HR) 30 MG TAB.ER.24H PO SCH (14:24)
[2016-11-12] MEDS: Fluticasone Propionate Nasal 50 MCG/SPRAY BOTTLE NS SCH (14:24)
[2016-11-12] MEDS: Lisinopril 20 MG TABLET PO SCH (14:25)
[2016-11-12] MEDS: *HR* HYDROmorphone (PF) 1 MG/ML SYRINGE IVP PRN ×3 (14:34→23:44)
--- NOTE | 2016-11-12 14:53 | Palliative - Consult Note ---
Date of Encounter: 11/12/16 Time of Encounter: 14:40 - Assessment and Plan (1) Abdominal pain Current Visit: No Status: Acute Assessment and plan: Patient currently in distress with abd discomfort since wound vac change. He has Fentanyl 12mcg patch, but by chart review, only has acetaminophen po, which he cannot take. Notified surgical rn, who will order Hydromorphone at this time. Qualifiers: Abdominal location: generalized Qualified Code(s): R10.84 - Generalized abdominal pain (2) Anxiety Current Visit: Yes Status: Acute Assessment and plan: He currently has po Lorazepam. Cannot have medication via po or PEG at this time. Monitor - surgery has ordered a one time dose of Lorazepam for this afternoon. (3) Counseling regarding advanced care planning and goals of care Current Visit: Yes Status: Acute Assessment and plan: Long discussion with pt/. Patient was in quite a bit of pain, and was in some distress during conversation, however, was open to have discussion. They are still hoping for improvement, however, understand that he is not progressing and is weaker. acknowledges failed swallow eval and malnutrition despite TPN. Discussed with pt goals of care - he became very emotional, states "I don't want to , but if I do, I know I will see the pearly mary". discussed their lifelong arturo, and the importance of this to them. and discussed amongst themselves that "all ", and we do not have control over when that happens. They discussed much between themselves during our palliative visit, which appeared very therapeutic for both of them.. Patient's did inquire about asking for consultation with his previous surgeon - I stated she had the right to ask for her peace of mind, but that would not change the fact that he still has a metastatic terminal cancer. She acknowledged, and stated, I don't want to be left second guessing after he's gone, if I did all I could do. We did discuss if he was near the end of life, if he would want resuscitation and sustained with life support machines and measures, and he stated " No, that would be too hard on my family". Discussed transitioning code status to DNR/DNI , and pt acknowledged again, he would not want heroic measures at the end of life. We will continue to follow this very nice man closely and assist as able. Thank you for the consult. (4) Protein-calorie malnutrition, severe Current Visit: Yes Status: Acute Assessment and plan: Continues with malnutrition despite TPN. Gut not functioning to feed by PEG. Monitor (5) 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 Current Visit: No Status: Chronic Palliative-CN HPI - Data of Consult Consult date: 11/12/16 Requesting Physician: Loly Valentine MD Primary Care Provider: PCP NONE - Consult Narrative History of present illness: Mr. Romano is a 71 year old male with a history of metastatic rectal cancer, who has had a prolonged hospital stay after he was admitted and found to have bowel perforation. Patient was receiving chemotherapy and had previously had surgery for brain lesion - surgery on bowel perforation was performed and had colectomy and revision of previous colostomy. He has had complicated post op course. Currently, he has had little out colostomy for multiple days, despite bowel/motility stimulants. Had PEG last week, but cannot tolerate feedings, and has struggled with nausea when tube has been clamped. CT today demonstrated no obstruction. He has been maintained on TPN. He has wound vac present for dehiscence. He failed swallow eval today, and is having difficulty handling his oral secretions. He has recent developed of tongue lesion, and possible new liver mets as well. Palliative was consulted to assist with goals of care discussions. CC: Loly Valentine MD Past Med Surg Social Fam HX - Past Medical History Medical history: cancer (metastatic rectal), hypertension Psychiatric history: anxiety - Past Surgical History Surgical History: cholecystectomy, colectomy, colostomy, herniorrhaphy, orthopedic, other (L rotater cuff, R shoulder replacement), other (resection of parietal mass) - Social History Smoking Status: Never smoker Smokeless Tobacco Status: No Alcohol use: none Drug use: none - Family History Mother Living Status: Hx Family Cancer: Yes (uterine ca) Hx Family Endocrine Disorder: Yes (DM) Father Living Status: Hx Family Cardiac Disorders: Yes (IN) Medications and Allergies Cyanocobalamin (Vitamin B-12) [Vitamin B-12] 1,000 mcg PO DAILY 11/08/14 [ History] Ascorbic Acid [Vitamin C] 500 mg PO DAILY #30 tablet 12/31/14 [Rx] Aspirin Enteric Coated [Aspirin EC] 81 mg PO DAILY 12/31/14 [History] Cholecalciferol (D-3) [Vitamin D] 1,000 unit PO DAILY 07/27/16 [History] Mv-Mn/FA/Vit K/Lycop/Lut/Coq10 [Daily Multivitamin Capsule] 1 tab PO DAILY 07/27 [History] Gabapentin [Neurontin] 300 mg PO TID #90 capsule 09/14/16 [Rx] LevETIRAcetam [Keppra] 500 mg PO BID 09/29/16 [History] LORazepam [Ativan] 0.5 mg PO TID PRN 10/05/16 [History] hydroCHLOROthiazide [Hydrochlorothiazide] 25 mg PO DAILY 10/12/16 [History] Amoxicillin/Clavulanate [Augmentin] 875 mg PO BID 10/18/16 [History] Capecitabine [Xeloda] 1,500 mg PO BID MDD SEE NOTE 10/18/16 [History] Dexamethasone [Decadron] 4 mg PO DAILY 10/18/16 [History] HYDROcodone/Acet 10/325 mg [Maynard 10-325 mg] 1 tab PO Q4-6H PRN 10/18/16 [ History] Isosorbide MONOnitrate (24 HR) [Imdur] 30 mg PO DAILY 10/18/16 [History] Lisinopril [Zestril] 20 mg PO DAILY 10/18/16 [History] 3 Allergy/AdvReac Type Severity Reaction Status Date / Time azithromycin Allergy Unknown unknown Verified 07/27/16 15:11 All systems: reviewed and no additional remarkable complaints except as stated ( generalized weakness, abd pain, occasional nausea, pain back of head/previous surgery site) Palliative Care-Exam - Constitutional Vitals: Temp Pulse Resp BP Pulse Ox 97.5 F L 78 15 134/77 95 11/12/16 11:26 11/12/16 11:26 11/12/16 11:26 11/12/16 11:26 11/12/16 11:26 General appearance: Present: average body habitus, cooperative, no acute distress - Head Head Exam: Present: normal inspection, normocephalic - Eye Eye exam: Present: normal appearance, PERRL - GI/Abdominal Exam GI/Abdominal exam: Present: soft additional comments: Wound vac intact to abd incision. Ostomy appliance intact - Extremities Exam Extremities exam: Present: normal capillary refill, normal inspection - Neurological Exam Neurological exam: Present: alert, oriented X3, strengths equal and symetr throughout - Skin Skin exam: Present: dry, pallor, warm Internal Medicine - CN: Reslt - Labs CBC & Chem 7: 11/11/16 05:38 11/12/16 05:56 Labs: BMP 11/12/16 05:56 Sodium 133 L Potassium 3.9 Chloride 105 Carbon Dioxide 24 BUN 20 Creatinine 0.52 L Glucose 121 H Calcium 10.0 - ABG Interpretation ABG results: PT/INR, D-dimer PT 13.3 Seconds (9.4-12.1) H 11/07/16 22:14 - Impressions Impressions Videofluoroscopic Swallow 11/12/16 08:15 IMPRESSION: Aspiration with thin liquids. Please see separate speech pathology report for full discussion of findings and recommendations. D/ / Everette Red MD / Everette Red MD Interpreting Provider: Everette Red MD Abdomen/Pelvis CT 11/12/16 10:30 IMPRESSION: 1. No evidence of obstruction. 2. Gastrostomy tube is present. 3. 3 x 2.3 cm fluid collection along the superior anterior abdominal wall is new since the prior exam. No findings to suggest abscess. 4. Inferior right hepatic lesion, not clearly seen on the prior CT scan, but probably present, differences due to differences in contrast enhancement timing. There is no metabolic activity in this region on the prior PET-CT scan, and this may be a benign process. Attention on follow-up. 5. Right adrenal metastasis. D/ / Franklin Kyle MD / Franklin Kyle MD Interpreting Provider: Franklin Kyle MD Consult Discharge Plan - Plan Referrals: NONE,PCP [Primary Care Provider] - Palliative Quality Palliative Quality: Screen for Code Status: Yes, Screen for Goals of Care: Yes, Screen for Pain: Yes, If Pain Regimen Started, Initiate Bowel Regimen: NA, Screen for Nausea/Vomitting: Yes Code Status: 10/18/16 17:46 Resuscitation Status: Active [RES] Routine Comment: Resuscitation Status: Full Code 11/12/16 14:45 DNR [Resuscitation Status: Active] [RES] Routine Comment: Resuscitation Status: [id number]
[2016-11-12] MEDS ORDERED: Clinimix E 5%-20% SOLUTION 2,000 ML, Parenteral Amino Acid 10% 200 ML with MVI, adult ... IVC SCH (17:00)
[2016-11-12] MEDS: Scopolamine Patch 1.5 MG PATCH.TD72 TD SCH (17:37)
[2016-11-12] MEDS: Mirtazapine 15 MG TABLET PO SCH (20:32)
[2016-11-12] MEDS: *HR* LORazepam 2 MG/ML VIAL IVP SCH (20:49)
[2016-11-13] MEDS: *HR* LORazepam 2 MG/ML VIAL IVP PRN ×3 (03:01→17:14)
[2016-11-13] MEDS: *HR* HYDROmorphone (PF) 1 MG/ML SYRINGE IVP PRN ×5 (03:42→23:38)
[2016-11-13] MEDS: levETIRAcetam 250 MG TABLET PO SCH (05:12)
[2016-11-13] MEDS: Acetaminophen 325 MG TABLET PO SCH ×2 (05:12→12:51)
[2016-11-13] MEDS: Metoclopramide 10 MG/2 ML VIAL IVP SCH ×4 (06:08→23:39)
[2016-11-13] MEDS: *HR* Heparin 5,000 UNIT/ML VIAL SQ SCH ×3 (06:08→21:00)
[2016-11-13 07:24] LABS: Basophils % 0.4 %; Eosinophils # 0.5 K/mcL (0.0-0.6); Eosinophils % 6.6 %; Hematocrit 26.4 % (37.5-50.1); Hemoglobin 8.4 g/dL (12.9-16.9); Immature Platelets 1.6 % (1.1-6.1); Lymphocytes # 0.8 K/mcL (0.6-4.6); Lymphocytes % 10.3 %; Mean Corpuscular HGB Conc 31.8 g/dL (31.6-35.5); Mean Corpuscular Hemoglobin 31.3 pg (28.0-33.3); Mean Corpuscular Volume 98.5 fL (83.0-100.0); Mean Platelet Volume 9.3 fL (9.4-12.4); Monocytes # 0.8 K/mcL (0.0-1.3); Monocytes % 10.6 %; Neutrophils # 5.2 K/mcL (1.6-8.9); Platelet Count 371 K/mcL (140-400); Red Blood Count 2.68 M/mcL (4.19-5.50); Red Cell Distribution Width 15.9 % (11.5-14.5); Segmented Neutrophils % 71.1 %
[2016-11-13 07:32] LABS: BUN/Creatinine Ratio 45 (6-26); Blood Urea Nitrogen 21 mg/dL (8-26); Carbon Dioxide 28 mEq/L (19-29); Chloride 105 mEq/L (98-109); Glucose 87 mg/dL (70-99); Osmolality,Calculated 284 (280-300); Potassium 3.8 mEq/L (3.5-4.5); Sodium 136 mEq/L (136-145); eGFR For African Americans > 60 (> 60); eGFR For Non-African Americans > 60 (> 60)
[2016-11-13] MEDS: Ipratropium/Albuterol Neb 3 ML IH SCH ×5 (07:44→21:56)
[2016-11-13] MEDS: Ondansetron 4 MG/2 ML VIAL IVP PRN (08:38)
[2016-11-13] MEDS: Isosorbide MONOnitrate (24 HR) 30 MG TAB.ER.24H PO SCH (08:38)
[2016-11-13] MEDS: Lisinopril 20 MG TABLET PO SCH (08:38)
[2016-11-13] MEDS: Fluticasone Propionate Nasal 50 MCG/SPRAY BOTTLE NS SCH (08:38)
--- NOTE | 2016-11-13 10:06 | Oncology Inp Progress Note ---
Date of Encounter: 11/13/16 Time of Encounter: 10:12 (1) 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 Current Visit: Yes Status: Chronic Assessment and plan: - I appreciate palliative care assistance to address goals of care. Code status changed to DNR/DNI. - Patient would like to explore any last chance of recovery, so he could be a candidate for further cancer treatment, although at this time this seems unlikely ( in view of his poor nutritional status, poor tolerance to feeding tube nutrition and poor performance status Code(s): C79.9 - Secondary malignant neoplasm of unspecified site; C20 - Malignant neoplasm of rectum SNOMED Code(s): 392035673 Oncology: Subj Interval history: Chief complaint: tiredness Mr. Romano reports persistent tiredness, but at this time feels that his pain is well controlled. He is not tolerating FT nutrition, receiving TPN. Clinically he is not improving. He was seen by palliative care yesterday, code status changed to DNR/DNI. Patient is awaiting to to get a second surgical opinion; he thinks that she will call the surgeon early next week. Denies other complaints. - Constitutional Vitals: Vital Signs Temp Pulse Resp BP Pulse Ox 11/13/16 08:27 97.5 F L 98 16 138/82 96 11/13/16 00:49 98.0 F 93 18 157/90 96 11/12/16 19:29 98.0 F 100 16 151/84 96 11/12/16 16:14 18 95 11/12/16 14:52 98.6 F 92 16 160/88 94 11/12/16 11:26 97.5 F L 78 15 134/77 95 Intake and Output 11/12/16 11/13/16 11/13/16 23:59 07:59 15:59 Intake Total 0 / 0 250 / 250 Output Total 575 / 575 300 / 300 425 / 425 Balance -575 / -575 -50 / -50 -425 / -425 Intake: IV Fluids 250 / 250 Intralipid 20% 250 ML @ 250 / 250 21 mls/hr IVPB DAILY@1700 [facility] Rx#:[id number] Oral 0 / 0 0 / 0 Output: Urine 500 / 500 300 / 300 425 / 425 Stool 0 / 0 0 / 0 Wound Drainage 75 / 75 LUQ Peg Tube 75 / 75 Other: Meal NPO Percent of Meal Consumed 0% Weight 82.2 kg Blood Glucose* 136 130 Patient Weight 11/13/16 23:59 Weight 82.2 kg - Respiratory Respiratory exam: Present: CTAB - Cardiovascular Cardiovascular exam: Present: +S1 - GI/Abdominal GI/Abdominal exam: Present: soft Oncology: Obj Data - Labs CBC & Chem 7: 11/13/16 07:15 11/13/16 07:15 Labs: Laboratory Results - last 24 hr 11/12/16 11/12/16 11/13/16 11:30 16:08 00:54 WBC RBC Hgb Hct MCV MCH MCHC RDW Plt Count MPV Immature Gran % Seg Neutrophils % Lymphocytes % Monocytes % Eosinophils % Basophils % Neutrophils # Lymphocytes # Monocytes # Eosinophils # Basophils # Immature Plt Fraction Sodium Potassium Chloride Carbon Dioxide BUN Creatinine Est GFR ( Amer) Est GFR (Non-Af Amer) BUN/Creatinine Ratio Glucose POC Glucose 111 H 118 H 128 H Calculated Osmolality Calcium 11/13/16 11/13/16 11/13/16 04:50 07:15 07:15 WBC 7.3 RBC 2.68 L Hgb 8.4 L Hct 26.4 L MCV 98.5 MCH 31.3 MCHC 31.8 RDW 15.9 H Plt Count 371 MPV 9.3 L Immature Gran % 1.0 Seg Neutrophils % 71.1 Lymphocytes % 10.3 Monocytes % 10.6 Eosinophils % 6.6 Basophils % 0.4 Neutrophils # 5.2 Lymphocytes # 0.8 Monocytes # 0.8 Eosinophils # 0.5 Basophils # 0.0 Immature Plt Fraction 1.6 Sodium 136 Potassium 3.8 Chloride 105 Carbon Dioxide 28 BUN 21 Creatinine 0.47 L Est GFR ( Amer) > 60 Est GFR (Non-Af Amer) > 60 BUN/Creatinine Ratio 45 H Glucose 87 POC Glucose 136 H Calculated Osmolality 284 Calcium 10.0 11/13/16 08:20 WBC RBC Hgb Hct MCV MCH MCHC RDW Plt Count MPV Immature Gran % Seg Neutrophils % Lymphocytes % Monocytes % Eosinophils % Basophils % Neutrophils # Lymphocytes # Monocytes # Eosinophils # Basophils # Immature Plt Fraction Sodium Potassium Chloride Carbon Dioxide BUN Creatinine Est GFR ( Amer) Est GFR (Non-Af Amer) BUN/Creatinine Ratio Glucose POC Glucose 130 H Calculated Osmolality Calcium - Impressions Impressions Videofluoroscopic Swallow 11/12/16 08:15 IMPRESSION: Aspiration with thin liquids. Please see separate speech pathology report for full discussion of findings and recommendations. D/ / Everette Red MD / Everette Red MD Interpreting Provider: Everette Red MD Abdomen/Pelvis CT 11/12/16 10:30 IMPRESSION: 1. No evidence of obstruction. 2. Gastrostomy tube is present. 3. 3 x 2.3 cm fluid collection along the superior anterior abdominal wall is new since the prior exam. No findings to suggest abscess. 4. Inferior right hepatic lesion, not clearly seen on the prior CT scan, but probably present, differences due to differences in contrast enhancement timing. There is no metabolic activity in this region on the prior PET-CT scan, and this may be a benign process. Attention on follow-up. 5. Right adrenal metastasis. D/ / Franklin Kyle MD / Franklin Kyle MD Interpreting Provider: Franklin Kyle MD - ABG Interpretation ABG results: PT/INR, D-dimer PT 13.3 Seconds (9.4-12.1) H 11/07/16 22:14 Consult Discharge Plan - Plan Referrals: NONE,PCP [Primary Care Provider] -
--- NOTE | 2016-11-13 11:19 | Event Note ---
Date of Encounter: 11/13/16 Time of Encounter: 11:15 Patient up on side of bed, at bedside. She states that Dr. Valentine will be attempting to contact his previous surgeon at [facility] to discuss his situation. She did ask some questions r/t home palliative care vs home health and we discussed. I did mention support hospice could provide, and states "absolutely not - we will not even discuss at this time". We discussed again nutritional status despite TPN, and it not good option alf. She acknowledges but stated they are awaiting what other surgeons states. Patient and did discuss their arturo for quite some time, and she still has arturo and hope that he will improve. She did also discuss that "everyone dies", and states "the Lord's will be done". Provided emotional support - pt tearful throughout my visit. Will f/u on Tuesday.
[2016-11-13] MEDS ORDERED: Polyethylene Glycol 3350 255 GM POWDER PO ONE (14:11)
--- NOTE | 2016-11-13 14:56 | General Surgery Progress Note ---
Date of Encounter: 11/13/16 Time of Encounter: 11:00 - Assessment and Plan (1) Abdominal pain Current Visit: No Status: Acute prn pain control Qualifiers: Abdominal location: generalized Qualified Code(s): R10.84 - Generalized abdominal pain (2) Hypertension Current Visit: No Status: Chronic start po scheduled lopressor iv monitor Qualifiers: Hypertension type: essential hypertension Qualified Code(s): I10 - Essential (primary) hypertension (3) DVT prophylaxis Current Visit: No Status: Acute heparin sq (4) 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 Current Visit: Yes Status: Chronic follow with oncology (5) S/P colectomy Current Visit: Yes Status: Acute patient peg clamped overnight, no complaints of nausea small amount of thick stool will start 8 oz miralax bowel prep thru peg q2 hrs, hasnt had output yet (6) Protein-calorie malnutrition, severe Current Visit: Yes Status: Acute continue TPN (7) Nausea and vomiting Current Visit: Yes Status: Acute prn antiemetics open peg to gravity if crampy abd pain, N/V Qualifiers: Vomiting type: unspecified Vomiting Intractability: non-intractable Qualified Code(s): R11.2 - Nausea with vomiting, unspecified (8) Headache Current Visit: Yes Status: Chronic patient complaining more of left posterolateral head pain, is where previous metastatic cancer was removed several months ago, will ct head to evaluate Qualifiers: Headache type: unspecified Headache chronicity pattern: chronic headache Intractability: intractable Qualified Code(s): R51 - Headache Subjective Narrative: complains of headache no significant nausea no significant abdominal pain complains of being tired and weak Objective Vital Signs - Last 8 Hours Temp Pulse Resp BP Pulse Ox 11/13/16 10:38 97.5 F L 98 18 156/73 97 11/13/16 08:27 97.5 F L 98 16 138/82 96 Intake and Output 11/12/16 11/13/16 11/13/16 23:59 07:59 15:59 Intake Total 0 / 0 250 / 250 0 / 0 Output Total 575 / 575 300 / 300 625 / 625 Balance -575 / -575 -50 / -50 -625 / -625 Intake: IV Fluids 250 / 250 Intralipid 20% 250 ML @ 250 / 250 21 mls/hr IVPB DAILY@1700 [facility] Rx#:[id number] Oral 0 / 0 0 / 0 0 / 0 Output: Urine 500 / 500 300 / 300 625 / 625 Stool 0 / 0 0 / 0 Wound Drainage 75 / 75 0 / 0 LUQ Peg Tube 75 / 75 0 / 0 Other: Meal NPO npo Percent of Meal Consumed 0% Weight 82.2 kg Blood Glucose* 136 130 Patient Weight 11/13/16 23:59 Weight 82.2 kg - General physical appearance no distress, cachectic, chronically ill - Eyes PERRL, normal ocular movement - ENT normal mucosa, normocephalic - Neck Neck exam: trachea midline - Respiratory normal expansion, clear to auscultation - Cardiovascular Cardiovascular exam: Present: RRR - Abdomen Abdomen: Present: bowel sounds present, soft, non tender - Incision Incision: Present: open (wound vac in place) - Integumentary no growths - Neurologic CN 2-12 grossly intact - Musculoskeletal normal posture, other (geneneralized deconditioning) - Psychiatric oriented to time, oriented to person, oriented to place, memory intact - Labs 11/13/16 07:15 11/13/16 07:15 Short CBC 11/13/16 Range/Units 07:15 WBC 7.3 (4.3-11.1) K/mcL Hgb 8.4 L (12.9-16.9) g/dL Hct 26.4 L (37.5-50.1) % Plt Count 371 (140-400) K/mcL Neutrophils # 5.2 (1.6-8.9) K/mcL BMP 11/13/16 Range/Units 07:15 Sodium 136 (136-145) mEq/L Potassium 3.8 (3.5-4.5) mEq/L Chloride 105 (98-109) mEq/L Carbon Dioxide 28 (19-29) mEq/L BUN 21 (8-26) mg/dL Creatinine 0.47 L (0.72-1.25) mg/dL Glucose 87 (70-99) mg/dL Calcium 10.0 (8.6-10.8) mg/dL Vital Signs Temp Pulse Resp BP Pulse Ox 11/13/16 10:38 97.5 F L 98 18 156/73 97 11/13/16 08:27 97.5 F L 98 16 138/82 96 11/13/16 00:49 98.0 F 93 18 157/90 96 11/12/16 19:29 98.0 F 100 16 151/84 96 11/12/16 16:14 18 95 Intake and Output 11/12/16 11/13/16 11/13/16 23:59 07:59 15:59 Intake Total 0 / 0 250 / 250 0 / 0 Output Total 575 / 575 300 / 300 625 / 625 Balance -575 / -575 -50 / -50 -625 / -625 Intake: IV Fluids 250 / 250 Intralipid 20% 250 ML @ 250 / 250 21 mls/hr IVPB DAILY@1700 [facility] Rx#:[id number] Oral 0 / 0 0 / 0 0 / 0 Output: Urine 500 / 500 300 / 300 625 / 625 Stool 0 / 0 0 / 0 Wound Drainage 75 / 75 0 / 0 LUQ Peg Tube 75 / 75 0 / 0 Other: Meal NPO npo Percent of Meal Consumed 0% Weight 82.2 kg Blood Glucose* 136 130 Patient Weight 11/13/16 23:59 Weight 82.2 kg - VTE Documentation of Mechanical Device: Intermittent pneumatic compression device Consult Discharge Plan - Plan Referrals: NONE,PCP [Primary Care Provider] -
[2016-11-13] MEDS: Docusate Oral Soln 100 MG/10 ML UDC GTUBE SCH ×2 (15:00→20:59)
[2016-11-13] MEDS: Acetylcysteine 10% 2 ML INHSOL IH SCH ×2 (15:23→21:55)
[2016-11-13] MEDS ORDERED: Clinimix E 5%-20% SOLUTION 2,000 ML, Parenteral Amino Acid 10% 200 ML with MVI, adult ... IVC SCH (17:00)
[2016-11-13] MEDS: *HR* Metoprolol 5 MG/5 ML VIAL IVP SCH ×2 (17:11→23:45)
[2016-11-13] MEDS: *HR* LORazepam 2 MG/ML VIAL IVP SCH (20:57)
[2016-11-13] MEDS: Mirtazapine 15 MG TABLET GTUBE SCH (20:59)
[2016-11-14] MEDS: Acetylcysteine 10% 2 ML INHSOL IH SCH ×4 (03:31→21:49)
[2016-11-14] MEDS: *HR* LORazepam 2 MG/ML VIAL IVP PRN ×2 (03:35→10:55)
[2016-11-14 04:31] LABS: Basophils % 0.6 %; Eosinophils # 0.4 K/mcL (0.0-0.6); Eosinophils % 5.3 %; Hematocrit 26.1 % (37.5-50.1); Hemoglobin 8.3 g/dL (12.9-16.9); Immature Granulocytes % 0.7 % (0-4); Lymphocytes # 0.9 K/mcL (0.6-4.6); Lymphocytes % 11.9 %; Mean Corpuscular HGB Conc 31.8 g/dL (31.6-35.5); Mean Corpuscular Hemoglobin 31.4 pg (28.0-33.3); Mean Corpuscular Volume 98.9 fL (83.0-100.0); Mean Platelet Volume 10.5 fL (9.4-12.4); Monocytes # 0.8 K/mcL (0.0-1.3); Monocytes % 10.5 %; Neutrophils # 5.1 K/mcL (1.6-8.9); Platelet Count 248 K/mcL (140-400); Red Blood Count 2.64 M/mcL (4.19-5.50); Red Cell Distribution Width 15.7 % (11.5-14.5)
[2016-11-14 05:29] LABS: Alanine Aminotransferase 16 Units/L (0-55); Albumin/Globulin Ratio 0.4 (1.1-2.2); Alkaline Phosphatase 137 Units/L (38-126); Aspartate Amino Transferase 20 Units/L (5-34); BUN/Creatinine Ratio 43 (6-26); Blood Urea Nitrogen 21 mg/dL (8-26); Calcium 9.5 mg/dL (8.6-10.8); Carbon Dioxide 24 mEq/L (19-29); Chloride 105 mEq/L (98-109); Glucose 106 mg/dL (70-99); Osmolality,Calculated 283 (280-300); Potassium 3.5 mEq/L (3.5-4.5); Sodium 135 mEq/L (136-145); eGFR For African Americans > 60 (> 60); eGFR For Non-African Americans > 60 (> 60)
[2016-11-14 05:30] LABS: Albumin 1.8 g/dL (3.5-5.0); Bilirubin,Total < 0.3 mg/dL (0.2-1.2); Globulin 4.2 g/dL (2.4-3.5)
[2016-11-14] MEDS: *HR* HYDROmorphone (PF) 1 MG/ML SYRINGE IVP PRN (06:25)
[2016-11-14] MEDS: Metoclopramide 10 MG/2 ML VIAL IVP SCH ×3 (06:32→17:32)
[2016-11-14] MEDS: *HR* Heparin 5,000 UNIT/ML VIAL SQ SCH ×3 (06:32→22:18)
[2016-11-14] MEDS: *HR* Metoprolol 5 MG/5 ML VIAL IVP SCH ×3 (06:33→17:32)
[2016-11-14] MEDS: Ipratropium/Albuterol Neb 3 ML IH SCH ×3 (07:51→21:48)
[2016-11-14] MEDS: *HR* FentaNYL PATCH 12 MCG PATCH TD SCH (10:54)
[2016-11-14] MEDS: Docusate Oral Soln 100 MG/10 ML UDC GTUBE SCH ×2 (10:55→20:15)
[2016-11-14] MEDS: Fluticasone Propionate Nasal 50 MCG/SPRAY BOTTLE NS SCH (10:55)
--- NOTE | 2016-11-14 11:31 | General Surgery Progress Note ---
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 Surgical history of abdominoperineal resection, colostomy, left lower lobectomy, craniotomy, tumor excision. Post-surgical day #23 exploratory laparotomy with sigmoid colectomy, lysis of adhesions, takedown of splenic flexture, relocation of colostomy, appendectomy by Dr. Valentine. Patient is chronically ill and overall health is poor. Peg tube was placed on 11/04/16 and clamped yesterday, but patient had nausea and "dry heaves" at night. Peg tube was unclamped and connected to drainage bag with immediate return of 325ml green liquid and symptomatic relief. Continue tube feedings. Patient continues to have poor appetite. He still has nausea, but no vomiting. Continue full liquid diet, encourage PO intake and monitor I/Os. Marinol to stimulate his appetite. Continue TPN due to low caloric intake and ileus. Supportive and pain care with tylenol, toradol. Colostomy did not have flatus or stool. Colostomy care daily. Wound vac change today. Encourage IS every hour. Ambulate with assistance as tolerated. PPI therapy. Avoid coadministration of ativan and opioid medications given patient reaction - at least 1 hr between doses. Discharge plan remains the same - consider bringing in palliative care onboard to discuss options with family if patient does not improve by Tuesday. (2) Hypertension Current Visit: No Status: Chronic BP is stable. Continue current blood pressure medications Qualifiers: Hypertension type: essential hypertension Qualified Code(s): I10 - Essential (primary) hypertension (3) 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 Current Visit: Yes Status: Chronic Manage per oncology (4) Ileus Current Visit: Yes Status: Acute Colostomy has no flatus or stool. Bowel sounds present. Continue colace and miralax (5) DVT prophylaxis Current Visit: No Status: Acute Heparin 5000 units SQ Q8h for DVT prophylaxis Subjective Patient reports: no new complaints, voiding w/o difficulty, flatus, bowel movement Objective Vital Signs - Last 8 Hours Temp Pulse Resp BP Pulse Ox 11/14/16 07:53 18 95 11/14/16 07:12 97.9 F 99 18 159/86 95 11/14/16 03:53 97.7 F 102 20 146/83 96 Intake and Output 11/13/16 11/14/16 11/14/16 23:59 07:59 15:59 Intake Total 105 / 105 0 / 0 Output Total 850 / 850 650 / 650 Balance -745 / -745 -650 / -650 Intake: IV Fluids 105 / 105 Keppra 500 MG In 0.9 % 105 / 105 Sodium Chloride 100 ML @ 400 mls/hr IVPB DAILY [facility] Rx#:[id number] Oral 0 / 0 0 / 0 Output: Urine 600 / 600 400 / 400 Stool 250 / 250 250 / 250 Wound Drainage 0 / 0 0 / 0 LUQ Peg Tube 0 / 0 0 / 0 Lower Medial Abdomen 0 / 0 0 / 0 Medial Abdomen 0 / 0 0 / 0 Other: Meal NPO # Voids 1 Weight 81.2 kg Blood Glucose* 114 132 Patient Weight 11/14/16 23:59 Weight 81.2 kg - General physical appearance cachectic, chronically ill - Eyes normal ocular movement - ENT atraumatic, normocephalic, CN 2-12 grossly intact - Neck Neck exam: trachea midline - Respiratory normal expansion, clear to auscultation - Cardiovascular Cardiovascular exam: Present: RRR, no murmurs/rubs/gallops - Abdomen Abdomen: Present: bowel sounds present, soft, tender, wound (PEG tube is clamped ) - Labs 11/14/16 04:05 11/14/16 04:05 Diabetes panel 11/14/16 Range/Units 04:05 Sodium 135 L (136-145) mEq/L Potassium 3.5 (3.5-4.5) mEq/L Chloride 105 (98-109) mEq/L Carbon Dioxide 24 (19-29) mEq/L BUN 21 (8-26) mg/dL Creatinine 0.49 L (0.72-1.25) mg/dL Glucose 106 H (70-99) mg/dL Calcium 9.5 (8.6-10.8) mg/dL AST 20 (5-34) Units/L ALT 16 (0-55) Units/L Alkaline Phosphatase 137 H (38-126) Units/L Albumin 1.8 L (3.5-5.0) g/dL Calcium panel 11/14/16 Range/Units 04:05 Calcium 9.5 (8.6-10.8) mg/dL Albumin 1.8 L (3.5-5.0) g/dL Pituitary panel 11/14/16 Range/Units 04:05 Sodium 135 L (136-145) mEq/L Potassium 3.5 (3.5-4.5) mEq/L Chloride 105 (98-109) mEq/L Carbon Dioxide 24 (19-29) mEq/L BUN 21 (8-26) mg/dL Creatinine 0.49 L (0.72-1.25) mg/dL Glucose 106 H (70-99) mg/dL Calcium 9.5 (8.6-10.8) mg/dL Adrenal panel 11/14/16 Range/Units 04:05 Sodium 135 L (136-145) mEq/L Potassium 3.5 (3.5-4.5) mEq/L Chloride 105 (98-109) mEq/L Carbon Dioxide 24 (19-29) mEq/L BUN 21 (8-26) mg/dL Creatinine 0.49 L (0.72-1.25) mg/dL Glucose 106 H (70-99) mg/dL Calcium 9.5 (8.6-10.8) mg/dL Total Bilirubin < 0.3 (0.2-1.2) mg/dL AST 20 (5-34) Units/L ALT 16 (0-55) Units/L Alkaline Phosphatase 137 H (38-126) Units/L Albumin 1.8 L (3.5-5.0) g/dL - VTE Documentation of Mechanical Device: Intermittent pneumatic compression device Consult Discharge Plan - Plan Referrals: NONE,PCP [Primary Care Provider] - <Loly Valentine - Last Filed: 11/14/16 11:54> Date of Encounter: 11/14/16 - Assessment and Plan (1) Abdominal pain Current Visit: No Status: Acute imroving, dc dilaudid, start morphine (low dose) prn continue fentanyl Qualifiers: Abdominal location: generalized Qualified Code(s): R10.84 - Generalized abdominal pain (2) Hypertension Current Visit: No Status: Chronic continue medication via peg and iv, monitor Qualifiers: Hypertension type: essential hypertension Qualified Code(s): I10 - Essential (primary) hypertension (3) DVT prophylaxis Current Visit: No Status: Acute heparin sq OOB, ambulate PT/OT (4) 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 Current Visit: Yes Status: Chronic per oncology (5) S/P colectomy Current Visit: Yes Status: Acute patient tolerated bowel prep yesterday and has had multiple bms will start tube feeds at 10cc /hr and hold at this rate today OOB to chair/PT/OT prn pain medication/antiemetics continue colace liquid vac changes M, W, F (6) Protein-calorie malnutrition, severe Current Visit: Yes Status: Acute continue TPN until patient takes in adequate tube feeds (7) Nausea and vomiting Current Visit: Yes Status: Resolved Qualifiers: Vomiting type: unspecified Vomiting Intractability: non-intractable Qualified Code(s): R11.2 - Nausea with vomiting, unspecified Subjective Patient reports: no new complaints, feels better, tolerating liquids well ( bowel prep via peg), flatus, bowel movement Objective Vital Signs - Last 8 Hours Temp Pulse Resp BP Pulse Ox 11/14/16 07:53 18 95 11/14/16 07:12 97.9 F 99 18 159/86 95 11/14/16 03:53 97.7 F 102 20 146/83 96 Intake and Output 11/13/16 11/14/16 11/14/16 23:59 07:59 15:59 Intake Total 105 / 105 0 / 0 250 / 250 Output Total 850 / 850 650 / 650 Balance -745 / -745 -650 / -650 250 / 250 Intake: IV Fluids 105 / 105 250 / 250 Intralipid 20% 250 ML @ 250 / 250 21 mls/hr IVPB DAILY@1700 [facility] Rx#:[id number] Keppra 500 MG In 0.9 % 105 / 105 Sodium Chloride 100 ML @ 400 mls/hr IVPB DAILY [facility] Rx#:[id number] Oral 0 / 0 0 / 0 Output: Urine 600 / 600 400 / 400 Stool 250 / 250 250 / 250 Wound Drainage 0 / 0 0 / 0 LUQ Peg Tube 0 / 0 0 / 0 Lower Medial Abdomen 0 / 0 0 / 0 Medial Abdomen 0 / 0 0 / 0 Other: Meal NPO # Voids 1 Weight 81.2 kg Blood Glucose* 114 132 Patient Weight 11/14/16 23:59 Weight 81.2 kg - General physical appearance cachectic, chronically ill - Eyes PERRL, normal ocular movement - ENT dry mucosa, atraumatic, normocephalic - Neck Neck exam: trachea midline - Respiratory normal expansion, clear to auscultation - Cardiovascular Cardiovascular exam: Present: RRR, no murmurs/rubs/gallops - Abdomen Abdomen: Present: bowel sounds present, soft, tender (minimal), wound - Genitourinary normal penis with no external lesions - Integumentary no growths - Neurologic CN 2-12 grossly intact - Musculoskeletal normal posture - Psychiatric oriented to time, oriented to person, memory intact - Labs 11/14/16 04:05 11/14/16 04:05 Vital Signs Temp Pulse Resp BP Pulse Ox 11/14/16 07:53 18 95 11/14/16 07:12 97.9 F 99 18 159/86 95 11/14/16 03:53 97.7 F 102 20 146/83 96 11/13/16 23:38 97.8 F 93 18 159/77 95 11/13/16 20:18 97.8 F 103 18 143/75 96 11/13/16 17:22 16 95 Intake and Output 11/13/16 11/14/16 11/14/16 23:59 07:59 15:59 Intake Total 105 / 105 0 / 0 250 / 250 Output Total 850 / 850 650 / 650 Balance -745 / -745 -650 / -650 250 / 250 Intake: IV Fluids 105 / 105 250 / 250 Intralipid 20% 250 ML @ 250 / 250 21 mls/hr IVPB DAILY@1700 [facility] Rx#:[id number] Keppra 500 MG In 0.9 % 105 / 105 Sodium Chloride 100 ML @ 400 mls/hr IVPB DAILY [facility] Rx#:[id number] Oral 0 / 0 0 / 0 Output: Urine 600 / 600 400 / 400 Stool 250 / 250 250 / 250 Wound Drainage 0 / 0 0 / 0 LUQ Peg Tube 0 / 0 0 / 0 Lower Medial Abdomen 0 / 0 0 / 0 Medial Abdomen 0 / 0 0 / 0 Other: Meal NPO # Voids 1 Weight 81.2 kg Blood Glucose* 114 132 Patient Weight 11/14/16 23:59 Weight 81.2 kg Short CBC 11/14/16 Range/Units 04:05 WBC 7.1 (4.3-11.1) K/mcL Hgb 8.3 L (12.9-16.9) g/dL Hct 26.1 L (37.5-50.1) % Plt Count 248 (140-400) K/mcL Neutrophils # 5.1 (1.6-8.9) K/mcL BMP 11/14/16 Range/Units 04:05 Sodium 135 L (136-145) mEq/L Potassium 3.5 (3.5-4.5) mEq/L Chloride 105 (98-109) mEq/L Carbon Dioxide 24 (19-29) mEq/L BUN 21 (8-26) mg/dL Creatinine 0.49 L (0.72-1.25) mg/dL Glucose 106 H (70-99) mg/dL Calcium 9.5 (8.6-10.8) mg/dL Liver Function 11/14/16 Range/Units 04:05 Total Bilirubin < 0.3 (0.2-1.2) mg/dL AST 20 (5-34) Units/L ALT 16 (0-55) Units/L Alkaline Phosphatase 137 H (38-126) Units/L Albumin 1.8 L (3.5-5.0) g/dL - Attending Attestation I examined this patient and my medical decision-making was reviewed with the Resident Physician. I agree with the documented findings, disposition and treatment plan as described except to the extent set forth below.
[2016-11-14] MEDS: *HR* Morphine 2 MG/ML SYRINGE IVP PRN ×2 (11:44→18:19)
[2016-11-14] MEDS ORDERED: Clinimix E 5%-20% SOLUTION 2,000 ML, Parenteral Amino Acid 10% 200 ML with MVI, adult ... IVC SCH (17:00)
[2016-11-14] MEDS: Mirtazapine 15 MG TABLET GTUBE SCH (20:15)
[2016-11-14] MEDS: *HR* LORazepam 2 MG/ML VIAL IVP SCH (22:17)
[2016-11-15] MEDS: Metoclopramide 10 MG/2 ML VIAL IVP SCH ×5 (00:41→23:59)
[2016-11-15] MEDS: *HR* Metoprolol 5 MG/5 ML VIAL IVP SCH ×4 (00:41→17:20)
[2016-11-15] MEDS: *HR* Morphine 2 MG/ML SYRINGE IVP PRN ×4 (01:22→21:22)
[2016-11-15] MEDS: Acetylcysteine 10% 2 ML INHSOL IH SCH ×4 (04:11→22:33)
[2016-11-15 04:58] LABS: Basophils % 0.5 %; Eosinophils # 0.4 K/mcL (0.0-0.6); Eosinophils % 6.1 %; Hematocrit 25.7 % (37.5-50.1); Hemoglobin 8.2 g/dL (12.9-16.9); Immature Granulocytes % 0.7 % (0-4); Lymphocytes # 0.8 K/mcL (0.6-4.6); Lymphocytes % 13.8 %; Mean Corpuscular HGB Conc 31.9 g/dL (31.6-35.5); Mean Corpuscular Hemoglobin 31.2 pg (28.0-33.3); Mean Corpuscular Volume 97.7 fL (83.0-100.0); Monocytes # 0.6 K/mcL (0.0-1.3); Monocytes % 9.6 %; Platelet Count 324 K/mcL (140-400); Red Blood Count 2.63 M/mcL (4.19-5.50); Red Cell Distribution Width 15.2 % (11.5-14.5); Segmented Neutrophils % 69.3 %
[2016-11-15] MEDS: *HR* Heparin 5,000 UNIT/ML VIAL SQ SCH ×3 (05:09→21:23)
[2016-11-15 05:12] LABS: BUN/Creatinine Ratio 39 (6-26); Blood Urea Nitrogen 18 mg/dL (8-26); Calcium 9.7 mg/dL (8.6-10.8); Carbon Dioxide 26 mEq/L (19-29); Chloride 106 mEq/L (98-109); Glucose 111 mg/dL (70-99); Osmolality,Calculated 285 (280-300); Potassium 3.4 mEq/L (3.5-4.5); Sodium 136 mEq/L (136-145); eGFR For African Americans > 60 (> 60); eGFR For Non-African Americans > 60 (> 60)
[2016-11-15] MEDS: *HR* LORazepam 2 MG/ML VIAL IVP PRN ×2 (05:17→12:24)
[2016-11-15] MEDS ORDERED: Magnesium Sulfate 2 GM in D5% in Water 100 ML IVPB ONE (07:17)
[2016-11-15] MEDS: Ipratropium/Albuterol Neb 3 ML IH SCH ×3 (07:59→22:33)
[2016-11-15] MEDS: Docusate Oral Soln 100 MG/10 ML UDC GTUBE SCH ×2 (09:50→21:22)
--- NOTE | 2016-11-15 09:53 | Palliative Progress Note ---
Date of Encounter: 11/15/16 Time of Encounter: 09:50 - Assessment and plan (1) Abdominal pain Current Visit: No Status: Acute Assessment and plan: Continues with Fentanyl patch and IV Morphine for breakthrough. After discussion with , restarting Gabapentin may be helpful. Will restart at 300mg BID and can titrate. Home dose prior to admission was 300mg TID. Qualifiers: Qualified Code(s): R10.84 - Generalized abdominal pain (2) Anxiety Current Visit: Yes Status: Acute Assessment and plan: Continues with Lorazepam PRN (3) Counseling regarding advanced care planning and goals of care Current Visit: Yes Status: Acute Assessment and plan: Patient and optimistic after return of bowel function. Eventually will need rehab placement. This was started initially with [facility] in [place]. Will D/W printed circuit board reworker pt progress. (4) Protein-calorie malnutrition, severe Current Visit: Yes Status: Acute Assessment and plan: Tolerating trickle tube feeds thus far. Monitor (5) 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 Current Visit: Yes Status: Chronic - Time Spent With Patient Total time spent is greater than 50% in coordination of care (as documented) at patient's floor/unit and/or counseling patient: - Subjective Interval history: Patient awake and alert, at bedside. Patient with return of bowel function and thus far tolerating trickle feeds. No complaints of nausea. Still with significant pain left side of head. In discussion with , he was started on Gabapentin by Dr. Flores - initally 300 mg BID, and had been increased to TID. Has not received since admission. Will D/W surgery. - Constitutional Vitals: Abnormal lab results RBC 2.63 M/mcL (4.19-5.50) L 11/15/16 04:19 Hgb 8.2 g/dL (12.9-16.9) L 11/15/16 04:19 Hct 25.7 % (37.5-50.1) L 11/15/16 04:19 RDW 15.2 % (11.5-14.5) H 11/15/16 04:19 Metamyelocytes % 2.0 % (0) H 10/24/16 04:15 Nucleated RBCs/100 WBC 0.2 /100 WBC (0) H 11/03/16 06:39 Toxic Granulation Present (Not Present) A 10/23/16 10:13 Polychromasia 1+ (Not Present) A 10/22/16 03:20 Anisocytosis 1+ (Not Present) A 10/22/16 03:20 Macrocytosis Present (Not Present) A 10/22/16 03:20 PT 13.3 Seconds (9.4-12.1) H 11/07/16 22:14 Potassium 3.4 mEq/L (3.5-4.5) L 11/15/16 04:19 Creatinine 0.46 mg/dL (0.72-1.25) L 11/15/16 04:19 BUN/Creatinine Ratio 39 (6-26) H 11/15/16 04:19 Glucose 111 mg/dL (70-99) H 11/15/16 04:19 POC Glucose 120 (58-89) H 11/15/16 07:19 Magnesium 1.5 mg/dL (1.6-2.6) L 11/15/16 04:19 Alkaline Phosphatase 137 Units/L (38-126) H 11/14/16 04:05 Albumin 1.8 g/dL (3.5-5.0) L 11/14/16 04:05 Globulin 4.2 g/dL (2.4-3.5) H 11/14/16 04:05 Albumin/Globulin Ratio 0.4 (1.1-2.2) L 11/14/16 04:05 Prealbumin 15.0 mg/dL (18.0-45.0) L 11/12/16 05:56 Amylase 23 Units/L (25-125) L 10/26/16 04:20 Carcinoembryonic Ag 31.6 ng/mL (0-5.0) H 11/03/16 06:39 Vancomycin Trough 0.8 mcg/mL (10-20) L 10/29/16 03:30 General appearance: Present: no acute distress - Respiratory Respiratory exam: Present: CTAB - Cardiovascular Cardiovascular exam: Present: +S1, +S2 - GI/Abdominal Additional comments: Ostomy with light brown stool. Wound vac intact to abdominal incision - Additional comments: Voids per urinal - Extremities Exam Extremities exam: Present: normal capillary refill, normal inspection - Neurological Exam Neurological exam: Present: alert, oriented X3, strengths equal and symetr throughout - Skin Skin exam: Present: dry, warm Palliative Quality Palliative Quality: Screen for Code Status: Yes, Screen for Goals of Care: Yes, Screen for Pain: Yes, If Pain Regimen Started, Initiate Bowel Regimen: NA, Screen for Nausea/Vomitting: Yes Code Status: 10/18/16 17:46 Resuscitation Status: Active [RES] Routine Comment: Resuscitation Status: Full Code 11/12/16 14:45 DNR [Resuscitation Status: Active] [RES] Routine Comment: Resuscitation Status: [id number] - Labs CBC & Chem 7: 11/15/16 04:19 11/15/16 04:19 Labs: Laboratory Results - last 24 hr 11/14/16 11/14/16 11/14/16 12:19 16:12 19:25 WBC RBC Hgb Hct MCV MCH MCHC RDW Plt Count MPV Immature Gran % Seg Neutrophils % Lymphocytes % Monocytes % Eosinophils % Basophils % Neutrophils # Lymphocytes # Monocytes # Eosinophils # Basophils # Sodium Potassium Chloride Carbon Dioxide BUN Creatinine Est GFR ( Amer) Est GFR (Non-Af Amer) BUN/Creatinine Ratio Glucose POC Glucose 120 H 129 H 119 H Calculated Osmolality Calcium Phosphorus Magnesium 11/15/16 11/15/16 11/15/16 00:42 04:19 04:19 WBC 5.7 RBC 2.63 L Hgb 8.2 L Hct 25.7 L MCV 97.7 MCH 31.2 MCHC 31.9 RDW 15.2 H Plt Count 324 MPV 10.0 Immature Gran % 0.7 Seg Neutrophils % 69.3 Lymphocytes % 13.8 Monocytes % 9.6 Eosinophils % 6.1 Basophils % 0.5 Neutrophils # 4.0 Lymphocytes # 0.8 Monocytes # 0.6 Eosinophils # 0.4 Basophils # 0.0 Sodium Potassium Chloride Carbon Dioxide BUN Creatinine Est GFR ( Amer) Est GFR (Non-Af Amer) BUN/Creatinine Ratio Glucose POC Glucose 157 H Calculated Osmolality Calcium Phosphorus Magnesium 1.5 L 11/15/16 11/15/16 11/15/16 04:19 04:19 04:32 WBC RBC Hgb Hct MCV MCH MCHC RDW Plt Count MPV Immature Gran % Seg Neutrophils % Lymphocytes % Monocytes % Eosinophils % Basophils % Neutrophils # Lymphocytes # Monocytes # Eosinophils # Basophils # Sodium 136 Potassium 3.4 L Chloride 106 Carbon Dioxide 26 BUN 18 Creatinine 0.46 L Est GFR ( Amer) > 60 Est GFR (Non-Af Amer) > 60 BUN/Creatinine Ratio 39 H Glucose 111 H POC Glucose 106 H Calculated Osmolality 285 Calcium 9.7 Phosphorus 2.8 Magnesium 11/15/16 07:19 WBC RBC Hgb Hct MCV MCH MCHC RDW Plt Count MPV Immature Gran % Seg Neutrophils % Lymphocytes % Monocytes % Eosinophils % Basophils % Neutrophils # Lymphocytes # Monocytes # Eosinophils # Basophils # Sodium Potassium Chloride Carbon Dioxide BUN Creatinine Est GFR ( Amer) Est GFR (Non-Af Amer) BUN/Creatinine Ratio Glucose POC Glucose 120 H Calculated Osmolality Calcium Phosphorus Magnesium - ABG Interpretation ABG results: PT/INR, D-dimer PT 13.3 Seconds (9.4-12.1) H 11/07/16 22:14 Consult Discharge Plan - Plan Referrals: NONE,PCP [Primary Care Provider] -
[2016-11-15] MEDS: Fluticasone Propionate Nasal 50 MCG/SPRAY BOTTLE NS SCH (09:54)
--- NOTE | 2016-11-15 09:57 | General Surgery Progress Note ---
<Carroll Veloz - Last Filed: 11/15/16 09:19> Date of Encounter: 11/15/16 Time of Encounter: 07:30 - Assessment and Plan (1) S/P colectomy Current Visit: Yes Status: Acute sigmoid colectomy, lysis of adhesions, takedown of splenic flexure, colostomy relocation, and appendectomy 10/18/[address] Valentine Patient feeling better today BMs and flatus passing from stoma Patient tolerating tube feeds without nausea or vomiting Wound vac not sealed currently, will change today Continue incentive spirometer hourly and OOB as tolerated Palliative on board, appreciate input Pain management with fentanyl patch, morphine for breakthrough, restarted home gabapentin per palliative avoid coadministration of ativan and opioid medications given patient reaction - at least 1 hr between doses (2) Abdominal pain Current Visit: Yes Status: Acute See plan of care above Qualifiers: Abdominal location: generalized Qualified Code(s): R10.84 - Generalized abdominal pain (3) Ileus Current Visit: Yes Status: Acute Resolved Limit use of opioid pain medication Colace and miralax (4) Hypertension Current Visit: No Status: Chronic Continue daily medications Qualifiers: Hypertension type: essential hypertension Qualified Code(s): I10 - Essential (primary) hypertension (5) 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 Current Visit: Yes Status: Chronic Managed per oncology (6) Protein-calorie malnutrition, severe Current Visit: Yes Status: Acute Continue TPN until adequate intake (7) Nausea and vomiting Current Visit: Yes Status: Resolved Resolved prn antiemetics Qualifiers: Vomiting type: unspecified Vomiting Intractability: non-intractable Qualified Code(s): R11.2 - Nausea with vomiting, unspecified (8) DVT prophylaxis Current Visit: Yes Status: Acute Continue heparin subq Subjective Patient reports: no new complaints, bowel movement, afebrile Narrative: Patient tolerated tube feedings well without nausea or vomiting. His colostomy has started having output again. When the bag needed changed yesterday, the seal on his wound vac was broken and has been since then. Objective Vital Signs - Last 8 Hours Temp Pulse Resp BP Pulse Ox 11/15/16 07:14 99.5 F 89 16 139/84 97 11/15/16 04:33 97.7 F 110 17 136/87 98 Intake and Output 11/14/16 11/15/16 11/15/16 23:59 07:59 15:59 Intake Total 50 / 50 300 / 300 Output Total 700 / 700 400 / 400 0 / 0 Balance -650 / -650 -100 / -100 0 / 0 Intake: IV Fluids 250 / 250 Intralipid 20% 250 ML @ 250 / 250 21 mls/hr IVPB DAILY@1700 [facility] Rx#:[id number] Oral 0 / 0 0 / 0 Free Water Intake Amount 50 / 50 50 / 50 Output: Urine 675 / 675 400 / 400 Stool 0 / 0 Wound Drainage 25 / 25 0 / 0 0 / 0 LUQ Peg Tube 0 / 0 Lower Medial Abdomen 25 / 25 0 / 0 0 / 0 Medial Abdomen 0 / 0 Other: Blood Glucose* 119 120 - General physical appearance well developed, well nourished, no distress, chronically ill, other (Somnolent) - Eyes normal ocular movement - ENT atraumatic, normocephalic - Neck Neck exam: trachea midline - Respiratory normal expansion, normal respiratory effort, clear to auscultation - Cardiovascular Cardiovascular exam: Present: RRR - Abdomen Abdomen: Present: bowel sounds present, soft, non tender - Incision Incision: Present: clean and dry - Musculoskeletal normal posture - Psychiatric speech is normal - Labs 11/15/16 04:19 11/15/16 04:19 Diabetes panel 11/15/16 Range/Units 04:19 Sodium 136 (136-145) mEq/L Potassium 3.4 L (3.5-4.5) mEq/L Chloride 106 (98-109) mEq/L Carbon Dioxide 26 (19-29) mEq/L BUN 18 (8-26) mg/dL Creatinine 0.46 L (0.72-1.25) mg/dL Glucose 111 H (70-99) mg/dL Calcium 9.7 (8.6-10.8) mg/dL Calcium panel 11/15/16 11/15/16 Range/Units 04:19 04:19 Calcium 9.7 (8.6-10.8) mg/dL Phosphorus 2.8 (2.3-4.7) mg/dL Pituitary panel 11/15/16 Range/Units 04:19 Sodium 136 (136-145) mEq/L Potassium 3.4 L (3.5-4.5) mEq/L Chloride 106 (98-109) mEq/L Carbon Dioxide 26 (19-29) mEq/L BUN 18 (8-26) mg/dL Creatinine 0.46 L (0.72-1.25) mg/dL Glucose 111 H (70-99) mg/dL Calcium 9.7 (8.6-10.8) mg/dL Adrenal panel 11/15/16 Range/Units 04:19 Sodium 136 (136-145) mEq/L Potassium 3.4 L (3.5-4.5) mEq/L Chloride 106 (98-109) mEq/L Carbon Dioxide 26 (19-29) mEq/L BUN 18 (8-26) mg/dL Creatinine 0.46 L (0.72-1.25) mg/dL Glucose 111 H (70-99) mg/dL Calcium 9.7 (8.6-10.8) mg/dL - VTE Documentation of Mechanical Device: Intermittent pneumatic compression device Consult Discharge Plan - Plan Referrals: NONE,PCP [Primary Care Provider] - <Loly Valentine - Last Filed: 11/15/16 16:04> Date of Encounter: 11/15/16 Time of Encounter: 13:00 - Assessment and Plan (1) Abdominal pain Current Visit: Yes Status: Acute prn pain control with morphine and continue fentanyl patch Qualifiers: Abdominal location: generalized Qualified Code(s): R10.84 - Generalized abdominal pain (2) Hypertension Current Visit: No Status: Chronic better controlled, continue will switch to peg soon Qualifiers: Hypertension type: essential hypertension Qualified Code(s): I10 - Essential (primary) hypertension (3) DVT prophylaxis Current Visit: Yes Status: Acute (4) 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 Current Visit: Yes Status: Chronic (5) S/P colectomy Current Visit: Yes Status: Acute continue to advance tube feeds as pt tolerates meds down peg due to dysphagia wound vac changes gi.dvt prophylaxis PT/OT (6) Protein-calorie malnutrition, severe Current Visit: Yes Status: Acute continue tpn until adquate tube feed input (7) Nausea and vomiting Current Visit: Yes Status: Resolved Qualifiers: Vomiting type: unspecified Vomiting Intractability: non-intractable Qualified Code(s): R11.2 - Nausea with vomiting, unspecified (8) Dysphagia Current Visit: Yes Status: Acute continue to work with speech npo meds and feeds down peg Qualifiers: Dysphagia type: pharyngeal phase Qualified Code(s): R13.13 - Dysphagia, pharyngeal phase Subjective Patient reports: no new complaints Narrative: tolerating tube feeds little nausea overnight, no emesis still flatus and stool in colostomy Objective Vital Signs - Last 8 Hours Temp Pulse Resp BP Pulse Ox 11/15/16 15:12 98.0 F 89 17 139/82 97 11/15/16 11:07 97.6 F 81 15 107/71 96 Intake and Output 11/15/16 11/15/16 11/15/16 07:59 15:59 23:59 Intake Total 300 / 300 155 / 155 Output Total 400 / 400 625 / 625 Balance -100 / -100 -470 / -470 Intake: IV Fluids 250 / 250 105 / 105 Intralipid 20% 250 ML @ 250 / 250 21 mls/hr IVPB DAILY@1700 [facility] Rx#:[id number] Keppra 500 MG In 0.9 % 105 / 105 Sodium Chloride 100 ML @ 400 mls/hr IVPB DAILY [facility] Rx#:[id number] Oral 0 / 0 Free Water Intake Amount 50 / 50 50 / 50 Output: Urine 400 / 400 625 / 625 Stool 0 / 0 0 / 0 Wound Drainage 0 / 0 0 / 0 LUQ Peg Tube 0 / 0 0 / 0 Lower Medial Abdomen 0 / 0 0 / 0 Medial Abdomen 0 / 0 0 / 0 Other: Meal NPO Blood Glucose* 120 128 - General physical appearance no distress, no pain, cachectic, chronically ill - Eyes normal ocular movement - ENT dry mucosa, atraumatic, normocephalic - Neck Neck exam: trachea midline - Respiratory normal expansion, normal respiratory effort - Cardiovascular Cardiovascular exam: Present: RRR - Abdomen Abdomen: Present: bowel sounds present, soft, non tender - Incision Incision: Present: clean and dry (wound vac) - Genitourinary normal penis with no external lesions - Integumentary no growths - Neurologic CN 2-12 grossly intact - Musculoskeletal normal posture - Psychiatric oriented to time, oriented to person, oriented to place, speech is normal, memory intact - Labs 11/15/16 04:19 11/15/16 04:19 Short CBC 11/15/16 Range/Units 04:19 WBC 5.7 (4.3-11.1) K/mcL Hgb 8.2 L (12.9-16.9) g/dL Hct 25.7 L (37.5-50.1) % Plt Count 324 (140-400) K/mcL Neutrophils # 4.0 (1.6-8.9) K/mcL BMP 11/15/16 Range/Units 04:19 Sodium 136 (136-145) mEq/L Potassium 3.4 L (3.5-4.5) mEq/L Chloride 106 (98-109) mEq/L Carbon Dioxide 26 (19-29) mEq/L BUN 18 (8-26) mg/dL Creatinine 0.46 L (0.72-1.25) mg/dL Glucose 111 H (70-99) mg/dL Calcium 9.7 (8.6-10.8) mg/dL Vital Signs Temp Pulse Resp BP Pulse Ox 11/15/16 15:12 98.0 F 89 17 139/82 97 11/15/16 11:07 97.6 F 81 15 107/71 96 11/15/16 07:59 16 93 11/15/16 07:14 99.5 F 89 16 139/84 97 11/15/16 04:33 97.7 F 110 17 136/87 98 11/15/16 00:36 97.4 F L 97 15 147/90 96 11/14/16 21:49 17 97 11/14/16 19:20 97.8 F 89 16 136/95 97 11/14/16 16:09 98.3 F 92 15 125/84 97 Intake and Output 11/15/16 11/15/16 11/15/16 07:59 15:59 23:59 Intake Total 300 / 300 155 / 155 Output Total 400 / 400 625 / 625 Balance -100 / -100 -470 / -470 Intake: IV Fluids 250 / 250 105 / 105 Intralipid 20% 250 ML @ 250 / 250 21 mls/hr IVPB DAILY@1700 [facility] Rx#:[id number] Keppra 500 MG In 0.9 % 105 / 105 Sodium Chloride 100 ML @ 400 mls/hr IVPB DAILY [facility] Rx#:[id number] Oral 0 / 0 Free Water Intake Amount 50 / 50 50 / 50 Output: Urine 400 / 400 625 / 625 Stool 0 / 0 0 / 0 Wound Drainage 0 / 0 0 / 0 LUQ Peg Tube 0 / 0 0 / 0 Lower Medial Abdomen 0 / 0 0 / 0 Medial Abdomen 0 / 0 0 / 0 Other: Meal NPO Blood Glucose* 120 128 - Attending Attestation I examined this patient and my medical decision-making was reviewed with the Resident Physician. I agree with the documented findings, disposition and treatment plan as described except to the extent set forth below.
[2016-11-15] MEDS: Gabapentin 300 MG CAPSULE GTUBE SCH ×2 (12:27→21:22)
[2016-11-15] MEDS: Ondansetron 4 MG/2 ML VIAL IVP PRN (14:50)
[2016-11-15] MEDS ORDERED: Clinimix E 5%-20% SOLUTION 2,000 ML with MVI, adult with vitamin K 10 ML, Magnesium S... IVC SCH (17:00)
[2016-11-15] MEDS: Scopolamine Patch 1.5 MG PATCH.TD72 TD SCH (17:30)
[2016-11-15] MEDS: *HR* LORazepam 2 MG/ML VIAL IVP SCH (22:25)
[2016-11-15] MEDS: Mirtazapine 15 MG TABLET GTUBE SCH (22:25)
[2016-11-16] MEDS: *HR* Metoprolol 5 MG/5 ML VIAL IVP SCH ×3 (00:02→11:45)
[2016-11-16] MEDS: *HR* LORazepam 2 MG/ML VIAL IVP PRN ×3 (02:58→18:01)
[2016-11-16] MEDS: Metoclopramide 10 MG/2 ML VIAL IVP SCH ×4 (05:54→23:27)
[2016-11-16] MEDS: *HR* Heparin 5,000 UNIT/ML VIAL SQ SCH ×3 (05:54→20:31)
[2016-11-16] MEDS: Ondansetron 4 MG/2 ML VIAL IVP PRN (06:17)
[2016-11-16 06:37] LABS: BUN/Creatinine Ratio 39 (6-26); Blood Urea Nitrogen 19 mg/dL (8-26); Calcium 9.3 mg/dL (8.6-10.8); Carbon Dioxide 25 mEq/L (19-29); Chloride 106 mEq/L (98-109); Glucose 119 mg/dL (70-99); Magnesium 1.6 mg/dL (1.6-2.6); Osmolality,Calculated 283 (280-300); Potassium 3.7 mEq/L (3.5-4.5); Sodium 135 mEq/L (136-145); eGFR For African Americans > 60 (> 60); eGFR For Non-African Americans > 60 (> 60)
[2016-11-16] MEDS: Acetylcysteine 10% 2 ML INHSOL IH SCH ×4 (07:13→22:49)
[2016-11-16] MEDS: Ipratropium/Albuterol Neb 3 ML IH SCH ×3 (07:14→22:49)
[2016-11-16] MEDS: *HR* Promethazine 25 MG/ML VIAL IVP PRN (08:12)
[2016-11-16] MEDS: Docusate Oral Soln 100 MG/10 ML UDC GTUBE SCH ×2 (08:35→20:30)
[2016-11-16] MEDS: Gabapentin 300 MG CAPSULE GTUBE SCH ×2 (08:35→20:31)
[2016-11-16] MEDS: Fluticasone Propionate Nasal 50 MCG/SPRAY BOTTLE NS SCH (08:37)
[2016-11-16] MEDS: *HR* Morphine 2 MG/ML SYRINGE IVP PRN ×3 (11:45→20:32)
--- NOTE | 2016-11-16 14:36 | General Surgery Progress Note ---
Date of Encounter: 11/16/16 Time of Encounter: 12:55 - Assessment and Plan (1) Abdominal pain Current Visit: Yes Status: Acute prn pain control with morphine and continue fentanyl patch Qualifiers: Abdominal location: generalized Qualified Code(s): R10.84 - Generalized abdominal pain (2) Hypertension Current Visit: No Status: Chronic switch to lopressor 12.5 bid down peg, monitro Qualifiers: Hypertension type: essential hypertension Qualified Code(s): I10 - Essential (primary) hypertension (3) DVT prophylaxis Current Visit: Yes Status: Acute heparin sq OOB, ambulate PT/OT (4) 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 Current Visit: Yes Status: Chronic per oncology (5) S/P colectomy Current Visit: Yes Status: Acute continue to advance tube feeds as pt tolerates, pt currently at 30cc/hr meds down peg due to dysphagia wound vac changes gi.dvt prophylaxis PT/OT (6) Protein-calorie malnutrition, severe Current Visit: Yes Status: Acute continue tpn until adquate tube feed input (7) Nausea and vomiting Current Visit: Yes Status: Resolved prn antiemetics open peg to gravity if crampy abd pain, N/V Qualifiers: Vomiting type: unspecified Vomiting Intractability: non-intractable Qualified Code(s): R11.2 - Nausea with vomiting, unspecified (8) Dysphagia Current Visit: Yes Status: Acute continue to work with speech npo meds and feeds down peg Qualifiers: Dysphagia type: pharyngeal phase Qualified Code(s): R13.13 - Dysphagia, pharyngeal phase Subjective Patient reports: no new complaints, feels better, pain is less, flatus, bowel movement, nausea, afebrile Narrative: tolerating tube feeds at 30cc/hr Objective Vital Signs - Last 8 Hours Temp Pulse Resp BP Pulse Ox 11/16/16 10:29 98.4 F 89 16 108/67 97 11/16/16 07:14 16 99 11/16/16 06:48 99.3 F 77 16 136/81 97 Intake and Output 11/15/16 11/16/16 11/16/16 23:59 07:59 15:59 Intake Total 164 / 164 310 / 310 165 / 165 Output Total 475 / 475 825 / 825 325 / 325 Balance -311 / -311 -515 / -515 -160 / -160 Intake: IV Fluids 104 / 104 250 / 250 105 / 105 Intralipid 20% 250 ML @ 250 / 250 21 mls/hr IVPB DAILY@1700 [facility] Rx#:[id number] Magnesium Sulfate 2 GM In 104 / 104 Dextrose 5% 100 ML @ 100 mls/hr IVPB ONCE ONE Rx# :[id number] Keppra 500 MG In 0.9 % 105 / 105 Sodium Chloride 100 ML @ 400 mls/hr IVPB DAILY [facility] Rx#:[id number] Oral 0 / 0 0 / 0 Free Water Intake Amount 60 / 60 60 / 60 60 / 60 Output: Urine 475 / 475 700 / 700 325 / 325 Stool 125 / 125 Wound Drainage 0 / 0 0 / 0 0 / 0 LUQ Peg Tube 0 / 0 0 / 0 Lower Medial Abdomen 0 / 0 0 / 0 0 / 0 Medial Abdomen 0 / 0 0 / 0 0 / 0 Other: Meal Dinner Blood Glucose* 115 119 129 - General physical appearance well developed, no distress - Eyes normal ocular movement - ENT normal mucosa, normocephalic - Respiratory normal expansion, normal respiratory effort - Cardiovascular Cardiovascular exam: Present: RRR - Abdomen Abdomen: Present: bowel sounds present, soft, non tender - Incision Incision: Present: clean and dry (wound vac) - Integumentary no rash, no growths - Neurologic CN 2-12 grossly intact - Musculoskeletal normal posture - Psychiatric oriented to time - Labs 11/15/16 04:19 11/16/16 05:52 Diabetes panel 11/16/16 Range/Units 05:52 Sodium 135 L (136-145) mEq/L Potassium 3.7 (3.5-4.5) mEq/L Chloride 106 (98-109) mEq/L Carbon Dioxide 25 (19-29) mEq/L BUN 19 (8-26) mg/dL Creatinine 0.49 L (0.72-1.25) mg/dL Glucose 119 H (70-99) mg/dL Calcium 9.3 (8.6-10.8) mg/dL Calcium panel 11/16/16 Range/Units 05:52 Calcium 9.3 (8.6-10.8) mg/dL Pituitary panel 11/16/16 Range/Units 05:52 Sodium 135 L (136-145) mEq/L Potassium 3.7 (3.5-4.5) mEq/L Chloride 106 (98-109) mEq/L Carbon Dioxide 25 (19-29) mEq/L BUN 19 (8-26) mg/dL Creatinine 0.49 L (0.72-1.25) mg/dL Glucose 119 H (70-99) mg/dL Calcium 9.3 (8.6-10.8) mg/dL Adrenal panel 11/16/16 Range/Units 05:52 Sodium 135 L (136-145) mEq/L Potassium 3.7 (3.5-4.5) mEq/L Chloride 106 (98-109) mEq/L Carbon Dioxide 25 (19-29) mEq/L BUN 19 (8-26) mg/dL Creatinine 0.49 L (0.72-1.25) mg/dL Glucose 119 H (70-99) mg/dL Calcium 9.3 (8.6-10.8) mg/dL - VTE Documentation of Mechanical Device: Intermittent pneumatic compression device Consult Discharge Plan - Plan Referrals: NONE,PCP [Primary Care Provider] -
[2016-11-16] MEDS ORDERED: Clinimix E 5%-20% SOLUTION 2,000 ML with MVI, adult with vitamin K 10 ML IVC SCH (17:00)
--- NOTE | 2016-11-16 17:49 | Oncology Inp Progress Note ---
Date of Encounter: 11/17/16 Time of Encounter: 17:45 (1) Anemia Current Visit: Yes Status: Acute Assessment and plan: Current hemoglobin8.2 with MCV 97. continue to monitor that. Transfuse as clinically indicated Qualifiers: Qualified Code(s): D64.9 - Anemia, unspecified (2) Protein-calorie malnutrition, severe Current Visit: Yes Status: Acute Assessment and plan: Failure to thrive. Albumin has declined significantly to 1.8 from 3.4 on July 2016. Currently getting continuous tube feeding through a PEG tube and TPN being weaned off He does have difficulty swallowing. Speech therapy involved. His jaw pain got worse and started on Neurontin 300 mg twice a day. (3) 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 Current Visit: Yes Status: Chronic Assessment and plan: He has brain metastasis resected as mentioned. 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 Otherwise metastatic burden is low. But he does have infiltrative tongue lesion which has not been biopsied. It got better for a while but now he developed jaw pain. I am not sure if it is contributing to the swallowing problem. If necessary we will have the ENT involved and had that biopsied Overall his prognosis remains guarded given his poor general condition, failure to thrive. His CEA come down to 31 on 11/03/2016 as mentioned taking response to chemotherapy he had. Consider further chemotherapy depending on his general condition. Would avoid Avastin in the future Currently he is able to process enteral feeding through PEG tube in bowel movements are normal through right lower quadrant colostomy. Not sure if he is able to maintain nutrition just by enteral feeding. TPN is being weaned off Oncology: Subj Interval history: History of present illness Colon Perforation followed by surgical resection of sigmoid colon appendix with right lower quadrant colostomy Pathology report from 10/18/2016 showed benign appendix: Showed ischemia diverticulosis with diverticulitis perforation and reactive changes and no malignancy Since then his nutritional condition has declined. Requiring TPN. Albumin level has decreased to 1.8 on 11/14/2016 from 3.4 on 08/16/2016 Oncological history Diagnosis stage III rectal cancer. Clinical T3, N2, M0 CEA elevated to 69 on 04-11-14. A PET scan showed intense SUV of 17 and the mass but no other activity.. Neoadjuvant chemoradiation with Xeloda from 05/14/2014 to 06/21/2014. He was evaluated by Dr. Strong on and had [facility] August 2014 with permanent colostomy. Pathology from [facility] reviewed dated 08/27/2014 PT 3 invasive low-grade mucin producing adenocarcinoma. Invades through muscularis propria presented the perirectal adipose tissue. PN1b 2 out of 17 lymph nodes involved. Circumferential margin on deep margin negative. Proximal and distal margins negative. No lymphovascular or perineural invasion. Tumor deposit percent 1 and mesenteric adipose tissue. Adjuvant chemotherapy oxaliplatin 100 mg/m with Xeloda 1500 mg by mouth day one through 14 of 21 day cycle. Completed 5 cycles from 10/28/2014 to 01/21/2015. Colonoscopy by Dr Pena on 10/15/15 shows diverticulosis Progression to oligo metastatic disease CT chest w/o contrast on 10/22/15 shows 10 x13mm noncalcified left lower lobe pulmonary nodule. 2.3mm left upper lobe pulmonary nodule PET scan 10/29/2015 showed the left lower lobe nodule 14 mm the SUV 2.4 Robotic Left lower lobe lobectomy on 12/22/15-metastatic colorectal carcinoma, two foci, 1.7cm in greatest dimension. Other one was 0.7 x 0.5 cm .margins are negative for tumor. Lymph nodes -1 each on station 8, ,12A,11, 9 and12 B all negative CEA came down to 1.3 in February 2016 Brain metastasis from colon cancer 08/16/16, [facility] found left parietal lobe mass on MRI, 2.4 cm. with vasogenic edema. On 08/19/16, brain tumor removal at [place]. 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 Last CAT scan 2016 did confirm that. Nonspecific liver lesion would continue to follow that Chemotherapy in metastatic setting xeloda, captosar and avastin day one every in 21 days. Completed 2 cycles from 09/07/2016 to 09/29/2016 Further chemotherapy held due to hospitalization He did respond in CEA from 127 on 08/09/2016 to 78 on 09/29/2016. Further down to 31 on 11/03/2016 - Constitutional Vitals: Vital Signs Temp Pulse Resp BP Pulse Ox 11/16/16 16:44 16 99 11/16/16 15:31 97.8 F 76 16 115/77 92 11/16/16 10:29 98.4 F 89 16 108/67 97 11/16/16 07:14 16 99 11/16/16 06:48 99.3 F 77 16 136/81 97 11/16/16 04:00 98.3 F 97 15 130/87 95 11/15/16 21:00 98.4 F 86 16 118/80 98 11/15/16 18:59 98.4 F 86 16 118/80 98 Intake and Output 11/16/16 11/16/16 11/16/16 07:59 15:59 23:59 Intake Total 310 / 310 195 / 195 Output Total 825 / 825 325 / 325 Balance -515 / -515 -130 / -130 Intake: IV Fluids 250 / 250 105 / 105 Intralipid 20% 250 ML @ 250 / 250 21 mls/hr IVPB DAILY@1700 [facility] Rx#:[id number] Keppra 500 MG In 0.9 % 105 / 105 Sodium Chloride 100 ML @ 400 mls/hr IVPB DAILY [facility] Rx#:[id number] Oral 0 / 0 Free Water Intake Amount 60 / 60 90 / 90 Output: Urine 700 / 700 325 / 325 Stool 125 / 125 Wound Drainage 0 / 0 0 / 0 LUQ Peg Tube 0 / 0 Lower Medial Abdomen 0 / 0 0 / 0 Medial Abdomen 0 / 0 0 / 0 Other: Stool Consistency loose Stool Color Brown Yellow Blood Glucose* 119 124 Exam: GENERAL: Alert and oriented,deconditioned Mental Status: Affect appropriate for circumstances HEENT: Sclerae anicteric. No mucositis or thrush. No other oral or pharyngeal lesions or erythema. Skin: No rashes or petechiae. No evidence of skin malignancy Lymph nodes: No cervical, supraclavicular, axillary, or inguinal adenopathy. Lungs: Air entry normal with normal breath sounds. No rhonchi or wheezing Cardiovascular: Regular rate and rhythm. No skipped beats Abdomen: Soft, right-sided colostomy present Extremities: No edema. No calf swelling or tenderness. No joint deformity. Neurologic: Alert, cranial nerves II-XII intact; normal gait; no focal weakness or sensory abnormalities Oncology: Obj Data - Labs CBC & Chem 7: 11/15/16 04:19 11/17/16 05:00 Labs: Laboratory Results - last 24 hr 11/15/16 11/16/16 11/16/16 19:07 00:02 03:59 Sodium Potassium Chloride Carbon Dioxide BUN Creatinine Est GFR ( Amer) Est GFR (Non-Af Amer) BUN/Creatinine Ratio Glucose POC Glucose 115 H 120 H 119 H Calculated Osmolality Calcium Magnesium 11/16/16 11/16/16 11/16/16 05:52 10:05 11:38 Sodium 135 L Potassium 3.7 Chloride 106 Carbon Dioxide 25 BUN 19 Creatinine 0.49 L Est GFR ( Amer) > 60 Est GFR (Non-Af Amer) > 60 BUN/Creatinine Ratio 39 H Glucose 119 H POC Glucose 155 H 129 H Calculated Osmolality 283 Calcium 9.3 Magnesium 1.6 11/16/16 15:34 Sodium Potassium Chloride Carbon Dioxide BUN Creatinine Est GFR ( Amer) Est GFR (Non-Af Amer) BUN/Creatinine Ratio Glucose POC Glucose 124 H Calculated Osmolality Calcium Magnesium - ABG Interpretation ABG results: PT/INR, D-dimer PT 13.3 Seconds (9.4-12.1) H 11/07/16 22:14 Consult Discharge Plan - Plan Referrals: NONE,PCP [Primary Care Provider] -
[2016-11-16] MEDS: Mirtazapine 15 MG TABLET GTUBE SCH (20:33)
[2016-11-16] MEDS: *HR* LORazepam 2 MG/ML VIAL IVP SCH (23:11)
[2016-11-17] MEDS: *HR* Morphine 2 MG/ML SYRINGE IVP PRN ×4 (03:12→16:53)
[2016-11-17] MEDS: Acetylcysteine 10% 2 ML INHSOL IH SCH ×4 (03:38→22:53)
[2016-11-17 05:44] LABS: Ionized Calcium 1.42 mmol/L (1.15-1.35)
[2016-11-17 05:56] LABS: BUN/Creatinine Ratio 33 (6-26); Blood Urea Nitrogen 17 mg/dL (8-26); Calcium 9.6 mg/dL (8.6-10.8); Chloride 106 mEq/L (98-109); Glucose 114 mg/dL (70-99); Magnesium 1.5 mg/dL (1.6-2.6); Osmolality,Calculated 286 (280-300); Phosphorous 2.9 mg/dL (2.3-4.7); Potassium 3.6 mEq/L (3.5-4.5); Sodium 137 mEq/L (136-145); eGFR For African Americans > 60 (> 60); eGFR For Non-African Americans > 60 (> 60)
[2016-11-17 06:27] LABS: Carbon Dioxide 25 mEq/L (19-29)
[2016-11-17] MEDS: *HR* Heparin 5,000 UNIT/ML VIAL SQ SCH ×3 (06:32→20:48)
[2016-11-17] MEDS: *HR* LORazepam 2 MG/ML VIAL IVP PRN (06:33)
[2016-11-17] MEDS: Metoclopramide 10 MG/2 ML VIAL IVP SCH ×4 (06:33→23:02)
[2016-11-17] MEDS: Docusate Oral Soln 100 MG/10 ML UDC GTUBE SCH ×2 (09:14→20:47)
[2016-11-17] MEDS: Gabapentin 300 MG CAPSULE GTUBE SCH ×2 (09:14→20:48)
[2016-11-17] MEDS: Fluticasone Propionate Nasal 50 MCG/SPRAY BOTTLE NS SCH (09:15)
[2016-11-17] MEDS: Ipratropium/Albuterol Neb 3 ML IH SCH ×3 (09:36→22:53)
--- NOTE | 2016-11-17 10:32 | Palliative Progress Note ---
Date of Encounter: 11/17/16 Time of Encounter: 10:30 - Assessment and plan (1) Abdominal pain Current Visit: Yes Status: Acute Assessment and plan: Remains on Fentanyl patch and IV Morphine for breakthrough. Feedings currently running at 50/hr. No nausea. Breakthrough pain med could be changed to PEG soon, may assist with decreasing his drowsiness and Qualifiers: Abdominal location: generalized Qualified Code(s): R10.84 - Generalized abdominal pain (2) Anxiety Current Visit: Yes Status: Acute Assessment and plan: Remains on Lorazepam. This could be transitioned to PEG administration. (3) Counseling regarding advanced care planning and goals of care Current Visit: Yes Status: Acute Assessment and plan: Continues to tolerate feedings, currently at 50/hr. Patient's goal continues to be to pursue rehab, in hopes of further chemotherapy. Palliative following at a distance. (4) Protein-calorie malnutrition, severe Current Visit: Yes Status: Acute (5) 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 Current Visit: Yes Status: Chronic - Time Spent With Patient Total time spent is greater than 50% in coordination of care (as documented) at patient's floor/unit and/or counseling patient: 25 - 35 minutes - Subjective Interval history: Patient awake and alert, up on side of bed. at bedside. Patient upset wanting to drink water. Has been working with speech therapy. Still utilizing quite a bit of IV Morphine, and has difficulty keeping him awake. - Constitutional Vitals: Abnormal lab results RBC 2.63 M/mcL (4.19-5.50) L 11/15/16 04:19 Hgb 8.2 g/dL (12.9-16.9) L 11/15/16 04:19 Hct 25.7 % (37.5-50.1) L 11/15/16 04:19 RDW 15.2 % (11.5-14.5) H 11/15/16 04:19 Metamyelocytes % 2.0 % (0) H 10/24/16 04:15 Nucleated RBCs/100 WBC 0.2 /100 WBC (0) H 11/03/16 06:39 Toxic Granulation Present (Not Present) A 10/23/16 10:13 Polychromasia 1+ (Not Present) A 10/22/16 03:20 Anisocytosis 1+ (Not Present) A 10/22/16 03:20 Macrocytosis Present (Not Present) A 10/22/16 03:20 PT 13.3 Seconds (9.4-12.1) H 11/07/16 22:14 Creatinine 0.51 mg/dL (0.72-1.25) L 11/17/16 05:00 BUN/Creatinine Ratio 33 (6-26) H 11/17/16 05:00 Glucose 114 mg/dL (70-99) H 11/17/16 05:00 POC Glucose 125 (58-89) H 11/17/16 07:22 Ionized Calcium 1.42 mmol/L (1.15-1.35) H 11/17/16 05:00 Magnesium 1.5 mg/dL (1.6-2.6) L 11/17/16 05:00 Alkaline Phosphatase 137 Units/L (38-126) H 11/14/16 04:05 Albumin 1.8 g/dL (3.5-5.0) L 11/14/16 04:05 Globulin 4.2 g/dL (2.4-3.5) H 11/14/16 04:05 Albumin/Globulin Ratio 0.4 (1.1-2.2) L 11/14/16 04:05 Prealbumin 15.0 mg/dL (18.0-45.0) L 11/12/16 05:56 Amylase 23 Units/L (25-125) L 10/26/16 04:20 Carcinoembryonic Ag 31.6 ng/mL (0-5.0) H 11/03/16 06:39 Vancomycin Trough 0.8 mcg/mL (10-20) L 10/29/16 03:30 General appearance: Present: no acute distress - Respiratory Respiratory exam: Present: decreased breath sounds, CTAB - Cardiovascular Cardiovascular exam: Present: +S1, +S2 - GI/Abdominal Additional comments: Wound vac intact. Brown stool noted in ostomy appliance - Additional comments: Voids per urinal - Extremities Exam Extremities exam: Present: normal capillary refill, normal inspection - Psychiatric Psychiatric exam: Present: depressed, flat affect - Skin Skin exam: Present: dry, pallor, warm Palliative Quality Palliative Quality: Screen for Code Status: Yes, Screen for Goals of Care: Yes, Screen for Pain: Yes, If Pain Regimen Started, Initiate Bowel Regimen: NA, Screen for Nausea/Vomitting: Yes Code Status: 10/18/16 17:46 Resuscitation Status: Active [RES] Routine Comment: Resuscitation Status: Full Code 11/12/16 14:45 DNR [Resuscitation Status: Active] [RES] Routine Comment: Resuscitation Status: [id number] - Labs CBC & Chem 7: 11/15/16 04:19 11/17/16 05:00 Labs: Laboratory Results - last 24 hr 11/16/16 11/16/16 11/16/16 11:38 15:34 20:15 Sodium Potassium Chloride Carbon Dioxide BUN Creatinine Est GFR ( Amer) Est GFR (Non-Af Amer) BUN/Creatinine Ratio Glucose POC Glucose 129 H 124 H 126 H Calculated Osmolality Calcium Ionized Calcium Phosphorus Magnesium 11/16/16 11/17/16 11/17/16 23:26 05:00 07:22 Sodium 137 Potassium 3.6 Chloride 106 Carbon Dioxide 25 BUN 17 Creatinine 0.51 L Est GFR ( Amer) > 60 Est GFR (Non-Af Amer) > 60 BUN/Creatinine Ratio 33 H Glucose 114 H POC Glucose 106 H 125 H Calculated Osmolality 286 Calcium 9.6 Ionized Calcium 1.42 H Phosphorus 2.9 Magnesium 1.5 L - ABG Interpretation ABG results: PT/INR, D-dimer PT 13.3 Seconds (9.4-12.1) H 11/07/16 22:14 Consult Discharge Plan - Plan Referrals: NONE,PCP [Primary Care Provider] -
--- NOTE | 2016-11-17 10:55 | General Surgery Progress Note ---
<Kamar Hanna - Last Filed: 11/17/16 11:25> Date of Encounter: 11/17/16 Time of Encounter: 10:00 - Assessment and Plan (1) S/P colectomy Current Visit: Yes Status: Acute Continue to advance tube feeds as tolerated. Patient reports nausea yesterday a.m. He is currently on 50cc/hr. Continue at 50cc/hr for this afternoon and advance if tolerated. Current goal is 70cc/hr. If patient reaches goal, we will consider discontinuing TPN. Continue meds down peg due to dysphagia. Continue pain and wound care with wound vac changes. Colostomy care. Supportive and wound care. Continue pain management. PT/OT/ST Plan for discharge next Tuesday. (2) Hypertension Current Visit: No Status: Chronic BP is stable. Continue current blood pressure medications Qualifiers: Hypertension type: essential hypertension Qualified Code(s): I10 - Essential (primary) hypertension (3) 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 Current Visit: Yes Status: Chronic Manage per oncology (4) Hypomagnesemia Current Visit: No Status: Acute Mg Sulfate 2gm once. Monitor with a.m. labs (5) Protein-calorie malnutrition, severe Current Visit: Yes Status: Acute Continue TPN and tube feeds. Will consider discontinuing TPN if tube feed goat of 70cc/hr met by Tuesday. (6) Dysphagia Current Visit: Yes Status: Acute Patient was unable to work with speech therapist or PT/OT due to increased grogginess. Will speak with nurse regarding administration time of lorazepam. Continue meds and feeds down PEG tube. NPO and TPN until tube feed goals reached. Qualifiers: Dysphagia type: pharyngeal phase Qualified Code(s): R13.13 - Dysphagia, pharyngeal phase (7) DVT prophylaxis Current Visit: Yes Status: Acute Heparin 5000 units SQ Q8h for DVT prophylaxis Subjective Patient reports: no new complaints, voiding w/o difficulty, flatus, bowel movement (via stoma), afebrile Objective Vital Signs - Last 8 Hours Temp Pulse Resp BP Pulse Ox 11/17/16 09:36 20 97 11/17/16 07:21 98.9 F 93 17 141/89 98 Intake and Output 11/16/16 11/17/16 11/17/16 23:59 07:59 15:59 Intake Total 30 / 30 0 / 0 30 / 30 Output Total 525 / 525 200 / 200 0 / 0 Balance -495 / -495 -200 / -200 Intake: Oral 0 / 0 0 / 0 Free Water Intake Amount Output: Urine 525 / 525 0 / 0 Stool 200 / 200 Wound Drainage 0 / 0 LUQ Peg Tube 0 / 0 Other: Meal NPO NPO Percent of Meal Consumed 0% 0% Stool Size Small Stool Consistency loose liquid Stool Color Brown Green Yellow Blood Glucose* 106 125 - General physical appearance cachectic, chronically ill - Eyes normal ocular movement - ENT normocephalic, CN 2-12 grossly intact - Neck Neck exam: trachea midline - Respiratory normal expansion, clear to auscultation - Cardiovascular Cardiovascular exam: Present: RRR, no murmurs/rubs/gallops - Abdomen Abdomen: Present: bowel sounds present, soft, non tender, wound (colostomy with flatus and yellow stool. Wound vac draining well. ) - Psychiatric speech is normal, memory intact - Labs 11/15/16 04:19 11/17/16 05:00 Diabetes panel 11/17/16 Range/Units 05:00 Sodium 137 (136-145) mEq/L Potassium 3.6 (3.5-4.5) mEq/L Chloride 106 (98-109) mEq/L Carbon Dioxide 25 (19-29) mEq/L BUN 17 (8-26) mg/dL Creatinine 0.51 L (0.72-1.25) mg/dL Glucose 114 H (70-99) mg/dL Calcium 9.6 (8.6-10.8) mg/dL Calcium panel 11/17/16 Range/Units 05:00 Calcium 9.6 (8.6-10.8) mg/dL Phosphorus 2.9 (2.3-4.7) mg/dL Pituitary panel 11/17/16 Range/Units 05:00 Sodium 137 (136-145) mEq/L Potassium 3.6 (3.5-4.5) mEq/L Chloride 106 (98-109) mEq/L Carbon Dioxide 25 (19-29) mEq/L BUN 17 (8-26) mg/dL Creatinine 0.51 L (0.72-1.25) mg/dL Glucose 114 H (70-99) mg/dL Calcium 9.6 (8.6-10.8) mg/dL Adrenal panel 11/17/16 Range/Units 05:00 Sodium 137 (136-145) mEq/L Potassium 3.6 (3.5-4.5) mEq/L Chloride 106 (98-109) mEq/L Carbon Dioxide 25 (19-29) mEq/L BUN 17 (8-26) mg/dL Creatinine 0.51 L (0.72-1.25) mg/dL Glucose 114 H (70-99) mg/dL Calcium 9.6 (8.6-10.8) mg/dL - VTE Documentation of Mechanical Device: Intermittent pneumatic compression device Consult Discharge Plan - Plan Referrals: NONE,PCP [Primary Care Provider] - <Loly Valentine - Last Filed: 11/17/16 17:03> Date of Encounter: 11/17/16 Time of Encounter: 12:30 - Assessment and Plan (1) Abdominal pain Current Visit: Yes Status: Acute weaning narcotics Qualifiers: Abdominal location: generalized Qualified Code(s): R10.84 - Generalized abdominal pain (2) Hypertension Current Visit: No Status: Chronic Qualifiers: Hypertension type: essential hypertension Qualified Code(s): I10 - Essential (primary) hypertension (3) DVT prophylaxis Current Visit: Yes Status: Acute (4) 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 Current Visit: Yes Status: Chronic (5) S/P colectomy Current Visit: Yes Status: Acute contnue to advance tube feeds to goal, prn pain control wound care PT/OT dc planning once tube feeds to goal and tolerated (6) Protein-calorie malnutrition, severe Current Visit: Yes Status: Acute dc TPN tomorrow (do not reorder tomorrow) (7) Nausea and vomiting Current Visit: Yes Status: Resolved Qualifiers: Vomiting type: unspecified Vomiting Intractability: non-intractable Qualified Code(s): R11.2 - Nausea with vomiting, unspecified (8) Dysphagia Current Visit: Yes Status: Acute continue speech therapy Qualifiers: Dysphagia type: pharyngeal phase Qualified Code(s): R13.13 - Dysphagia, pharyngeal phase Subjective Patient reports: no new complaints, voiding w/o difficulty, flatus Narrative: tolerating tube feeds - currently at 50 cc/hr had some nausea last evening and they decreased the rate for a little bit then went back up Objective Vital Signs - Last 8 Hours Temp Pulse Resp BP Pulse Ox 11/17/16 16:06 24 95 11/17/16 15:28 97.5 F L 121 20 123/77 96 11/17/16 11:14 98.0 F 99 18 127/78 95 11/17/16 09:36 20 97 Intake and Output 11/17/16 11/17/16 11/17/16 07:59 15:59 23:59 Intake Total 0 / 0 30 / 30 Output Total 200 / 200 1200 / 1200 Balance -200 / -200 -1170 / -1170 Intake: Oral 0 / 0 0 / 0 Free Water Intake Amount 30 Output: Urine 0 / 0 775 / 775 Stool 200 / 200 425 / 425 Wound Drainage 0 / 0 LUQ Peg Tube 0 / 0 Other: Meal NPO Percent of Meal Consumed 0% Stool Size Small Stool Consistency liquid loose Stool Characteristics Normal for Patient Stool Color Green Brown Blood Glucose* 125 132 - General physical appearance cachectic, chronically ill - Eyes PERRL, normal ocular movement - ENT dry mucosa, normocephalic - Respiratory normal expansion, clear to auscultation - Cardiovascular Cardiovascular exam: Present: RRR - Abdomen Abdomen: Present: bowel sounds present, soft, non tender, wound - Integumentary no rash, no growths - Neurologic CN 2-12 grossly intact - Musculoskeletal normal posture - Psychiatric oriented to time, speech is normal, memory intact - Labs 11/15/16 04:19 11/17/16 05:00 Diabetes panel 11/17/16 Range/Units 05:00 Sodium 137 (136-145) mEq/L Potassium 3.6 (3.5-4.5) mEq/L Chloride 106 (98-109) mEq/L Carbon Dioxide 25 (19-29) mEq/L BUN 17 (8-26) mg/dL Creatinine 0.51 L (0.72-1.25) mg/dL Glucose 114 H (70-99) mg/dL Calcium 9.6 (8.6-10.8) mg/dL Calcium panel 11/17/16 Range/Units 05:00 Calcium 9.6 (8.6-10.8) mg/dL Phosphorus 2.9 (2.3-4.7) mg/dL Pituitary panel 11/17/16 Range/Units 05:00 Sodium 137 (136-145) mEq/L Potassium 3.6 (3.5-4.5) mEq/L Chloride 106 (98-109) mEq/L Carbon Dioxide 25 (19-29) mEq/L BUN 17 (8-26) mg/dL Creatinine 0.51 L (0.72-1.25) mg/dL Glucose 114 H (70-99) mg/dL Calcium 9.6 (8.6-10.8) mg/dL Adrenal panel 11/17/16 Range/Units 05:00 Sodium 137 (136-145) mEq/L Potassium 3.6 (3.5-4.5) mEq/L Chloride 106 (98-109) mEq/L Carbon Dioxide 25 (19-29) mEq/L BUN 17 (8-26) mg/dL Creatinine 0.51 L (0.72-1.25) mg/dL Glucose 114 H (70-99) mg/dL Calcium 9.6 (8.6-10.8) mg/dL - Attending Attestation I examined this patient and my medical decision-making was reviewed with the Resident Physician. I agree with the documented findings, disposition and treatment plan as described except to the extent set forth below.
[2016-11-17] MEDS ORDERED: Magnesium Sulfate 2 GM in D5% in Water 100 ML IVPB ONE (11:14)
[2016-11-17] MEDS: *HR* FentaNYL PATCH 12 MCG PATCH TD SCH (11:22)
[2016-11-17] MEDS ORDERED: Ondansetron Oral Soln 2 MG/2.5 ML ORAL.SYG PO PRN (12:12)
[2016-11-17] MEDS: *HR* LORazepam 0.5 MG TABLET PO PRN (15:46)
[2016-11-17] MEDS ORDERED: Clinimix E 5%-20% SOLUTION 2,000 ML with MVI, adult with vitamin K 10 ML IVC SCH (17:00)
[2016-11-17] MEDS: Mirtazapine 15 MG TABLET GTUBE SCH (20:48)
[2016-11-17] MEDS: *HR* LORazepam 1 MG TABLET PO PRN (23:02)
[2016-11-18] MEDS: Acetylcysteine 10% 2 ML INHSOL IH SCH ×4 (04:51→22:10)
[2016-11-18] MEDS: *HR* Heparin 5,000 UNIT/ML VIAL SQ SCH ×3 (06:44→21:37)
[2016-11-18] MEDS: *HR* OxyCODONE Immed Rel 5 MG TABLET PO PRN ×3 (06:44→20:06)
[2016-11-18] MEDS: Metoclopramide 10 MG/2 ML VIAL IVP SCH ×3 (06:45→17:55)
[2016-11-18 07:56] LABS: Basophils % 0.4 %; Eosinophils # 0.3 K/mcL (0.0-0.6); Hematocrit 25.3 % (37.5-50.1); Hemoglobin 8.3 g/dL (12.9-16.9); Immature Granulocytes % 0.6 % (0-4); Lymphocytes # 0.6 K/mcL (0.6-4.6); Lymphocytes % 7.4 %; Mean Corpuscular HGB Conc 32.8 g/dL (31.6-35.5); Mean Corpuscular Hemoglobin 31.9 pg (28.0-33.3); Mean Corpuscular Volume 97.3 fL (83.0-100.0); Mean Platelet Volume 10.3 fL (9.4-12.4); Monocytes # 0.6 K/mcL (0.0-1.3); Monocytes % 6.5 %; Platelet Count 236 K/mcL (140-400); Red Cell Distribution Width 15.3 % (11.5-14.5); Segmented Neutrophils % 82.1 %
[2016-11-18 08:20] LABS: BUN/Creatinine Ratio 32 (6-26); Blood Urea Nitrogen 17 mg/dL (8-26); Calcium 9.7 mg/dL (8.6-10.8); Carbon Dioxide 25 mEq/L (19-29); Chloride 107 mEq/L (98-109); Glucose 119 mg/dL (70-99); Magnesium 1.5 mg/dL (1.6-2.6); Osmolality,Calculated 289 (280-300); Potassium 3.8 mEq/L (3.5-4.5); Sodium 138 mEq/L (136-145); eGFR For African Americans > 60 (> 60); eGFR For Non-African Americans > 60 (> 60)
--- NOTE | 2016-11-18 10:21 | Event Note ---
Date of Encounter: 11/18/16 Time of Encounter: 10:20 Patient sleeping quietly - at bedside. At goal with feeding. Requiring less pain medication. Participating with speech, and PT/OT. Plan for [facility] possibly tomorrow. I discussed with pt and completing state DNR form, if he desires this order to continue when he leaves the hospital. Patient became emotional, crying and stating, this is big decision. Rediscussed the conversation last week, when he declared his wishes. states, we will not do this form now, will decide when he is at the ECF. Explained to that ECF physician could complete. Palliative will sign off. Please reconsult if needed.
[2016-11-18] MEDS: Ipratropium/Albuterol Neb 3 ML IH SCH ×3 (10:25→22:10)
[2016-11-18] MEDS: Gabapentin 300 MG CAPSULE GTUBE SCH ×2 (10:45→20:06)
[2016-11-18] MEDS: Docusate Oral Soln 100 MG/10 ML UDC GTUBE SCH ×2 (10:46→20:06)
[2016-11-18] MEDS: Fluticasone Propionate Nasal 50 MCG/SPRAY BOTTLE NS SCH (11:09)
[2016-11-18] MEDS: *HR* LORazepam 0.5 MG TABLET PO PRN (11:12)
--- NOTE | 2016-11-18 15:15 | General Surgery Progress Note ---
Date of Encounter: 11/18/16 Time of Encounter: 15:11 - Assessment and Plan (1) S/P colectomy Current Visit: Yes Status: Acute Ostomy with output noted. Continue TF at goal Stop TPN tonight Stop wound; cover previous wound vac sites with Mesalt and dry dressing D/c planning to rehab in the next 24-48 hours pending clinical course (2) Ileus Current Visit: Yes Status: Resolved See further plan above. (3) Protein-calorie malnutrition, severe Current Visit: Yes Status: Acute See plan above. Continue NPO and TF. Continue ST (4) Nausea and vomiting Current Visit: Yes Status: Resolved Continue antiemetics. see plan above Qualifiers: Vomiting type: unspecified Vomiting Intractability: non-intractable Qualified Code(s): R11.2 - Nausea with vomiting, unspecified (5) 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 Current Visit: Yes Status: Chronic Management per oncology. (6) DVT prophylaxis Current Visit: Yes Status: Acute SCDs while in bed Mobilize as tolerated per PT/OT Heparin 5000 units Q8H SQ (7) Leukocytosis Current Visit: Yes Status: Resolved Resolved. We'll continue to follow. Qualifiers: Leukocytosis type: unspecified Qualified Code(s): D72.829 - Elevated white blood cell count, unspecified (8) Dysphagia Current Visit: Yes Status: Acute See plan above. Continue NPO and TF. Continue ST Qualifiers: Dysphagia type: pharyngeal phase Qualified Code(s): R13.13 - Dysphagia, pharyngeal phase Subjective Patient reports: no new complaints, feels better, pain is less, voiding w/o difficulty, flatus, bowel movement Narrative: Sitting upright in bed. Dorita () at bedside. Denies nausea. States he is feeling better and anxious to d/c to rehab. Objective Vital Signs - Last 8 Hours Temp Pulse Resp BP Pulse Ox 11/18/16 13:00 97.4 F L 87 15 117/75 96 11/18/16 10:28 18 97 11/18/16 07:12 97.7 F 101 18 112/70 97 Intake and Output 11/17/16 11/18/16 11/18/16 23:59 07:59 15:59 Intake Total 60 / 60 0 / 0 Output Total 550 / 550 610 / 610 150 / 150 Balance -490 / -490 -610 / -610 -150 / -150 Intake: Oral 0 / 0 0 / 0 Free Water Intake Amount 60 / 60 Output: Urine 525 / 525 410 / 410 100 / 100 Stool 25 / 25 200 / 200 50 / 50 Wound Drainage 0 / 0 LUQ Peg Tube 0 / 0 Other: Meal NPO Percent of Meal Consumed 0% Stool Consistency loose liquid Stool Color Brown Green Blood Glucose* 132 106 128 - General physical appearance no distress, no pain, chronically ill - Eyes normal ocular movement - ENT normal nares, dry mucosa, atraumatic, normocephalic, Other (Speech remains garbled) - Neck Neck exam: trachea midline - Respiratory normal expansion, normal respiratory effort, clear to auscultation - Cardiovascular Cardiovascular exam: Present: RRR - Abdomen Abdomen: Present: bowel sounds present, soft, non tender, wound (Preivous wound vac sites are granulated and free from s/s of infection) - Integumentary no rash - Neurologic CN 2-12 grossly intact - Musculoskeletal normal posture - Psychiatric oriented to time, oriented to person, oriented to place - Labs 11/18/16 07:47 11/18/16 07:47 Diabetes panel 11/18/16 Range/Units 07:47 Sodium 138 (136-145) mEq/L Potassium 3.8 (3.5-4.5) mEq/L Chloride 107 (98-109) mEq/L Carbon Dioxide 25 (19-29) mEq/L BUN 17 (8-26) mg/dL Creatinine 0.53 L (0.72-1.25) mg/dL Glucose 119 H (70-99) mg/dL Calcium 9.7 (8.6-10.8) mg/dL Calcium panel 11/18/16 Range/Units 07:47 Calcium 9.7 (8.6-10.8) mg/dL Pituitary panel 11/18/16 Range/Units 07:47 Sodium 138 (136-145) mEq/L Potassium 3.8 (3.5-4.5) mEq/L Chloride 107 (98-109) mEq/L Carbon Dioxide 25 (19-29) mEq/L BUN 17 (8-26) mg/dL Creatinine 0.53 L (0.72-1.25) mg/dL Glucose 119 H (70-99) mg/dL Calcium 9.7 (8.6-10.8) mg/dL Adrenal panel 11/18/16 Range/Units 07:47 Sodium 138 (136-145) mEq/L Potassium 3.8 (3.5-4.5) mEq/L Chloride 107 (98-109) mEq/L Carbon Dioxide 25 (19-29) mEq/L BUN 17 (8-26) mg/dL Creatinine 0.53 L (0.72-1.25) mg/dL Glucose 119 H (70-99) mg/dL Calcium 9.7 (8.6-10.8) mg/dL - VTE Documentation of Mechanical Device: Intermittent pneumatic compression device Consult Discharge Plan - Plan Referrals: NONE,PCP [Primary Care Provider] -
[2016-11-18] MEDS: Scopolamine Patch 1.5 MG PATCH.TD72 TD SCH (17:56)
[2016-11-18] MEDS: *HR* Morphine 2 MG/ML SYRINGE IVP PRN (18:08)
[2016-11-18] MEDS: *HR* LORazepam 1 MG TABLET PO PRN (21:36)
[2016-11-18] MEDS: Mirtazapine 15 MG TABLET GTUBE SCH (21:37)
[2016-11-19] MEDS: Metoclopramide 10 MG/2 ML VIAL IVP SCH ×3 (00:01→12:07)
[2016-11-19] MEDS: Acetylcysteine 10% 2 ML INHSOL IH SCH ×2 (03:51→09:27)
[2016-11-19] MEDS: *HR* Heparin 5,000 UNIT/ML VIAL SQ SCH (04:32)
[2016-11-19] MEDS: *HR* LORazepam 0.5 MG TABLET PO PRN ×3 (04:32→15:27)
[2016-11-19] MEDS: Ipratropium/Albuterol Neb 3 ML IH SCH (09:27)
[2016-11-19] MEDS: Docusate Oral Soln 100 MG/10 ML UDC GTUBE SCH (09:37)
[2016-11-19] MEDS: Gabapentin 300 MG CAPSULE GTUBE SCH (09:37)
[2016-11-19 10:51] VITALS: BP 130/78
[2016-11-19] MEDS: *HR* OxyCODONE Immed Rel 5 MG TABLET PO PRN (12:07)
--- NOTE | 2016-11-19 14:12 | Discharge Summary ---
Date of Encounter: 11/19/16 Time of Encounter: 14:00 - Discharge Diagnosis (1) S/P colectomy Priority: Primary Status: Resolved (2) Hypertension Priority: Secondary Status: Chronic Qualifiers: Hypertension type: essential hypertension Qualified Code(s): I10 - Essential (primary) hypertension (3) 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 Priority: Secondary Status: Chronic (4) Abdominal pain Priority: Secondary Status: Acute Qualifiers: Abdominal location: generalized Qualified Code(s): R10.84 - Generalized abdominal pain (5) Nausea and vomiting Priority: Secondary Status: Resolved Qualifiers: Vomiting type: unspecified Vomiting Intractability: non-intractable Qualified Code(s): R11.2 - Nausea with vomiting, unspecified (6) Ileus Priority: Secondary Status: Resolved (7) Protein-calorie malnutrition, severe Priority: Secondary Status: Acute (8) Anxiety Priority: Secondary Status: Chronic (9) Dysphagia Priority: Secondary Status: Acute Qualifiers: Dysphagia type: pharyngeal phase Qualified Code(s): R13.13 - Dysphagia, pharyngeal phase - Discharge Medications Prescriptions: LORazepam [Ativan] 0.5 mg PO Q4HR PRN #40 tab PRN Reason: Anxiety OxyCODONE Immed Rel [Roxicodone 5 MG] 5 mg PO Q4HR PRN #40 tab PRN Reason: Pain Metoclopramide [Reglan] 10 mg PO Q6HR #120 mls FentaNYL PATCH [Duragesic] 12 mcg TD Q72H #3 LORazepam [Ativan] 1 mg PO HS PRN #7 tab PRN Reason: Insomnia Home Medications: Cyanocobalamin (Vitamin B-12) [Vitamin B12] 1,000 mcg PO DAILY 11/08/14 [History ] Aspirin Enteric Coated [Aspirin EC] 81 mg PO DAILY 12/31/14 [History] Cholecalciferol (D-3) [Vitamin D] 1,000 unit PO DAILY 07/27/16 [History] Mv-Mn/FA/Vit K/Lycop/Lut/Coq10 [Daily Multivitamin Capsule] 1 tab PO DAILY 07/27 [History] Gabapentin [Neurontin] 300 mg PO TID #90 capsule 09/14/16 [Rx] Acetaminophen [Tylenol Susp] 650 mg GTUBE Q6HR PRN 11/19/16 [Rx] Docusate [Colace] 100 mg GTUBE BID 11/19/16 [Rx] FentaNYL PATCH [Duragesic] 12 mcg TD Q72H #3 11/19/16 [Rx] Fluticasone Propionate Nasal [Flonase] 50 mcg NS DAILY bottle 11/19/16 [Rx] Gabapentin [Neurontin] 300 mg GTUBE BID 11/19/16 [Rx] Heparin 5,000 unit SQ Q8HCO vial 11/19/16 [Rx] Ipratropium/Albuterol Neb [Duoneb] 3 ml IH [id number] inh 11/19/16 [Rx] LORazepam [Ativan] 0.5 mg PO Q4HR PRN #40 tab 11/19/16 [Rx] LORazepam [Ativan] 1 mg PO HS PRN #7 tab 11/19/16 [Rx] Lansoprazole [Prevacid] 30 mg GTUBE QAM 11/19/16 [Rx] Metoclopramide [Reglan] 10 mg PO Q6HR #120 mls 11/19/16 [Rx] Metoprolol [Lopressor] 12.5 mg GTUBE BID tab 11/19/16 [Rx] Mirtazapine [Remeron] 15 mg GTUBE HS tab 11/19/16 [Rx] Ondansetron Oral Soln [Zofran Oral Soln] 4 mg PO Q6H PRN 11/19/16 [Rx] OxyCODONE Immed Rel [Roxicodone 5 MG] 5 mg PO Q4HR PRN #40 tab 11/19/16 [Rx] Polyethylene Glycol 3350 [MiraLAX] 17 gm GTUBE DAILY 11/19/16 [Rx] Promethazine [Phenergan] 12.5 mg PO Q6HR PRN tab 11/19/16 [Rx] Saline Nasal [place] [[place] Nasal [place]] 2 spray NS Q2H PRN bottle 11/19/16 [Rx] Scopolamine Patch [Transderm-Scop] 1.5 mg TD Q72H 11/19/16 [Rx] Allergies/Adverse Reactions: 3 Allergy/AdvReac Type Severity Reaction Status Date / Time azithromycin Allergy Unknown unknown Verified 07/27/16 15:11 General Surgery Exam Initial Vital Signs Pulse Resp BP Pulse Ox 89 16 144/96 97 10/18/16 18:27 10/18/16 18:27 10/18/16 18:27 10/18/16 18:27 - General physical appearance well developed, no distress, moderate pain, chronically ill - Eyes normal ocular movement - ENT normal mucosa, atraumatic, normocephalic - Neck trachea midline - Respiratory normal respiratory effort, clear to auscultation, other (Diminished bibasilar bases) - Cardiovascular Cardiovascular exam: Present: RRR - Abdomen Abdomen general surgery: Present: bowel sounds present, soft, tender (expected tenderness (unchanged)), wound (Wounds healing well- 70% granulation tissue, 30 % fibrin; No surrounding erythema or induration; scant amount of seorus drainage noted; no tunnelling or undermining noted; Peg tube secure and tube feeds infusing at 70ml/hour; Colostomy is pink and moist with soft brown stool noted) - Incision Incision: Present: open (See wound assessment above) - Integumentary Integumentary general surgery: Present: warm and dry - Neurologic Present: CN 2-12 grossly intact - Musculoskeletal Present: other (severe deconditioning) - Psychiatric Psychiatric general surgery: Present: A&Ox3 Date of admission: 10/18/16 18:28 Primary care physician: PCP NONE Consults: 10/19/16 00:44 Consult to Time Motion Analyst [CONS] Routine Reason for SW Consult: will need DC home eventually with home care for wound vac 10/19/16 07:51 Consult to Physical Therapy [CONS] Routine Comment: Evaluate, develop and implement POC Reason for Consult: discharge planning OT [Consult to Occupational Therapy] [CONS] Routine Comment: Evaluate, develop and implement POC Reason for Consult: discharge planning 10/19/16 10:58 Consult to Oncology [CONS] Routine Consulting Provider: On[facility] Reason for Consult: Pt is known to Dr. Flores with metastatic disease. Possible new lesions to the brain and tongue (pt states inability to speak above a whisper for >7 days). Call Completed: Yes 10/19/16 17:20 Consult to ENT [CONS] Routine Consulting Provider: ENT Risa Reason for Consult: tongue lesion-see MRI Time Notified: 17:21 Call Completed: No 10/20/16 11:38 Consult to Invasive Line Access Team [CONS] Stat Reason for Consult: PICC Line Type: PICC consult to habilitation specialist [Consult to Nutrition] [CONS] Stat Comment: Total fluid rate 110c/hr. Maintenance fluids +TPN Consulting Provider: NUTRITION Reason for Dietary Consult: TPN Start and Manage 10/20/16 13:08 Consult to Invasive Line Access Team [CONS] Routine Reason for Consult: Picc Line Insertion Line Type: PICC 10/25/16 14:25 Consult to Infectious Diseases [CONS] Routine Consulting Provider: Infectious Disease Risa Reason for Consult: Called by Dr. Valentine. Time Notified: 14:26 Call Completed: Yes 10/26/16 16:48 Consult to Respiratory Therapy [CONS] Routine Reason for Consult: Accupap with breathing treatments Call Completed: Yes 11/03/16 18:51 Consult to Pastoral Services [CONS] Routine Comment: unsure of christian preference, would like to talk 11/12/16 12:44 Consult to Palliative Care [CONS] Routine Comment: Consulting Provider: Palliative Care Risa Reason for Consult: Goals of care in the setting of Metastatic rectal cancer Time Notified: 12:44 Call Completed: Yes Discharging clinician: Loly Valentine ([facility]) Anticipated date of discharge: 11/19/16 - Patient Status Disposition: Transfer Inpatient Rehab Fac Condition: Fair Functional capacity at discharge: independent ambulation Overall status at discharge: patient is not back to baseline - Discharge Instructions Instructions: Cellulitis (DC), Colectomy (DC) Follow Up With: NONE,PCP [Primary Care Provider] - Loly Valentine MD [Partnered Physician] - 12/01/16 1:50 pm Additional Instructions: #1 may shower #2 wash incisions/wounds with soap and water and pat dry daily #3 no lifting, pushing, pulling more than 15 pounds for the next 6 weeks #4 may climb stairs Physical therapy/occupational therapy/speech therapy daily Colostomy care- empty bag 2-3 times daily and as needed, change appliance every 5-7 days and as needed if leaking Wound care- clearance with soap and water and pat dry daily, apply Maxorb AG, cover with ABD pad and tape to secure daily Peg tube- Osmolite 1.2 at 70ml/randy - Diet and Activity Activity: other (See additional instructions above) Diet: other (Mechanically altered diet with honey thickened liquids; Osmolite 1.2 at 70 mL's per hour; freewater flushes 200 mL's every 6 hours) - Hospital Course Hospital course: Mr. Romano is a 71 year old male who was admitted to the hospital with perforated left colon and pneumoperitoneum. He was taken to the operating room and did undergo Exploratory laparotomy, takedown colostomy, takedown splenic flexure, left colectomy, right upper quadrant colostomy, appendectomy, lysis of adhesions on 10/18/2016. The patient has had a very complicated postoperative course. He has experienced a wound dehiscence which was managed with the use of wound VAC therapy. His wound has currently healed to the point that we are able to take the wound VAC off. We are placing Maxorb AG onto the remaining open wounds. He has also experienced a postoperative ileus most likely secondary to opioids and chronic illness. He did receive TPN therapy during the majority of his inpatient stay. He also had a PEG tube placed for gastric decompression. His bowel function has now improved and he has consistent stool output through his colostomy. The ileus did resolve with time, enemas, IV Reglan. The patient is currently tolerating tube feedings through his PEG tube at goal rate of 70 mL's per hour. The patient did experience aspiration during his postoperative course. Speech therapy has been constant tolerance been working with the patient for 1 week. He had a repeat swallow evaluation 10 day in which she passed. He has been advanced to a mechanically altered diet with honey thickened liquids. The patient did receive consultations from infectious disease, social sciences chair, palliative care, PICC team, oncology, PT, OT, Speech therapy during his hospitalization. He did receive IV antibiotics for the majority of his hospitalization and recommendations of ID were followed. The patient has progressed to the point where he may transition to rehabilitation. His vital signs are stable and he is afebrile. He is tolerating his tube feeds at goal and TPN has been weaned. He is ambulating with a walker without difficulty. He is voiding without difficulty. We will begin discharge planning to rehabilitation and plan for outpatient follow-up in the next 1-2 weeks. - Time Spent with Patient Total time spent providing and/or coordinating discharge services: Greater than 30 minutes Labs on day of discharge: Labs from last 24 hours 11/19/16 11/19/16 11/18/16 11:49 07:30 20:36 POC Glucose 111 H 120 H 105 H 11/18/16 17:44 POC Glucose 92 H - Impressions ITS Impressions Abdomen/Pelvis CT 10/25/16 18:30 IMPRESSION: Postoperative changes of recent distal colectomy with creation of a new right lower quadrant colostomy. No intra-abdominal abscess. Trace amounts of ascites and free intraperitoneal air are likely postoperative. No leak of enteric contrast. Right adrenal 14 mm nodule is new from 06/15/2016, compatible with a metastasis. D/ / 10/25/2016 19:47:17 Alessandro Yanez MD / barbara Interpreting Provider: Alessandro Yanez MD Abdomen X-Ray 11/02/16 16:09 IMPRESSION: 1. Right lower quadrant ostomy noted. 2. Nonspecific bowel gas pattern with air seen scattered within the small bowel loops. 3. The stomach appears somewhat distended with air. D/ / Santo Mcneal MD / Santo Mcneal MD Interpreting Provider: Santo Mcneal MD Videofluoroscopic Swallow 11/12/16 08:15 IMPRESSION: Aspiration with thin liquids. Please see separate speech pathology report for full discussion of findings and recommendations. D/ / Everette Red MD / Everette Red MD Interpreting Provider: Everette Red MD Abdomen/Pelvis CT 11/12/16 10:30 IMPRESSION: 1. No evidence of obstruction. 2. Gastrostomy tube is present. 3. 3 x 2.3 cm fluid collection along the superior anterior abdominal wall is new since the prior exam. No findings to suggest abscess. 4. Inferior right hepatic lesion, not clearly seen on the prior CT scan, but probably present, differences due to differences in contrast enhancement timing. There is no metabolic activity in this region on the prior PET-CT scan, and this may be a benign process. Attention on follow-up. 5. Right adrenal metastasis. D/ / Franklin Kyle MD / Franklin Kyle MD Interpreting Provider: Franklin Kyle MD Head CT 11/13/16 14:57 IMPRESSION: A tiny high attenuation area is seen in the left frontoparietal region at the site of prior brain mass. This may represent tiny residual lesion or an area of post treatment change. If indicated, MRI with contrast may be helpful for further evaluation. The previously seen vasogenic edema has significantly decreased. No new areas of vasogenic edema identified. There is no mass effect. D/ / Adri Cochran MD / Adri Cochran MD Interpreting Provider: Adri Cochran MD Videofluoroscopic Swallow 11/19/16 00:01 IMPRESSION: 1. Deep penetration with normal swallow of nectar thickened liquids which resolves with head turning maneuver. 2. No valeria aspiration. 3. Redemonstration of diffuse pharyngeal weakness. Please see separate speech pathology report for full discussion of findings and recommendations. D/ / 11/19/2016 09:31:30 Malik Bacon MD / Sania Barkley Interpreting Provider: Malik Bacon MD - Attending Attestation For this encounter, I have reviewed the DRAMA DIRECTOR or PA documentation, treatment plan, and medical decision making; and I have had face to face time with this patient.
--- NOTE | 2016-11-19 14:48 | Physician Discharge Referral ---
ExtendedCare Referral Info Transfer To: Inpatient Rehabilitation facility Provider in Charge: Dr. Loly Valentine Provider in Charge after Transfer: Other (Dr. Loly Valentine) Institutional Level of Care: Skilled - Diagnosis (1) S/P colectomy Priority: Primary Status: Resolved (2) Hypertension Priority: Secondary Status: Chronic (3) 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 Priority: Secondary Status: Chronic (4) Abdominal pain Priority: Secondary Status: Acute (5) Nausea and vomiting Priority: Secondary Status: Resolved (6) Ileus Priority: Secondary Status: Resolved (7) Protein-calorie malnutrition, severe Priority: Secondary Status: Acute (8) Anxiety Priority: Secondary Status: Chronic (9) Dysphagia Priority: Secondary Status: Acute Expected Duration of Placement: Less than 30 days Prognosis: Fair Aware of Diagnosis: Patient, Family Aware of Prognosis: Patient, Family - Transfer Medications Prescriptions: LORazepam [Ativan] 0.5 mg PO Q4HR PRN #40 tab PRN Reason: Anxiety OxyCODONE Immed Rel [Roxicodone 5 MG] 5 mg PO Q4HR PRN #40 tab PRN Reason: Pain Metoclopramide [Reglan] 10 mg PO Q6HR #120 mls FentaNYL PATCH [Duragesic] 12 mcg TD Q72H #3 LORazepam [Ativan] 1 mg PO HS PRN #7 tab PRN Reason: Insomnia Home Medications: Cyanocobalamin (Vitamin B-12) [Vitamin B12] 1,000 mcg PO DAILY 11/08/14 [History ] Aspirin Enteric Coated [Aspirin EC] 81 mg PO DAILY 12/31/14 [History] Cholecalciferol (D-3) [Vitamin D] 1,000 unit PO DAILY 07/27/16 [History] Mv-Mn/FA/Vit K/Lycop/Lut/Coq10 [Daily Multivitamin Capsule] 1 tab PO DAILY 07/27 [History] Gabapentin [Neurontin] 300 mg PO TID #90 capsule 09/14/16 [Rx] Acetaminophen [Tylenol Susp] 650 mg GTUBE Q6HR PRN 11/19/16 [Rx] Docusate [Colace] 100 mg GTUBE BID 11/19/16 [Rx] FentaNYL PATCH [Duragesic] 12 mcg TD Q72H #3 11/19/16 [Rx] Fluticasone Propionate Nasal [Flonase] 50 mcg NS DAILY bottle 11/19/16 [Rx] Gabapentin [Neurontin] 300 mg GTUBE BID 11/19/16 [Rx] Heparin 5,000 unit SQ Q8HCO vial 11/19/16 [Rx] Ipratropium/Albuterol Neb [Duoneb] 3 ml IH [id number] inh 11/19/16 [Rx] LORazepam [Ativan] 0.5 mg PO Q4HR PRN #40 tab 11/19/16 [Rx] LORazepam [Ativan] 1 mg PO HS PRN #7 tab 11/19/16 [Rx] Lansoprazole [Prevacid] 30 mg GTUBE QAM 11/19/16 [Rx] Metoclopramide [Reglan] 10 mg PO Q6HR #120 mls 11/19/16 [Rx] Metoprolol [Lopressor] 12.5 mg GTUBE BID tab 11/19/16 [Rx] Mirtazapine [Remeron] 15 mg GTUBE HS tab 11/19/16 [Rx] Ondansetron Oral Soln [Zofran Oral Soln] 4 mg PO Q6H PRN 11/19/16 [Rx] OxyCODONE Immed Rel [Roxicodone 5 MG] 5 mg PO Q4HR PRN #40 tab 11/19/16 [Rx] Polyethylene Glycol 3350 [MiraLAX] 17 gm GTUBE DAILY 11/19/16 [Rx] Promethazine [Phenergan] 12.5 mg PO Q6HR PRN tab 11/19/16 [Rx] Saline Nasal [place] [[place] Nasal [place]] 2 spray NS Q2H PRN bottle 11/19/16 [Rx] Scopolamine Patch [Transderm-Scop] 1.5 mg TD Q72H 11/19/16 [Rx] Allergies/Adverse Reactions: 3 Allergy/AdvReac Type Severity Reaction Status Date / Time azithromycin Allergy Unknown unknown Verified 07/27/16 15:11 - Respiratory Orders None - Ancillary Orders May use pressure relief devices daily prn, May go on ABIODUN w/family/respon green party w /meds at nurse discretion PRN, May consult with Dentist, Insurance Claims Adjuster, Computer Training Specialist PRN - Advance Directives Code Status: Full Code - Mobility Orders Chair, Ambulate - Rehabiliation Orders Rehab Potential: Fair Rehab Orders: ROM Exercises, Evaluation for Physical Therapy, Evaluation for Occupational Therapy, Evaluation for Speech Therapy - Treatments Skin tear care topically daily PRN per policy List/Other: #1 may shower #2 wash incisions/wounds with soap and water and pat dry daily #3 no lifting, pushing, pulling more than 15 pounds for the next 6 weeks #4 may climb stairs Physical therapy/occupational therapy/speech therapy daily Colostomy care- empty bag 2-3 times daily and as needed, change appliance every 5-7 days and as needed if leaking Wound care- clearance with soap and water and pat dry daily, apply Maxorb AG, cover with ABD pad and tape to secure daily Peg tube- Osmolite 1.2 at 70ml/hour - Diet Orders Tube Feedings (type/amount/rate): Mechanically altered diet with honey thickened liquids Osmolite 1.2 at 70 mL's per hour Freewater flushes 200 mL's every 6 hours Flush Tube (type/amount/frequency): Freewater flushes- 200 mL's every 6 hours CERTIFICATION: I certify that the transfer of the above named patient to an Extended Care Facility is necessary for the continuing treatment of the diagnosis listed. The above information is true and accurate reflection of patient's current condition. Confidential - Redisclosure prohibited without a patient's written consent.
[2016-11-20] MEDS ORDERED: *HR* FentaNYL PATCH 12 MCG PATCH TD SCH (12:00)
== END 2016-11-19 15:54 | DRG 329 ==
LOC: 3ANU
PROVIDERS: ADMIT Surgery; ATTEND Surgery
PROC: GENAPPY (ICD-10-PCS; 2016-10-18 18:00)